=== PATIENT | female | born 1995 | race Native Hawaiian/Other Pacific Islander ===

== ENCOUNTER 2020-07-08 09:11 | Outpatient (REF) | payer MEDICAID, SELFPAY | END 2020-07-08 09:12 | disposition home or self-care (01) | LOC: HO.SCI 09:11 | DX: Z13.89 Encounter for screening for other disorder (principal) ==

== ENCOUNTER 2020-07-12 08:09 | Outpatient (REF) | payer MEDICAID, SELFPAY ==
--- NOTE | ~2020-07-12 | US_ITS ---
EXAMINATION: US DIAGNOSTIC ULTRASOUND BREAST, LEFT CLINICAL INFORMATION: Bilateral breast pain. COMPARISON: None at this time. Studies available from outside institution being sent for. TECHNIQUE: Ultrasound of the breast is performed with real-time mendieta scale imaging and color Doppler. FINDINGS: There is no focal suspicious finding. There is no solid mass, architectural abnormality, duct ectasia, or edema in the soft tissue planes. In the region of pain within the upper outer quadrant there is some waviness to the breast implant likely related to folds without definite rupture identified within the adjacent tissues. Results are provided to the patient at time of visit by the technologist. US/US breast LT limited IMPRESSION: No suspicious abnormality identified in region of pain. No definite implant rupture appreciated but with somewhat limited evaluation in regions due to probable folds. Will await outside studies for comparison before giving final recommendation. ASSESSMENT: BI-RADS 0: Incomplete - Need comparison to previous studies. RECOMMENDATION: Obtain outside studies. If outside studies cannot be obtained, then consideration of bilateral breast MRI could be done for better evaluation of breast implants.
--- NOTE | ~2020-07-12 | US_ITS ---
EXAMINATION: US DIAGNOSTIC ULTRASOUND BREAST, RIGHT CLINICAL INFORMATION: Retroareolar pain. COMPARISON: None at this time. Attempt to obtain outside studies. TECHNIQUE: Ultrasound of the breast is performed with real-time mendieta scale imaging and color Doppler. FINDINGS: There is no focal suspicious finding. There is no solid mass, architectural abnormality, duct ectasia, or edema in the soft tissue planes. There is some irregularity with question interruption versus fold within the breast implant. No definite extravasation or collection external to the capsule is identified. Results are provided to the patient at time of visit by the technologist. US/US breast RT limited IMPRESSION: No suspicious right breast mass associated with region of retroareolar pain. Some irregularity of the right breast implant which may be related to fold or small region of discontinuity. Will attempt to obtain outside studies for comparison. ASSESSMENT: BI-RADS 0: Incomplete - Need outside imaging for comparison. RECOMMENDATION: Obtain outside studies for comparison. If old studies cannot be obtained, then breast MRI could be considered for further evaluation of breast implants.
== END 2020-07-12 08:10 | disposition home or self-care (01) ==
LOC: HO.MAMMO 08:09
PROVIDERS: PCP Emergency Medicine; Visit Provider Emergency Medicine
DX: N64.4 Mastodynia (principal); T85.42XA Displacement of breast prosthesis and implant, initial encounter; Z98.82 Breast implant status
CPT/HCPCS: 76642

== ENCOUNTER 2020-09-10 23:37 | Inpatient (IN) | payer MEDICAID, SELFPAY ==
--- NOTE | ~2020-09-10 | CT_ITS ---
EXAMINATION: CT LUMBAR SPINE WITHOUT CONTRAST CT SACRUM WITHOUT CONTRAST CLINICAL INFORMATION: Fall with excruciating pain COMPARISON: None TECHNIQUE: Multidetector volumetric imaging of the lumbar spine and sacrum performed without IV contrast. Coronal and sagittal reformatted images are obtained and reviewed. This CT examination was performed using dose optimization techniques as appropriate, variously including the following: *Automated exposure control *Adjustment of mA and/or kV according to patient size (this includes techniques or standardized protocols for targeted exams where dose is matched to indication/reason for exam; i.e. extremities or head) *Use of iterative reconstruction technique DLP; 1264 mGy-cm FINDINGS: Lumbar vertebral body height and alignment is maintained. Disc spaces are maintained. No compression deformity. The posterior elements are well aligned. Evaluation of the sacrum/coccyx shows no fracture or cortical disruption. The sacroiliac joints are symmetric. The liver is unremarkable. The pancreas, spleen, adrenal glands, and kidneys are unremarkable. Anteverted uterus. No adnexal mass. No lymphadenopathy. Normal caliber aorta. The paraspinal musculature is unremarkable. No pelvic free fluid. CT/CT lumbar spine wo con IMPRESSION: No acute fracture or malalignment of the lumbar or sacral spine.
--- NOTE | ~2020-09-10 | CT_ITS ---
EXAMINATION: CT LUMBAR SPINE WITHOUT CONTRAST CT SACRUM WITHOUT CONTRAST CLINICAL INFORMATION: Fall with excruciating pain COMPARISON: None TECHNIQUE: Multidetector volumetric imaging of the lumbar spine and sacrum performed without IV contrast. Coronal and sagittal reformatted images are obtained and reviewed. This CT examination was performed using dose optimization techniques as appropriate, variously including the following: *Automated exposure control *Adjustment of mA and/or kV according to patient size (this includes techniques or standardized protocols for targeted exams where dose is matched to indication/reason for exam; i.e. extremities or head) *Use of iterative reconstruction technique DLP; 1264 mGy-cm FINDINGS: Lumbar vertebral body height and alignment is maintained. Disc spaces are maintained. No compression deformity. The posterior elements are well aligned. Evaluation of the sacrum/coccyx shows no fracture or cortical disruption. The sacroiliac joints are symmetric. The liver is unremarkable. The pancreas, spleen, adrenal glands, and kidneys are unremarkable. Anteverted uterus. No adnexal mass. No lymphadenopathy. Normal caliber aorta. The paraspinal musculature is unremarkable. No pelvic free fluid. CT/CT sacrum IMPRESSION: No acute fracture or malalignment of the lumbar or sacral spine.
[2020-09-11] VITALS (10 sets, daily range): BP systolic 100–120; BP diastolic 48–64; PULSE 61–83; RESP 14–17; TEMP 36.2–37; O2SAT 98–100; BMI 29.7
--- NOTE | 2020-09-11 00:24 | ED.FALL ---
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 She denies any loss continence of bowel or bladder and does describe some small amount numbness tingling to the left lower extremity and some pain to bilateral elbows but says that she has full range of motion. Related Data Allergies Allergy/AdvReac Type Severity Reaction Status Date / Time No Known Allergies Allergy Verified 09/11/20 00:27 Review of Systems Review of Systems: Pertinent positives and negatives as stated in HPI 10 point review of systems is otherwise negative. PMFSH Past Medical History Source: nursing notes reviewed Medical History No known health problems Surgical History History of appendectomy History of cholecystectomy Social History Social History Alcohol intake: never Smoking Status: Light tobacco smoker Use of substances other than those prescribed or required for medical reasons: No Advance Directives: No Patient : No Physical Exam Vital Signs: Vital Signs: Last Vital Signs Temp 98.6 F 09/11/20 00:12 Pulse 81 09/11/20 02:00 Resp 15 09/11/20 02:00 BP 120/56 L 09/11/20 02:00 Pulse Ox 98 09/11/20 00:12 Body Mass Index 29.7 VITAL SIGNS: Reviewed. GENERAL: Well developed, well nourished, in no acute distress. HEAD: Normocephalic/atraumatic EYES: PERRLA, EOMI OROPHARYNX: no oral lesions noted, posterior pharynx clear NECK: Supple, no adenopathy LUNGS: Normal breath sounds. No adventitious sounds or accessory muscle use. SpO2<98> CARDIOVASCULAR: Regular rate and rhythm without noted murmurs. ABDOMEN: Soft, non-tender, non-distended with bowel sounds. BACK: Sacral coccyx tenderness on palpation without observed ecchymosis MUSCULOSKELETAL: No tenderness, deformities, or effusions noted on gross inspection. NEUROLOGIC: Alert and oriented x 4. Strength and sensation to light touch were grossly intact x 4. Course Course Course Narrative: 25-year-old female with history and clinical presentation suggestive of contusion to sacral coccyx area will confirm negative and then perform CT scan due to patient's significant pain of 10/10. Patient was also provided with combination analgesics. Review of all investigations negative for any acute findings. The leukocytosis noted is likely reactive due to the injury. On re-evaluation patient did get good reduction of pain with the Toradol, however on slightest movement patient has severe pain. Review of the CT scan is negative for any acute fractures and clinical exam of lower extremity benign. I discussed this case with the inpatient hospitalist team and he is agreeable for admission for intractable pain. MDM - Fall Lab Data Result diagrams: 09/11/20 02:00 09/11/20 02:24 Labs: Lab Results 09/11/20 09/11/20 09/11/20 Range/Units 02:00 02:24 02:24 WBC 14.2 H (4.8-10.8) X10*3/uL RBC 4.93 (4.20-5.50) X10*6/uL Hgb 13.7 (12.0-16.0) g/dl Hct 41.4 (37-47) % MCV 84.0 (80-98) fL MCH 27.8 (27.0-33.0) pg MCHC 33.1 (31.0-35.0) g/dl RDW 13.7 (11.0-16.0) % Plt Count 233 (160-400) X10*3/uL MPV 10.8 (9.4-12.3) fL Immature Gran % (Auto) 0.5 H (0.0-0.4) % Neut % (Auto) 60.8 (45-73) % Lymph % (Auto) 31.6 (20-40) % Buchanan % (Auto) 5.4 (2-11) % Eos % (Auto) 1.3 (0-4) % Baso % (Auto) 0.4 (0-2) % Lymph # (Auto) 4.5 (1.2-4.9) X10*3/uL Buchanan # (Auto) 0.8 (0.1-1.2) X10*3/uL Eos # (Auto) 0.2 (0.0-0.4) X10*3/uL Baso # (Auto) 0.1 (0.0-0.2) X10*3/uL Abs Immat Gran (auto) 0.07 H (0.00-0.03) X10*3/uL Absolute Neuts (auto) 8.6 H (2.0-8.3) X10*3/uL Absolute Nucleated RBC 0.000 (0.0-0.012) X10*3/uL Nucleated RBC % (auto) 0.0 (0.0-0.2) /100WBC Sodium 139 (135-145) mmol/L Potassium 3.7 (3.3-5.1) mmol/L Chloride 105 (96-108) mmol/L Carbon Dioxide 25 (22-29) mmol/L Anion Gap 13 (12-20) BUN 23 H (9-16) mg/dL Creatinine 0.68 (0.5-1.4) mg/dL Estim Creat Clear Calc 131.9 Estimated GFR > 60 Random Glucose 121 H (60-115) mg/dL Calcium 9.0 (8.4-10.2) mg/dL Total Bilirubin 0.4 (0.0-1.0) mg/dL AST 17 (5-31) U/L ALT 22 (0-31) U/L Alkaline Phosphatase 49 (39-117) U/L Total Protein 6.6 (6.5-8.0) g/dL Albumin 4.0 (3.5-5.0) g/dL Beta HCG, Quant < 2 mIU/mL Discharge Plan Discharge Clinical Impression: Intractable back pain Patient Disposition: Admitted As Inpatient
[2020-09-11] MEDS: Acetaminophen 325 MG TABLET 975 MG PO (00:57)
[2020-09-11] MEDS: Ketorolac Tromethamine 15 MG/ML VIAL IM (00:58)
[2020-09-11 02:09] LABS: Basophils Absolute Auto 0.1 X10*3/uL (0.0-0.2); Basophils Percent Auto 0.4 % (0-2); Eosinophils Absolute Auto 0.2 X10*3/uL (0.0-0.4); Eosinophils Percent Auto 1.3 % (0-4); Hematocrit 41.4 % (37-47); Hemoglobin 13.7 g/dl (12.0-16.0); Imm Gran Abs Auto 0.07 X10*3/uL (0.00-0.03); Imm Gran Pct Auto 0.5 % (0.0-0.4); Lymphocytes Absolute Auto 4.5 X10*3/uL (1.2-4.9); Lymphocytes Percent Auto 31.6 % (20-40); Mean Corpuscular HGB Conc 33.1 g/dl (31.0-35.0); Mean Corpuscular Hemoglobin 27.8 pg (27.0-33.0); Mean Platelet Volume 10.8 fL (9.4-12.3); Monocytes Absolute Auto 0.8 X10*3/uL (0.1-1.2); Monocytes Percent Auto 5.4 % (2-11); Neutrophils Absolute Auto 8.6 X10*3/uL (2.0-8.3); Neutrophils Percent Auto 60.8 % (45-73); PLT CLUMP 1; Red Blood Count 4.93 X10*6/uL (4.20-5.50); Red Cell Distribution Width 13.7 % (11.0-16.0); SCAN SMEAR FLAG 1
[2020-09-11 02:10] LABS: MANUAL DIFF FLAG NO; Platelet Count 233 X10*3/uL (160-400); White Blood Count 14.2 X10*3/uL (4.8-10.8)
[2020-09-11 02:57] LABS: Alanine Aminotransferase 22 U/L (0-31); Alkaline Phosphatase 49 U/L (39-117); Anion Gap 13 (12-20); Aspartate Amino Transferase 17 U/L (5-31); Bilirubin Total 0.4 mg/dL (0.0-1.0); Blood Urea Nitrogen 23 mg/dL (9-16); Carbon Dioxide 25 mmol/L (22-29); Chloride 105 mmol/L (96-108); Creatinine Clr Calc Pharmacy 131.9; Estimated Glomerular Filt Rate > 60; Glucose Random 121 mg/dL (60-115); Potassium 3.7 mmol/L (3.3-5.1); Sodium 139 mmol/L (135-145); Total Protein 6.6 g/dL (6.5-8.0)
[2020-09-11 03:03] LABS: HCG Quantitative < 2 mIU/mL
--- NOTE | 2020-09-11 04:40 | PM.IMHP ---
History of Present Illness Date of Service: 09/11/20 Chief Complaint: Back pain 25-year-old female with no significant past medical history presented to the hospital with a chief complaint of fall. Patient reported [place] and subsequently she slipped and landed on her buttocks and fell off 6 steps. Denies any other lower. Denies any head strike. Denies any neck pain or headaches. Denies any blurry visions. Denies any numbness tingling. Denies any urinary retention or stool incontinence. Denies any seizure-like activity. Denies any loss of consciousness. Mentioned that her back pain is very severe and limiting her ambulation. Review of all other systems is negative except mentioned above ER course: Per ER team patient exam was nonfocal, CT of the sacrum and lumbar spine showed no acute fracture. Patient pain did not improve even after couple dose of IV pain medications. Decided to admit to the hospital for pain control. [facility] Medical History No known health problems Surgical History History of appendectomy History of cholecystectomy Social History Alcohol intake: never Smoking Status: Light tobacco smoker Use of substances other than those prescribed or required for medical reasons: No Advance Directives: No Patient : No Meds Allergies Allergy/AdvReac Type Severity Reaction Status Date / Time No Known Allergies Allergy Verified 09/11/20 00:27 Active Medications: Current Medications Generic Name Dose Route Start Last Admin Trade Name Freq PRN Reason Stop Dose Admin Acetaminophen 650 mg 09/11/20 04:13 Acetaminophen 325 Mg Tablet PO Q6H PRN Pain, Mild (Pain Scale 1-3) Hydromorphone HCl 0.5 mg 09/11/20 04:15 Hydromorphone Hcl 0.5 Mg/0.5 Ml Syringe SUBCUT Q6H PRN Pain, Severe (Pain Scale 7-10) Ketorolac Tromethamine 15 mg 09/11/20 04:15 Ketorolac Tromethamine 30 Mg/Ml Vial IVPUSH 09/16/20 04:14 Q6H PRN Pain, Mild (Pain Scale 1-3) Lidocaine 1 patch 09/11/20 09:00 Lidocaine 4 % Patch Adh..Patch TRANSDERMA DAILY [facility] Protocol Magnesium Hydroxide 30 ml 09/11/20 04:13 Milk Of Magnesia 30 Ml Oral.Susp PO DAILY PRN Constipation Senna 17.2 mg 09/11/20 04:13 Sennosides 8.6 Mg Tablet PO BEDTIME PRN Constipation Sodium Chloride 3 ml 09/11/20 08:00 0.9 % Sodium Chloride Flush 3 Ml Syringe IVFLUSH QSHIFT [facility] Physical Exam Vital Signs and Narrative: Vital Signs: Last Vital Signs Temp 98.6 F 09/11/20 00:12 Pulse 81 09/11/20 02:00 Resp 15 09/11/20 02:00 BP 120/56 L 09/11/20 02:00 Pulse Ox 98 09/11/20 00:12 Body Mass Index 29.7 Gen: Appears be in no acute distress HEENT: NCAT, Moist mucosa. Pulmonary: Vesicular breath sounds, fair air entry CVS: Normal S1-S2 Abdomen: BS+, Soft, Nontender Extremities: Warm well perfused Neuro: Alert and awake. Grossly nonfocal; unable to examine the spine because patient has severe pain when trying to sit up or lie prone Results Labs CBC and Chem 7: 09/11/20 02:00 09/11/20 02:24 Labs: Laboratory Results - last 24 hr 09/11/20 09/11/20 09/11/20 02:00 02:24 02:24 MCV 84.0 MCH 27.8 MCHC 33.1 RDW 13.7 Plt Count 233 MPV 10.8 Immature Gran % (Auto) 0.5 H Neut % (Auto) 60.8 Lymph % (Auto) 31.6 [place]racken % (Auto) 5.4 Eos % (Auto) 1.3 Baso % (Auto) 0.4 Lymph # (Auto) 4.5 [place] # (Auto) 0.8 Eos # (Auto) 0.2 Baso # (Auto) 0.1 Abs Immat Gran (auto) 0.07 H Absolute Neuts (auto) 8.6 H Absolute Nucleated RBC 0.000 Nucleated RBC % (auto) 0.0 Anion Gap 13 Estim Creat Clear Calc 131.9 Estimated GFR > 60 Random Glucose 121 H Calcium 9.0 Total Bilirubin 0.4 AST 17 ALT 22 Alkaline Phosphatase 49 Total Protein 6.6 Albumin 4.0 Beta HCG, Quant < 2 Imaging Radiologist's Impressions: Impressions CT Sacrum 09/11/20 03:10 IMPRESSION: No acute fracture or malalignment of the lumbar or sacral spine. Lumbar Spine CT 09/11/20 03:10 IMPRESSION: No acute fracture or malalignment of the lumbar or sacral spine. Assessment and Plan (1) Intractable back pain: Status: Acute 25-year-old female with no significant past medical history presented to the hospital with a chief complaint of fall. Subsequently started severe back pain. Admitted for pain control. Intractable back pain: Secondary to fall. Nonfocal exam. Pain control. Orthopedics consult. CT scan showed no evidence of fracture. PT/OT DVT prophylaxis: SCD boots Code status: Full code
[2020-09-11 05:04] LABS: COVID-19 Test Negative (Negative)
[2020-09-11] MEDS: HYDROmorphone HCl 0.5 MG/0.5 ML SYRINGE SUBCUT (06:08)
[2020-09-11 07:58] LABS: Glucose, Whole Blood 94 mg/dL (60-115)
[2020-09-11] MEDS: 0.9 % Sodium Chloride Flush 3 ML SYRINGE IVFLUSH ×2 (08:20→15:54)
[2020-09-11] MEDS: oxyCODONE HCl Immed Release 5 MG TABLET PO ×3 (08:20→20:13)
[2020-09-11] MEDS: Lidocaine 4 % Patch ADH..PATCH 1 PATCH TRANSDERMA (08:20)
[2020-09-11] MEDS: Ibuprofen 400 MG TABLET PO ×2 (08:20→14:29)
[2020-09-11 09:04] LABS: MANUAL DIFF FLAG NO
[2020-09-11 09:08] LABS: Basophils Percent Auto 0.4 % (0-2); Eosinophils Absolute Auto 0.2 X10*3/uL (0.0-0.4); Eosinophils Percent Auto 1.8 % (0-4); Hematocrit 40.6 % (37-47); Hemoglobin 13.3 g/dl (12.0-16.0); Imm Gran Abs Auto 0.02 X10*3/uL (0.00-0.03); Imm Gran Pct Auto 0.2 % (0.0-0.4); Lymphocytes Absolute Auto 3.2 X10*3/uL (1.2-4.9); Lymphocytes Percent Auto 33.5 % (20-40); Mean Corpuscular HGB Conc 32.8 g/dl (31.0-35.0); Mean Corpuscular Hemoglobin 27.7 pg (27.0-33.0); Mean Corpuscular Volume 84.6 fL (80-98); Mean Platelet Volume 10.8 fL (9.4-12.3); Monocytes Absolute Auto 0.5 X10*3/uL (0.1-1.2); Monocytes Percent Auto 5.5 % (2-11); Neutrophils Absolute Auto 5.6 X10*3/uL (2.0-8.3); Neutrophils Percent Auto 58.6 % (45-73); Platelet Count 244 X10*3/uL (160-400); Red Cell Distribution Width 13.8 % (11.0-16.0); White Blood Count 9.6 X10*3/uL (4.8-10.8)
[2020-09-11 09:27] LABS: Glucose Urine UA NEG (NEG); Leukocyte Esterase Urine NEG (NEG); Nitrite Urine NEG (NEG); Urine Blood NEG (NEG); Urine Ketones NEG (NEG); Urine Protein TRACE MG/DL (NEG-TRACE)
[2020-09-11 09:28] LABS: Appearance Urine HAZY; Color Urine YELLOW
[2020-09-11 09:44] LABS: Anion Gap 12 (12-20); Blood Urea Nitrogen 21 mg/dL (9-16); Carbon Dioxide 22 mmol/L (22-29); Chloride 106 mmol/L (96-108); Creatinine Clr Calc Pharmacy 144.7; Estimated Glomerular Filt Rate > 60; Glucose Random 91 mg/dL (60-115); Potassium 4.4 mmol/L (3.3-5.1); Sodium 136 mmol/L (135-145)
--- NOTE | 2020-09-11 10:00 | MHC.CM.PN ---
PATIENT LIVES WITH HER BROTHER. SHE IS INDEPENDENT WITH HER ADLS. NO DME OR VNA SERVICES. HER PCP IS AT [facility] (DR SUJEY WEBB) UPDATE MADE TO CASE MANAGEMENT OFFICE PATIENT EDUCATED ON IMPORTANCE OF HCP DOCUMENTATION. SHE IS CONSIDERING THIS. CASE MANAGEMENT CARD LEFT BEDSIDE IF SHE DOES DECIDE TO DO SO.
[2020-09-11] MEDS: Ketorolac Tromethamine 15 MG/ML VIAL IVPUSH ×3 (10:48→23:51)
--- NOTE | 2020-09-11 11:01 | PM.EVENT ---
Event Note Date of Service: 09/11/20 Event Note: admitted early this morning due to intractable back pain after fall patient continued to have lower back discomfort, therefore continue treatment with NSAIDs, Tylenol and narcotic medication Place patient on ibuprofen/iv toradol and oxycodone by mouth will discontinue Dilaudid, will cancel orthopedic consultation since patient has no acute fractures of coccyx or sacral and likely has bony contusion, patient has been instructed to ambulate as tolerated possible discharge in next 24 hours.
--- NOTE | 2020-09-11 15:58 | PC.NURSE ---
Patient resting,,alert and oriented,lungs sounds clear,reports pain in lower back,partially relieved with repositioning
--- NOTE | 2020-09-11 17:54 | PC.NURSE ---
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
[2020-09-12] VITALS: BP 107/64; PULSE 75; RESP 16; TEMP 36.7; O2SAT 98
[2020-09-12] MEDS: 0.9 % Sodium Chloride Flush 3 ML SYRINGE IVFLUSH (01:07)
[2020-09-12 03:19] VITALS: BP 118/62; PULSE 70; RESP 18; TEMP 36.9; O2SAT 99
[2020-09-12 07:28] VITALS: BP 113/52; PULSE 67; RESP 18; TEMP 36.3; O2SAT 99
--- NOTE | 2020-09-12 10:01 | PM.DS ---
DS: Providers Provider Date of Service: 09/12/20 Date of admission: 09/11/20 04:07 Primary care physician: Valery Vieira MD DS: Diagnosis Discharge Diagnosis (1) Intractable back pain: Status: Acute DS: Medications Discharge Medications Home Medications: Home Medications Medication Instructions Recorded Confirmed ondansetron HCl [Zofran] 4 mg PO Q8H PRN 09/11/20 09/11/20 Previous Rx's Medication Instructions Recorded acetaminophen 650 mg PO Q6H PRN #30 tab 09/12/20 ibuprofen 400 mg PO Q6H PRN #30 tab 09/12/20 oxycodone 5 mg PO Q6H PRN #12 tab 09/12/20 DS: Summary Hospital Course Hospital Course: History of presenting illness Chief Complaint: Back pain 25-year-old female with no significant past medical history presented to the hospital with a chief complaint of fall. Patient [place] and subsequently she slipped and landed on her buttocks and fell off 6 steps. Denies any other lower. Denies any head strike. Denies any neck pain or headaches. Denies any blurry visions. Denies any numbness tingling. Denies any urinary retention or stool incontinence. Denies any seizure-like activity. Denies any loss of consciousness. Mentioned that her back pain is very severe and limiting her ambulation. Review of all other systems is negative except mentioned above ER course: Per ER team patient exam was nonfocal, CT of the sacrum and lumbar spine showed no acute fracture. Patient pain did not improve even after couple dose of IV pain medications. Decided to admit to the hospital for pain control. Hospital course Intractable lower back pain 27-year-old female patient admitted due to intractable lower back pain after she fell off 6 steps and landed on her buttocks, without head injury, CT of sacrum and lumbar spine showed no acute fractures patient treated with Tylenol, Motrin and oxycodone, today her pain is better she is able to ambulate therefore being discharged home on NSAIDs and Tylenol and a small supply of oxycodone is given for severe pain patient has been instructed to drink plenty of fluids to avoid constipation, returned to check with any worsening symptoms. l Time Spent with Patient Time attestation: Total time spent providing and/or coordinating discharge services: Discharge coordination time: Greater than 30 minutes Quality: Stroke Does the patient have a stroke diagnosis?: No Physical Exam Vital Signs: Vital Signs: Last Vital Signs Temp 97.4 F 09/12/20 07:28 Pulse 67 09/12/20 07:28 Resp 18 09/12/20 07:28 BP 113/52 L 09/12/20 07:28 Pulse Ox 99 09/12/20 07:28 Body Mass Index 29.7 General patient resting comfortably in no acute distress. Neck no JVD. CVS regular rate rhythm, Respiratory lungs clear to auscultation, no respiratory distress, no wheeze, no rhonchi. Gastrointestinal abdomen soft, nontender, bowel sounds audible Extremities no edema. Lower back no bruise, no paravertebral muscle spasm. Neuro nonfocal Skin no rash Discharge Plan Discharge Patient Disposition: Home, Self-Care Discharge Diagnosis: Intractable lower back pain Referrals: Physician,Unknown [Physician] - 1 Week Discharge Medications: New acetaminophen 325 mg Tablet 650 mg PO Q6H PRN (Reason: Pain, Mild (Pain Scale 1-3)) Qty: 30 RF: 0 ibuprofen 400 mg Tablet 400 mg PO Q6H PRN (Reason: Pain, Moderate (Pain Scale 4-6) Qty: 30 RF: 0 oxycodone 5 mg Tablet 5 mg PO Q6H PRN (Reason: Pain, Severe (Pain Scale 7-10)) Qty: 12 RF: 0 Continued ondansetron HCl [Zofran] 4 mg Tablet 4 mg PO Q8H PRN (Reason: Nausea) RF: 0 Discharge Orders: Discharge Order (Routine); Ordered 09/12/20 Ordered By: Jennifer Yap Diet: advance to usual diet Activity on Discharge: As tolerated Stand Alone Forms: Patient Portal Discharge page Care Plan Goals: Ambulate as tolerated use ice to lower back as needed, take Tylenol and Motrin for moderate pain and use oxycodone for severe pain as needed for next is 1-2 days only, drink plenty of fluids and take high-fiber diet to avoid constipation Health Concerns: Accidental fall with lower back pain due to bony contusion, x-rays showed no fracture Plan of Treatment: Outpatient follow-up with PCP Assessment: As above
--- NOTE | 2020-09-12 10:05 | MHC.CM.PN ---
PATIENT IS DISCHARGED HOME WITH NO NEED FOR SERVICES. FAMILY TO TRANSPORT. PATIENT DENIES NEED FOR HCP AT THIS TIME.
[2020-09-12] MEDS: Lidocaine 4 % Patch ADH..PATCH 1 PATCH TRANSDERMA (11:40)
[2020-09-12] MEDS: Ibuprofen 400 MG TABLET PO (11:43)
== END 2020-09-12 13:29 | disposition home or self-care (01) | DRG 347 ==
LOC: HO.ED 09-11 04:13 → HO.EDOVER 09-11 04:22 → HO.S3 09-11 05:13 → HO.OBSV 09-11 10:33 → HO.S3 09-11 10:41
PROVIDERS: Admitting Provider Hospitalist; Emergency Provider Student in an Organized Health Care Education/Training Program; PCP Family Medicine; Visit Provider Hospitalist
DX: M54.9 Dorsalgia, unspecified (principal); F17.210 Nicotine dependence, cigarettes, uncomplicated; Z20.822 Contact with and (suspected) exposure to COVID-19; Z71.6 Tobacco abuse counseling; Z91.81 History of falling; Z79.899 Other long term (current) drug therapy
CPT/HCPCS: 36415; 72131; 72192; 80048; 80053; 81003; 82947; 84702; 85025; 87635; 96372; 97162; 97166; 97535; 99218; 99285; J1170; J1885

== ENCOUNTER 2020-10-28 13:51 | Emergency (ER) | payer MEDICAID, SELFPAY ==
--- NOTE | ~2020-10-28 | CT_ITS ---
EXAMINATION: CT INNER EAR TEMPORAL BONES with contrast CLINICAL INFORMATION: Left-sided pain. Otitis media. COMPARISON: None available. TECHNIQUE: Multidetector helical imaging was performed in the axial plane of the temporal bones following the administration of 50 mL Omnipaque 350 intravenous contrast. Generation of oblique axial and coronal reformatted projections. This CT examination was performed using dose optimization techniques as appropriate, variously including the following: *Automated exposure control. *Adjustment of mA and/or kV according to patient size (this includes techniques or standardized protocols for targeted exams where dose is matched to indication/reason for exam; i.e. extremities or head). *Use of iterative reconstruction technique. DLP: 316 mGy-cm FINDINGS: Right Temporal Bone: The external auditory canal is normal in appearance. The tympanic membrane is normal. The ossicular chain is intact. No soft tissue abnormality within the middle ear. The mastoid antrum and additional mastoid air cells remain well aerated. The sigmoid plate is intact. No abnormal enhancing lesions or vascular structures within the middle ear. Normal ossification of the bony labyrinth. Normal appearance of the cochlea, vestibule, and semicircular canals. The vestibular aqueduct is normal. Normal appearance of the labyrinthine, geniculate, tympanic, and mastoid segments of the facial nerve. Normal appearance of the internal auditory canal. The cochlear aperture is normal. Normal appearance of the carotid canal and jugular foramen. Left Temporal Bone: The external auditory canal is normal in appearance. The tympanic membrane is normal. The ossicular chain is intact. No soft tissue abnormality within the middle ear. The mastoid antrum and additional mastoid air cells remain well aerated. The sigmoid plate is intact. No abnormal enhancing lesions or vascular structures within the middle ear. Normal ossification of the bony labyrinth. Normal appearance of the cochlea, vestibule, and semicircular canals. The vestibular aqueduct is normal. Normal appearance of the labyrinthine, geniculate, tympanic, and mastoid segments of the facial nerve. Normal appearance of the internal auditory canal. The cochlear aperture is normal. Normal appearance of the carotid canal and jugular foramen. Other: The temporomandibular joints are normal in appearance bilaterally. No demonstrated intracranial abnormalities of the visualized skull base. No significant abnormalities of the visualized orbits. The visualized paranasal sinuses are clear. No abnormal contours of the visualized pharynx. CT/CT mastoid IMPRESSION: Normal CT of the temporal bones.
[2020-10-28 13:58] VITALS: BP 127/70; PULSE 75; RESP 18; TEMP 36.8; O2SAT 95; BMI 32.8
--- NOTE | 2020-10-28 15:01 | ED.EAR ---
HPI - Ear Problem General Chief complaint: Ear Problems Stated complaint: Ear ache Time Seen by Provider: 10/28/20 14:56 Source: patient Mode of arrival: ambulatory Limitations: no limitations History of Present Illness HPI Narrative: 25-year-old female with nonsignificant past medical history presents the emergency department with left ear/ neck pain. Patient states she noticed pain 2-3 days ago that is progressively got worse states the pain is now into the left neck left had left face states she feels like it is triggered one of her migraines. Denies any numbness or tingling. Denies any chest pain or shortness of breath. States she did have a fever yesterday and took medication for it denies cough or changes in urination. Related Data Home Medications Medication Instructions Recorded Confirmed ondansetron HCl [Zofran] 4 mg PO Q8H PRN 09/11/20 09/11/20 Previous Rx's Medication Instructions Recorded acetaminophen 650 mg PO Q6H PRN #30 tab 09/12/20 ibuprofen 400 mg PO Q6H PRN #30 tab 09/12/20 oxycodone 5 mg PO Q6H PRN #12 tab 09/12/20 amoxicillin 500 mg PO QID 10 Days #40 cap 10/28/20 Allergies Allergy/AdvReac Type Severity Reaction Status Date / Time No Known Allergies Allergy Verified 10/28/20 13:58 Review of Systems Review of Systems: Constitutional : No Weight loss, + Fever, No Chills, No Night Sweats, No Fatigue, No Malaise ENT/Mouth : No Hearing loss, + Ear Pain, No Nasal Congestion, No Sinus Pain, No Hoarseness, No sore throat, No Rhinorrhea, No Swallowing Difficulty Eyes: No Eye Pain, No Swelling, No Redness, No Foreign Body, No Discharge, No Vision Changes Cardiovascular : No Chest Pain, No SOB, No Dyspnea on Exertion, No Orthopnea, No Edema, No Palpitations Respiratory : No Cough, No Sputum, No Wheezing, No Smoke Exposure, No Dyspnea Gastrointestinal : No Nausea, No Vomiting, No Diarrhea, No Constipation, No abdominal Pain, No Hematochezia, No Melena Genitourinary : no irregular bleeding, No Dysuria, No Urinary Frequency, No Hematuria, No Urinary Incontinence, No Urgency, No Flank Pain, No Urinary Flow Changes, No Hesitancy Musculoskeletal : No joint pain, No Myalgias, No Joint Swelling Skin : No Skin Lesions, No rash Neuro : No Weakness, No Numbness, No Paresthesias, No Loss of Consciousness, No Dizziness, + Headache Psych : No Anxiety/Panic, No Depression, No SI/HI/AH/VH, No Social Issues, Heme/Lymph: No Bruising, No Bleeding,No Lymphadenopathy Endocrine : No Polyuria, No Polydipsia, No Temperature Intolerance [facility] Past Medical History Attestation statement: The following information was validated with the patient. Source: old records reviewed and obtained from family Surgical History History of appendectomy History of cholecystectomy Social History Social History Alcohol intake: never Second Hand Smoke Exposure: No Advance Directives: No Advance Directives Information Provided: No Patient : No service: No Current occupational status: unemployed Physical Exam Vital Signs: Vital Signs: Last Vital Signs Temp 98.3 F 10/28/20 13:58 Pulse 75 10/28/20 13:58 Resp 18 10/28/20 13:58 BP 127/70 10/28/20 13:58 Pulse Ox 95 10/28/20 13:58 Body Mass Index 32.8 vital signs have been reviewed as normal and appeared to be correct. Blood pressure normal. Heart rate normal. Respiration rate normal. Temperature normal. Oxygen saturation normal. Appearance: Alert. Oriented X3. Mild acute distress. Head: Normal external exam. Normocephalic. Atraumatic. No Galindo signs noted. No raccoon eyes noted Eyes: Conjunctiva and sclera normal. ENT: EAC normal. Moist mucous membranes. No drooling noted. No muffled voice noted. Patient with purulence and bulging of left TM no perforation noted. Significant tenderness to palpation of the left mastoid region as well as left lateral anterior neck mild lymphadenopathy noted. Normal right TM Neck: Normal inspection. Neck supple. FROM. No meningeal signs. CVS: Pulses normal throughout. Respiratory: No respiratory distress. Painless inspiration. No accessory muscle usage noted Abdomen: No visible injury noted. Back: Full range of motion noted. Skin: Skin warm and dry. Normal skin color. Normal skin turgor. Extremities: No lower extremity edema. Extremities exhibit normal range of motion. Neuro: Oriented X 3. No motor deficit. No sensory deficit. Course Course Course Narrative: Patient's CT without evidence of acute mastoiditis will discharge home with oral antibiotics for otitis media and close outpatient follow-up patient comfortable with this plan MDM - Ear MDM Narrative Medical decision making narrative: patient's vital signs are stable and she is afebrile patient presenting to the ED with left ear pain times 2-3 days patient with evidence of acute otitis media without perforation on exam however also has significant left mastoid tenderness concerning for early mastoiditis. Will obtain CT scan of the temporal bone looking for evidence of such. No need for blood work at this time that would not aid in patient's diagnosis. Will continue to monitor and reassess pending the above. Of note no signs of nuchal rigidity or midline C-spine tenderness no acute concern for meningitis cervical fracture or vertebral/ carotid dissection. Will continue to monitor Discharge Plan Discharge Clinical Impression: Otitis media Qualifiers: Otitis media type: suppurative Chronicity: acute Laterality: left Recurrence: non-recurrent Spontaneous tympanic membrane rupture: without spontaneous rupture Qualified Code(s): H66.002 - Acute suppurative otitis media without spontaneous rupture of ear drum, left ear Patient Disposition: Home, Self-Care Instructions: Ear Infection (ED) Additional Instructions: your seen in the emergency department today for left-sided head/ ear pain your found to have an ear infection will be treated with antibiotics. A CT scan was done to make sure there was no bone infection and that was normal. Prescriptions: New amoxicillin 500 mg capsule 500 mg PO QID 10 Days Qty: 40 RF: 0 No Action ondansetron HCl [Zofran] 4 mg Tablet 4 mg PO Q8H PRN (Reason: Nausea) RF: 0 acetaminophen 325 mg Tablet 650 mg PO Q6H PRN (Reason: Pain, Mild (Pain Scale 1-3)) Qty: 30 RF: 0 ibuprofen 400 mg Tablet 400 mg PO Q6H PRN (Reason: Pain, Moderate (Pain Scale 4-6) Qty: 30 RF: 0 oxycodone 5 mg Tablet 5 mg PO Q6H PRN (Reason: Pain, Severe (Pain Scale 7-10)) Qty: 12 RF: 0 Referrals: [facility] [Primary Care Provider] - 2 days Interventions: ED Discharge Assessment Last Done: 10/28/20 18:10 Discharge Date/Time: 10/28/20 18:12 Print Language: Portuguese
[2020-10-28] MEDS: iohexoL 350 MG/ML 100 ML INFUS..BTL IV (15:58)
[2020-10-28] MEDS: Amoxicillin 500 MG CAPSULE PO (18:07)
== END 2020-10-28 18:12 | disposition home or self-care (01) ==
PROVIDERS: Emergency Provider Emergency Medicine
DX: H66.002 Acute suppurative otitis media without spontaneous rupture of ear drum, left ear (principal); H92.02 Otalgia, left ear; M54.2 Cervicalgia; Z79.899 Other long term (current) drug therapy
CPT/HCPCS: 70481; 99283; Q9967

== ENCOUNTER 2020-11-08 04:06 | Emergency (ER) | payer MEDICAID, SELFPAY ==
[2020-11-08 04:18] VITALS: BP 116/65; PULSE 65; RESP 18; TEMP 36.7; O2SAT 98; BMI 31.6
--- NOTE | 2020-11-08 04:31 | ED_ITS ---
HPI - Abdominal Pain General Chief Complaint: Abdominal Pain Stated Complaint: abd pain, migraine Time Seen by Provider: 11/08/20 04:24 Source: patient Mode of arrival: ambulatory Limitations: no limitations History of Present Illness HPI narrative: Patient comes emergency room complaining 3 days of a migraine headache, worse on the left side. Patient states she has been taking Excedrin with no relief. Patient complaining of nausea and vomiting, no abdominal pain, no diarrhea. 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 Patient denies visual changes Related Data Home Medications Medication Instructions Recorded Confirmed ondansetron HCl [Zofran] 4 mg PO Q8H PRN 09/11/20 09/11/20 Previous Rx's Medication Instructions Recorded acetaminophen 650 mg PO Q6H PRN #30 tab 09/12/20 ibuprofen 400 mg PO Q6H PRN #30 tab 09/12/20 oxycodone 5 mg PO Q6H PRN #12 tab 09/12/20 amoxicillin 500 mg PO QID 10 Days #40 cap 10/28/20 Allergies Allergy/AdvReac Type Severity Reaction Status Date / Time No Known Allergies Allergy Verified 10/28/20 13:58 Review of Systems Review of Systems Constitutional : No Weight loss, No Fever, No Chills, No Night Sweats, No Fatigue, No Malaise ENT/Mouth : No Hearing loss, No Ear Pain, No Nasal Congestion, No Sinus Pain, No Hoarseness, No sore throat, No Rhinorrhea, No Swallowing Difficulty Eyes: No Eye Pain, No Swelling, No Redness, No Foreign Body, No Discharge, No Vision Changes Cardiovascular : No Chest Pain, No SOB, No Dyspnea on Exertion, No Orthopnea, No Edema, No Palpitations Respiratory : No Cough, No Sputum, No Wheezing, No Smoke Exposure, No Dyspnea Gastrointestinal : Complaining of nausea and vomiting, No Diarrhea, No Constipation, No abdominal Pain, No Hematochezia, No Melena Genitourinary : no irregular bleeding, No Dysuria, No Urinary Frequency, No Hematuria, No Urinary Incontinence, No Urgency, No Flank Pain, No Urinary Flow Changes, No Hesitancy Musculoskeletal : No joint pain, No Myalgias, No Joint Swelling Skin : No Skin Lesions, No rash Neuro : No Weakness, No Numbness, No Paresthesias, No Loss of Consciousness, No Dizziness, complaining of a migraine headache, worse on the left side Psych : No Anxiety/Panic, No Depression, No SI/HI/AH/VH, No Social Issues, Heme/Lymph: No Bruising, No Bleeding,No Lymphadenopathy Endocrine : No Polyuria, No Polydipsia, No Temperature Intolerance Physical Exam Vital Signs: Vital Signs: Last Vital Signs Temp 98.0 F 11/08/20 04:18 Pulse 65 11/08/20 04:18 Resp 18 11/08/20 04:18 BP 116/65 11/08/20 04:18 Pulse Ox 98 11/08/20 04:18 Body Mass Index 31.6 Appearance: Alert. Oriented X3. No acute distress. Eyes: Pupils equal, round and reactive to light. Seems to have mild photophobia ENT: Pharynx normal. Neck: Normal inspection. Neck supple. No lymph nodes noted. No crepitus CVS: Normal heart rate and rhythm. Pulses normal. Normal S1 and S2 Respiratory: No respiratory distress. Breath sounds normal. No Wheezing. No rales Abdomen: Soft and nontender. No rigidity. No distention. good BS x4 Skin: Skin warm and dry. Normal skin color. Normal skin turgor. Extremities: No lower extremity edema. No Lacerations. No Rash Neuro: Oriented X 3. No motor deficit. No sensory deficit. Moving all extermities. No slurred speech. Course Course Course Narrative: Patient overall feeling better. States the headache improved, still a bit nauseous but not vomiting. I discussed with the patient that her hCG level came back 11, which may represent a very early . Patient instructed to follow-up with her primary care physician or her merchant banker to repeat beta-hCG levels. MDM - Abdominal Pain Lab Data Result diagrams: 11/08/20 04:42 11/08/20 04:42 Labs: Lab Results 11/08/20 11/08/20 Range/Units 04:42 04:42 WBC 12.5 H (4.8-10.8) X10*3/uL RBC 4.62 (4.20-5.50) X10*6/uL Hgb 13.0 (12.0-16.0) g/dl Hct 39.1 (37-47) % MCV 84.6 (80-98) fL MCH 28.1 (27.0-33.0) pg MCHC 33.2 (31.0-35.0) g/dl RDW 13.4 (11.0-16.0) % Plt Count 254 (160-400) X10*3/uL MPV 10.4 (9.4-12.3) fL Immature Gran % (Auto) 0.4 (0.0-0.4) % Neut % (Auto) 57.7 (45-73) % Lymph % (Auto) 35.7 (20-40) % Dickens % (Auto) 5.0 (2-11) % Eos % (Auto) 1.0 (0-4) % Baso % (Auto) 0.2 (0-2) % Lymph # (Auto) 4.5 (1.2-4.9) X10*3/uL Dickens # (Auto) 0.6 (0.1-1.2) X10*3/uL Eos # (Auto) 0.1 (0.0-0.4) X10*3/uL Baso # (Auto) 0.0 (0.0-0.2) X10*3/uL Abs Immat Gran (auto) 0.05 H (0.00-0.03) X10*3/uL Absolute Neuts (auto) 7.2 (2.0-8.3) X10*3/uL Absolute Nucleated RBC 0.000 (0.0-0.012) X10*3/uL Nucleated RBC % (auto) 0.0 (0.0-0.2) /100WBC Sodium 138 (135-145) mmol/L Potassium 4.0 (3.3-5.1) mmol/L Chloride 107 (96-108) mmol/L Carbon Dioxide 20 L (22-29) mmol/L Anion Gap 15 (12-20) BUN 21 H (9-16) mg/dL Creatinine 0.68 (0.5-1.4) mg/dL Estim Creat Clear Calc 135.9 Estimated GFR > 60 Random Glucose 79 (60-115) mg/dL Calcium 9.4 (8.4-10.2) mg/dL Total Bilirubin 0.5 (0.0-1.0) mg/dL Direct Bilirubin 0.2 (0.0-0.5) mg/dL AST 19 (5-31) U/L ALT 18 (0-31) U/L Alkaline Phosphatase 63 D (39-117) U/L Total Protein 7.1 (6.5-8.0) g/dL Albumin 4.1 (3.5-5.0) g/dL Beta HCG, Quant 11 mIU/mL Discharge Plan Discharge Clinical Impression: Elevated level of quantitative hCG for gestational age in early Migraine Qualifiers: Migraine type: unspecified Intractability: not intractable Patient Disposition: Home, Self-Care Instructions: Migraine Headache (ED) Additional Instructions: Please follow-up with your primary care physician or your OBGYN. The hormone level is slightly elevated, which could indicate an early . Avoid taking Motrin/Aleve /Excedrin for headache, only use Tylenol. Prescriptions: No Action ondansetron HCl [Zofran] 4 mg Tablet 4 mg PO Q8H PRN (Reason: Nausea) RF: 0 acetaminophen 325 mg Tablet 650 mg PO Q6H PRN (Reason: Pain, Mild (Pain Scale 1-3)) Qty: 30 RF: 0 ibuprofen 400 mg Tablet 400 mg PO Q6H PRN (Reason: Pain, Moderate (Pain Scale 4-6) Qty: 30 RF: 0 oxycodone 5 mg Tablet 5 mg PO Q6H PRN (Reason: Pain, Severe (Pain Scale 7-10)) Qty: 12 RF: 0 amoxicillin 500 mg capsule 500 mg PO QID 10 Days Qty: 40 RF: 0 PMFSH Past Medical History Surgical History History of appendectomy History of cholecystectomy Social History Social History Alcohol intake: never Second Hand Smoke Exposure: No Advance Directives: No Advance Directives Information Provided: No Patient : No service: No Current occupational status: unemployed
--- NOTE | 2020-11-08 04:33 | PC.NURSE ---
Pt ambulating to the bathroom with a steady gait to provide UA.
[2020-11-08] MEDS: ondansetron HCL 4 MG/2 ML VIAL IVPUSH (04:51)
[2020-11-08] MEDS: Ketorolac Tromethamine 30 MG/ML VIAL IVPUSH (04:51)
[2020-11-08] MEDS: 0.9 % Sodium Chloride 1,000 ML 999 ML IVCONT (04:51)
[2020-11-08] MEDS: Metoclopramide HCl 10 MG/2 ML VIAL IVPUSH (04:51)
[2020-11-08 04:54] LABS: Basophils Percent Auto 0.2 % (0-2); Eosinophils Absolute Auto 0.1 X10*3/uL (0.0-0.4); Hematocrit 39.1 % (37-47); Imm Gran Abs Auto 0.05 X10*3/uL (0.00-0.03); Imm Gran Pct Auto 0.4 % (0.0-0.4); Lymphocytes Absolute Auto 4.5 X10*3/uL (1.2-4.9); Lymphocytes Percent Auto 35.7 % (20-40); MANUAL DIFF FLAG NO; Mean Corpuscular HGB Conc 33.2 g/dl (31.0-35.0); Mean Corpuscular Hemoglobin 28.1 pg (27.0-33.0); Mean Corpuscular Volume 84.6 fL (80-98); Mean Platelet Volume 10.4 fL (9.4-12.3); Monocytes Absolute Auto 0.6 X10*3/uL (0.1-1.2); Neutrophils Absolute Auto 7.2 X10*3/uL (2.0-8.3); Neutrophils Percent Auto 57.7 % (45-73); Platelet Count 254 X10*3/uL (160-400); Red Blood Count 4.62 X10*6/uL (4.20-5.50); Red Cell Distribution Width 13.4 % (11.0-16.0); White Blood Count 12.5 X10*3/uL (4.8-10.8)
--- NOTE | 2020-11-08 04:55 | PC.NURSE ---
IV established, labs obtained, pt medicated per JUN. While this RN was at bedside attempting to accomplish tasks, pt was on her cell phone, watching videos, constantly needing to be redirected so this RN could obtain labs and medicate per MAR. Continue to monitor.
[2020-11-08 05:38] LABS: Alanine Aminotransferase 18 U/L (0-31); Albumin Level 4.1 g/dL (3.5-5.0); Alkaline Phosphatase 63 U/L (39-117); Anion Gap 15 (12-20); Aspartate Amino Transferase 19 U/L (5-31); Bilirubin Direct 0.2 mg/dL (0.0-0.5); Bilirubin Total 0.5 mg/dL (0.0-1.0); Blood Urea Nitrogen 21 mg/dL (9-16); Calcium 9.4 mg/dL (8.4-10.2); Carbon Dioxide 20 mmol/L (22-29); Chloride 107 mmol/L (96-108); Creatinine Clr Calc Pharmacy 135.9; Estimated Glomerular Filt Rate > 60; Glucose Random 79 mg/dL (60-115); Sodium 138 mmol/L (135-145); Total Protein 7.1 g/dL (6.5-8.0)
[2020-11-08 05:43] LABS: HCG Quantitative 11 mIU/mL
[2020-11-08 06:18] VITALS: BP 111/57; PULSE 82; RESP 16; O2SAT 100
[2020-11-08] MEDS: Acetaminophen 325 MG TABLET 650 MG PO (06:24)
== END 2020-11-08 06:42 | disposition home or self-care (01) ==
PROVIDERS: Emergency Provider Emergency Medicine
DX: O26.91 Pregnancy related conditions, unspecified, first trimester (principal); G43.909 Migraine, unspecified, not intractable, without status migrainosus; R10.9 Unspecified abdominal pain; Z3A.00 Weeks of gestation of pregnancy not specified; Z79.899 Other long term (current) drug therapy
CPT/HCPCS: 36415; 80048; 80076; 84702; 85025; 96365; 96375; 99284; J1885; J2405; J2765

== ENCOUNTER 2020-11-15 02:08 | Emergency (ER) | payer MEDICAID, SELFPAY ==
--- NOTE | ~2020-11-15 | US_ITS ---
EXAMINATION: OBSTETRIC ULTRASOUND - FIRST TRIMESTER CLINICAL INFORMATION: Positive hCG. Cramping without bleeding. Last menstrual period 10/12/2020. Gestational age by LMP: 4 weeks, 6 days. COMPARISON: None TECHNIQUE: Transabdominal and transvaginal imaging of the uterus was performed utilizing mendieta scale and color doppler technique. FINDINGS: Uterus is normal in size and configuration. The endometrium shows a trilaminar appearance measuring 1.5 cm. No intrauterine gestational sac is identified. Ovaries are normal in size and appearance measuring 2.8 x 2.8 x 1.7 cm on the right and 3.3 x 3.0 x 3.0 cm on the left. There is a 1.6 x 1.2 x 1.0 cm cyst within the left ovary. No associated peripheral hypervascularity to suggest that this represents an ovarian ectopic. No adnexal abnormalities. No free fluid. US/US OB <= 14 wk fetus add gest IMPRESSION: No intrauterine is identified. No evidence of ectopic .
--- NOTE | ~2020-11-15 | US_ITS ---
EXAMINATION: OBSTETRIC ULTRASOUND - FIRST TRIMESTER CLINICAL INFORMATION: Positive hCG. Cramping without bleeding. Last menstrual period 10/12/2020. Gestational age by LMP: 4 weeks, 6 days. COMPARISON: None TECHNIQUE: Transabdominal and transvaginal imaging of the uterus was performed utilizing mendieta scale and color doppler technique. FINDINGS: Uterus is normal in size and configuration. The endometrium shows a trilaminar appearance measuring 1.5 cm. No intrauterine gestational sac is identified. Ovaries are normal in size and appearance measuring 2.8 x 2.8 x 1.7 cm on the right and 3.3 x 3.0 x 3.0 cm on the left. There is a 1.6 x 1.2 x 1.0 cm cyst within the left ovary. No associated peripheral hypervascularity to suggest that this represents an ovarian ectopic. No adnexal abnormalities. No free fluid. US/US OB transvaginal IMPRESSION: No intrauterine is identified. No evidence of ectopic .
[2020-11-15 02:23] VITALS: BP 132/71; PULSE 74; RESP 18; TEMP 37.1; O2SAT 100; BMI 33.3
--- NOTE | 2020-11-15 02:45 | ED_ITS ---
HPI - Skin/Abscess/Foreign Bdy General Chief complaint: Skin/Abscess/Foreign Body Stated complaint: abd pain/rash () Time Seen by Provider: 11/15/20 02:45 Source: patient and aerospace medicine physician Mode of arrival: ambulatory History of Present Illness HPI narrative: 25-year-old female who presents with 2 weeks of rash that is coming and going without related fevers, chills, but states that she does going to the park and hiking and resolves with taking Benadryl. In addition patient was recently diagnosed with and now presents with lower abdominal discomfort without urinary pain/burning/frequency but otherwise denies vaginal b leeding/nausea/vomiting/diarrhea. Related Data Home Medications Medication Instructions Recorded Confirmed ondansetron HCl 4 mg tablet 4 mg PO Q8H PRN 09/11/20 09/11/20 (Zofran) Previous Rx's Medication Instructions Recorded acetaminophen 325 mg tablet 650 mg PO Q6H PRN #30 tab 09/12/20 ibuprofen 400 mg tablet 400 mg PO Q6H PRN #30 tab 09/12/20 oxycodone 5 mg tablet 5 mg PO Q6H PRN #12 tab 09/12/20 amoxicillin 500 mg capsule 500 mg PO QID 10 Days #40 cap 10/28/20 Allergies Allergy/AdvReac Type Severity Reaction Status Date / Time No Known Allergies Allergy Verified 11/15/20 02:23 Review of Systems Review of Systems: Pertinent positives and negatives as stated in HPI 10 point review of systems otherwise negative. [facility] Past Medical History Source: nursing notes reviewed Surgical History History of appendectomy History of cholecystectomy Social History Social History Alcohol intake: never Patient Tobacco Use Status: Never used Tobacco Smoked in Last 30 Days: No Second Hand Smoke Exposure: No Use of substances other than those prescribed or required for medical reasons: No Advance Directives: No service: No Current occupational status: unemployed Physical Exam Vital Signs: Vital Signs: Last Vital Signs Temp 98.7 F 11/15/20 02:23 Pulse 74 11/15/20 02:23 Resp 18 11/15/20 02:23 BP 132/71 11/15/20 02:23 Pulse Ox 100 11/15/20 02:23 Body Mass Index 33.3 VITAL SIGNS: Reviewed. GENERAL: Well developed, well nourished, in no acute distress. HEAD: Normocephalic/atraumatic EYES: PERRLA, EOMI OROPHARYNX: no oral lesions noted, posterior pharynx clear LUNGS: Normal breath sounds. No adventitious sounds or accessory muscle use. SpO2<100> CARDIOVASCULAR: Regular rate and rhythm without noted murmurs ABDOMEN: Soft, non-tender, non-distended with bowel sounds. SKIN: Inspection of the skin reveals mild, patchy rash noted to bilateral lower extremities suspicious for poison margaret NEUROLOGIC: Alert and oriented x 4. Course Course Course Narrative: 25-year-old female with history and clinical presentation landrum ggestive of UTI will confirm IUP if possible. Review of all investigations negative for acute findings and on investigation hCG is only a little over 400 which likely explains any evaluation for IUP by ultrasound at this time. Patient was informed of all results and discharged home in stable condition with instructions to follow up further primary care provider as well as taking [id number] Tylenol for discomfort. MDM - Skin/Abscess/Foreign Bdy Lab Data Labs: Lab Results 11/15/20 11/15/20 11/15/20 Range/Units 03:06 03:06 04:55 Beta HCG, Quant 407 mIU/mL Urine Color YELLOW Urine Appearance CLEAR Urine pH 6.0 (5.0-8.0) Ur Specific [place] 1.020 (1.005-1.025) Urine Protein NEG (NEG-TRACE) MG/DL Urine Glucose (UA) NEG (NEG) MG/DL Urine Ketones NEG (NEG) MG/DL Urine Blood NEG (NEG) Urine Nitrite NEG (NEG) Ur Leukocyte Esterase NEG (NEG) Urine Test POSITIVE H (NEGATIVE) Discharge Plan Discharge Clinical Impression: Rash, Abdominal discomfort Patient Disposition: Home, Self-Care Instructions: Urticaria (ED), Poison Margaret (ED) Additional Instructions: Samina un seguimiento con landrum proveedor de atenci?n primaria en los pr?ximos 2 a 3 d?as para razia reevaluaci?n adicional para el manejo ambulatorio. Regrese a la irwin de emergencias por un empeoramiento lupe de los s?ntomas. Prescriptions: No Action ondansetron HCl [Zofran] 4 mg Tablet 4 mg PO Q8H PRN (Reason: Nausea) RF: 0 acetaminophen 325 mg Tablet 650 mg PO Q6H PRN (Reason: Pain, Mild (Pain Scale 1-3)) Qty: 30 RF: 0 ibuprofen 400 mg Tablet 400 mg PO Q6H PRN (Reason: Pain, Moderate (Pain Scale 4-6) Qty: 30 RF: 0 oxycodone 5 mg Tablet 5 mg PO Q6H PRN (Reason: Pain, Severe (Pain Scale 7-10)) Qty: 12 RF: 0 amoxicillin 500 mg capsule 500 mg PO QID 10 Days Qty: 40 RF: 0 Referrals: Physician,Unknown [Primary Care Provider] - 2 days Print Language: English
[2020-11-15 03:17] LABS: Glucose Urine UA NEG (NEG); Leukocyte Esterase Urine NEG (NEG); Nitrite Urine NEG (NEG); Urine Blood NEG (NEG); Urine Ketones NEG (NEG); Urine Protein NEG (NEG-TRACE)
[2020-11-15 03:25] LABS: UPreg QC Valid YES; Urine Pregnancy POSITIVE (NEGATIVE)
[2020-11-15 03:32] LABS: Appearance Urine CLEAR; Color Urine YELLOW
[2020-11-15] MEDS: diphenhydrAMINE HCL 25 MG TABLET PO (04:16)
[2020-11-15 05:43] LABS: HCG Quantitative 407 mIU/mL
== END 2020-11-15 06:26 | disposition home or self-care (01) ==
PROVIDERS: Emergency Provider Student in an Organized Health Care Education/Training Program
DX: O26.891 Other specified pregnancy related conditions, first trimester (principal); R21 Rash and other nonspecific skin eruption; R10.30 Lower abdominal pain, unspecified; Z3A.00 Weeks of gestation of pregnancy not specified
CPT/HCPCS: 36415; 76802; 76817; 81003; 81025; 84702; 99284; Q0163

== ENCOUNTER 2020-11-26 14:51 | Emergency (ER) | payer MEDICAID, SELFPAY | END 2020-11-26 16:43 | disposition left against medical advice (07) | PROVIDERS: Emergency Provider Emergency Medicine Emergency Medical Services | DX: R42 Dizziness and giddiness (principal) ==

== ENCOUNTER 2020-11-28 09:48 | Emergency (ER) | payer MEDICAID, SELFPAY ==
--- NOTE | ~2020-11-28 | US_ITS ---
EXAMINATION: US OB PELVIS AND TRANSVAGINAL CLINICAL INFORMATION: Was . Pelvic pain and passed a large amount of clots yesterday. COMPARISON: Had a previous ultrasound somewhere else. TECHNIQUE: Transabdominal and transvaginal imaging of the pelvis was performed. FINDINGS: The uterus is retroverted with diffusely thickened endometrium measuring 2.21 cm. There is no endovaginal sac or pole seen. Findings are suggestive of missed as the patient had significant bleeding and passed products yesterday. Apparently, the patient was and had an intrauterine on the previous ultrasound performed somewhere else. The right ovary measures 3.7 x 2.1 x 2.4 cm and appears unremarkable. The left ovary measures 4.0 x 2.5 x 3.5 cm with a corpus luteal cyst measuring 2.3 x 2.0 x 2.4 cm. There is trace free fluid adjacent to the left ovary. US/US OB pelvic and transvaginal IMPRESSION: No intrauterine seen. Most likely miscarriage/spontaneous . There is thickened endometrium with increased echogenicity and increased vascularity. Corpus luteal cyst left ovary. The right ovary is unremarkable. There is no adnexal mass or ectopic seen.
[2020-11-28 11:01] VITALS: BP 124/49; PULSE 82; RESP 16; TEMP 37.1; O2SAT 99; BMI 29.6
--- NOTE | 2020-11-28 11:38 | ED.FEMALEGU ---
HPI - Female Genitourinary General Chief complaint: Vaginal Bleeding Stated complaint: vaginal bleeding Time Seen by Provider: 11/28/20 11:15 Source: patient and educational sign language interpreter Mode of arrival: ambulatory Limitations: no limitations and language barrier History of Present Illness HPI Narrative: 25 yo female here with complaints of vaginal bleeding since last evening. Patient tells me this is associated with lower pelvic cramping. She has passed several large clots. She has used 5-6 pads since last night. No fevers, chills, urinary symptoms, nausea, vomiting. She is currently about 6 weeks . She has not had ultrasound to confirm IUP. She has not had any care Related Data Home Medications Medication Instructions Recorded Confirmed ondansetron HCl 4 mg tablet 4 mg PO Q8H PRN 09/11/20 09/11/20 (Zofran) Previous Rx's Medication Instructions Recorded acetaminophen 325 mg tablet 650 mg PO Q6H PRN #30 tab 09/12/20 ibuprofen 400 mg tablet 400 mg PO Q6H PRN #30 tab 09/12/20 oxycodone 5 mg tablet 5 mg PO Q6H PRN #12 tab 09/12/20 amoxicillin 500 mg capsule 500 mg PO QID 10 Days #40 cap 10/28/20 ibuprofen 600 mg tablet 600 mg PO Q8H PRN #20 tab 11/28/20 oxycodone 5 mg tablet 5 mg PO Q8H PRN #8 tab 11/28/20 Allergies Allergy/AdvReac Type Severity Reaction Status Date / Time No Known Allergies Allergy Verified 11/15/20 02:23 Review of Systems Review of Systems: Yes all other systems are reviewed and are negative Constitutional: Constitutional: Reports no additional constitutional complaints, Denies body ache(s), Denies chills, Denies fever(s), Denies headache(s) and Denies weakness Eyes: Eyes: Reports no additional eye complaints and Denies change in vision ENT: Reports system reviewed and no additional complaints, except as documented, Denies dizziness, Denies headache(s), Denies nasal congestion, Denies nasal discharge and Denies neck pain Cardiovascular: Cardiovascular: Reports no additional cardiovascular complaints, Denies chest pain, Denies leg edema and Denies dyspnea Respiratory: Respiratory: Reports no additional respiratory complaints, Denies cough and Denies dyspnea Gastrointestinal: Gastrointestinal: Reports no additional gastrointestinal complaints, Denies abdominal pain, Denies diarrhea, Denies nausea and Denies vomiting Genitourinary: Genitourinary: Reports no additional female genitourinary complaints, Reports abnormal vaginal bleeding, Reports pelvic pain and Denies urinary incontinence Musculoskeletal: Musculoskeletal: Reports no additional musculoskeletal complaints, Denies back pain, Denies arthralgias, Denies joint swelling, Denies neck pain, Denies numbness and Denies tingling Integumentary/Breasts: Skin/Breast: Reports system reviewed and no additional complaints, except as docu and Denies rash Neurologic: Reports system reviewed and no additional complaints, except as documented, Denies Abnormal speech present, Denies dizziness, Denies headache(s), Denies numbness, Denies tingling and Denies weakness PMFSH Past Medical History Attestation statement: The following information was validated with the patient. Source: old records reviewed and nursing notes reviewed Surgical History History of appendectomy History of cholecystectomy Social History Social History Alcohol intake: never Patient Tobacco Use Status: Never used Tobacco Second Hand Smoke Exposure: No Advance Directives: No Advance Directives Information Provided: Yes Patient : Yes service: No Current occupational status: unemployed Physical Exam Vital Signs: Vital Signs: Last Vital Signs Temp 98.8 F 11/28/20 11:01 Pulse 82 11/28/20 11:01 Resp 16 11/28/20 11:01 BP 124/49 L 11/28/20 11:01 Pulse Ox 99 11/28/20 11:01 Body Mass Index 29.6 Const: General: cooperative, healthy appearing, comfortable and no acute distress Orientation/consciousness: patient oriented x3 Limitations: no limitations HENMT: Head: Yes normal to inspection Ears: hearing grossly normal bilaterally General nose exam: Normal external nose present Face and sinus: Yes normal facial exam Mouth: Normal oral and palatal mucosa present Throat: Yes posterior oropharynx normal Eyes: General: appearance normal, both eyes and all related structures Pupils: Equal, round and reactive pupils present Neck: Neck: Yes normal visual inspection Chest: Chest palpation & inspection: normal inspection of the chest Resp: Effort & Inspection: normal respiratory effort Auscultation: clear to auscultation bilaterally Cardio: Rate: regular rate Rhythm: regular rhythm Peripheral pulses: Peripheral pulses 2+ throughout GI: Inspection: Yes normal to inspection Palpation (GI): Soft to palpation and Tenderness to palpation present (GI) (Bilateral pelvic, no rebound or guarding) Auscultation: normal bowel sounds : Other: [employer] Brianda External Female Exam: normal external appearance Speculum Exam - Vagina: vaginal bleeding Speculum Exam - Cervix: Other cervical findings present (Mild amount of bleeding from the cervical os noted) OB/external & speculum: vaginal bleeding Back/Spine/Pelvis: Thoracic/Lumbar Spine: thoracic and lumbar spine normal to inspection Skin: General skin exam: no rashes or lesions noted Neuro: General: patient oriented x3, no focal motor deficits and normal sensation to monofilament Cranial nerves: Yes Equal, round and reactive pupils present Cognition (Neuro): normal cognition Speech: No Abnormal speech present Gait exam (Neuro): Normal gait present Motor exam (neuro): 5/5 motor strength present throughout Extrem: General: Yes normal to inspection Course Course Course Narrative: 25-year-old female here with complaints of lower pelvic cramping with associated vaginal bleeding known 6 weeks with no ultrasound to confirm IUP previously. No care. Patient has mild lower pelvic cramping bilaterally. No focal tenderness. Will need labs, UA, urine , pelvic ultrasound. 1640-pelvic ultrasound shows no intrauterine . B quant 1339. Pelvic exam shows a small amount of bleeding. No heavy bleeding or clots noted. Abdominal exam has no focal tenderness. Discussed case with Dr Hernandez. Plan for repeat quant outpatient. Given slip for Wednesday. Can follow-up outpatient with OBGYN. I discussed through worrisome signs and symptoms such as heavy bleeding, focal tenderness in 1 side of the abdomen and when to return to the emergency department. Comfortable discharge home. MDM - Female Genitourinary MDM Narrative Medical decision making narrative: Threatened miscarriage, ectopic , spontaneous Medical Records Attestation: I reviewed the patient's medical records. Lab Data Attestation: I reviewed the patient's lab results. Result diagrams: 11/28/20 12:29 11/28/20 12:29 Labs: Lab Results 11/28/20 11/28/20 11/28/20 Range/Units 12:29 12:29 12:29 WBC 13.0 H (4.8-10.8) X10*3/uL RBC 4.31 (4.20-5.50) X10*6/uL Hgb 12.3 (12.0-16.0) g/dl Hct 36.6 L (37-47) % MCV 84.9 (80-98) fL MCH 28.5 (27.0-33.0) pg MCHC 33.6 (31.0-35.0) g/dl RDW 13.2 (11.0-16.0) % Plt Count 227 (160-400) X10*3/uL MPV 10.4 (9.4-12.3) fL Immature Gran % (Auto) 0.5 H (0.0-0.4) % Neut % (Auto) 71.2 (45-73) % Lymph % (Auto) 20.5 (20-40) % Blount % (Auto) 6.3 (2-11) % Eos % (Auto) 1.2 (0-4) % Baso % (Auto) 0.3 (0-2) % Lymph # (Auto) 2.7 (1.2-4.9) X10*3/uL Blount # (Auto) 0.8 (0.1-1.2) X10*3/uL Eos # (Auto) 0.2 (0.0-0.4) X10*3/uL Baso # (Auto) 0.0 (0.0-0.2) X10*3/uL Abs Immat Gran (auto) 0.06 H (0.00-0.03) X10*3/uL Absolute Neuts (auto) 9.2 H (2.0-8.3) X10*3/uL Absolute Nucleated RBC 0.000 (0.0-0.012) X10*3/uL Nucleated RBC % (auto) 0.0 (0.0-0.2) /100WBC Sodium 138 (135-145) mmol/L Potassium 3.7 (3.3-5.1) mmol/L Chloride 107 (96-108) mmol/L Carbon Dioxide 24 (22-29) mmol/L Anion Gap 11 L (12-20) BUN 9 D (9-16) mg/dL Creatinine 0.66 (0.5-1.4) mg/dL Estim Creat Clear Calc 135.6 Estimated GFR > 60 Random Glucose 101 (60-115) mg/dL Calcium 9.1 (8.4-10.2) mg/dL Total Bilirubin 0.4 (0.0-1.0) mg/dL Direct Bilirubin 0.2 (0.0-0.5) mg/dL AST 24 (5-31) U/L ALT 49 H (0-31) U/L Alkaline Phosphatase 51 (39-117) U/L Total Protein 6.4 L (6.5-8.0) g/dL Albumin 3.9 (3.5-5.0) g/dL Beta HCG, Quant 1339 mIU/mL Urine Color Urine Appearance Urine pH (5.0-8.0) Ur Specific [place] (1.005-1.025) Urine Protein (NEG-TRACE) MG/DL Urine Glucose (UA) (NEG) MG/DL Urine Ketones (NEG) MG/DL Urine Blood (NEG) Urine Nitrite (NEG) Ur Leukocyte Esterase (NEG) Urine RBC (0) /HPF Urine WBC (0-4) /HPF Ur Squamous Epith Cells /LPF Urine Bacteria /LPF Urine Test (NEGATIVE) 11/28/20 11/28/20 Range/Units 13:16 13:16 WBC (4.8-10.8) X10*3/uL RBC (4.20-5.50) X10*6/uL Hgb (12.0-16.0) g/dl Hct (37-47) % MCV (80-98) fL MCH (27.0-33.0) pg MCHC (31.0-35.0) g/dl RDW (11.0-16.0) % Plt Count (160-400) X10*3/uL MPV (9.4-12.3) fL Immature Gran % (Auto) (0.0-0.4) % Neut % (Auto) (45-73) % Lymph % (Auto) (20-40) % Blount % (Auto) (2-11) % Eos % (Auto) (0-4) % Baso % (Auto) (0-2) % Lymph # (Auto) (1.2-4.9) X10*3/uL Blount # (Auto) (0.1-1.2) X10*3/uL Eos # (Auto) (0.0-0.4) X10*3/uL Baso # (Auto) (0.0-0.2) X10*3/uL Abs Immat Gran (auto) (0.00-0.03) X10*3/uL Absolute Neuts (auto) (2.0-8.3) X10*3/uL Absolute Nucleated RBC (0.0-0.012) X10*3/uL Nucleated RBC % (auto) (0.0-0.2) /100WBC Sodium (135-145) mmol/L Potassium (3.3-5.1) mmol/L Chloride (96-108) mmol/L Carbon Dioxide (22-29) mmol/L Anion Gap (12-20) BUN (9-16) mg/dL Creatinine (0.5-1.4) mg/dL Estim Creat Clear Calc Estimated GFR Random Glucose (60-115) mg/dL Calcium (8.4-10.2) mg/dL Total Bilirubin (0.0-1.0) mg/dL Direct Bilirubin (0.0-0.5) mg/dL AST (5-31) U/L ALT (0-31) U/L Alkaline Phosphatase (39-117) U/L Total Protein (6.5-8.0) g/dL Albumin (3.5-5.0) g/dL Beta HCG, Quant mIU/mL Urine Color YELLOW Urine Appearance CLEAR Urine pH 6.0 (5.0-8.0) Ur Specific [place] 1.020 (1.005-1.025) Urine Protein NEG (NEG-TRACE) MG/DL Urine Glucose (UA) NEG (NEG) MG/DL Urine Ketones NEG (NEG) MG/DL Urine Blood 2+ H (NEG) Urine Nitrite NEG (NEG) Ur Leukocyte Esterase NEG (NEG) Urine RBC 1-4 (0) /HPF Urine WBC 0-2 (0-4) /HPF Ur Squamous Epith Cells TRACE /LPF Urine Bacteria NONE /LPF Urine Test POSITIVE H (NEGATIVE) Imaging Data US - abdomen: Attestation: I personally reviewed and interpreted this imaging study as follows: Radiologist's impression: [address] [address] Ultrasound Report Signed Patient: Maggy Bray MR#: [id number] : 1995 Acct:[id number] Age/Sex: 25 / F ADM Date: 11/28/20 Loc: [facility].ED Attending Dr: Ordering Physician: PORTIA PLASENCIA NP Date of Service: 11/28/20 Procedure(s): US OB pelvic and transvaginal Accession Number(s): [id number] cc: PORTIA PLASENCIA NP~ EXAMINATION: US OB PELVIS AND TRANSVAGINAL CLINICAL INFORMATION: Was . Pelvic pain and passed a large amount of clots yesterday. COMPARISON: Had a previous ultrasound somewhere else.? TECHNIQUE: Transabdominal and transvaginal imaging of the pelvis was performed.? FINDINGS: The uterus is retroverted with diffusely thickened endometrium measuring 2.21 cm. There is no endovaginal sac or pole seen. Findings are suggestive of missed as the patient had significant bleeding and passed products yesterday. Apparently, the patient was and had an intrauterine on the previous ultrasound performed somewhere else. The right ovary measures 3.7 x 2.1 x 2.4 cm and appears unremarkable. The left ovary measures 4.0 x 2.5 x 3.5 cm with a corpus luteal cyst measuring 2.3 x 2.0 x 2.4 cm. There is trace free fluid adjacent to the left ovary. US/US OB pelvic and transvaginal IMPRESSION: No intrauterine seen. Most likely miscarriage/spontaneous . There is thickened endometrium with increased echogenicity and increased vascularity. ? Corpus luteal cyst left ovary. ? The right ovary is unremarkable. ? There is no adnexal mass or ectopic seen. Discharge Plan Discharge Clinical Impression: Spontaneous Patient Disposition: Home, Self-Care Instructions: Miscarriage (ED) Additional Instructions: Your ultrasound does not show any You likely had a miscarriage You need to follow up with Gynecology/OB to make sure you are doing well. Repeat HCG level Wednesday. You were provided with a lab slip. Return if you are using more than 1 pad an 1 hour Prescriptions: New ibuprofen 600 mg tablet 600 mg PO Q8H PRN (Reason: pain) Qty: 20 RF: 0 oxycodone 5 mg tablet 5 mg PO Q8H PRN (Reason: pain) Qty: 8 RF: 0 No Action ondansetron HCl [Zofran] 4 mg Tablet 4 mg PO Q8H PRN (Reason: Nausea) RF: 0 acetaminophen 325 mg Tablet 650 mg PO Q6H PRN (Reason: Pain, Mild (Pain Scale 1-3)) Qty: 30 RF: 0 ibuprofen 400 mg Tablet 400 mg PO Q6H PRN (Reason: Pain, Moderate (Pain Scale 4-6) Qty: 30 RF: 0 oxycodone 5 mg Tablet 5 mg PO Q6H PRN (Reason: Pain, Severe (Pain Scale 7-10)) Qty: 12 RF: 0 amoxicillin 500 mg capsule 500 mg PO QID 10 Days Qty: 40 RF: 0 Referrals: Viktor Berry MD [Physician] - 2 days Stand Alone Forms: Work/School Release Interventions: ED Discharge Assessment Last Done: 11/28/20 16:41 Discharge Date/Time: 11/28/20 16:41 Print Language: Nepali
[2020-11-28 12:37] LABS: MANUAL DIFF FLAG NO
[2020-11-28 12:39] LABS: Basophils Percent Auto 0.3 % (0-2); Eosinophils Absolute Auto 0.2 X10*3/uL (0.0-0.4); Eosinophils Percent Auto 1.2 % (0-4); Hematocrit 36.6 % (37-47); Hemoglobin 12.3 g/dl (12.0-16.0); Imm Gran Abs Auto 0.06 X10*3/uL (0.00-0.03); Imm Gran Pct Auto 0.5 % (0.0-0.4); Lymphocytes Absolute Auto 2.7 X10*3/uL (1.2-4.9); Lymphocytes Percent Auto 20.5 % (20-40); Mean Corpuscular HGB Conc 33.6 g/dl (31.0-35.0); Mean Corpuscular Hemoglobin 28.5 pg (27.0-33.0); Mean Corpuscular Volume 84.9 fL (80-98); Mean Platelet Volume 10.4 fL (9.4-12.3); Monocytes Absolute Auto 0.8 X10*3/uL (0.1-1.2); Monocytes Percent Auto 6.3 % (2-11); Neutrophils Absolute Auto 9.2 X10*3/uL (2.0-8.3); Neutrophils Percent Auto 71.2 % (45-73); Platelet Count 227 X10*3/uL (160-400); Red Blood Count 4.31 X10*6/uL (4.20-5.50); Red Cell Distribution Width 13.2 % (11.0-16.0)
[2020-11-28 13:07] LABS: Alanine Aminotransferase 49 U/L (0-31); Albumin Level 3.9 g/dL (3.5-5.0); Alkaline Phosphatase 51 U/L (39-117); Anion Gap 11 (12-20); Aspartate Amino Transferase 24 U/L (5-31); Bilirubin Direct 0.2 mg/dL (0.0-0.5); Bilirubin Total 0.4 mg/dL (0.0-1.0); Blood Urea Nitrogen 9 mg/dL (9-16); Calcium 9.1 mg/dL (8.4-10.2); Carbon Dioxide 24 mmol/L (22-29); Chloride 107 mmol/L (96-108); Creatinine Clr Calc Pharmacy 135.6; Estimated Glomerular Filt Rate > 60; Glucose Random 101 mg/dL (60-115); HCG Quantitative 1339 mIU/mL; Potassium 3.7 mmol/L (3.3-5.1); Sodium 138 mmol/L (135-145); Total Protein 6.4 g/dL (6.5-8.0)
[2020-11-28 13:30] LABS: Glucose Urine UA NEG (NEG); Leukocyte Esterase Urine NEG (NEG); Nitrite Urine NEG (NEG); UACC Culture Trigger NO; Urine Blood 2+ (NEG); Urine Ketones NEG (NEG); Urine Protein NEG (NEG-TRACE)
[2020-11-28 13:34] LABS: Appearance Urine CLEAR; Color Urine YELLOW; UPreg QC Valid YES; Urine Pregnancy POSITIVE (NEGATIVE)
[2020-11-28 13:42] LABS: Squamous Epithelial Cell Urine TRACE /LPF; WBC Urine 0-2 /HPF (0-4)
== END 2020-11-28 16:41 | disposition home or self-care (01) ==
PROVIDERS: Nurse Practitioner Family; Emergency Provider Emergency Medicine
DX: O03.9 Complete or unspecified spontaneous abortion without complication (principal); Z3A.01 Less than 8 weeks gestation of pregnancy
CPT/HCPCS: 36415; 76801; 76817; 80048; 80076; 81001; 81025; 84702; 85025; 99283; 99284

== ENCOUNTER 2021-01-07 23:15 | Emergency (ER) | payer OTHER, MEDICAID, SELFPAY ==
--- NOTE | ~2021-01-07 | XR_ITS ---
EXAMINATION: XR SACRUM AND COCCYX CLINICAL INFORMATION: Pain COMPARISON: 07/12/2020 TECHNIQUE: 2 views of the sacrum and 2 views of the coccyx were obtained. FINDINGS: Contour deformity at the tip of the coccyx is without significant change from 09/11/2020. No sacral fracture is seen. Sacroiliac joints are intact. IUD overlies the lower pelvis. XR/XR sacrum coccyx min 2V IMPRESSION: No acute findings identified.
--- NOTE | ~2021-01-07 | XR_ITS ---
EXAMINATION: XR KNEE, LEFT CLINICAL INFORMATION: Pain, injury COMPARISON: None TECHNIQUE: Four views of the left knee. FINDINGS: Osseous alignment is anatomic. Joint spaces are maintained. No acute fracture is seen. No significant effusion. Small fabella is noted. XR/XR knee LT 3V IMPRESSION: No acute findings.
[2021-01-08 00:25] VITALS: BP 120/64; PULSE 80; RESP 14; TEMP 36.8; O2SAT 99; BMI 29.9
[2021-01-08 00:39] LABS: MANUAL DIFF FLAG NO
[2021-01-08 00:40] LABS: Basophils Percent Auto 0.3 % (0-2); Eosinophils Absolute Auto 0.2 X10*3/uL (0.0-0.4); Eosinophils Percent Auto 2.2 % (0-4); Hematocrit 41.4 % (37-47); Hemoglobin 13.4 g/dl (12.0-16.0); Imm Gran Abs Auto 0.04 X10*3/uL (0.00-0.03); Imm Gran Pct Auto 0.4 % (0.0-0.4); Lymphocytes Absolute Auto 3.1 X10*3/uL (1.2-4.9); Mean Corpuscular HGB Conc 32.4 g/dl (31.0-35.0); Mean Corpuscular Hemoglobin 27.2 pg (27.0-33.0); Mean Corpuscular Volume 84.1 fL (80-98); Mean Platelet Volume 10.4 fL (9.4-12.3); Monocytes Absolute Auto 0.7 X10*3/uL (0.1-1.2); Monocytes Percent Auto 6.6 % (2-11); Neutrophils Absolute Auto 5.7 X10*3/uL (2.0-8.3); Neutrophils Percent Auto 58.5 % (45-73); Platelet Count 248 X10*3/uL (160-400); Red Blood Count 4.92 X10*6/uL (4.20-5.50); Red Cell Distribution Width 12.8 % (11.0-16.0); White Blood Count 9.8 X10*3/uL (4.8-10.8)
--- NOTE | 2021-01-08 00:53 | ED.GENADULT ---
HPI - General Adult General Chief complaint: General Medical Stated complaint: fever/abd pain/headache Time Seen by Provider: 01/08/21 00:39 Source: patient and pharmacist's aide Mode of arrival: ambulatory Limitations: language barrier History of Present Illness HPI narrative: [age] year old female here with complaints of subjective fevers, body aches, headache, sore throat for 2 days. Also having some left knee and lower back pain which she has had for quite some time with no injury or trauma. No abdominal pain, vomiting, diarrhea, urinary symptoms, vaginal discharge Related Data Home Medications Medication Instructions Recorded Confirmed ondansetron HCl 4 mg tablet 4 mg PO Q8H PRN 09/11/20 09/11/20 (Zofran) Previous Rx's Medication Instructions Recorded acetaminophen 325 mg tablet 650 mg PO Q6H PRN #30 tab 09/12/20 ibuprofen 400 mg tablet 400 mg PO Q6H PRN #30 tab 09/12/20 oxycodone 5 mg tablet 5 mg PO Q6H PRN #12 tab 09/12/20 amoxicillin 500 mg capsule 500 mg PO QID 10 Days #40 cap 10/28/20 ibuprofen 600 mg tablet 600 mg PO Q8H PRN #20 tab 11/28/20 oxycodone 5 mg tablet 5 mg PO Q8H PRN #8 tab 11/28/20 cyclobenzaprine 10 mg tablet 10 mg PO TID PRN #10 tab 01/08/21 ibuprofen 600 mg tablet 600 mg PO Q8H PRN #15 tab 01/08/21 lidocaine 5 % topical patch 1 patch TOPICAL DAILY #15 ea 01/08/21 (Lidoderm) Allergies Allergy/AdvReac Type Severity Reaction Status Date / Time No Known Allergies Allergy Verified 11/15/20 02:23 Review of Systems Review of Systems: Yes all other systems are reviewed and are negative Constitutional: Constitutional: Reports no additional constitutional complaints, Reports body ache(s), Denies chills, Reports fever(s), Reports headache(s) and Denies weakness Eyes: Eyes: Reports no additional eye complaints and Denies change in vision ENT: Reports system reviewed and no additional complaints, except as documented, Denies dizziness, Reports headache(s), Denies nasal congestion, Denies nasal discharge, Denies neck pain and Reports sore throat Cardiovascular: Cardiovascular: Reports no additional cardiovascular complaints, Denies chest pain, Denies leg edema and Denies dyspnea Respiratory: Respiratory: Reports no additional respiratory complaints, Denies cough and Denies dyspnea Gastrointestinal: Gastrointestinal: Reports no additional gastrointestinal complaints, Denies abdominal pain, Denies diarrhea, Denies nausea and Denies vomiting Genitourinary: Genitourinary: Reports no additional female genitourinary complaints and Denies urinary incontinence Musculoskeletal: Musculoskeletal: Reports no additional musculoskeletal complaints, Reports back pain, Reports arthralgias, Denies joint swelling, Denies neck pain, Denies numbness and Denies tingling Integumentary/Breasts: Skin/Breast: Reports system reviewed and no additional complaints, except as docu and Denies rash Neurologic: Reports system reviewed and no additional complaints, except as documented, Denies Abnormal speech present, Denies dizziness, Reports headache(s), Denies numbness, Denies tingling and Denies weakness PMFSH Past Medical History Attestation statement: The following information was validated with the patient. Source: old records reviewed and nursing notes reviewed Surgical History History of appendectomy History of cholecystectomy Social History Social History Alcohol intake: never Patient Tobacco Use Status: Never used Tobacco Second Hand Smoke Exposure: No Advance Directives: No Advance Directives Information Provided: Yes Patient : No service: No Current occupational status: unemployed Physical Exam Vital Signs: Vital Signs: Last Vital Signs Temp 98.1 F 01/08/21 01:37 Pulse 79 01/08/21 01:37 Resp 16 01/08/21 01:37 BP 134/82 01/08/21 01:37 Pulse Ox 100 01/08/21 01:37 Body Mass Index 29.9 Const: General: cooperative, healthy appearing, comfortable and no acute distress Orientation/consciousness: patient oriented x3 Limitations: no limitations HENMT: Head: Yes normal to inspection Ears: hearing grossly normal bilaterally and TM's normal bilaterally General nose exam: Normal external nose present Face and sinus: Yes normal facial exam Mouth: Normal oral and palatal mucosa present Throat: Yes posterior oropharynx normal, Yes tonsils normal and Yes uvula midline Eyes: General: appearance normal, both eyes and all related structures Pupils: Equal, round and reactive pupils present Neck: Neck: Yes normal visual inspection Chest: Chest palpation & inspection: normal inspection of the chest Resp: Effort & Inspection: normal respiratory effort Auscultation: clear to auscultation bilaterally Cardio: Rate: regular rate Rhythm: regular rhythm Peripheral pulses: Peripheral pulses 2+ throughout GI: Inspection: Yes normal to inspection Palpation (GI): Soft to palpation and nontender Auscultation: normal bowel sounds Back/Spine/Pelvis: Other: Lower sacral tenderness with no step-offs or deformities Thoracic/Lumbar Spine: thoracic and lumbar spine normal to inspection Skin: General skin exam: no rashes or lesions noted Neuro: General: patient oriented x3, no focal motor deficits and normal sensation to monofilament Cranial nerves: Yes Equal, round and reactive pupils present Cognition (Neuro): normal cognition Speech: No Abnormal speech present Gait exam (Neuro): Normal gait present Motor exam (neuro): 5/5 motor strength present throughout Extrem: Other: Tenderness to the medial aspect of the left knee with no obvious swelling, warmth or redness. Full range of motion No calf pain or swelling General: Yes normal to inspection, Yes no pedal edema and Yes no calf tenderness Course Course Course Narrative: 25-year-old female here with flu-like symptoms for 2 days. Will check COVID screen, labs Also complaining of some left knee pain and lower back pain. Will check x-rays, provide analgesia 0200-labs unremarkable. UA and urine negative. COVID screen negative. Likely viral syndrome. X-rays pending. If negative likely sprain versus strain. Patient has history of chronic low back pain. No neuro deficits or red flag symptoms. Can follow-up with primary care as needed 0210-independently reviewed x-rays. Left knee x-ray normal. Coccyx x-ray ?small fx. IUD visualized and not in normal position. Patient was informed Medical Decision Making Lab Data Result diagrams: 01/08/21 00:34 01/08/21 00:34 Labs: Lab Results 01/08/21 01/08/21 01/08/21 Range/Units 00:29 00:34 00:34 WBC 9.8 (4.8-10.8) X10*3/uL RBC 4.92 (4.20-5.50) X10*6/uL Hgb 13.4 (12.0-16.0) g/dl Hct 41.4 (37-47) % MCV 84.1 (80-98) fL MCH 27.2 (27.0-33.0) pg MCHC 32.4 (31.0-35.0) g/dl RDW 12.8 (11.0-16.0) % Plt Count 248 (160-400) X10*3/uL MPV 10.4 (9.4-12.3) fL Immature Gran % (Auto) 0.4 (0.0-0.4) % Neut % (Auto) 58.5 (45-73) % Lymph % (Auto) 32.0 (20-40) % [place] % (Auto) 6.6 (2-11) % Eos % (Auto) 2.2 (0-4) % Baso % (Auto) 0.3 (0-2) % Lymph # (Auto) 3.1 (1.2-4.9) X10*3/uL [place] # (Auto) 0.7 (0.1-1.2) X10*3/uL Eos # (Auto) 0.2 (0.0-0.4) X10*3/uL Baso # (Auto) 0.0 (0.0-0.2) X10*3/uL Abs Immat Gran (auto) 0.04 H (0.00-0.03) X10*3/uL Absolute Neuts (auto) 5.7 (2.0-8.3) X10*3/uL Absolute Nucleated RBC 0.000 (0.0-0.012) X10*3/uL Nucleated RBC % (auto) 0.0 (0.0-0.2) /100WBC Sodium 140 (135-145) mmol/L Potassium 3.9 (3.3-5.1) mmol/L Chloride 109 H (96-108) mmol/L Carbon Dioxide 21 L (22-29) mmol/L Anion Gap 14 (12-20) BUN 14 D (9-16) mg/dL Creatinine 0.61 (0.5-1.4) mg/dL Estim Creat Clear Calc 147.5 Estimated GFR > 60 Random Glucose 114 (60-115) mg/dL Calcium 9.1 (8.4-10.2) mg/dL Total Bilirubin 0.2 (0.0-1.0) mg/dL AST 14 D (5-31) U/L ALT 22 (0-31) U/L Alkaline Phosphatase 59 (39-117) U/L Total Protein 6.7 (6.5-8.0) g/dL Albumin 4.0 (3.5-5.0) g/dL Urine Color Urine Appearance Urine pH (5.0-8.0) Ur Specific [place] (1.005-1.025) Urine Protein (NEG-TRACE) MG/DL Urine Glucose (UA) (NEG) MG/DL Urine Ketones (NEG) MG/DL Urine Blood (NEG) Urine Nitrite (NEG) Ur Leukocyte Esterase (NEG) Urine Test (NEGATIVE) COVID-19 (MARIO) Negative (Negative) COVID-19 Clin Com See Note 01/08/21 01/08/21 Range/Units 01:20 01:20 WBC (4.8-10.8) X10*3/uL RBC (4.20-5.50) X10*6/uL Hgb (12.0-16.0) g/dl Hct (37-47) % MCV (80-98) fL MCH (27.0-33.0) pg MCHC (31.0-35.0) g/dl RDW (11.0-16.0) % Plt Count (160-400) X10*3/uL MPV (9.4-12.3) fL Immature Gran % (Auto) (0.0-0.4) % Neut % (Auto) (45-73) % Lymph % (Auto) (20-40) % [place] % (Auto) (2-11) % Eos % (Auto) (0-4) % Baso % (Auto) (0-2) % Lymph # (Auto) (1.2-4.9) X10*3/uL [place] # (Auto) (0.1-1.2) X10*3/uL Eos # (Auto) (0.0-0.4) X10*3/uL Baso # (Auto) (0.0-0.2) X10*3/uL Abs Immat Gran (auto) (0.00-0.03) X10*3/uL Absolute Neuts (auto) (2.0-8.3) X10*3/uL Absolute Nucleated RBC (0.0-0.012) X10*3/uL Nucleated RBC % (auto) (0.0-0.2) /100WBC Sodium (135-145) mmol/L Potassium (3.3-5.1) mmol/L Chloride (96-108) mmol/L Carbon Dioxide (22-29) mmol/L Anion Gap (12-20) BUN (9-16) mg/dL Creatinine (0.5-1.4) mg/dL Estim Creat Clear Calc Estimated GFR Random Glucose (60-115) mg/dL Calcium (8.4-10.2) mg/dL Total Bilirubin (0.0-1.0) mg/dL AST (5-31) U/L ALT (0-31) U/L Alkaline Phosphatase (39-117) U/L Total Protein (6.5-8.0) g/dL Albumin (3.5-5.0) g/dL Urine Color YELLOW Urine Appearance CLEAR Urine pH 6.0 (5.0-8.0) Ur Specific [place] >= 1.030 H (1.005-1.025) Urine Protein NEG (NEG-TRACE) MG/DL Urine Glucose (UA) NEG (NEG) MG/DL Urine Ketones NEG (NEG) MG/DL Urine Blood NEG (NEG) Urine Nitrite NEG (NEG) Ur Leukocyte Esterase NEG (NEG) Urine Test NEGATIVE (NEGATIVE) COVID-19 (MARIO) (Negative) COVID-19 Clin Com Discharge Plan Discharge Clinical Impression: Acute viral syndrome, Low back pain, Muscle strain of left knee, IUD failure Patient Disposition: Home, Self-Care Instructions: Viral Syndrome (ED), Knee Pain (ED), Back Pain (ED) Additional Instructions: COVID test negative Motrin or Tylenol for pain or fever Increase fluids, rest Ice to the back and left knee Follow-up with primary care doctor Your IUD is not in the right place. Keep your appointment with her integrated logistics programs director on so they may remove it Prescriptions: New ibuprofen 600 mg tablet 600 mg PO Q8H PRN (Reason: fever or pain) Qty: 15 RF: 0 cyclobenzaprine 10 mg tablet 10 mg PO TID PRN (Reason: muscle spasm) Qty: 10 RF: 0 lidocaine [Lidoderm] 5 % adhesive patch,medicated 1 patch topical DAILY Qty: 15 RF: 0 No Action ondansetron HCl [Zofran] 4 mg Tablet 4 mg PO Q8H PRN (Reason: Nausea) RF: 0 acetaminophen 325 mg Tablet 650 mg PO Q6H PRN (Reason: Pain, Mild (Pain Scale 1-3)) Qty: 30 RF: 0 ibuprofen 400 mg Tablet 400 mg PO Q6H PRN (Reason: Pain, Moderate (Pain Scale 4-6) Qty: 30 RF: 0 oxycodone 5 mg Tablet 5 mg PO Q6H PRN (Reason: Pain, Severe (Pain Scale 7-10)) Qty: 12 RF: 0 amoxicillin 500 mg capsule 500 mg PO QID 10 Days Qty: 40 RF: 0 ibuprofen 600 mg tablet 600 mg PO Q8H PRN (Reason: pain) Qty: 20 RF: 0 oxycodone 5 mg tablet 5 mg PO Q8H PRN (Reason: pain) Qty: 8 RF: 0 Referrals: [facility] [Primary Care Provider] - 2 days Stand Alone Forms: Work/School Release
[2021-01-08 00:56] LABS: Alanine Aminotransferase 22 U/L (0-31); Alkaline Phosphatase 59 U/L (39-117); Anion Gap 14 (12-20); Aspartate Amino Transferase 14 U/L (5-31); Bilirubin Total 0.2 mg/dL (0.0-1.0); Blood Urea Nitrogen 14 mg/dL (9-16); Calcium 9.1 mg/dL (8.4-10.2); Carbon Dioxide 21 mmol/L (22-29); Chloride 109 mmol/L (96-108); Creatinine Clr Calc Pharmacy 147.5; Estimated Glomerular Filt Rate > 60; Glucose Random 114 mg/dL (60-115); Potassium 3.9 mmol/L (3.3-5.1); Sodium 140 mmol/L (135-145); Total Protein 6.7 g/dL (6.5-8.0)
[2021-01-08 00:58] LABS: COVID-19 Test Negative (Negative)
[2021-01-08] MEDS: Ibuprofen 800 MG TABLET PO (01:32)
[2021-01-08 01:33] LABS: Appearance Urine CLEAR; Color Urine YELLOW; Glucose Urine UA NEG (NEG); Leukocyte Esterase Urine NEG (NEG); Nitrite Urine NEG (NEG); Specific Gravity - Urine >= 1.030 (1.005-1.025); Urine Blood NEG (NEG); Urine Ketones NEG (NEG); Urine Protein NEG (NEG-TRACE)
[2021-01-08 01:35] LABS: UPreg QC Valid YES; Urine Pregnancy NEGATIVE (NEGATIVE)
[2021-01-08 01:37] VITALS: BP 134/82; PULSE 79; RESP 16; TEMP 36.7; O2SAT 100
== END 2021-01-08 03:35 | disposition home or self-care (01) ==
PROVIDERS: Nurse Practitioner Family; Emergency Provider Emergency Medicine Emergency Medical Services
DX: B34.9 Viral infection, unspecified (principal); M54.5 Low back pain; M79.10 Myalgia, unspecified site; R51.9 Headache, unspecified; R10.9 Unspecified abdominal pain; Z20.822 Contact with and (suspected) exposure to COVID-19; Z79.899 Other long term (current) drug therapy
CPT/HCPCS: 36415; 72220; 73562; 80053; 81003; 81025; 85025; 87635; 99284

== ENCOUNTER 2021-07-02 01:30 | Emergency (ER) | payer OTHER, MEDICAID, SELFPAY ==
[2021-07-02 01:34] VITALS: BP 120/71; PULSE 86; RESP 18; TEMP 37; O2SAT 98; BMI 26.6
--- NOTE | 2021-07-02 02:11 | ED_ITS ---
HPI - Extremity Injury (Lower) General Chief Complaint: Extremity Injury, Lower Stated Complaint: Work Inj/Back pain/Knee pain Time Seen by Provider: 07/02/21 02:10 Source: patient Mode of arrival: ambulatory Limitations: no limitations History of Present Illness HPI Narrative: Patient works at [employer] had a near fall while trying to avoid fall patient had a contusion on the right lower leg and Jean-Claude her back also Jean-Claude her left index finger no other significant injury this happened at 19:30 patient ambulated to the ER Related Data Home Medications Medication Instructions Recorded Confirmed ondansetron HCl 4 mg tablet 4 mg PO Q8H PRN 09/11/20 09/11/20 (Zofran) Previous Rx's Medication Instructions Recorded acetaminophen 325 mg tablet 650 mg PO Q6H PRN #30 tab 09/12/20 ibuprofen 400 mg tablet 400 mg PO Q6H PRN #30 tab 09/12/20 oxycodone 5 mg tablet 5 mg PO Q6H PRN #12 tab 09/12/20 amoxicillin 500 mg capsule 500 mg PO QID 10 Days #40 cap 10/28/20 ibuprofen 600 mg tablet 600 mg PO Q8H PRN #20 tab 11/28/20 oxycodone 5 mg tablet 5 mg PO Q8H PRN #8 tab 11/28/20 cyclobenzaprine 10 mg tablet 10 mg PO TID PRN #10 tab 01/08/21 ibuprofen 600 mg tablet 600 mg PO Q8H PRN #15 tab 01/08/21 lidocaine 5 % topical patch 1 patch TOPICAL DAILY #15 ea 01/08/21 (Lidoderm) cyclobenzaprine 10 mg tablet 10 mg PO Q8H #20 tab 07/02/21 tramadol 50 mg tablet 50 mg PO Q6H PRN #20 tab 07/02/21 Allergies Allergy/AdvReac Type Severity Reaction Status Date / Time No Known Allergies Allergy Verified 11/15/20 02:23 Review of Systems Review of Systems: Yes all other systems are reviewed and are negative PMFSH Past Medical History Surgical History History of appendectomy History of cholecystectomy Social History Social History Alcohol intake: never Patient Tobacco Use Status: Never used Tobacco Second Hand Smoke Exposure: No Advance Directives: No Patient : No service: No Current occupational status: unemployed Physical Exam Vital Signs: Vital Signs: Last Vital Signs Temp 98.6 F 07/02/21 01:34 Pulse 86 07/02/21 01:34 Resp 18 07/02/21 01:34 BP 120/71 07/02/21 01:34 Pulse Ox 98 07/02/21 01:34 BMI result Body Mass Index 26.6 Const: General: comfortable and no acute distress Orientation/consciousness: patient oriented x3 HENMT: Head: Yes normocephalic and Yes atraumatic Eyes: General: appearance normal, both eyes and all related structures Neck: Neck: Yes normal visual inspection, Yes full ROM and Yes trachea midline Chest: Chest palpation & inspection: normal palpation of entire chest wall Resp: Effort & Inspection: normal respiratory effort Auscultation: clear to auscultation bilaterally, no crackles and no rales Cardio: Palpation: normal PMI Rate: regular rate Rhythm: regular rhythm Heart sounds: S1 normal heart sound present and S2 normal heart sound present GI: Inspection: Yes normal to inspection Palpation (GI): Soft to palpation and nontender : General: Yes no CVA tenderness Back/Spine/Pelvis: Back: no CVA tenderness Thoracic/Lumbar Spine: thoraco- lumbar ROM normal, straight leg raise negative bilaterally, thoraco-lumbar spasm, No thoracic spinal tenderness and No lumbar spinal tenderness Skin: General skin exam: no rashes or lesions noted Neuro: General: patient oriented x3 and no focal motor deficits Extrem: General: Yes full ROM Hand/finger images: 1. Soft tissue tenderness left index finger without any deformity or bony tenderness good range of movement Upper/lower leg/hip images: 1. Soft tissue tenderness right lower leg without any significant deformity or bony tenderness patient ambulatory and steady gait MDM - Extremity Injury (Lower) MDM Narrative Medical decision making narrative: Patient with minor injuries with right leg contusion and lower back spasm give her pain medication and muscle relaxant no indication for any x-ray Discharge Plan Discharge Clinical Impression: Back strain, Contusion of leg, right Patient Disposition: Home, Self-Care Instructions: Contusion in Adults (ED), Back Pain (ED) Additional Instructions: Rest at home Apply ice Pain medication as advised Prescriptions: New cyclobenzaprine 10 mg tablet 10 mg PO Q8H Qty: 20 0RF tramadol 50 mg tablet 50 mg PO Q6H PRN (Reason: pain) Qty: 20 0RF No Action ondansetron HCl [Zofran] 4 mg Tablet 4 mg PO Q8H PRN (Reason: Nausea) 0RF acetaminophen 325 mg Tablet 650 mg PO Q6H PRN (Reason: Pain, Mild (Pain Scale 1-3)) Qty: 30 0RF ibuprofen 400 mg Tablet 400 mg PO Q6H PRN (Reason: Pain, Moderate (Pain Scale 4-6) Qty: 30 0RF oxycodone 5 mg Tablet 5 mg PO Q6H PRN (Reason: Pain, Severe (Pain Scale 7-10)) Qty: 12 0RF ibuprofen 600 mg tablet 600 mg PO Q8H PRN (Reason: fever or pain) Qty: 15 0RF cyclobenzaprine 10 mg tablet 10 mg PO TID PRN (Reason: muscle spasm) Qty: 10 0RF lidocaine [Lidoderm] 5 % adhesive patch,medicated 1 patch topical DAILY Qty: 15 0RF Rx Instructions: leave on most painful area for up to 12 hrs amoxicillin 500 mg capsule 500 mg PO QID 10 Days Qty: 40 0RF ibuprofen 600 mg tablet 600 mg PO Q8H PRN (Reason: pain) Qty: 20 0RF oxycodone 5 mg tablet 5 mg PO Q8H PRN (Reason: pain) Qty: 8 0RF Stand Alone Forms: Work/School Release Interventions: ED Discharge Assessment Last Done: 07/02/21 02:38 Discharge Date/Time: 07/02/21 02:38 Print Language: Malagasy
== END 2021-07-02 02:38 | disposition home or self-care (01) ==
PROVIDERS: Emergency Provider Internal Medicine
DX: S39.012A Strain of muscle, fascia and tendon of lower back, initial encounter (principal); S80.11XA Contusion of right lower leg, initial encounter; W01.0XXA Fall on same level from slipping, tripping and stumbling without subsequent striking against object, initial encounter; Y93.9 Activity, unspecified; Y92.9 Unspecified place or not applicable; Y99.0 Civilian activity done for income or pay; Z79.899 Other long term (current) drug therapy
CPT/HCPCS: 99283

== ENCOUNTER 2021-08-08 20:35 | Emergency (ER) | payer OTHER, MEDICAID, SELFPAY ==
[2021-08-08 21:03] VITALS: BP 126/74; PULSE 74; RESP 17; TEMP 36.3; O2SAT 98; BMI 30.2
[2021-08-08 21:15] LABS: Strep A Nucleic Acid Negative (Negative)
[2021-08-08 21:20] LABS: IDNOW Serial# 08D9AD1C; Influenza A Negative (Negative); Influenza B2 Negative (Negative)
[2021-08-08 21:23] LABS: COVID-19 Test Negative (Negative)
--- NOTE | 2021-08-08 21:54 | ED_ITS ---
HPI - General Adult General Chief complaint: General Medical Stated complaint: COVID Symptoms Time Seen by Provider: 08/08/21 21:54 Source: patient Mode of arrival: ambulatory Limitations: no limitations History of Present Illness HPI narrative: Patient has been complaining of sore throat for last 2 days low-grade fever occasional cough no running nose no other family member sick, possible exposure to COVID Related Data Home Medications Medication Instructions Recorded Confirmed ondansetron HCl 4 mg tablet 4 mg PO Q8H PRN 09/11/20 09/11/20 (Zofran) Previous Rx's Medication Instructions Recorded acetaminophen 325 mg tablet 650 mg PO Q6H PRN #30 tab 09/12/20 ibuprofen 400 mg tablet 400 mg PO Q6H PRN #30 tab 09/12/20 oxycodone 5 mg tablet 5 mg PO Q6H PRN #12 tab 09/12/20 amoxicillin 500 mg capsule 500 mg PO QID 10 Days #40 cap 10/28/20 ibuprofen 600 mg tablet 600 mg PO Q8H PRN #20 tab 11/28/20 oxycodone 5 mg tablet 5 mg PO Q8H PRN #8 tab 11/28/20 cyclobenzaprine 10 mg tablet 10 mg PO TID PRN #10 tab 01/08/21 ibuprofen 600 mg tablet 600 mg PO Q8H PRN #15 tab 01/08/21 lidocaine 5 % topical patch 1 patch TOPICAL DAILY #15 ea 01/08/21 (Lidoderm) cyclobenzaprine 10 mg tablet 10 mg PO Q8H #20 tab 07/02/21 tramadol 50 mg tablet 50 mg PO Q6H PRN #20 tab 07/02/21 azithromycin 250 mg tablet 250 mg PO DAILY 4 Days #4 tab 08/08/21 (Zithromax) Allergies Allergy/AdvReac Type Severity Reaction Status Date / Time No Known Allergies Allergy Verified 08/08/21 21:05 Review of Systems Review of Systems: Yes all other systems are reviewed and are negative PMFSH Past Medical History Surgical History History of appendectomy History of cholecystectomy Social History Social History Alcohol intake: never Patient Tobacco Use Status: Never used Tobacco Second Hand Smoke Exposure: No Advance Directives: No Advance Directives Information Provided: No service: No Current occupational status: unemployed Physical Exam ED Vital Signs: Vital Signs - 24 hr 08/08/21 21:03 Temperature 97.3 F Pulse Rate 74 Respiratory Rate 17 Blood Pressure 126/74 Pulse Oximetry 98 BMI result Body Mass Index 30.2 Appearance: Alert. Oriented X3. No acute distress. ENT: Slight erythema Oral Mucosa moist Neck: Normal inspection. Neck supple. Upper cervical lymph node+ CVS: Normal heart rate and rhythm. Pulses normal. Respiratory: No respiratory distress. Equal air entry bilateral, no whe ezing/rales/rhonchi Abdomen: Soft and nontender. Skin: Skin warm and dry. Normal skin color. Normal skin turgor. Neuro: Oriented X 3. Medical Decision Making Lab Data Lab results reviewed: Yes I reviewed the patient's lab results. Labs: Lab Results 08/08/21 08/08/21 08/08/21 Range/Units 20:58 20:58 20:58 COVID-19 (MARIO) Negative (Negative) COVID-19 Clin Com See Note Influenza Type A (CHARLIE) Negative (Negative) Influenza Type B (CHARLIE) Negative (Negative) Influenza A & B Note See Note S. pyogenes GrpA CHARLIE Negative (Negative) Discharge Plan Discharge Clinical Impression: Acute pharyngitis Patient Disposition: Home, Self-Care Instructions: Upper Respiratory Infection (ED) Additional Instructions: Drink plenty of fluids Your test for COVID is negative at this time if symptoms continues recheck your COVID test in 2 days Follow with PCP if any concerns Take antibiotics as advised Beber mucho l?quido [place] prueba de COVID es negativa en nat momento si los s?ntomas contin?an, vuelva a revisar gillette prueba de COVID en 2 d?as Siga con el PCP si tiene alguna inquietud Anthon los antibi?ticos seg?n lo recomendado Prescriptions: New azithromycin [Zithromax] 250 mg tablet 250 mg PO DAILY 4 Days Qty: 4 0RF Rx Instructions: start on day 2 of therapy No Action ondansetron HCl [Zofran] 4 mg Tablet 4 mg PO Q8H PRN (Reason: Nausea) 0RF acetaminophen 325 mg Tablet 650 mg PO Q6H PRN (Reason: Pain, Mild (Pain Scale 1-3)) Qty: 30 0RF ibuprofen 400 mg Tablet 400 mg PO Q6H PRN (Reason: Pain, Moderate (Pain Scale 4-6) Qty: 30 0RF oxycodone 5 mg Tablet 5 mg PO Q6H PRN (Reason: Pain, Severe (Pain Scale 7-10)) Qty: 12 0RF ibuprofen 600 mg tablet 600 mg PO Q8H PRN (Reason: fever or pain) Qty: 15 0RF cyclobenzaprine 10 mg tablet 10 mg PO TID PRN (Reason: muscle spasm) Qty: 10 0RF lidocaine [Lidoderm] 5 % adhesive patch,medicated 1 patch topical DAILY Qty: 15 0RF Rx Instructions: leave on most painful area for up to 12 hrs amoxicillin 500 mg capsule 500 mg PO QID 10 Days Qty: 40 0RF ibuprofen 600 mg tablet 600 mg PO Q8H PRN (Reason: pain) Qty: 20 0RF oxycodone 5 mg tablet 5 mg PO Q8H PRN (Reason: pain) Qty: 8 0RF cyclobenzaprine 10 mg tablet 10 mg PO Q8H Qty: 20 0RF tramadol 50 mg tablet 50 mg PO Q6H PRN (Reason: pain) Qty: 20 0RF
[2021-08-08] MEDS: Azithromycin 500 MG TABLET PO (22:07)
== END 2021-08-08 22:15 | disposition home or self-care (01) ==
PROVIDERS: Emergency Provider Internal Medicine
DX: J02.9 Acute pharyngitis, unspecified (principal); R50.9 Fever, unspecified; Z20.822 Contact with and (suspected) exposure to COVID-19; Z79.899 Other long term (current) drug therapy
CPT/HCPCS: 87502; 87635; 87651; 99283

== ENCOUNTER 2021-12-06 02:44 | Emergency (ER) | payer OTHER, MEDICAID, SELFPAY ==
--- NOTE | 2021-12-06 | ECG_ITS ---
Test Reason : CHEST PAIN Blood Pressure : / mmHG Vent. Rate : 083 BPM Atrial Rate : 083 BPM P-R Int : 152 ms QRS Dur : 082 ms QT Int : 338 ms P-R-T Axes : 047 058 035 degrees QTc Int : 397 ms Sinus rhythm with marked sinus arrhythmia Otherwise normal ECG No previous ECGs available Referred By: Generic ED Physician Electronically Signed By:NOAH PERERA
[2021-12-06 02:47] VITALS: BP 139/73; PULSE 84; RESP 18; TEMP 36.8; O2SAT 100; BMI 27.4
--- NOTE | 2021-12-06 03:14 | PC.NURSE ---
PATIENT IS A DIFFICULT STICK ,I HAD ANOTHER PCT DRYING TO DRAW LABS .
[2021-12-06 03:34] LABS: Hematocrit 37.7 % (37.0-47.0); Hemoglobin 12.8 g/dl (12.0-16.0); Mean Corpuscular Hemoglobin 28.4 pg (27.0-33.0); Mean Corpuscular Volume 83.6 fL (80.0-98.0); Mean Platelet Volume 10.4 fL (9.4-12.3); Platelet Count 270 X10*3/uL (160-400); Red Blood Count 4.51 X10*6/uL (4.20-5.50); Red Cell Distribution Width 12.6 % (11.0-16.0); White Blood Count 10.7 X10*3/uL (4.8-10.8)
--- NOTE | 2021-12-06 03:51 | PC.NURSE ---
patient stated she is unable to urinated at this time .
[2021-12-06 03:52] LABS: Alanine Aminotransferase 24 U/L (0-31); Albumin Level 4.3 g/dL (3.5-5.0); Alkaline Phosphatase 76 U/L (39-117); Anion Gap 17 (12-20); Aspartate Amino Transferase 22 U/L (5-31); Bilirubin Total 0.6 mg/dL (0.0-1.0); Blood Urea Nitrogen 19 mg/dL (9-16); Calcium 9.5 mg/dL (8.4-10.2); Carbon Dioxide 23 mmol/L (22-29); Chloride 103 mmol/L (96-108); Creatinine Clr Calc Pharmacy 104.3; Estimated Glomerular Filt Rate > 60; Glucose Random 85 mg/dL (60-115); Potassium 3.8 mmol/L (3.3-5.1); Sodium 139 mmol/L (135-145); Total Protein 7.6 g/dL (6.5-8.0)
[2021-12-06 03:53] LABS: Troponin-I High Sensitivity < 3.5 ng/L (<3.5-17.0)
[2021-12-06 03:54] LABS: COVID-19 Test Negative (Negative)
== END 2021-12-06 04:12 | disposition left against medical advice (07) ==
LOC: HO.ED 04:10
PROVIDERS: Emergency Provider Emergency Medicine
DX: R07.9 Chest pain, unspecified (principal); R06.02 Shortness of breath; Z20.822 Contact with and (suspected) exposure to COVID-19; F17.200 Nicotine dependence, unspecified, uncomplicated
CPT/HCPCS: 36415; 80053; 84484; 85027; 87635; 93005; 99283; 99284

== ENCOUNTER 2022-03-17 19:34 | Emergency (ER) | payer MEDICAID, SELFPAY ==
--- NOTE | 2022-03-17 20:18 | PC.NURSE ---
pt called to triage no answer 2018
== END 2022-03-17 20:56 | disposition left against medical advice (07) ==
PROVIDERS: Emergency Provider Emergency Medicine
DX: K08.89 Other specified disorders of teeth and supporting structures (principal)

== ENCOUNTER 2022-03-18 15:29 | Emergency (ER) | payer MEDICAID, SELFPAY ==
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
[2022-03-18 18:25] VITALS: PULSE 80; RESP 16; TEMP 36.7; O2SAT 100; BMI 29.1
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
[2022-03-18 21:33] VITALS: BP 114/52; PULSE 76; RESP 16; TEMP 36.3; O2SAT 99
[2022-03-18 22:29] VITALS: BP 115/70; PULSE 80; RESP 17; O2SAT 100
[2022-03-18] MEDS: Acetaminophen 325 MG TABLET 975 MG PO (22:59)
[2022-03-18] MEDS: Ibuprofen 400 MG TABLET PO (22:59)
== END 2022-03-18 23:07 | disposition home or self-care (01) ==
PROVIDERS: Emergency Provider Student in an Organized Health Care Education/Training Program
DX: R68.84 Jaw pain (principal); T74.11XA Adult physical abuse, confirmed, initial encounter; Y07.03 Male partner, perpetrator of maltreatment and neglect
CPT/HCPCS: 70486; 72125; 99284

== ENCOUNTER 2022-04-09 21:35 | Emergency (ER) | payer MEDICAID, SELFPAY ==
[2022-04-09 21:46] VITALS: BP 116/68; PULSE 92; RESP 16; TEMP 36.7; O2SAT 95; BMI 25.8
[2022-04-10 01:09] VITALS: BP 128/68; PULSE 97; RESP 17; TEMP 37; O2SAT 98
--- NOTE | 2022-04-10 01:17 | ED.BACK ---
HPI - Back Pain/Injury General Chief Complaint: Back Pain/Injury Stated Complaint: lower back pain left leg numbness Time Seen by Provider: 04/10/22 01:17 Source: patient Mode of arrival: ambulatory Limitations: no limitations History of Present Illness HPI Narrative: Patient history of chronic back pain apparently fell down 5 steps at home landed on her back complaining of pain in the left side radiating to the left leg patient does have chronic pain in similar location. No urinary complaints no other injuries Related Data Home Medications Medication Instructions Recorded Confirmed ondansetron HCl 4 mg tablet 4 mg PO Q8H PRN Nausea 09/11/20 09/11/20 (Zofran) Previous Rx's Medication Instructions Recorded acetaminophen 325 mg tablet 650 mg PO Q6H PRN Pain, Mild (Pain 09/12/20 Scale 1-3) #30 tabs ibuprofen 400 mg tablet 400 mg PO Q6H PRN Pain, Moderate 09/12/20 (Pain Scale 4-6 #30 tabs oxycodone 5 mg tablet 5 mg PO Q6H PRN Pain, Severe (Pain 09/12/20 Scale 7-10) #12 tabs amoxicillin 500 mg capsule 500 mg PO QID 10 days #40 caps 10/28/20 ibuprofen 600 mg tablet 600 mg PO Q8H PRN pain #20 tabs 11/28/20 oxycodone 5 mg tablet 5 mg PO Q8H PRN pain #8 tabs 11/28/20 cyclobenzaprine 10 mg tablet 10 mg PO TID PRN muscle spasm #10 01/08/21 tabs ibuprofen 600 mg tablet 600 mg PO Q8H PRN fever or pain 01/08/21 #15 tabs lidocaine 5 % topical patch 1 patch topical DAILY #15 ea 01/08/21 (Lidoderm) cyclobenzaprine 10 mg tablet 10 mg PO Q8H #20 tabs 07/02/21 tramadol 50 mg tablet 50 mg PO Q6H PRN pain #20 tabs 07/02/21 azithromycin 250 mg tablet 250 mg PO DAILY 4 days #4 tabs 08/08/21 (Zithromax) cyclobenzaprine 10 mg tablet 10 mg PO Q8H #20 tabs 04/10/22 oxycodone-acetaminophen 5 mg-325 1 tab PO Q6H PRN pain #20 tabs 12/23/22 mg tablet (Percocet) Allergies Allergy/AdvReac Type Severity Reaction Status Date / Time No Known Allergies Allergy Verified 04/09/22 21:50 Review of Systems Review of Systems: Yes all other systems are reviewed and are negative [facility] Past Medical History Surgical History History of appendectomy History of cholecystectomy Social History Social History Alcohol intake: current Alcohol intake frequency: holidays/special occasions only Patient Tobacco Use Status: Current everyday Tobacco user Smoked in Last 30 Days: Yes Second Hand Smoke Exposure: No Use of substances other than those prescribed or required for medical reasons: No Advance Directives: No Advance Directives Information Provided: Yes Patient : Yes service: No Current occupational status: unemployed Physical Exam Vital Signs: Vital Signs: Last Vital Signs Temp 98.6 F 04/10/22 01:09 Pulse 97 04/10/22 01:09 Resp 17 04/10/22 01:09 BP 128/68 04/10/22 01:09 Pulse Ox 98 04/10/22 01:09 O2 Del Method 04/10/22 01:09 BMI result Body Mass Index 25.8 Appearance: Alert. Oriented X3. Very anxious crying Eyes: PERRLA, No Nystagmus ENT: Pharynx normal. Oral Mucosa moist Neck: Normal inspection. Neck supple. CVS: Normal heart rate and rhythm. Pulses normal. Respiratory: No respiratory distress. Equal air entry bilateral, no wheezing/rales/rhonchi Abdomen: Soft and nontender. Bowel sounds are present, no mass palpable, no CVA tenderness Skin: Skin warm and dry. Normal skin color. Normal skin turgor back; diffuse tenderness left lower lumbar area no midline deformity or tenderness SLR positive 60 degrees left side sacral sensation intact Extremities: No lower extremity edema. No calf tenderness Neuro: Oriented X 3. No motor deficit. No sensory deficit.No cerebellar signs , cranial nerves II-XII intact Medications Administered Discontinued Medications Generic Name Dose Route Start Last Admin Trade Name Freq PRN Reason Stop Dose Admin Lorazepam 1 mg 04/10/22 01:22 04/10/22 01:35 Lorazepam 1 Mg Tablet PO 04/10/22 01:23 1 mg ONCE ONE Administration Morphine Sulfate 10 mg 04/10/22 01:22 04/10/22 01:35 Morphine Sulfate 10 Mg/Ml Cartridge IM 04/10/22 01:23 10 mg ONCE ONE Administration Protocol Oxycodone HCl 5 mg 04/10/22 03:14 04/10/22 03:47 Oxycodone Hcl Immed Release 5 Mg Tablet PO 04/10/22 03:15 5 mg ONCE ONE Administration Medical Decision Making Medical Decision Making MDM Narrative: Patient with chronic back pain came after minor fall very dramatic on arrival Ambulatory x-ray negative for any acute very anxious improved after pain medication advised to follow with PCP Discharge Plan Discharge Clinical Impression: Strain of lumbar region Patient Disposition: Home, Self-Care Instructions: Low Back Strain (ED) Additional Instructions: Rest at home take pain medication as prescribed Prescriptions: New cyclobenzaprine 10 mg tablet 10 mg PO Q8H Qty: 20 0RF oxycodone-acetaminophen [Percocet] 5-325 mg tablet 1 tab PO Q6H PRN (Reason: pain) Qty: 20 0RF Rx Instructions: Partial Fill upon patient request. No Action ondansetron HCl [Zofran] 4 mg Tablet 4 mg PO Q8H PRN (Reason: Nausea) acetaminophen 325 mg Tablet 650 mg PO Q6H PRN (Reason: Pain, Mild (Pain Scale 1-3)) Qty: 30 0RF ibuprofen 400 mg Tablet 400 mg PO Q6H PRN (Reason: Pain, Moderate (Pain Scale 4-6) Qty: 30 0RF oxycodone 5 mg Tablet 5 mg PO Q6H PRN (Reason: Pain, Severe (Pain Scale 7-10)) Qty: 12 0RF ibuprofen 600 mg tablet 600 mg PO Q8H PRN (Reason: fever or pain) Qty: 15 0RF cyclobenzaprine 10 mg tablet 10 mg PO TID PRN (Reason: muscle spasm) Qty: 10 0RF lidocaine [Lidoderm] 5 % adhesive patch,medicated 1 patch topical DAILY Qty: 15 0RF Rx Instructions: leave on most painful area for up to 12 hrs amoxicillin 500 mg capsule 500 mg PO QID 10 Days Qty: 40 0RF ibuprofen 600 mg tablet 600 mg PO Q8H PRN (Reason: pain) Qty: 20 0RF oxycodone 5 mg tablet 5 mg PO Q8H PRN (Reason: pain) Qty: 8 0RF cyclobenzaprine 10 mg tablet 10 mg PO Q8H Qty: 20 0RF tramadol 50 mg tablet 50 mg PO Q6H PRN (Reason: pain) Qty: 20 0RF azithromycin [Zithromax] 250 mg tablet 250 mg PO DAILY 4 Days Qty: 4 0RF Rx Instructions: start on day 2 of therapy Stand Alone Forms: Work/School Release Interventions: ED Discharge Assessment Last Done: 04/10/22 03:45 Discharge Date/Time: 04/10/22 03:48
[2022-04-10] MEDS: LORazepam 1 MG TABLET PO (01:35)
[2022-04-10] MEDS: Morphine Sulfate 10 MG/ML CARTRIDGE IM (01:35)
[2022-04-10] MEDS: oxyCODONE HCl Immed Release 5 MG TABLET PO (03:47)
== END 2022-04-10 03:48 | disposition home or self-care (01) ==
PROVIDERS: Emergency Provider Internal Medicine
DX: M54.50 Low back pain, unspecified (principal); M79.605 Pain in left leg; R07.81 Pleurodynia; F17.200 Nicotine dependence, unspecified, uncomplicated; Z71.6 Tobacco abuse counseling; Z79.899 Other long term (current) drug therapy
CPT/HCPCS: 71101; 72100; 96372; 99284; J2270

== ENCOUNTER 2022-05-03 23:30 | Emergency (ER) | payer MEDICAID, SELFPAY ==
[2022-05-03 23:32] VITALS: BP 128/79; PULSE 95; RESP 20; TEMP 36.3; O2SAT 97; BMI 26.2
[2022-05-03 23:50] LABS: MANUAL DIFF FLAG NO
[2022-05-03 23:52] LABS: Basophils Percent Auto 0.3 % (0-2); Eosinophils Absolute Auto 0.2 X10*3/uL (0.0-0.4); Eosinophils Percent Auto 1.8 % (0-4); Hematocrit 39.6 % (37.0-47.0); Imm Gran Abs Auto 0.02 X10*3/uL (0.00-0.03); Imm Gran Pct Auto 0.2 % (0.0-0.4); Lymphocytes Absolute Auto 4.1 X10*3/uL (1.2-4.9); Lymphocytes Percent Auto 35.2 % (20-40); Mean Corpuscular HGB Conc 32.8 g/dl (31.0-35.0); Mean Corpuscular Hemoglobin 27.8 pg (27.0-33.0); Mean Corpuscular Volume 84.6 fL (80.0-98.0); Mean Platelet Volume 10.4 fL (9.4-12.3); Monocytes Absolute Auto 0.7 X10*3/uL (0.1-1.2); Monocytes Percent Auto 6.2 % (2-11); Neutrophils Absolute Auto 6.5 x10*3/uL (2.0-8.3); Neutrophils Percent Auto 56.3 % (45-73); Platelet Count 280 X10*3/uL (160-400); Red Blood Count 4.68 X10*6/uL (4.20-5.50); Red Cell Distribution Width 13.6 % (11.0-16.0); White Blood Count 11.6 X10*3/uL (4.8-10.8)
--- NOTE | 2022-05-04 00:02 | ED_ITS ---
HPI - General Chief complaint: Vaginal Bleeding Stated complaint: , vaginal bleeding Time Seen by Provider: 05/04/22 00:05 Source: patient Mode of arrival: ambulatory Limitations: no limitations History of Present Illness HPI Narrative: Patient comes to the emergency room complaining suprapubic cramping and heavy vaginal bleeding. Patient states she found out that she is approximately 3 weeks ago. Patient is a A2 approximately 6 weeks of gestational age per last menstrual. Patient has not been seen by Ob Gyne get. Patient has an appointment pending. Patient states that the bleeding started today. Related Data Home Medications Medication Instructions Recorded Confirmed ondansetron HCl 4 mg tablet 4 mg PO Q8H PRN Nausea 09/11/20 09/11/20 (Zofran) Previous Rx's Medication Instructions Recorded acetaminophen 325 mg tablet 650 mg PO Q6H PRN Pain, Mild (Pain 09/12/20 Scale 1-3) #30 tabs ibuprofen 400 mg tablet 400 mg PO Q6H PRN Pain, Moderate 09/12/20 (Pain Scale 4-6 #30 tabs oxycodone 5 mg tablet 5 mg PO Q6H PRN Pain, Severe (Pain 09/12/20 Scale 7-10) #12 tabs amoxicillin 500 mg capsule 500 mg PO QID 10 days #40 caps 10/28/20 ibuprofen 600 mg tablet 600 mg PO Q8H PRN pain #20 tabs 11/28/20 oxycodone 5 mg tablet 5 mg PO Q8H PRN pain #8 tabs 11/28/20 cyclobenzaprine 10 mg tablet 10 mg PO TID PRN muscle spasm #10 01/08/21 tabs ibuprofen 600 mg tablet 600 mg PO Q8H PRN fever or pain 01/08/21 #15 tabs lidocaine 5 % topical patch 1 patch topical DAILY #15 ea 01/08/21 (Lidoderm) cyclobenzaprine 10 mg tablet 10 mg PO Q8H #20 tabs 07/02/21 tramadol 50 mg tablet 50 mg PO Q6H PRN pain #20 tabs 07/02/21 azithromycin 250 mg tablet 250 mg PO DAILY 4 days #4 tabs 08/08/21 (Zithromax) cyclobenzaprine 10 mg tablet 10 mg PO Q8H #20 tabs 04/10/22 oxycodone-acetaminophen 5 mg-325 1 tab PO Q6H PRN pain #20 tabs 04/10/ mg tablet (Percocet) Allergies Allergy/AdvReac Type Severity Reaction Status Date / Time No Known Allergies Allergy Verified 05/03/22 23:35 Review of Systems Review of Systems: Constitutional : No Weight loss, No Fever, No Chills, No Night Sweats, No Fatigue, No Malaise ENT/Mouth : No Hearing loss, No Ear Pain, No Nasal Congestion, No Sinus Pain, No Hoarseness, No sore throat, No Rhinorrhea, No Swallowing Difficulty Eyes: No Eye Pain, No Swelling, No Redness, No Foreign Body, No Discharge, No Vision Changes Cardiovascular : No Chest Pain, No SOB, No Dyspnea on Exertion, No Orthopnea, No Edema, No Palpitations Respiratory : No Cough, No Sputum, No Wheezing, No Smoke Exposure, No Dyspnea Gastrointestinal : No Nausea, No Vomiting, No Diarrhea, No Constipation, No ab dominal Pain, No Hematochezia, No Melena Genitourinary : Complaining of vaginal bleeding with blood clots starting this morning, no dysuria Musculoskeletal : No joint pain, No Myalgias, No Joint Swelling Skin : No Skin Lesions, No rash Neuro : No Weakness, No Numbness, No Paresthesias, No Loss of Consciousness, No Dizziness, No Headache Psych : No Anxiety/Panic, No Depression, No SI/HI/AH/VH, No Social Issues, Heme/Lymph: No Bruising, No Bleeding,No Lymphadenopathy Endocrine : No Polyuria, No Polydipsia, No Temperature Intolerance [facility] Past Medical History Surgical History History of appendectomy History of cholecystectomy Social History Social History Alcohol intake: current Alcohol intake frequency: holidays/special occasions only Patient Tobacco Use Status: Current everyday Tobacco user Second Hand Smoke Exposure: No Advance Directives: No Advance Directives Information Provided: No service: No Current occupational status: unemployed Physical Exam Vital Signs: Vital Signs: Last Vital Signs Temp 97.3 F 05/03/22 23:32 Pulse 95 05/03/22 23:32 Resp 20 05/03/22 23:32 BP 128/79 05/03/22 23:32 Pulse Ox 97 05/03/22 23:32 O2 Del Method 05/03/22 23:32 BMI result Body Mass Index 26.2 Const: Other: Appearance: Alert. Oriented X3. No acute distress. Eyes: Pupils equal, round and reactive to light. ENT: Pharynx normal. Neck: Normal inspection. Neck supple. No lymph nodes noted. No crepitus CVS: Normal heart rate and rhythm. Pulses normal. Normal S1 and S2 Respiratory: No respiratory distress. Breath sounds normal. No Wheezing. No rales Abdomen: Soft and nontender. No rigidity. No distention. : [id number] vaginal blood in the cervical vault,, no tissue oozing through the cervix Skin: Skin warm and dry. Normal skin color. Normal skin turgor. Extremities: No lower extremity edema. No Lacerations. No Rash Neuro: Oriented X 3. No motor deficit. No sensory deficit. Moving all extremities. No slurred speech. CN 2 through 12 grossly intact Psych: calm, cooperative, normal affect Course Course Course Narrative: -patient's H&H in normal limits, beta hCG is negative. -patient ready for discharge. -patient states that she has an OB Gyne consult pending in the next week. Medical Decision Making Lab Data 05/03/22 23:43 05/03/22 23:43 Labs: Lab Results 05/03/22 05/03/22 05/03/22 Range/Units 23:43 23:43 23:43 WBC 11.6 H (4.8-10.8) X10*3/uL RBC 4.68 (4.20-5.50) X10*6/uL Hgb 13.0 (12.0-16.0) g/dl Hct 39.6 (37.0-47.0) % MCV 84.6 (80.0-98.0) fL MCH 27.8 (27.0-33.0) pg MCHC 32.8 (31.0-35.0) g/dl RDW 13.6 (11.0-16.0) % Plt Count 280 (160-400) X10*3/uL MPV 10.4 (9.4-12.3) fL Immature Gran % (Auto) 0.2 (0.0-0.4) % Neut % (Auto) 56.3 (45-73) % Lymph % (Auto) 35.2 (20-40) % [place] % (Auto) 6.2 (2-11) % Eos % (Auto) 1.8 (0-4) % Baso % (Auto) 0.3 (0-2) % Lymph # (Auto) 4.1 (1.2-4.9) X10*3/uL [place] # (Auto) 0.7 (0.1-1.2) X10*3/uL Eos # (Auto) 0.2 (0.0-0.4) X10*3/uL Baso # (Auto) 0.0 (0.0-0.2) X10*3/uL Abs Immat Gran (auto) 0.02 (0.00-0.03) X10*3/uL Absolute Neuts (auto) 6.5 (2.0-8.3) x10*3/uL Absolute Nucleated RBC 0.000 (0.0-0.012) X10*3/uL Nucleated RBC % (auto) 0.0 (0.0-0.2) /100WBC Sodium 139 (135-145) mmol/L Potassium 3.9 (3.3-5.1) mmol/L Chloride 104 (96-108) mmol/L Carbon Dioxide 27 (22-29) mmol/L Anion Gap 12 (12-20) BUN 17 H (9-16) mg/dL Creatinine 0.78 (0.5-1.4) mg/dL Estim Creat Clear Calc 107.4 Estimated GFR > 60 Random Glucose 104 (60-115) mg/dL Calcium 9.3 (8.4-10.2) mg/dL Beta HCG, Quant < 2 mIU/mL Blood Type A Positive Discharge Plan Discharge Clinical Impression: Vaginal bleeding Patient Disposition: Home, Self-Care Instructions: Dysfunctional Uterine Bleeding (ED) Additional Instructions: 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 If you have any worsening or new symptoms, please return to the emergency room or call 911 Prescriptions: No Action ondansetron HCl [Zofran] 4 mg Tablet 4 mg PO Q8H PRN (Reason: Nausea) acetaminophen 325 mg Tablet 650 mg PO Q6H PRN (Reason: Pain, Mild (Pain Scale 1-3)) Qty: 30 0RF ibuprofen 400 mg Tablet 400 mg PO Q6H PRN (Reason: Pain, Moderate (Pain Scale 4-6) Qty: 30 0RF oxycodone 5 mg Tablet 5 mg PO Q6H PRN (Reason: Pain, Severe (Pain Scale 7-10)) Qty: 12 0RF ibuprofen 600 mg tablet 600 mg PO Q8H PRN (Reason: fever or pain) Qty: 15 0RF cyclobenzaprine 10 mg tablet 10 mg PO TID PRN (Reason: muscle spasm) Qty: 10 0RF lidocaine [Lidoderm] 5 % adhesive patch,medicated 1 patch topical DAILY Qty: 15 0RF Rx Instructions: leave on most painful area for up to 12 hrs amoxicillin 500 mg capsule 500 mg PO QID 10 Days Qty: 40 0RF ibuprofen 600 mg tablet 600 mg PO Q8H PRN (Reason: pain) Qty: 20 0RF oxycodone 5 mg tablet 5 mg PO Q8H PRN (Reason: pain) Qty: 8 0RF cyclobenzaprine 10 mg tablet 10 mg PO Q8H Qty: 20 0RF tramadol 50 mg tablet 50 mg PO Q6H PRN (Reason: pain) Qty: 20 0RF azithromycin [Zithromax] 250 mg tablet 250 mg PO DAILY 4 Days Qty: 4 0RF Rx Instructions: start on day 2 of therapy cyclobenzaprine 10 mg tablet 10 mg PO Q8H Qty: 20 0RF oxycodone-acetaminophen [Percocet] 5-325 mg tablet 1 tab PO Q6H PRN (Reason: pain) Qty: 20 0RF Rx Instructions: Partial Fill upon patient request.
[2022-05-04 00:14] LABS: Anion Gap 12 (12-20); Blood Urea Nitrogen 17 mg/dL (9-16); Calcium 9.3 mg/dL (8.4-10.2); Carbon Dioxide 27 mmol/L (22-29); Chloride 104 mmol/L (96-108); Creatinine Clr Calc Pharmacy 107.4; Estimated Glomerular Filt Rate > 60; Glucose Random 104 mg/dL (60-115); Potassium 3.9 mmol/L (3.3-5.1); Sodium 139 mmol/L (135-145)
[2022-05-04 00:29] LABS: HCG Quantitative < 2 mIU/mL
--- NOTE | 2022-05-04 01:04 | PC.NURSE ---
Pt's V/S are stable, pt is a/o x4, pt is in tear during the nurse assessment.
== END 2022-05-04 01:17 | disposition home or self-care (01) ==
PROVIDERS: Emergency Provider Emergency Medicine
DX: O20.9 Hemorrhage in early pregnancy, unspecified (principal); Z3A.01 Less than 8 weeks gestation of pregnancy; Z79.899 Other long term (current) drug therapy
CPT/HCPCS: 36415; 80048; 84702; 85025; 86900; 86901; 99283

== ENCOUNTER 2022-06-15 04:35 | Emergency (ER) | payer MEDICAID, SELFPAY ==
--- NOTE | ~2022-06-15 | CT_ITS ---
EXAMINATION: CT abdomen pelvis wo IV con CLINICAL INFORMATION: Reason for Exam mid abd pain COMPARISON: No prior CT available for comparison. TECHNIQUE: Multidetector volumetric imaging was performed from the superior aspect of the liver through the pubic symphysis without contrast Sagittal and coronal reformatted images were obtained on the technologist's workstation. This CT examination was performed using dose optimization techniques as appropriate, variously including the following: *Automated exposure control *Adjustment of mA and/or kV according to patient size (this includes techniques or standardized protocols for targeted exams where dose is matched to indication/reason for exam; i.e. extremities or head) *Use of iterative reconstruction technique DLP: 738 mGy-cm FINDINGS: LOWER THORAX: Included lung bases are clear. Bilateral breast implants. HEPATOBILIARY: No focal hepatic lesions. No biliary ductal dilatation. GALLBLADDER: Gallbladder not visualized might be contracted or might have been removed. SPLEEN: Spleen is normal in size. PANCREAS: No focal mass or ductal dilatation. STOMACH AND GASTROINTESTINAL TRACT: Stomach is grossly unremarkable. There is no bowel distention or thickening. No CT evidence of appendicitis. ADRENALS: No adrenal nodules. KIDNEYS/URETERS: No hydronephrosis, stones or solid mass lesions. URINARY BLADDER: Partially decompressed. PELVIC VISCERA: Unremarkable PERITONEUM: No free air or fluid. LYMPH NODES: No lymphadenopathy. VASCULAR:Abdominal aorta normal in size, no aneurysm found. BONES, ABDOMINAL WALL AND SOFT TISSUES: Age-appropriate changes of the spine and skeletal system, no destructive osteolytic or osteosclerotic bone lesion found CT/CT abdomen pelvis wo IV con IMPRESSION: *Explanation for patient's acute pain symptoms cannot be found. *No evidence of bowel obstruction, no kidney stone or hydronephrosis, no free air or fluid in the abdomen or pelvis.
[2022-06-15 04:49] VITALS: BP 103/68; PULSE 72; RESP 16; TEMP 36.3; O2SAT 98; BMI 61.5
[2022-06-15 05:07] LABS: Hematocrit 40.4 % (37.0-47.0); Hemoglobin 13.6 g/dl (12.0-16.0); Mean Corpuscular HGB Conc 33.7 g/dl (31.0-35.0); Mean Corpuscular Hemoglobin 27.8 pg (27.0-33.0); Mean Corpuscular Volume 82.6 fL (80.0-98.0); Mean Platelet Volume 10.5 fL (9.4-12.3); Platelet Count 272 X10*3/uL (160-400); Red Blood Count 4.89 X10*6/uL (4.20-5.50); Red Cell Distribution Width 13.1 % (11.0-16.0); White Blood Count 10.3 X10*3/uL (4.8-10.8)
[2022-06-15 05:25] LABS: Alanine Aminotransferase 102 U/L (0-31); Alkaline Phosphatase 63 U/L (39-117); Anion Gap 11 (12-20); Aspartate Amino Transferase 18 U/L (5-31); Bilirubin Direct 0.2 mg/dL (0.0-0.5); Bilirubin Total 0.6 mg/dL (0.0-1.0); Blood Urea Nitrogen 24 mg/dL (9-16); Calcium 8.9 mg/dL (8.4-10.2); Carbon Dioxide 21 mmol/L (22-29); Chloride 111 mmol/L (96-108); Creatinine Clr Calc Pharmacy 179.2; Estimated Glomerular Filt Rate > 60; Glucose Random 101 mg/dL (60-115); Lipase 17 U/L (8-78); Sodium 139 mmol/L (135-145); Total Protein 6.7 g/dL (6.5-8.0)
--- NOTE | 2022-06-15 05:39 | PC.NURSE ---
PT A&Ox4, reports increasing 10/10 lower ABD pain radiating to L flank area since Wednesday, reports feels like pressure and tightening. Reports N/V, last BM was Wednesday, reports burning/ pain with urination. + Bowel sounds x 4 quadrants. IV line placed, blood work collected and sent to lab. Pt ambulated to BR independently with steady gait, urine sample collected and sent to lab.
[2022-06-15 05:58] LABS: Appearance Urine Clear; Color Urine Yellow; Glucose Urine UA Negative (Negative); Leukocyte Esterase Urine Trace (Negative); Nitrite Urine Negative (Negative); PH 6.5 (5.0-9.0); Specific Gravity - Urine >= 1.030 (1.005-1.025); UMIC TRIGGER UACC YES; Urine Blood Negative (Negative); Urine Ketones Negative (Negative); Urine Protein Trace mg/dL (Neg-Trace)
[2022-06-15 06:02] LABS: HCG Quantitative < 2 mIU/mL
[2022-06-15 06:05] VITALS: BP 108/60; PULSE 64; RESP 18; TEMP 37.1; O2SAT 98
[2022-06-15 06:15] LABS: Bacteria Urine None Seen (None Seen); Hyaline Casts Urine 0-2 /LPF (0-2); RBC Urine 0-2 /HPF (0-2); WBC Urine 0-5 /HPF (0-5)
[2022-06-15] MEDS: Magnesium Hydrox/Alum Hydrox 30 ML ORAL.SUSP PO (06:43)
[2022-06-15] MEDS: Lidocaine HCl Viscous 2 % 15 ML SOLUTION 10 ML MUCOUS MEM (06:43)
[2022-06-15] MEDS: Ondansetron ODT 4 MG TAB.RAPDIS TRANSLINGU (06:43)
--- NOTE | 2022-06-15 07:08 | ED_ITS ---
HPI - Abdominal Pain General Chief Complaint: Abdominal Pain Stated Complaint: abd pain? Time Seen by Provider: 06/15/22 04:55 Source: patient Mode of arrival: ambulatory History of Present Illness HPI narrative: 26-year-old female who has a history of anxiety and depression was recently treated for UTI presents with concerns regarding mid abdominal discomfort that is not been associated with obstipation, fever, chills. Related Data Home Medications Medication Instructions Recorded Confirmed ondansetron HCl 4 mg tablet 4 mg PO Q8H PRN Nausea 09/11/20 09/11/20 (Zofran) Previous Rx's Medication Instructions Recorded acetaminophen 325 mg tablet 650 mg PO Q6H PRN Pain, Mild (Pain 09/12/20 Scale 1-3) #30 tabs ibuprofen 400 mg tablet 400 mg PO Q6H PRN Pain, Moderate 09/12/20 (Pain Scale 4-6 #30 tabs oxycodone 5 mg tablet 5 mg PO Q6H PRN Pain, Severe (Pain 09/12/20 Scale 7-10) #12 tabs amoxicillin 500 mg capsule 500 mg PO QID 10 days #40 caps 10/28/20 ibuprofen 600 mg tablet 600 mg PO Q8H PRN pain #20 tabs 11/28/20 oxycodone 5 mg tablet 5 mg PO Q8H PRN pain #8 tabs 11/28/20 cyclobenzaprine 10 mg tablet 10 mg PO TID PRN muscle spasm #10 01/08/21 tabs ibuprofen 600 mg tablet 600 mg PO Q8H PRN fever or pain 01/08/21 #15 tabs lidocaine 5 % topical patch 1 patch topical DAILY #15 ea 01/08/21 (Lidoderm) cyclobenzaprine 10 mg tablet 10 mg PO Q8H #20 tabs 07/02/21 tramadol 50 mg tablet 50 mg PO Q6H PRN pain #20 tabs 07/02/21 azithromycin 250 mg tablet 250 mg PO DAILY 4 days #4 tabs 08/08/21 (Zithromax) cyclobenzaprine 10 mg tablet 10 mg PO Q8H #20 tabs 04/10/22 oxycodone-acetaminophen 5 mg-325 1 tab PO Q6H PRN pain #20 tabs 04/10/22 mg tablet (Percocet) Allergies Allergy/AdvReac Type Severity Reaction Status Date / Time No Known Allergies Allergy Verified 05/03/22 23:35 Review of Systems Review of Systems Pertinent positives and negatives as stated in HPI [facility] Past Medical History Source: nursing notes reviewed Surgical History History of appendectomy History of cholecystectomy Social History Social History Alcohol intake: never Patient Tobacco Use Status: Current everyday Tobacco user Smoked in Last 30 Days: Yes Second Hand Smoke Exposure: No Use of substances other than those prescribed or required for medical reasons: No Advance Directives: No Advance Directives Information Provided: Yes Patient : No service: No Current occupational status: unemployed Physical Exam ED Vital Signs: Vital Signs - 24 hr 06/15/22 04:49 06/15/22 06:05 Temperature 97.3 F 98.7 F Pulse Rate 72 64 Respiratory Rate 16 18 Blood Pressure 103/68 108/60 Pulse Oximetry 98 98 Oxygen Delivery Method Room Air Room Air BMI result Body Mass Index 61.5 VITAL SIGNS: Reviewed. GENERAL: Well developed, well nourished, in no acute distress. HEAD: Normocephalic/atraumatic EYES: PERRLA, EOMI LUNGS: Normal breath sounds. No adventitious sounds or accessory muscle use. SpO2<98> CARDIOVASCULAR: Regular rate and rhythm without noted murmurs ABDOMEN: Soft, non-tender, non-distended with bowel sounds. MUSCULOSKELETAL: No tenderness, deformities, or effusions noted on gross inspection. EXTREMITIES: No cyanosis, clubbing or edema. SKIN: Inspection of the skin reveals no rash NEUROLOGIC: Alert and oriented x 4. Strength and sensation to light touch were grossly intact x 4. Medical Decision Making Medical Decision Making MDM Narrative: 26-year-old female with concerns regarding mid abdominal pain. On review of all investigations my interpretation is patient may be suffering from IBS. Awaiting CT scan read I signed out to Dr Mcleod. Differential Diagnosis Please see the discussion above Lab Data Please see the discussion above 06/15/22 04:59 06/15/22 04:59 Labs: Lab Results 06/15/22 06/15/22 06/15/22 Range/Units 04:59 04:59 05:36 WBC 10.3 (4.8-10.8) X10*3/uL RBC 4.89 (4.20-5.50) X10*6/uL Hgb 13.6 (12.0-16.0) g/dl Hct 40.4 (37.0-47.0) % MCV 82.6 (80.0-98.0) fL MCH 27.8 (27.0-33.0) pg MCHC 33.7 (31.0-35.0) g/dl RDW 13.1 (11.0-16.0) % Plt Count 272 (160-400) X10*3/uL MPV 10.5 (9.4-12.3) fL Absolute Nucleated RBC 0.000 (0.0-0.012) X10*3/uL Nucleated RBC % (auto) 0.0 (0.0-0.2) /100WBC Sodium 139 (135-145) mmol/L Potassium 4.0 (3.3-5.1) mmol/L Chloride 111 H (96-108) mmol/L Carbon Dioxide 21 L (22-29) mmol/L Anion Gap 11 L (12-20) BUN 24 H (9-16) mg/dL Creatinine 0.78 (0.5-1.4) mg/dL Estim Creat Clear Calc 179.2 Estimated GFR > 60 Random Glucose 101 (60-115) mg/dL Calcium 8.9 (8.4-10.2) mg/dL Total Bilirubin 0.6 (0.0-1.0) mg/dL Direct Bilirubin 0.2 (0.0-0.5) mg/dL AST 18 (5-31) U/L ALT 102 H (0-31) U/L Alkaline Phosphatase 63 (39-117) U/L Total Protein 6.7 (6.5-8.0) g/dL Albumin 4.0 (3.5-5.0) g/dL Lipase 17 (8-78) U/L Beta HCG, Quant < 2 mIU/mL Urine Color Yellow Urine Appearance Clear Urine pH 6.5 (5.0-9.0) Ur Specific [place] >= 1.030 H (1.005-1.025) Urine Protein Trace (Neg-Trace) mg/dL Urine Glucose (UA) Negative (Negative) mg/dL Urine Ketones Negative (Negative) mg/dL Urine Blood Negative (Negative) Urine Nitrite Negative (Negative) Ur Leukocyte Esterase Trace H (Negative) Urine RBC 0-2 (0-2) /HPF Urine WBC 0-5 (0-5) /HPF Ur Squamous Epith Cells 3-5 (0-2) /HPF Urine Bacteria None Seen (None Seen) Hyaline Casts 0-2 (0-2) /LPF Medications Administered Discontinued Medications Generic Name Dose Route Start Last Admin Trade Name Freq PRN Reason Stop Dose Admin Al Hydroxide/Mg Hydroxide 30 ml 06/15/22 06:38 06/15/22 06:43 Magnesium Hydrox/Alum Hydrox 30 Ml Oral.Susp PO 06/15/22 06:39 30 ml ONCE ONE Administration Lidocaine HCl 10 ml 06/15/22 06:38 06/15/22 06:43 Lidocaine Hcl Viscous 2 % 15 Ml Solution MUCOUS MEM 06/15/22 06:39 10 ml ONCE ONE Administration Ondansetron HCl 4 mg 06/15/22 06:38 06/15/22 06:43 Ondansetron Odt 4 Mg Tab.Rapdis TRANSLINGU 06/15/22 06:39 4 mg ONCE ONE Administration Discharge Plan Discharge Clinical Impression: Abdominal pain Patient Disposition: Still a Patient Prescriptions: No Action ondansetron HCl [Zofran] 4 mg Tablet 4 mg PO Q8H PRN (Reason: Nausea) acetaminophen 325 mg Tablet 650 mg PO Q6H PRN (Reason: Pain, Mild (Pain Scale 1-3)) Qty: 30 0RF ibuprofen 400 mg Tablet 400 mg PO Q6H PRN (Reason: Pain, Moderate (Pain Scale 4-6) Qty: 30 0RF oxycodone 5 mg Tablet 5 mg PO Q6H PRN (Reason: Pain, Severe (Pain Scale 7-10)) Qty: 12 0RF ibuprofen 600 mg tablet 600 mg PO Q8H PRN (Reason: fever or pain) Qty: 15 0RF cyclobenzaprine 10 mg tablet 10 mg PO TID PRN (Reason: muscle spasm) Qty: 10 0RF lidocaine [Lidoderm] 5 % adhesive patch,medicated 1 patch topical DAILY Qty: 15 0RF Rx Instructions: leave on most painful area for up to 12 hrs amoxicillin 500 mg capsule 500 mg PO QID 10 Days Qty: 40 0RF ibuprofen 600 mg tablet 600 mg PO Q8H PRN (Reason: pain) Qty: 20 0RF oxycodone 5 mg tablet 5 mg PO Q8H PRN (Reason: pain) Qty: 8 0RF cyclobenzaprine 10 mg tablet 10 mg PO Q8H Qty: 20 0RF tramadol 50 mg tablet 50 mg PO Q6H PRN (Reason: pain) Qty: 20 0RF azithromycin [Zithromax] 250 mg tablet 250 mg PO DAILY 4 Days Qty: 4 0RF Rx Instructions: start on day 2 of therapy cyclobenzaprine 10 mg tablet 10 mg PO Q8H Qty: 20 0RF oxycodone-acetaminophen [Percocet] 5-325 mg tablet 1 tab PO Q6H PRN (Reason: pain) Qty: 20 0RF Rx Instructions: Partial Fill upon patient request.
[2022-06-15 07:14] VITALS: BP 104/55; PULSE 59; RESP 18; TEMP 36.8; O2SAT 100
[2022-06-15 08:16] LABS: Appearance Urine Clear; Color Urine Yellow; Glucose Urine UA Negative (Negative); Leukocyte Esterase Urine Negative (Negative); Nitrite Urine Negative (Negative); Specific Gravity - Urine >= 1.030 (1.005-1.025); Urine Blood Negative (Negative); Urine Ketones Negative (Negative); Urine Protein Negative (Neg-Trace)
[2022-06-15 08:18] LABS: UPreg QC Valid YES; Urine Pregnancy NEGATIVE (NEGATIVE)
[2022-06-15 08:22] LABS: Bacteria Urine None Seen (None Seen); Hyaline Casts Urine 0-2 /LPF (0-2); RBC Urine 0-2 /HPF (0-2); Squamous Epithelial Cell Urine 0-2 /HPF (0-2); WBC Urine 0-5 /HPF (0-5)
[2022-06-15 08:36] VITALS: BP 111/61; PULSE 65; RESP 18; TEMP 36.8; O2SAT 100
[2022-06-15] MEDS: Ketorolac Tromethamine 15 MG/ML VIAL 30 MG IVPUSH (08:48)
[2022-06-15] MEDS: 0.9 % Sodium Chloride 500 ML IV (08:48)
[2022-06-15] MEDS: HaloperidoL 1 MG TABLET 2 MG PO (09:58)
--- NOTE | 2022-06-15 10:03 | PC.NURSE ---
patient c/o abd pain post toradol, ED provider aware.
[2022-06-15 10:27] VITALS: BP 107/56; PULSE 67; RESP 18; TEMP 36.8; O2SAT 100
[2022-06-15] MEDS: Pantoprazole Sodium 40 MG/10 ML VIAL IVPUSH (11:00)
[2022-06-15] MEDS: LORazepam 2 MG/ML VIAL 1 MG IVPUSH (11:00)
[2022-06-15] MEDS: 0.9 % Sodium Chloride 1,000 ML 999 ML IV (11:05)
== END 2022-06-15 12:55 | disposition home or self-care (01) ==
PROVIDERS: Student in an Organized Health Care Education/Training Program; Emergency Provider Emergency Medicine
DX: R10.30 Lower abdominal pain, unspecified (principal); R11.0 Nausea; F17.200 Nicotine dependence, unspecified, uncomplicated
CPT/HCPCS: 36415; 74176; 80053; 81001; 81003; 81025; 82248; 83690; 84702; 85027; 96361; 96365; 96375; 99285; J1885; J2060; J2550

== ENCOUNTER → 2022-06-22 14:51 | Outpatient (BNVA) | payer MEDICAID, SELFPAY | PROVIDERS: PCP Registered Nurse; Visit Provider Nurse Practitioner Family | DX: M47.816 Spondylosis without myelopathy or radiculopathy, lumbar region (principal); M53.3 Sacrococcygeal disorders, not elsewhere classified; M79.7 Fibromyalgia; M79.18 Myalgia, other site | CPT/HCPCS: 99202 ==

== ENCOUNTER 2022-06-24 12:06 | Emergency (ER) | payer MEDICAID, SELFPAY ==
[2022-06-24 12:13] VITALS: BP 108/72; PULSE 88; RESP 16; TEMP 36.8; O2SAT 99; BMI 27.8
--- NOTE | 2022-06-24 12:14 | ED_ITS ---
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 She also reports diffuse abdominal pains that come and go, cramping in nature. She also reports of chronic low back pain. She reports history of arthritis in her back and follows with her primary care and pain management for this. She denies any radiation of the pain, it is worse with movement. No urinary symptoms, fever, chills. She states she was here little over a week ago with abdominal pains and dehydration. She did negative CT scan of her abdomen at that time. GI symptoms improved and then got worse again yesterday. MD elicited complaint: abdominal pain and other (back pain) Pertinent past history: none Onset (ago): day(s) (1) Location: diffuse Quality: cramping Radiation: none Migration to: no migration Exacerbating factors: nothing Relieving factors: nothing Associated symptoms: nausea, vomiting and diarrhea Related Data Home Medications Medication Instructions Recorded Confirmed etonogestrel 0.12 mg-ethinyl 0 vag ring vaginal 06/22/22 estradiol 0.015 mg/24 hr vaginal ring sulfamethoxazole 800 1 tab PO BID 06/22/22 mg-trimethoprim 160 mg tablet valacyclovir 500 mg tablet 500 mg PO DAILY 06/22/22 Previous Rx's Medication Instructions Recorded cyclobenzaprine 10 mg tablet 10 mg PO Q8H #20 tabs 04/10/22 promethazine 25 mg tablet 25 mg PO Q6H PRN nausea and 06/15/22 vomiting #20 tabs gabapentin 300 mg capsule 300 mg PO BEDTIME pain 30 days #30 06/22/22 caps cyclobenzaprine 10 mg tablet 10 mg PO TID PRN muscle spasm #10 06/24/22 tabs ondansetron 4 mg disintegrating 4 mg PO Q8H PRN nausea and 06/24/22 tablet vomiting #10 tabs Allergies Allergy/AdvReac Type Severity Reaction Status Date / Time No Known Allergies Allergy Verified 06/24/22 12:18 Review of Systems Review of Systems Yes all other systems are reviewed and are negative PMFSH Past Medical History Surgical History History of appendectomy History of cholecystectomy Social History Social History Alcohol intake: never Patient Tobacco Use Status: Current everyday Tobacco user Smoked in Last 30 Days: No Second Hand Smoke Exposure: No Use of substances other than those prescribed or required for medical reasons: No Advance Directives: No Advance Directives Information Provided: No Patient : No service: No Current occupational status: unemployed Physical Exam ED Vital Signs: Vital Signs - 24 hr 06/24/22 12:13 Temperature 98.3 F Pulse Rate 88 Respiratory Rate 16 Blood Pressure 108/72 Pulse Oximetry 99 Oxygen Delivery Method Room Air BMI result Body Mass Index 27.8 Appearance: Alert. Oriented X3. No acute distress. Eyes: Pupils equal, round and reactive to light. ENT: Pharynx normal. Moist mucus membranes. Neck: Normal inspection. Neck supple. CVS: Normal heart rate and rhythm. Pulses normal. Respiratory: No respiratory distress. Breath sounds normal. Abdomen: Soft with upper abdominal tenderness, no rebound or guarding. +BS x4 Skin: Skin warm and dry. Normal skin color. Normal skin turgor. No rashes. Extremities: No lower extremity edema. Neuro: Oriented X 3. Grossly normal, nonfocal. Course Course Course Narrative: This is a 13-emdl-spp-female presenting with complaints of abdominal pain, nausea, vomiting, and diarrhea since yesterday. 4 episodes of diarrhea today, had episode of vomiting prior to her ED arrival. Diffuse epigastric and left upper abdominal tenderness. Seen on 06/15 for similar symptoms with negative CT scan and normal labs, patient reports that her symptoms improved until yesterday. VSS stable in triage. Plan - Labs ordered. Reevaluation(s) Reevaluation #1: Lab workup unreamrkable aside from a mild leukocytosis, likely reactions. LFTs normal. She is tolerating PO in the waiting room. No vomiting or diarrhea while here. Most likely viral gastroenteritis, - will c/d with zofran and supportive care. staff radiation therapist used to explain dx, management and return precautions Medical Decision Making Differential Diagnosis Differential Diagnoses: The differential diagnosis associated with the presentation includes viral gastroenteritis, gastritis, less likely acute cholecystitis, appendicitis, diverticulitis Lab Data MDM Lab Attestation statement: I reviewed the patient's lab results. Mild leukocytosis, likely reactive from vomiting. No evidence of dehydration or major metabolic derangement. 06/24/22 12:45 06/24/22 12:45 Labs: Lab Results 06/24/22 06/24/22 06/24/22 Range/Units 12:45 12:45 12:49 WBC 12.7 H (4.8-10.8) X10*3/uL RBC 4.95 (4.20-5.50) X10*6/uL Hgb 13.6 (12.0-16.0) g/dl Hct 41.8 (37.0-47.0) % MCV 84.4 (80.0-98.0) fL MCH 27.5 (27.0-33.0) pg MCHC 32.5 (31.0-35.0) g/dl RDW 13.7 (11.0-16.0) % Plt Count 253 (160-400) X10*3/uL MPV 10.7 (9.4-12.3) fL Immature Gran % (Auto) 0.2 (0.0-0.4) % Neut % (Auto) 75.4 H (45-73) % Lymph % (Auto) 20.0 (20-40) % Pine % (Auto) 3.2 (2-11) % Eos % (Auto) 0.9 (0-4) % Baso % (Auto) 0.3 (0-2) % Lymph # (Auto) 2.5 (1.2-4.9) X10*3/uL Pine # (Auto) 0.4 (0.1-1.2) X10*3/uL Eos # (Auto) 0.1 (0.0-0.4) X10*3/uL Baso # (Auto) 0.0 (0.0-0.2) X10*3/uL Abs Immat Gran (auto) 0.03 (0.00-0.03) X10*3/uL Absolute Neuts (auto) 9.6 H (2.0-8.3) x10*3/uL Absolute Nucleated RBC 0.000 (0.0-0.012) X10*3/uL Nucleated RBC % (auto) 0.0 (0.0-0.2) /100WBC Sodium 139 (135-145) mmol/L Potassium 3.8 (3.3-5.1) mmol/L Chloride 107 (96-108) mmol/L Carbon Dioxide 23 (22-29) mmol/L Anion Gap 13 (12-20) BUN 15 (9-16) mg/dL Creatinine 0.72 (0.5-1.4) mg/dL Estim Creat Clear Calc 119.4 Estimated GFR > 60 Random Glucose 102 (60-115) mg/dL Calcium 9.0 (8.4-10.2) mg/dL Magnesium 2.2 (1.6-2.6) mg/dL Total Bilirubin 0.8 (0.0-1.0) mg/dL Direct Bilirubin 0.2 (0.0-0.5) mg/dL AST 16 (5-31) U/L ALT 30 (0-31) U/L Alkaline Phosphatase 59 (39-117) U/L Total Protein 7.1 (6.5-8.0) g/dL Albumin 4.3 (3.5-5.0) g/dL Lipase 19 (8-78) U/L Urine Color Yellow Urine Appearance Clear Urine pH 5.5 (5.0-9.0) Ur Specific Proctor 1.025 (1.005-1.025) Urine Protein Negative (Neg-Trace) mg/dL Urine Glucose (UA) Negative (Negative) mg/dL Urine Ketones Trace (Negative) mg/dL Urine Blood Negative (Negative) Urine Nitrite Negative (Negative) Ur Leukocyte Esterase Negative (Negative) Urine Test (NEGATIVE) 06/24/22 Range/Units 12:49 WBC (4.8-10.8) X10*3/uL RBC (4.20-5.50) X10*6/uL Hgb (12.0-16.0) g/dl Hct (37.0-47.0) % MCV (80.0-98.0) fL MCH (27.0-33.0) pg MCHC (31.0-35.0) g/dl RDW (11.0-16.0) % Plt Count (160-400) X10*3/uL MPV (9.4-12.3) fL Immature Gran % (Auto) (0.0-0.4) % Neut % (Auto) (45-73) % Lymph % (Auto) (20-40) % Pine % (Auto) (2-11) % Eos % (Auto) (0-4) % Baso % (Auto) (0-2) % Lymph # (Auto) (1.2-4.9) X10*3/uL Pine # (Auto) (0.1-1.2) X10*3/uL Eos # (Auto) (0.0-0.4) X10*3/uL Baso # (Auto) (0.0-0.2) X10*3/uL Abs Immat Gran (auto) (0.00-0.03) X10*3/uL Absolute Neuts (auto) (2.0-8.3) x10*3/uL Absolute Nucleated RBC (0.0-0.012) X10*3/uL Nucleated RBC % (auto) (0.0-0.2) /100WBC Sodium (135-145) mmol/L Potassium (3.3-5.1) mmol/L Chloride (96-108) mmol/L Carbon Dioxide (22-29) mmol/L Anion Gap (12-20) BUN (9-16) mg/dL Creatinine (0.5-1.4) mg/dL Estim Creat Clear Calc Estimated GFR Random Glucose (60-115) mg/dL Calcium (8.4-10.2) mg/dL Magnesium (1.6-2.6) mg/dL Total Bilirubin (0.0-1.0) mg/dL Direct Bilirubin (0.0-0.5) mg/dL AST (5-31) U/L ALT (0-31) U/L Alkaline Phosphatase (39-117) U/L Total Protein (6.5-8.0) g/dL Albumin (3.5-5.0) g/dL Lipase (8-78) U/L Urine Color Urine Appearance Urine pH (5.0-9.0) Ur Specific Proctor (1.005-1.025) Urine Protein (Neg-Trace) mg/dL Urine Glucose (UA) (Negative) mg/dL Urine Ketones (Negative) mg/dL Urine Blood (Negative) Urine Nitrite (Negative) Ur Leukocyte Esterase (Negative) Urine Test NEGATIVE (NEGATIVE) Radiology Impression Discussion of test interpretation with radiology: I have reviewed the radiologist's reading. Radiologist Impression: XR lumbar spine 04/09/22 IMPRESSION: No acute fracture or malalignment of the lumbar or sacral spine. CT abd/pelvis 06/15/22: CT/CT abdomen pelvis wo IV con IMPRESSION: *Explanation for patient's acute pain symptoms cannot be found. ? *No evidence of bowel obstruction, no kidney stone or hydronephrosis, no free air or fluid in the abdomen or pelvis. External Record Review External record reviewed: Office record, Prior outpatient labs and Prior outpatient radiology Tests considered The following testing was considered but not selected: CT scan considered and not performed given recent normal study, abd soft Prescription Management I considered prescription management with: Pain Medication and Other (anti- emetic, muscle relaxer) Chronic Conditions Patient?s care impacted by: Other (fibromyalgia) Critical Care Time Critical Care Time Critical Care Time: No Discharge Plan Discharge Clinical Impression: Gastroenteritis, Fibromyalgia Patient Disposition: Home, Self-Care Instructions: Gastroenteritis (ED) Additional Instructions: You lab workup today was unremarkable. Your urine test was negative for infection and . You most likely have a viral GI bug also known as gastroenteritis. Treatment is supportive care, symptoms usually resolve on their own in 48-72 hours. Recommend rest and plenty of oral hydration. Stick to a bland diet like soup and toast while you are not feeling well. Take the prescribed medication as needed for nausea. Recommend over the counter Pepto Bismol or Imodium for upset stomach and diarrhea. Follow up with your doctor as needed. If you develop new or worsening symptoms call 911 or come back to the ER for further evaluation. Tu an?lisis de laboratorio de hoy no tuvo nada especial. Landrum an?lisis de orina margaux negativo para infecci?n y embarazo. Lo m?s probable es que tenga un bicho GI viral, tambi?n conocido michell gastroenteritis. El tratamiento es atenci?n de apoyo, los s?ntomas generalmente se resuelven por s? solos en 48 a 72 horas. Recomendable reposo y jose hidrataci?n oral. Siga razia dieta blanda michell sopa y tostadas mientras no se sienta katharina. Utting el medicamento recetado seg?n sea necesario para las n?useas. Recomiende Pepto Bismol o Imodium de venta winifred para el malestar estomacal y la diarrea. Samina un seguimiento con landrum m?dico seg?n sea necesario. Si desarrolla s?ntomas nuevos o que empeoran, llame al 911 o regrese a la irwin de emergencias para razia evaluaci?n adicional. Prescriptions: New ondansetron 4 mg tablet,disintegrating 4 mg PO Q8H PRN (Reason: nausea and vomiting) Qty: 10 0RF cyclobenzaprine 10 mg tablet 10 mg PO TID PRN (Reason: muscle spasm) Qty: 10 0RF No Action promethazine 25 mg tablet 25 mg PO Q6H PRN (Reason: nausea and vomiting) Qty: 20 0RF cyclobenzaprine 10 mg tablet 10 mg PO Q8H Qty: 20 0RF valacyclovir 500 mg tablet 500 mg PO DAILY sulfamethoxazole-trimethoprim 800-160 mg tablet 1 tab PO BID etonogestrel-ethinyl estradiol 0.12-0.015 mg/24 hr ring 0 vag ring vaginal gabapentin 300 mg capsule 300 mg PO BEDTIME 30 Days Qty: 30 0RF Referrals: [facility] [place] Pain Management [Provider Group] (chronic back pain ) [facility] - Stand Alone Forms: Work/School Release Interventions: ED Discharge Assessment Last Done: 06/24/22 13:44 Discharge Date/Time: 06/24/22 13:45 Print Language: Citizen [place]
[2022-06-24 12:49] LABS: MANUAL DIFF FLAG NO
[2022-06-24 12:52] LABS: Basophils Percent Auto 0.3 % (0-2); Eosinophils Absolute Auto 0.1 X10*3/uL (0.0-0.4); Eosinophils Percent Auto 0.9 % (0-4); Hematocrit 41.8 % (37.0-47.0); Hemoglobin 13.6 g/dl (12.0-16.0); Imm Gran Abs Auto 0.03 X10*3/uL (0.00-0.03); Imm Gran Pct Auto 0.2 % (0.0-0.4); Lymphocytes Absolute Auto 2.5 X10*3/uL (1.2-4.9); Mean Corpuscular HGB Conc 32.5 g/dl (31.0-35.0); Mean Corpuscular Hemoglobin 27.5 pg (27.0-33.0); Mean Corpuscular Volume 84.4 fL (80.0-98.0); Mean Platelet Volume 10.7 fL (9.4-12.3); Monocytes Absolute Auto 0.4 X10*3/uL (0.1-1.2); Monocytes Percent Auto 3.2 % (2-11); Neutrophils Absolute Auto 9.6 x10*3/uL (2.0-8.3); Neutrophils Percent Auto 75.4 % (45-73); Platelet Count 253 X10*3/uL (160-400); Red Blood Count 4.95 X10*6/uL (4.20-5.50); Red Cell Distribution Width 13.7 % (11.0-16.0); White Blood Count 12.7 X10*3/uL (4.8-10.8)
[2022-06-24 13:03] LABS: Appearance Urine Clear; Color Urine Yellow; Glucose Urine UA Negative (Negative); Leukocyte Esterase Urine Negative (Negative); Nitrite Urine Negative (Negative); PH 5.5 (5.0-9.0); Specific Gravity - Urine 1.025 (1.005-1.025); Urine Blood Negative (Negative); Urine Ketones Trace mg/dL (Negative); Urine Protein Negative (Neg-Trace)
[2022-06-24 13:04] LABS: UPreg QC Valid YES; Urine Pregnancy NEGATIVE (NEGATIVE)
[2022-06-24 13:07] LABS: Alanine Aminotransferase 30 U/L (0-31); Albumin Level 4.3 g/dL (3.5-5.0); Alkaline Phosphatase 59 U/L (39-117); Anion Gap 13 (12-20); Aspartate Amino Transferase 16 U/L (5-31); Bilirubin Direct 0.2 mg/dL (0.0-0.5); Bilirubin Total 0.8 mg/dL (0.0-1.0); Blood Urea Nitrogen 15 mg/dL (9-16); Carbon Dioxide 23 mmol/L (22-29); Chloride 107 mmol/L (96-108); Creatinine Clr Calc Pharmacy 119.4; Estimated Glomerular Filt Rate > 60; Glucose Random 102 mg/dL (60-115); Lipase 19 U/L (8-78); Magnesium 2.2 mg/dL (1.6-2.6); Potassium 3.8 mmol/L (3.3-5.1); Sodium 139 mmol/L (135-145); Total Protein 7.1 g/dL (6.5-8.0)
== END 2022-06-24 13:45 | disposition home or self-care (01) ==
LOC: HO.ED 13:35
PROVIDERS: Physician Assistant; Emergency Provider Emergency Medicine Emergency Medical Services
DX: K52.9 Noninfective gastroenteritis and colitis, unspecified (principal); R11.2 Nausea with vomiting, unspecified; M79.7 Fibromyalgia; F17.200 Nicotine dependence, unspecified, uncomplicated
CPT/HCPCS: 36415; 80048; 80076; 81003; 81025; 83690; 83735; 85025; 99283

== ENCOUNTER 2022-08-15 17:22 | Emergency (ER) | payer MEDICAID, SELFPAY ==
--- NOTE | ~2022-08-15 | XR_ITS ---
EXAMINATION: XR LUMBOSACRAL SPINE CLINICAL INFORMATION: Back pain COMPARISON: 04/09/2022 TECHNIQUE: Three views of the lumbosacral spine. FINDINGS: Minimal endplate osteophyte formation at L4-L5, also at the distal thoracic spine. No significant disc space narrowing. Normal alignment and lordosis. No fracture. No change. XR/XR lumbar spine 2-3V IMPRESSION: Minimal lower thoracic and lower lumbar spondylosis. No change.
[2022-08-15 17:27] VITALS: BP 119/57; PULSE 96; RESP 18; TEMP 36.6; O2SAT 98; BMI 27.4
--- NOTE | 2022-08-15 17:28 | ED.GENADULT ---
HPI - General Adult General Chief complaint: Back Pain/Injury <CHU Barreto - Last Filed: 08/15/22 17:34> Stated complaint: back pain, arthritis <CHU Barreto Last Filed: 08/15/22 17:34> Time Seen by Provider: 08/15/22 17:53 <CHU Barreto Last Filed: 08/15/22 17:34> Source: patient <CHU Acosta Last Filed: 08/15/22 18:49> Mode of arrival: ambulatory <CHU Acosta Last Filed: 08/15/22 18:49> Limitations: no limitations <CHU Acosta Last Filed: 08/15/22 18:49> History of Present Illness HPI narrative: This is a 27-year-old female history of fibromyalgia, lumbar spondylosis, sacroiliac joint dysfunction of both sides, presenting to the emergency department for evaluation of left-sided back pain for the past 3 days, pain is atraumatic in nature. Patient reports constant pain that is worse with movement better at rest. Patient tells me that the pain radiates from her left flank/back region into the left lower extremity just above the left knee. Denies associated numbness and tingling. Has tried ibuprofen, Tylenol and oxycodone with little to no relief. Patient denies saddle paresthesias, weakness, urinary/bowel incontinence and retention, fevers, chills, chest pain, shortness of breath, nausea, vomiting. Ambulatory into the room without difficulty. No trauma. No urinary symptoms <CHU Acosta Last Filed: 08/15/22 18:49> Related Data Home medications: Home Medications Medication Instructions Recorded Confirmed etonogestrel 0.12 mg-ethinyl 0 vag ring vaginal 06/22/22 estradiol 0.015 mg/24 hr vaginal ring sulfamethoxazole 800 1 tab PO BID 06/22/22 mg-trimethoprim 160 mg tablet valacyclovir 500 mg tablet 500 mg PO DAILY 06/22/22 Previous Rx's Medication Instructions Recorded cyclobenzaprine 10 mg tablet 10 mg PO Q8H #20 tabs 04/10/22 promethazine 25 mg tablet 25 mg PO Q6H PRN nausea and 06/15/22 vomiting #20 tabs gabapentin 300 mg capsule 300 mg PO BEDTIME pain 30 days #30 06/22/22 caps cyclobenzaprine 10 mg tablet 10 mg PO TID PRN muscle spasm #10 06/24/22 tabs ondansetron 4 mg disintegrating 4 mg PO Q8H PRN nausea and 06/24/22 tablet vomiting #10 tabs cefuroxime axetil 250 mg tablet 250 mg PO BID 7 days #14 tabs 08/15/22 cyclobenzaprine 10 mg tablet 10 mg PO BEDTIME PRN muscle spasm 08/15/22 #7 tabs ketorolac 10 mg tablet 10 mg PO TID PRN pain 5 days #15 08/15/22 tabs lidocaine 5 % topical patch 1 patch topical DAILY PRN pain #15 08/15/22 ea prednisone 20 mg tablet 40 mg PO DAILY 5 days #10 tabs 08/15/22 <CHU Barreto Last Filed: 08/15/22 17:34> Allergies/adverse reactions: Allergies Allergy/AdvReac Type Severity Reaction Status Date / Time No Known Allergies Allergy Verified 06/24/22 12:18 <CHU Barreto Last Filed: 08/15/22 17:34> Review of Systems Review of Systems: Constitutional : No Weight loss, No Fever, No Chills, ENT/Mouth : No Hearing loss, No Ear Pain, No Nasal Congestion, No Sinus Pain, No Hoarseness, No sore throat, No Rhinorrhea, No Swallowing Difficulty Cardiovascular : No Chest Pain, No SOB Respiratory : No Cough, No Dyspnea Gastrointestinal : No Nausea, No Vomiting, No Diarrhea, No abdominal Pain, No Hematochezia, No Melena Genitourinary : No Dysuria, No Urinary Frequency, No Hematuria, No Urinary Incontinence, Musculoskeletal : positive back pain Skin : No Skin Lesions, No rash Neuro : No Weakness, No Numbness, No Paresthesias, no loss of bowel or bladder incontinence, no saddle anesthesia <CHU Acosta Last Filed: 08/15/22 18:49> Yes all other systems are reviewed and are negative <CHU Acosta Last Filed: 08/15/22 18:49> [facility] Past Medical History Attestation statement: The following information was validated with the patient. <CHU Acosta - Last Filed: 08/15/22 18:49> Source: old records reviewed and nursing notes reviewed <CHU Acosta - Last Filed: 08/15/22 18:49> Surgical History: Surgical History History of appendectomy History of cholecystectomy <CHU Barreto - Last Filed: 08/15/22 17:34> Social History Social History: Social History Alcohol intake: never Patient Tobacco Use Status: Current everyday Tobacco user Second Hand Smoke Exposure: No Advance Directives: No Advance Directives Information Provided: Yes service: No Current occupational status: unemployed <CHU Barreto - Last Filed: 08/15/22 17:34> Physical Exam ED Vital Signs: Vital Signs - 24 hr 08/15/22 17:27 Temperature 97.9 F Pulse Rate 96 Respiratory Rate 18 Blood Pressure 119/57 L Pulse Oximetry 98 Oxygen Delivery Method Room Air BMI result Body Mass Index 27.4 <CHU Barreto - Last Filed: 08/15/22 17:34> Vital Signs - 24 hr 08/15/22 17:27 Temperature 97.9 F Pulse Rate 96 Respiratory Rate 18 Blood Pressure 119/57 L Pulse Oximetry 98 Oxygen Delivery Method Room Air BMI result Body Mass Index 27.4 vss <CHU Acosta - Last Filed: 08/15/22 18:49> Vital Signs - 24 hr 08/15/22 17:27 Temperature 97.9 F Pulse Rate 96 Respiratory Rate 18 Blood Pressure 119/57 L Pulse Oximetry 98 Oxygen Delivery Method Room Air BMI result Body Mass Index 27.4 <CHU Judge - Last Filed: 08/15/22 19:45> Appearance: Alert.? Oriented X3.? No acute distress.? Head: Normocephalic, atraumatic, no step-offs or deformities Eyes: Pupils equal, round and reactive to light.? ENT: Pharynx normal.? Neck: Normal inspection.? Neck supple.? CVS: Normal heart rate and rhythm.? Pulses normal.? Respiratory: No respiratory distress.? Breath sounds normal.? Abdomen: Soft and nontender.? Skin: Skin warm and dry.? Normal skin color.? Normal skin turgor.? Extremities: No lower extremity edema.? No calf ttp. 5/5 strength to bilateral upper and lower extremities Back: No midline tenderness, no C-spine tenderness, full range of motion, no CVA tenderness bilaterally + left-sided lumbar paraspinous tenderness radiating into left buttocks. Neuro: Oriented X 3.? No motor deficit.? No sensory deficit. CN 2-12 intact . Patient ambulating with steady gait normal coordination. No saddle paresthesias. 2+ DTRs equal bilateral to patellar region. <CHU Acosta - Last Filed: 08/15/22 18:49> Course Course Course Narrative: This is an RME: Additional HPI, ROS, PE not included below will be deferred to primary provider. This is a 50-[id number]-lithuanian speaking female, hx fibromyalgia and lumbar spondylosis, who presents to the emergency department with complaints of left sided back pain x 3 days. No trauma or injury. Has tried motrin/tylenol and oxycodone without relief. Pain is right sided lumbar and radiates into left leg. Denies urinary or bowel incontinence. Denies urinary symptoms. VSS. Pt ambulatory with steady gait. Pt stable to return to the ER until treatment room becomes available. Plan: xray lumbar spine, UA, upreg. <CHU Barreto - Last Filed: 08/15/22 17:34> Reevaluation(s) Reevaluation #1: UA with trace leukocyte esterases and 4+ bacteria will treat for UTI at this time. Urine negative. X-ray of lumbar spine pending. Sign-out given to Susan SAGE pending re-evaluation, imaging, disposition <CHU Acosta - Last Filed: 08/15/22 18:49> Medications Administered Discontinued Medications Generic Name Dose Route Start Last Admin Trade Name Freq PRN Reason Stop Dose Admin Ketorolac Tromethamine 30 mg 08/15/22 18:23 08/15/22 18:49 Ketorolac Tromethamine 15 Mg/Ml Vial IM 08/15/22 18:24 30 mg ONCE ONE Administration Lidocaine 1 patch 08/15/22 18:45 08/15/22 18:49 Lidocaine 4 % Patch Adh..Patch TRANSDERMA 08/15/22 18:46 1 patch ONCE ONE Administration Protocol <CHU Barreto - Last Filed: 08/15/22 17:34> Medications Administered Discontinued Medications Generic Name Dose Route Start Last Admin Trade Name Freq PRN Reason Stop Dose Admin Ketorolac Tromethamine 30 mg 08/15/22 18:23 08/15/22 18:49 Ketorolac Tromethamine 15 Mg/Ml Vial IM 08/15/22 18:24 30 mg ONCE ONE Administration Lidocaine 1 patch 08/15/22 18:45 08/15/22 18:49 Lidocaine 4 % Patch Adh..Patch TRANSDERMA 08/15/22 18:46 1 patch ONCE ONE Administration Protocol <CHU Acosta - Last Filed: 08/15/22 18:49> Medications Administered Discontinued Medications Generic Name Dose Route Start Last Admin Trade Name Freq PRN Reason Stop Dose Admin Ketorolac Tromethamine 30 mg 08/15/22 18:23 08/15/22 18:49 Ketorolac Tromethamine 15 Mg/Ml Vial IM 08/15/22 18:24 30 mg ONCE ONE Administration Lidocaine 1 patch 08/15/22 18:45 08/15/22 18:49 Lidocaine 4 % Patch Adh..Patch TRANSDERMA 08/15/22 18:46 1 patch ONCE ONE Administration Protocol <CHU Judge - Last Filed: 08/15/22 19:45> Medical Decision Making Medical Decision Making [facility] Narrative: 1819 27-year-old female presents for evaluation of left lumbar back pain, atraumatic in nature, history of chronic back pain pain is been going on for 3 days worsening. Physical exam significant for left-sided lumbar paraspinous tenderness radiating into left buttocks. Neuro nonfocal, no saddle paresthesias, ambulatory with steady gait normal coordination. DTRs intact. Likely lumbar radiculopathy versus herniated disc versus sciatica. Unlikely cauda equina, epidural abscess. No signs of cord compression. Other differentials include lumbago, lumbar spasms or strains. Will rule out UTI however, I do not suspect pyelo Plan Toradol, cyclobenzaprine, Lidoderm patches. <CHU Acosta - Last Filed: 08/15/22 18:49> Differential Diagnosis Differential Diagnoses: The differential diagnosis associated with the presentation includes <CHU Acosta - Last Filed: 08/15/22 18:49> Likely lumbar radiculopathy versus herniated disc versus sciatica. Unlikely cauda equina, epidural abscess. No signs of cord compression. Other differentials include lumbago, lumbar spasms or strains. Will rule out UTI however I do not suspect pyelo <CHU Acosta - Last Filed: 08/15/22 18:49> Admission/Observation Consideration of admission/observation: Escalation of care including admission/observation considered <CHU Acosta - Last Filed: 08/15/22 18:49> Unlikely indicated <CHU Acosta - Last Filed: 08/15/22 18:49> Lab Data Labs: Lab Results 08/15/22 08/15/22 Range/Units 18:13 18:13 Urine Color Yellow Urine Appearance Clear Urine pH 7.5 (5.0-9.0) Ur Specific [place]ahan 1.020 (1.005-1.025) Urine Protein Negative (Neg-Trace) mg/dL Urine Glucose (UA) Negative (Negative) mg/dL Urine Ketones Negative (Negative) mg/dL Urine Blood Negative (Negative) Urine Nitrite Negative (Negative) Ur Leukocyte Esterase Trace H (Negative) Urine RBC 0-2 (0-2) /HPF Urine WBC 0-5 (0-5) /HPF Ur Squamous Epith Cells 6-10 (0-2) /HPF Urine Bacteria 4+ (None Seen) Hyaline Casts 0-2 (0-2) /LPF Urine Test NEGATIVE (NEGATIVE) <CHU Barreto - Last Filed: 08/15/22 17:34> Lab Results 08/15/22 08/15/22 Range/Units 18:13 18:13 Urine Color Yellow Urine Appearance Clear Urine pH 7.5 (5.0-9.0) Ur Specific [place] 1.020 (1.005-1.025) Urine Protein Negative (Neg-Trace) mg/dL Urine Glucose (UA) Negative (Negative) mg/dL Urine Ketones Negative (Negative) mg/dL Urine Blood Negative (Negative) Urine Nitrite Negative (Negative) Ur Leukocyte Esterase Trace H (Negative) Urine RBC 0-2 (0-2) /HPF Urine WBC 0-5 (0-5) /HPF Ur Squamous Epith Cells 6-10 (0-2) /HPF Urine Bacteria 4+ (None Seen) Hyaline Casts 0-2 (0-2) /LPF Urine Test NEGATIVE (NEGATIVE) <CHU Acosta - Last Filed: 08/15/22 18:49> Lab Results 08/15/22 08/15/22 Range/Units 18:13 18:13 Urine Color Yellow Urine Appearance Clear Urine pH 7.5 (5.0-9.0) Ur Specific Hanahan 1.020 (1.005-1.025) Urine Protein Negative (Neg-Trace) mg/dL Urine Glucose (UA) Negative (Negative) mg/dL Urine Ketones Negative (Negative) mg/dL Urine Blood Negative (Negative) Urine Nitrite Negative (Negative) Ur Leukocyte Esterase Trace H (Negative) Urine RBC 0-2 (0-2) /HPF Urine WBC 0-5 (0-5) /HPF Ur Squamous Epith Cells 6-10 (0-2) /HPF Urine Bacteria 4+ (None Seen) Hyaline Casts 0-2 (0-2) /LPF Urine Test NEGATIVE (NEGATIVE) <CHU Judge - Last Filed: 08/15/22 19:45> Independent Interpretation I performed an independent interpretation of an: Plain X-Ray <CHU Acosta - Last Filed: 08/15/22 18:49> Radiology Impression Discussion of test interpretation with radiology: I have reviewed the radiologist's reading. <CHU Judge - Last Filed: 08/15/22 19:45> Radiologist Impression: XR/XR lumbar spine 2-3V IMPRESSION: Minimal lower thoracic and lower lumbar spondylosis. No change. <CHU Judge - Last Filed: 08/15/22 19:45> External Record Review External record reviewed: Prior outpatient labs and Prior outpatient radiology <CHU Judge - Last Filed: 08/15/22 19:45> Core Measures AMI core measures followed: Yes <CHU Acosta Last Filed: 08/15/22 18:49> Measure exclusions: not indicated <CHU Acosta - Last Filed: 08/15/22 18:49> Critical Care Time Critical Care Time Critical Care Time: No <CHU Acosta - Last Filed: 08/15/22 18:49> Discharge Plan Discharge Clinical Impression: Lumbar radiculopathy, UTI (urinary tract infection) <CHU Barreto Last Filed: 08/15/22 17:34> Patient Disposition: Home, Self-Care <CHU Barreto Last Filed: 08/15/22 17:34> Instructions: Urinary Tract Infection in Women (DC), Back Pain (ED) <CHU Barreto Last Filed: 08/15/22 17:34> Additional Instructions: Take your medications as prescribed. If you were prescribed antibiotics today, it is important that you take your medication to their entirety, do not skip any doses, do not finish them early. Follow-up with your primary care provider this week. Return to the emergency department with new or worsening symptoms. Such as fevers, chills, chest pain, shortness of breath, nausea, vomiting, dizziness, headache, vision changes, lethargy In case of emergency call 911 Toradol has been sent to your pharmacy, you tolerated this well in the department. Please take this as prescribed do not take this with ibuprofen, or other NSAIDs, do not mix this with alcohol. Side effects of this medication including increased risk for bleeding and possible kidney injury. <CHU Barreto Last Filed: 08/15/22 17:34> Prescriptions: New cyclobenzaprine 10 mg tablet 10 mg PO BEDTIME PRN (Reason: muscle spasm) Qty: 7 0RF cefuroxime axetil 250 mg tablet 250 mg PO BID 7 Days Qty: 14 0RF prednisone 20 mg tablet 40 mg PO DAILY 5 Days Qty: 10 0RF ketorolac 10 mg tablet 10 mg PO TID PRN (Reason: pain) 5 Days Qty: 15 0RF lidocaine 5 % adhesive patch,medicated 1 patch topical DAILY PRN (Reason: pain) Qty: 15 0RF Rx Instructions: leave on most painful area for up to 12 hrs No Action promethazine 25 mg tablet 25 mg PO Q6H PRN (Reason: nausea and vomiting) Qty: 20 0RF ondansetron 4 mg tablet,disintegrating 4 mg PO Q8H PRN (Reason: nausea and vomiting) Qty: 10 0RF cyclobenzaprine 10 mg tablet 10 mg PO TID PRN (Reason: muscle spasm) Qty: 10 0RF cyclobenzaprine 10 mg tablet 10 mg PO Q8H Qty: 20 0RF valacyclovir 500 mg tablet 500 mg PO DAILY sulfamethoxazole-trimethoprim 800-160 mg tablet 1 tab PO BID etonogestrel-ethinyl estradiol 0.12-0.015 mg/24 hr ring 0 vag ring vaginal gabapentin 300 mg capsule 300 mg PO BEDTIME 30 Days Qty: 30 0RF <CHU Barreto - Last Filed: 08/15/22 17:34> Referrals: [facility] [Provider Group] - 2 days <CHU Barreto - Last Filed: 08/15/22 17:34>
[2022-08-15 18:22] LABS: Appearance Urine Clear; Color Urine Yellow; Glucose Urine UA Negative (Negative); Leukocyte Esterase Urine Trace (Negative); Nitrite Urine Negative (Negative); PH 7.5 (5.0-9.0); UMIC TRIGGER UACC YES; UPreg QC Valid YES; Urine Blood Negative (Negative); Urine Ketones Negative (Negative); Urine Protein Negative (Neg-Trace)
[2022-08-15 18:23] LABS: Urine Pregnancy NEGATIVE (NEGATIVE)
[2022-08-15 18:27] LABS: Bacteria Urine 4+ (None Seen); Hyaline Casts Urine 0-2 /LPF (0-2); RBC Urine 0-2 /HPF (0-2); WBC Urine 0-5 /HPF (0-5)
[2022-08-15] MEDS: Lidocaine 4 % Patch ADH..PATCH 1 PATCH TRANSDERMA (18:49)
[2022-08-15] MEDS: Ketorolac Tromethamine 15 MG/ML VIAL 30 MG IM (18:49)
== END 2022-08-15 20:06 | disposition admitted as inpatient to this hospital (09) ==
PROVIDERS: Physician Assistant Medical; Emergency Provider Internal Medicine
DX: M54.16 Radiculopathy, lumbar region (principal); N39.0 Urinary tract infection, site not specified
CPT/HCPCS: 72100; 81001; 81025; 99283; J1885

== ENCOUNTER 2022-08-25 00:49 | Emergency (ER) | payer MEDICAID, SELFPAY ==
--- NOTE | ~2022-08-25 | XR_ITS ---
EXAMINATION: XR KNEE, LEFT CLINICAL INFORMATION: Fall COMPARISON: None available. TECHNIQUE: Four views of the left knee. FINDINGS: Osseous alignment is anatomic. Joint spaces are maintained. No acute fracture is seen. No significant joint effusion. XR/XR knee LT 2V IMPRESSION: No acute findings.
--- NOTE | ~2022-08-25 | XR_ITS ---
EXAMINATION: XR HIP, RIGHT CLINICAL INFORMATION: Fall COMPARISON: None available. TECHNIQUE: Two views of the right hip. FINDINGS: Alignment across the hips is anatomic, and joint spaces appear relatively well-preserved. No acute fracture is seen. Sacroiliac joints and pubic symphysis are intact. XR/XR hip RT min 2V IMPRESSION: No acute findings identified.
[2022-08-25 00:51] VITALS: BP 132/82; PULSE 117; RESP 20; TEMP 36.7; O2SAT 98; BMI 22.1
[2022-08-25 02:00] VITALS: BP 126/63; PULSE 95; RESP 16; TEMP 37.2; O2SAT 97
[2022-08-25 04:56] VITALS: BP 119/61; PULSE 90; RESP 16; TEMP 36.6; O2SAT 98
--- NOTE | 2022-08-25 06:17 | ED_ITS ---
HPI - Fall General Chief Complaint: Fall Stated Complaint: fell down stairs Time Seen by Provider: 08/25/22 05:22 History of Present Illness HPI Narrative: Patient is a 27-year-old female presents today after an accidental fall. Patient hit her right hip. Hit her left knee. Is ambulatory. Complaining of pain localized to that area. There was no head injury. There is no nausea no vomiting. Patient is from home. Patient not on blood thinners. Related Data Home Medications Medication Instructions Recorded Confirmed etonogestrel 0.12 mg-ethinyl 0 vag ring vaginal 06/22/22 estradiol 0.015 mg/24 hr vaginal ring sulfamethoxazole 800 1 tab PO BID 06/22/22 mg-trimethoprim 160 mg tablet valacyclovir 500 mg tablet 500 mg PO DAILY 06/22/22 Previous Rx's Medication Instructions Recorded cyclobenzaprine 10 mg tablet 10 mg PO Q8H #20 tabs 04/10/22 promethazine 25 mg tablet 25 mg PO Q6H PRN nausea and 06/15/22 vomiting #20 tabs gabapentin 300 mg capsule 300 mg PO BEDTIME pain 30 days #30 06/22/22 caps cyclobenzaprine 10 mg tablet 10 mg PO TID PRN muscle spasm #10 06/24/22 tabs ondansetron 4 mg disintegrating 4 mg PO Q8H PRN nausea and 06/24/22 tablet vomiting #10 tabs cefuroxime axetil 250 mg tablet 250 mg PO BID 7 days #14 tabs 08/15/22 cyclobenzaprine 10 mg tablet 10 mg PO BEDTIME PRN muscle spasm 08/15/22 #7 tabs ketorolac 10 mg tablet 10 mg PO TID PRN pain 5 days #15 08/15/22 tabs lidocaine 5 % topical patch 1 patch topical DAILY PRN pain #15 08/15/22 ea prednisone 20 mg tablet 40 mg PO DAILY 5 days #10 tabs 08/15/22 ibuprofen 400 mg tablet 400 mg PO Q6H PRN pain #20 tabs 08/25/22 Allergies Allergy/AdvReac Type Severity Reaction Status Date / Time No Known Allergies Allergy Verified 06/24/22 12:18 Review of Systems Review of Systems: No nausea no vomiting. Pain to the right hip area, pain to the left knee Yes all other systems are reviewed and are negative [facility] Past Medical History Attestation statement: The following information was validated with the patient. Surgical History History of appendectomy History of cholecystectomy Social History Social History Alcohol intake: never Patient Tobacco Use Status: Current everyday Tobacco user Second Hand Smoke Exposure: No Advance Directives: No Advance Directives Information Provided: Yes service: No Current occupational status: unemployed Physical Exam Vital Signs: Vital Signs: Last Vital Signs Temp 97.8 F 08/25/22 04:56 Pulse 90 08/25/22 04:56 Resp 16 08/25/22 04:56 BP 119/61 08/25/22 04:56 Pulse Ox 98 08/25/22 04:56 O2 Del Method Room Air 08/25/22 04:56 BMI result Body Mass Index 22.1 Appearance: Alert. Oriented X3. No acute distress. Eyes: Pupils equal, round and reactive to light. ENT: Pharynx normal. Neck: Normal inspection. Neck supple. No lymph nodes noted. No crepitus CVS: Normal heart rate and rhythm. Pulses normal. Normal S1 and S2 Respiratory: No respiratory distress. Breath sounds normal. No Wheezing. No rales Abdomen: Soft and nontender. No rigidity. No distention. good BS x4 Skin: Skin warm and dry. Normal skin color. Normal skin turgor. Extremities: Examination of the right hip show good range of motion. There is no tenderness on palpation. There is no spinal tenderness elicited on palpation. Distal pulses intact. Sensation intact. Skin intact. Examination of the left knee showed minimal tenderness on palpation of the patella. There is good range of motion at the knee. There is no tenderness on palpation of medial lateral collateral ligament. There is no joint effusion palpable. Distally neurovascularly intact skin intact Neuro: Oriented X 3. No motor deficit. No sensory deficit. Moving all extermities. No slurred speech Medical Decision Making Medical Decision Making MDM Narrative: X-ray of the hip in the x-ray of the knee of both negative for any acute evidence of fracture. Explain to patient need for follow-up for contusion, possible internal derangement in the knee. There is no head injury. Patient given Motrin for pain. Follow up on an outpatient basis. In stable condition. Differential Diagnosis Differential Diagnoses: The differential diagnosis associated with the presentation includes Knee sprain, hip sprain, knee fracture, internal derangement of the knee. Hip fracture Lab Data MDM Lab Attestation statement: I reviewed the patient's lab results. Independent Interpretation I performed an independent interpretation of an: Plain X-Ray Interpretation: X-ray of the right hip x-ray of the left knee were negative Radiology Impression Discussion of test interpretation with radiology: I have reviewed the radi ologist's reading. Independent Historian Clinical information obtained from an independent historian. History obtained from or confirmed by: Spouse Prescription Management I considered prescription management with: Pain Medication Social Determinants Patient?s care significantly limited by Social Determinants of Health including: Other Social Determinant of Health Discharge Plan Discharge Clinical Impression: Contusion, Acute knee pain Patient Disposition: Home, Self-Care Instructions: Contusion in Adults (ED), Knee Pain (ED) Prescriptions: New ibuprofen 400 mg tablet 400 mg PO Q6H PRN (Reason: pain) Qty: 20 0RF No Action promethazine 25 mg tablet 25 mg PO Q6H PRN (Reason: nausea and vomiting) Qty: 20 0RF ondansetron 4 mg tablet,disintegrating 4 mg PO Q8H PRN (Reason: nausea and vomiting) Qty: 10 0RF cyclobenzaprine 10 mg tablet 10 mg PO TID PRN (Reason: muscle spasm) Qty: 10 0RF cyclobenzaprine 10 mg tablet 10 mg PO Q8H Qty: 20 0RF cyclobenzaprine 10 mg tablet 10 mg PO BEDTIME PRN (Reason: muscle spasm) Qty: 7 0RF cefuroxime axetil 250 mg tablet 250 mg PO BID 7 Days Qty: 14 0RF prednisone 20 mg tablet 40 mg PO DAILY 5 Days Qty: 10 0RF ketorolac 10 mg tablet 10 mg PO TID PRN (Reason: pain) 5 Days Qty: 15 0RF lidocaine 5 % adhesive patch,medicated 1 patch topical DAILY PRN (Reason: pain) Qty: 15 0RF Rx Instructions: leave on most painful area for up to 12 hrs valacyclovir 500 mg tablet 500 mg PO DAILY sulfamethoxazole-trimethoprim 800-160 mg tablet 1 tab PO BID etonogestrel-ethinyl estradiol 0.12-0.015 mg/24 hr ring 0 vag ring vaginal gabapentin 300 mg capsule 300 mg PO BEDTIME 30 Days Qty: 30 0RF Referrals: [place] [Primary Care Provider] - Print Language: Armenian
[2022-08-25] MEDS: Ibuprofen 400 MG TABLET PO (06:22)
--- NOTE | 2022-08-25 07:08 | PC.NURSE ---
Discharge instructions given and explained to pt No apparent distress Ambulates safely and independently
== END 2022-08-25 06:40 | disposition home or self-care (01) ==
PROVIDERS: Emergency Provider Emergency Medicine Emergency Medical Services
DX: S70.01XA Contusion of right hip, initial encounter (principal); W10.8XXA Fall (on) (from) other stairs and steps, initial encounter; G89.11 Acute pain due to trauma; M25.562 Pain in left knee; Y93.89 Activity, other specified; F17.200 Nicotine dependence, unspecified, uncomplicated; Y92.9 Unspecified place or not applicable; Y99.9 Unspecified external cause status; Z79.899 Other long term (current) drug therapy
CPT/HCPCS: 73502; 73560; 99283; 99284

== ENCOUNTER 2022-12-30 21:38 | Emergency (ER) | payer MEDICAID, SELFPAY ==
[2022-12-30 21:50] VITALS: BP 115/76; PULSE 97; RESP 16; TEMP 36.4; O2SAT 99; BMI 25.8
[2022-12-30 22:15] LABS: MANUAL DIFF FLAG NO
[2022-12-30 22:16] LABS: Basophils Percent Auto 0.4 % (0-2); Eosinophils Absolute Auto 0.3 X10*3/uL (0.0-0.4); Eosinophils Percent Auto 2.4 % (0-4); Hematocrit 38.1 % (37.0-47.0); Hemoglobin 12.8 g/dl (12.0-16.0); Imm Gran Abs Auto 0.03 X10*3/uL (0.00-0.03); Imm Gran Pct Auto 0.3 % (0.0-0.4); Lymphocytes Absolute Auto 3.3 X10*3/uL (1.2-4.9); Lymphocytes Percent Auto 32.3 % (20-40); Mean Corpuscular HGB Conc 33.6 g/dl (31.0-35.0); Mean Corpuscular Hemoglobin 28.1 pg (27.0-33.0); Mean Corpuscular Volume 83.6 fL (80.0-98.0); Mean Platelet Volume 10.4 fL (9.4-12.3); Monocytes Absolute Auto 0.5 X10*3/uL (0.1-1.2); Neutrophils Absolute Auto 6.1 x10*3/uL (2.0-8.3); Neutrophils Percent Auto 59.6 % (45-73); Platelet Count 295 X10*3/uL (160-400); Red Blood Count 4.56 X10*6/uL (4.20-5.50); Red Cell Distribution Width 14.6 % (11.0-16.0); White Blood Count 10.3 X10*3/uL (4.8-10.8)
[2022-12-30 22:24] LABS: Appearance Urine Clear; Color Urine Yellow; Glucose Urine UA Negative (Negative); Leukocyte Esterase Urine Negative (Negative); Nitrite Urine Negative (Negative); Specific Gravity - Urine 1.025 (1.005-1.025); UMIC TRIGGER UACC YES; Urine Blood Moderate (2+) (Negative); Urine Ketones Negative (Negative); Urine Protein Trace mg/dL (Neg-Trace)
[2022-12-30 22:31] LABS: Alanine Aminotransferase 34 U/L (0-31); Albumin Level 3.7 g/dL (3.5-5.0); Alkaline Phosphatase 66 U/L (39-117); Anion Gap 9 (12-20); Aspartate Amino Transferase 16 U/L (5-31); Bilirubin Total 0.3 mg/dL (0.0-1.0); Blood Urea Nitrogen 15 mg/dL (9-16); Calcium 8.9 mg/dL (8.4-10.2); Carbon Dioxide 20 mmol/L (22-29); Chloride 115 mmol/L (96-108); Creatinine Clr Calc Pharmacy 127.5; Estimated Glomerular Filt Rate > 60; Glucose Random 111 mg/dL (60-115); Lipase 24 U/L (8-78); Potassium 3.2 mmol/L (3.3-5.1); Sodium 141 mmol/L (135-145)
[2022-12-30 22:39] LABS: Bacteria Urine None Seen (None Seen); Calcium Oxalate Crystals Urine Present; Hyaline Casts Urine 0-2 /LPF (0-2); RBC Urine 0-2 /HPF (0-2); Squamous Epithelial Cell Urine 0-2 /HPF (0-2); WBC Urine 0-5 /HPF (0-5)
[2022-12-30 22:51] VITALS: BP 126/68; PULSE 83; RESP 17; TEMP 36.8; O2SAT 100
[2022-12-30 22:54] LABS: Influenza A PCR NEGATIVE (Negative); Influenza B PCR NEGATIVE (Negative); Resp Syncy Virus RNA Qual PCR NEGATIVE (Negative); SARS COV2 PCR INHOUSE NEGATIVE (Negative)
[2022-12-30 23:34] VITALS: BP 125/82; PULSE 83; TEMP 36.7; O2SAT 100
[2022-12-31] MEDS: Ondansetron ODT 4 MG TAB.RAPDIS TRANSLINGU ×2 (00:10→02:01)
[2022-12-31 00:31] VITALS: BP 125/83; PULSE 82; TEMP 36.7; O2SAT 100
--- NOTE | 2022-12-31 01:34 | ED.NAVMDI ---
HPI - Nausea/Vomiting/Diarrhea General Chief complaint: Nausea/Vomiting/Diarrhea Stated complaint: flu like symptoms, fever, D, mult. com. 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 She denies any sick contacts, denies any dysuria/shortness of breath/chest pain. Related Data Home Medications Medication Instructions Recorded Confirmed etonogestrel 0.12 mg-ethinyl 0 vag ring vaginal 06/22/22 estradiol 0.015 mg/24 hr vaginal ring sulfamethoxazole 800 1 tab PO BID 06/22/22 mg-trimethoprim 160 mg tablet valacyclovir 500 mg tablet 500 mg PO DAILY 06/22/22 Previous Rx's Medication Instructions Recorded cyclobenzaprine 10 mg tablet 10 mg PO Q8H #20 tabs 04/10/22 promethazine 25 mg tablet 25 mg PO Q6H PRN nausea and 06/15/22 vomiting #20 tabs gabapentin 300 mg capsule 300 mg PO BEDTIME pain 30 days #30 06/22/22 caps cyclobenzaprine 10 mg tablet 10 mg PO TID PRN muscle spasm #10 06/24/22 tabs ondansetron 4 mg disintegrating 4 mg PO Q8H PRN nausea and 06/24/22 tablet vomiting #10 tabs cefuroxime axetil 250 mg tablet 250 mg PO BID 7 days #14 tabs 08/15/22 cyclobenzaprine 10 mg tablet 10 mg PO BEDTIME PRN muscle spasm 08/15/22 #7 tabs ketorolac 10 mg tablet 10 mg PO TID PRN pain 5 days #15 08/15/22 tabs lidocaine 5 % topical patch 1 patch topical DAILY PRN pain #15 08/15/22 ea prednisone 20 mg tablet 40 mg (2 x 20 mg) PO DAILY 5 days 08/15/22 #10 tabs ibuprofen 400 mg tablet 400 mg PO Q6H PRN pain #20 tabs 08/25/22 ondansetron HCl 4 mg tablet 4 mg PO Q8H PRN nausea and 12/31/22 vomiting 4 days #10 tabs Allergies Allergy/AdvReac Type Severity Reaction Status Date / Time No Known Allergies Allergy Verified 12/30/22 21:50 Review of Systems Review of Systems: Pertinent positives and negatives as stated in [facility] Past Medical History Source: nursing notes reviewed Surgical History History of cholecystectomy History of appendectomy Social History Social History Alcohol intake: never Patient Tobacco Use Status: Current everyday Tobacco user Smoked in Last 30 Days: No Second Hand Smoke Exposure: No Use of substances other than those prescribed or required for medical reasons: No Advance Directives: No Advance Directives Information Provided: Yes service: No Current occupational status: unemployed Physical Exam Vital Signs: Vital Signs: Last Vital Signs Temp 98.0 F 12/31/22 01:57 Pulse 77 12/31/22 01:57 Resp 17 12/31/22 01:57 BP 107/76 12/31/22 01:57 Pulse Ox 100 12/31/22 01:57 O2 Del Method Room Air 12/31/22 01:57 BMI result Body Mass Index 25.8 VITAL SIGNS: Reviewed. GENERAL: Well developed, well nourished, in no acute distress. HEAD: Normocephalic/atraumatic EYES: PERRLA, EOMI EARS: Ext canals without abnormality NOSE: Nares patent bilateral OROPHARYNX: no oral lesions noted, posterior pharynx clear NECK: Supple, no adenopathy LUNGS: Normal breath sounds. No adventitious sounds or accessory muscle use. SpO2<100> CARDIOVASCULAR: Regular rate and rhythm without noted murmurs ABDOMEN: Soft, non-tender, non-distended with bowel sounds. MUSCULOSKELETAL: No tenderness, deformities, or effusions noted on gross inspection. EXTREMITIES: No cyanosis, clubbing or edema. SKIN: Inspection of the skin reveals no rashes NEUROLOGIC: Alert and oriented x 4. Strength and sensation to light touch were grossly intact x 4. Medications Administered Discontinued Medications Generic Name Dose Route Start Last Admin Trade Name Freq PRN Reason Stop Dose Admin Lidocaine/Diphenhydr/Alum/Mg/Simeth 10 ml 12/31/22 01:36 12/31/22 02:00 Mag&Al/Sim/Diphenhyd/Lidocaine 10 Ml Oral.Susp PO 12/31/22 01:37 10 ml ONCE ONE Administration Protocol Ondansetron HCl 4 mg 12/31/22 00:09 12/31/22 00:10 Ondansetron Odt 4 Mg Tab.Rapdis TRANSLINGU 12/31/22 00:10 4 mg ONCE ONE Administration Ondansetron HCl 4 mg 12/31/22 01:36 12/31/22 02:01 Ondansetron Odt 4 Mg Tab.Rapdis TRANSLINGU 12/31/22 01:37 4 mg ONCE ONE Administration Potassium Chloride 60 meq 12/31/22 01:42 12/31/22 02:01 Potassium Chloride Er 20 Meq Tab.Er.Prt PO 12/31/22 01:43 60 meq ONCE ONE Administration Medical Decision Making Medical Decision Making MDM Narrative: 27-year-old female with history and clinical presentation of chronic fibromyalgia, DDX: H pylori infection, gastroenteritis, but low clinical suspicion for any colitis viral illness given the absence elevated temperature. I reviewed all investigations and hematologic indices are grossly within normal limits without leukocytosis/left shift, no evidence of anemia or thrombocytopenia. Chemistry indices without JOHN there is a mild low potassium level of 3.2 and will be repleted with 60 mEq potassium chloride orally. Liver enzymes are otherwise grossly within normal limits. Urinalysis significant for moderate blood and patient does endorse that she has had vaginal bleeding today. Viral testing is negative. Patient received p.o. Zofran with mild improvement in nausea and vomiting and will receive an additional 4 mg as well as a GI cocktail as a do suspect a component of gastritis. I have very low clinical suspicion for a full on gastroenteritis or food poisoning given the fact that patient had the same symptoms in [place]. Differential Diagnosis Differential Diagnoses: The differential diagnosis associated with the presentation includes Please see the discussion above Admission/Observation Consideration of admission/observation: Escalation of care including admission/observation considered Please see the discussion above Lab Data MDM Lab Attestation statement: I reviewed the patient's lab results. Please see the discussion above 12/30/22 22:09 12/30/22 22:09 Labs: Lab Results 12/30/22 Range/Units 22:09 WBC 10.3 (4.8-10.8) X10*3/uL RBC 4.56 (4.20-5.50) X10*6/uL Hgb 12.8 (12.0-16.0) g/dl Hct 38.1 (37.0-47.0) % MCV 83.6 (80.0-98.0) fL MCH 28.1 (27.0-33.0) pg MCHC 33.6 (31.0-35.0) g/dl RDW 14.6 (11.0-16.0) % Plt Count 295 (160-400) X10*3/uL MPV 10.4 (9.4-12.3) fL Immature Gran % (Auto) 0.3 (0.0-0.4) % Neut % (Auto) 59.6 (45-73) % Lymph % (Auto) 32.3 (20-40) % [place] % (Auto) 5.0 (2-11) % Eos % (Auto) 2.4 (0-4) % Baso % (Auto) 0.4 (0-2) % Lymph # (Auto) 3.3 (1.2-4.9) X10*3/uL [place] # (Auto) 0.5 (0.1-1.2) X10*3/uL Eos # (Auto) 0.3 (0.0-0.4) X10*3/uL Baso # (Auto) 0.0 (0.0-0.2) X10*3/uL Abs Immat Gran (auto) 0.03 (0.00-0.03) X10*3/uL Absolute Neuts (auto) 6.1 (2.0-8.3) x10*3/uL Absolute Nucleated RBC 0.000 (0.0-0.012) X10*3/uL Nucleated RBC % (auto) 0.0 (0.0-0.2) /100WBC Sodium 141 (135-145) mmol/L Potassium 3.2 L (3.3-5.1) mmol/L Chloride 115 H (96-108) mmol/L Carbon Dioxide 20 L (22-29) mmol/L Anion Gap 9 L (12-20) BUN 15 (9-16) mg/dL Creatinine 0.67 (0.5-1.4) mg/dL Estim Creat Clear Calc 127.5 Estimated GFR > 60 Random Glucose 111 (60-115) mg/dL Calcium 8.9 (8.4-10.2) mg/dL Magnesium 2.0 (1.6-2.6) mg/dL Total Bilirubin 0.3 (0.0-1.0) mg/dL AST 16 (5-31) U/L ALT 34 H (0-31) U/L Alkaline Phosphatase 66 (39-117) U/L Total Protein 7.0 (6.5-8.0) g/dL Albumin 3.7 (3.5-5.0) g/dL Lipase 24 (8-78) U/L Beta HCG, Quant < 2 mIU/mL Urine Color Yellow Urine Appearance Clear Urine pH 6.0 (5.0-9.0) Ur Specific [place] 1.025 (1.005-1.025) Urine Protein Trace (Neg-Trace) mg/dL Urine Glucose (UA) Negative (Negative) mg/dL Urine Ketones Negative (Negative) mg/dL Urine Blood Moderate (2+) H (Negative) Urine Nitrite Negative (Negative) Ur Leukocyte Esterase Negative (Negative) Urine RBC 0-2 (0-2) /HPF Urine WBC 0-5 (0-5) /HPF Ur Squamous Epith Cells 0-2 (0-2) /HPF Calcium Oxalate Crystal Present Urine Bacteria None Seen (None Seen) Hyaline Casts 0-2 (0-2) /LPF Influenza Type A (PCR) NEGATIVE (Negative) Influenza Type B (PCR) NEGATIVE (Negative) RSV RNA Qual (PCR) NEGATIVE (Negative) SARS-CoV-2 RNA (RT-PCR) NEGATIVE (Negative) External Record Review External record reviewed: Outpatient record, Prior outpatient labs and Prior outpatient radiology Discharge Plan Discharge Clinical Impression: Gastroenteritis Patient Disposition: Home, Self-Care Instructions: Gastroenteritis (ED) Additional Instructions: 1. Resume all home medications as prescribed. I recommend that you stop using ibuprofen/Motrin/Naprosyn as this may be contributing to your stomach upset. 2. Please use the antinausea medication to rehydrate, I recommend [id number] Imodium for diarrhea or dietary changes as I have provided. 3. Please follow-up with primary care provider next 2-3 days. Return to the ER for any worsening symptoms. Prescriptions: New ondansetron HCl 4 mg tablet 4 mg PO Q8H PRN (Reason: nausea and vomiting) 4 Days Qty: 10 0RF No Action promethazine 25 mg tablet 25 mg PO Q6H PRN (Reason: nausea and vomiting) Qty: 20 0RF ondansetron 4 mg tablet,disintegrating 4 mg PO Q8H PRN (Reason: nausea and vomiting) Qty: 10 0RF cyclobenzaprine 10 mg tablet 10 mg PO TID PRN (Reason: muscle spasm) Qty: 10 0RF cyclobenzaprine 10 mg tablet 10 mg PO Q8H Qty: 20 0RF cyclobenzaprine 10 mg tablet 10 mg PO BEDTIME PRN (Reason: muscle spasm) Qty: 7 0RF cefuroxime axetil 250 mg tablet 250 mg PO BID 7 Days Qty: 14 0RF prednisone 20 mg tablet 40 mg PO DAILY 5 Days Qty: 10 0RF ketorolac 10 mg tablet 10 mg PO TID PRN (Reason: pain) 5 Days Qty: 15 0RF lidocaine 5 % adhesive patch,medicated 1 patch topical DAILY PRN (Reason: pain) Qty: 15 0RF Rx Instructions: leave on most painful area for up to 12 hrs ibuprofen 400 mg tablet 400 mg PO Q6H PRN (Reason: pain) Qty: 20 0RF valacyclovir 500 mg tablet 500 mg PO DAILY sulfamethoxazole-trimethoprim 800-160 mg tablet 1 tab PO BID etonogestrel-ethinyl estradiol 0.12-0.015 mg/24 hr ring 0 vag ring vaginal gabapentin 300 mg capsule 300 mg PO BEDTIME 30 Days Qty: 30 0RF Referrals: [facility] [Primary Care Provider] -
[2022-12-31 01:57] VITALS: BP 107/76; PULSE 77; RESP 17; TEMP 36.7; O2SAT 100
[2022-12-31] MEDS: Mag&Al/Sim/Diphenhyd/Lidocaine 10 ML ORAL.SUSP PO (02:00)
[2022-12-31] MEDS: Potassium Chloride ER 20 MEQ TAB.ER.PRT 60 MEQ PO (02:01)
[2022-12-31 02:02] LABS: HCG Quantitative < 2 mIU/mL
== END 2022-12-31 03:33 | disposition home or self-care (01) ==
PROVIDERS: Emergency Provider Student in an Organized Health Care Education/Training Program
DX: K52.9 Noninfective gastroenteritis and colitis, unspecified (principal); R11.2 Nausea with vomiting, unspecified; R05.9 Cough, unspecified; Z20.822 Contact with and (suspected) exposure to COVID-19; Z20.828 Contact with and (suspected) exposure to other viral communicable diseases; F17.200 Nicotine dependence, unspecified, uncomplicated; Z71.6 Tobacco abuse counseling; Z79.899 Other long term (current) drug therapy
CPT/HCPCS: 0241U; 80053; 81001; 83690; 83735; 84702; 85025; 99283; 99284

== ENCOUNTER 2023-01-11 15:12 | Outpatient (REF) | payer MEDICAID, SELFPAY ==
[2023-01-11 16:31] LABS: Anion Gap 16 (12-20); Blood Urea Nitrogen 16 mg/dL (9-16); Calcium 9.9 mg/dL (8.4-10.2); Carbon Dioxide 23 mmol/L (22-29); Chloride 109 mmol/L (96-108); Estimated Glomerular Filt Rate > 60; Glucose Random 94 mg/dL (60-115); Sodium 144 mmol/L (135-145)
== END 2023-01-11 15:13 | disposition home or self-care (01) ==
LOC: HO.HHCL 15:12
PROVIDERS: Visit Provider Internal Medicine
DX: K52.9 Noninfective gastroenteritis and colitis, unspecified (principal)
CPT/HCPCS: 36415; 80048

== ENCOUNTER 2023-02-08 19:10 | Emergency (ER) | payer MEDICAID, SELFPAY ==
[2023-02-08 20:01] VITALS: BP 122/60; PULSE 103; RESP 18; TEMP 36.8; O2SAT 96; BMI 28.3
--- NOTE | 2023-02-08 20:01 | ED_ITS ---
HPI - General Adult General Chief complaint: Back Pain/Injury Stated complaint: back,shoulder pain Time Seen by Provider: 02/09/23 00:39 Source: patient Mode of arrival: ambulatory Limitations: no limitations History of Present Illness HPI narrative: Patient is a 27-year-old female who presents emergency department for evaluation of bilateral shoulder pain right greater than left and neck pain for the past 2 days. She states that pain began after an 85 inch television fell on to the back of her head and striking the back of her neck. She denies any loss of consciousness with this injury. Pain is reported as severe 10/10, aching pain that is radiating down the bilateral arms with bilateral and numbness. Related Data Home Medications Medication Instructions Recorded Confirmed etonogestrel 0.12 mg-ethinyl 0 vag ring vaginal 06/22/22 estradiol 0.015 mg/24 hr vaginal ring sulfamethoxazole 800 1 tab PO BID 06/22/22 mg-trimethoprim 160 mg tablet valacyclovir 500 mg tablet 500 mg PO DAILY 06/22/22 Previous Rx's Medication Instructions Recorded cyclobenzaprine 10 mg tablet 10 mg PO Q8H #20 tabs 04/10/22 promethazine 25 mg tablet 25 mg PO Q6H PRN nausea and 06/15/22 vomiting #20 tabs gabapentin 300 mg capsule 300 mg PO BEDTIME pain 30 days #30 06/22/22 caps cyclobenzaprine 10 mg tablet 10 mg PO TID PRN muscle spasm #10 06/24/22 tabs ondansetron 4 mg disintegrating 4 mg PO Q8H PRN nausea and 06/24/22 tablet vomiting #10 tabs cefuroxime axetil 250 mg tablet 250 mg PO BID 7 days #14 tabs 08/15/22 cyclobenzaprine 10 mg tablet 10 mg PO BEDTIME PRN muscle spasm 08/15/22 #7 tabs ketorolac 10 mg tablet 10 mg PO TID PRN pain 5 days #15 08/15/22 tabs lidocaine 5 % topical patch 1 patch topical DAILY PRN pain #15 08/15/22 ea prednisone 20 mg tablet 40 mg (2 x 20 mg) PO DAILY 5 days 08/15/22 #10 tabs ibuprofen 400 mg tablet 400 mg PO Q6H PRN pain #20 tabs 08/25/22 ondansetron HCl 4 mg tablet 4 mg PO Q8H PRN nausea and 12/31/22 vomiting 4 days #10 tabs Allergies Allergy/AdvReac Type Severity Reaction Status Date / Time No Known Allergies Allergy Verified 12/30/22 21:50 Review of Systems Review of Systems: Yes all other systems are reviewed and are negative [facility] Past Medical History Attestation statement: The following information was validated with the patient. Source: old records reviewed Surgical History History of cholecystectomy History of appendectomy Social History Social History Alcohol intake: never Patient Tobacco Use Status: Current everyday Tobacco user Second Hand Smoke Exposure: No Advance Directives: No Advance Directives Information Provided: No service: No Current occupational status: unemployed Physical Exam ED Vital Signs: Vital Signs - 24 hr 02/08/23 20:01 Temperature 98.3 F Pulse Rate 103 H Respiratory Rate 18 Blood Pressure 122/60 Pulse Oximetry 96 BMI result Body Mass Index 28.3 Appearance: Alert.?Oriented to person, place and time. No acute distress.?Normal affect. Head: Normocephalic, atraumatic Eyes: Pupils equal, round and reactive to light.? EOMI. ENT: Pharynx normal.?? Neck: Normal inspection.? Neck supple.??Midline cervical spine tenderness upon light palpation, no step-offs, no deformities. CVS: Heart sounds normal. Normal heart rate and rhythm.? Pulses normal.?? Respiratory: No respiratory distress.? Lung sounds clear to auscultation bilaterally?? Abdomen: Soft and non-tender. Normoactive bowel sounds. Skin: Skin warm and dry.? Normal skin color.? Extremities: No lower extremity edema.? Neuro: Moves all extremities spontaneously. Sensation intact bilaterally. 2/5 brand marketing coordinator strengths bilaterally. No focal neuro deficits. Ambulates with normal steady gait. Course Course Course Narrative: RME performed by Jeanie Phelps PA-C. Patient is a 27 year old assigned female at presenting to the emergency department with right shoulder and back pain. Patient states that she is doing a lot of heavy lifting. Patient placed back in the waiting room pending room availability. Reevaluation(s) Reevaluation #1: Patient signed out to Dr. Brock pending CT imaging and re-evaluation Time: 02:32 Medications Administered Discontinued Medications Generic Name Dose Route Start Last Admin Trade Name Freq PRN Reason Stop Dose Admin Cyclobenzaprine HCl 10 mg 02/09/23 01:12 02/09/23 01:25 Cyclobenzaprine Hcl 10 Mg Tablet PO 02/09/23 01:13 10 mg ONCE ONE Administration Ketorolac Tromethamine 30 mg 02/09/23 01:12 02/09/23 01:24 Ketorolac Tromethamine 30 Mg/Ml Vial IM 02/09/23 01:13 30 mg ONCE ONE Administration Medical Decision Making Medical Decision Making [facility] Narrative: Patient is a 27-year-old female with past medical history of fibromyalgia, chronic lumbar back pain, SI joint dysfunction presenting to emergency department for evaluation of neck and shoulder pain as per HPI. Decreased AROM to the bilateral shoulders, 2+ brand marketing coordinator strength bilaterally, extremities are neurovascularly intact distally, endorsing subjective numbness to the hands, has midline cervical spine tenderness upon palpation without step-offs or deformities. Given reported injury, exam findings, plan to obtain CT to exclude fracture/subluxation. She denies possibility of , endorsing last menstrual period 2 weeks ago, will trial pain management with Toradol IM and cyclobenzaprine orally. Differential Diagnosis Differential Diagnoses: The differential diagnosis associated with the presentation includes (Fracture, subluxation, cervical radiculopathy, muscular strain) External Record Review External record reviewed: Outpatient record Prescription Management I considered prescription management with: Pain Medication Discharge Plan Discharge Clinical Impression: Neck pain Prescriptions: No Action promethazine 25 mg tablet 25 mg PO Q6H PRN (Reason: nausea and vomiting) Qty: 20 0RF ondansetron 4 mg tablet,disintegrating 4 mg PO Q8H PRN (Reason: nausea and vomiting) Qty: 10 0RF cyclobenzaprine 10 mg tablet 10 mg PO TID PRN (Reason: muscle spasm) Qty: 10 0RF cyclobenzaprine 10 mg tablet 10 mg PO Q8H Qty: 20 0RF cyclobenzaprine 10 mg tablet 10 mg PO BEDTIME PRN (Reason: muscle spasm) Qty: 7 0RF cefuroxime axetil 250 mg tablet 250 mg PO BID 7 Days Qty: 14 0RF prednisone 20 mg tablet 40 mg PO DAILY 5 Days Qty: 10 0RF ketorolac 10 mg tablet 10 mg PO TID PRN (Reason: pain) 5 Days Qty: 15 0RF lidocaine 5 % adhesive patch,medicated 1 patch topical DAILY PRN (Reason: pain) Qty: 15 0RF Rx Instructions: leave on most painful area for up to 12 hrs ibuprofen 400 mg tablet 400 mg PO Q6H PRN (Reason: pain) Qty: 20 0RF ondansetron HCl 4 mg tablet 4 mg PO Q8H PRN (Reason: nausea and vomiting) 4 Days Qty: 10 0RF valacyclovir 500 mg tablet 500 mg PO DAILY sulfamethoxazole-trimethoprim 800-160 mg tablet 1 tab PO BID etonogestrel-ethinyl estradiol 0.12-0.015 mg/24 hr ring 0 vag ring vaginal gabapentin 300 mg capsule 300 mg PO BEDTIME 30 Days Qty: 30 0RF
[2023-02-09] MEDS: Ketorolac Tromethamine 30 MG/ML VIAL IM (01:24)
[2023-02-09] MEDS: Cyclobenzaprine HCl 10 MG TABLET PO (01:25)
[2023-02-09 03:02] LABS: UPreg QC Valid YES; Urine Pregnancy POSITIVE (NEGATIVE)
[2023-02-09 04:46] VITALS: BP 108/56; PULSE 88; RESP 16; TEMP 36.8; O2SAT 99
[2023-02-09] MEDS: oxyCODONE HCl Immed Release 5 MG TABLET PO (05:23)
--- NOTE | 2023-02-09 05:24 | PC.NURSE ---
pt medicated according to jun. per dr lemons safe for pt to take po oxycodone
[2023-02-09 05:37] LABS: HCG Quantitative 1438 mIU/mL
== END 2023-02-09 06:47 | disposition home or self-care (01) ==
PROVIDERS: Internal Medicine; Nurse Practitioner Family; Emergency Provider Emergency Medicine
DX: M54.2 Cervicalgia (principal); M25.511 Pain in right shoulder; F17.200 Nicotine dependence, unspecified, uncomplicated; Z79.899 Other long term (current) drug therapy; Z71.6 Tobacco abuse counseling
CPT/HCPCS: 36415; 81025; 84702; 96372; 99284; J1885

== ENCOUNTER 2023-02-17 20:26 | Emergency (ER) | payer MEDICAID, SELFPAY ==
--- NOTE | ~2023-02-17 | US_ITS ---
EXAMINATION: US OBSTETRICAL ULTRASOUND CLINICAL INFORMATION: Vaginal bleeding and lower abdominal pain. Question miscarriage. Quantitative beta hCG 02/09/2023 1438 COMPARISON: None available. LMP: 12/26/2022. Gestational age by maternal dates is 7 weeks 4 days. Estimated date of delivery by maternal dates is 10/02/2023. TECHNIQUE: Transabdominal and transvaginal ultrasound area transvaginal exam was performed for better visualization of uterus and ovaries. FINDINGS: The uterus measures 8 x 4.5 x 4 cm in dimension. No intrauterine is seen. Endometrial thickness measures 0.9 cm. No focal uterine lesion. The cervix is normal. The ovaries are normal. The right ovary measures 3.2 x 1.9 x 1.3 cm. The left ovary measures 2.5 x 0.8 x 1.1 cm. There is no fluid in pelvis. There are prominent pelvic vessels on the left questionable for pelvic congestion. US/US OB pelvic and transvaginal IMPRESSION: No intrauterine seen. Endometrial thickness measures 0.9 cm. Differential would include an early too early to see, missed and ectopic . Follow-up quantitative beta hCG and ultrasound recommended. Prominent left pelvic vessels questionable for pelvic congestion.
[2023-02-17 20:33] VITALS: BP 126/77; PULSE 88; RESP 18; TEMP 36.3; O2SAT 98; BMI 29.5
--- NOTE | 2023-02-17 20:34 | ED.GENADULT ---
HPI - General Adult General Chief complaint: Vaginal Bleeding Stated complaint: bleeding, hemorrhoid? 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 She states that throughout the day this is gradually subsided and although she is changing pads there approximately to since she presented to the emergency room. Related Data Home Medications Medication Instructions Recorded Confirmed etonogestrel 0.12 mg-ethinyl 0 vag ring vaginal 06/22/22 estradiol 0.015 mg/24 hr vaginal ring sulfamethoxazole 800 1 tab PO BID 06/22/22 mg-trimethoprim 160 mg tablet valacyclovir 500 mg tablet 500 mg PO DAILY 06/22/22 Previous Rx's Medication Instructions Recorded cyclobenzaprine 10 mg tablet 10 mg PO Q8H #20 tabs 04/10/22 promethazine 25 mg tablet 25 mg PO Q6H PRN nausea and 06/15/22 vomiting #20 tabs gabapentin 300 mg capsule 300 mg PO BEDTIME pain 30 days #30 06/22/22 caps cyclobenzaprine 10 mg tablet 10 mg PO TID PRN muscle spasm #10 06/24/22 tabs ondansetron 4 mg disintegrating 4 mg PO Q8H PRN nausea and 06/24/22 tablet vomiting #10 tabs cefuroxime axetil 250 mg tablet 250 mg PO BID 7 days #14 tabs 08/15/22 cyclobenzaprine 10 mg tablet 10 mg PO BEDTIME PRN muscle spasm 08/15/22 #7 tabs ketorolac 10 mg tablet 10 mg PO TID PRN pain 5 days #15 08/15/22 tabs lidocaine 5 % topical patch 1 patch topical DAILY PRN pain #15 08/15/22 ea prednisone 20 mg tablet 40 mg (2 x 20 mg) PO DAILY 5 days 08/15/22 #10 tabs ibuprofen 400 mg tablet 400 mg PO Q6H PRN pain #20 tabs 08/25/22 ondansetron HCl 4 mg tablet 4 mg PO Q8H PRN nausea and 12/31/22 vomiting 4 days #10 tabs Allergies Allergy/AdvReac Type Severity Reaction Status Date / Time No Known Allergies Allergy Verified 02/17/23 20:33 Review of Systems Review of Systems: Pertinent positives and negatives as stated in HPI PMFSH Past Medical History Source: nursing notes reviewed Surgical History History of cholecystectomy History of appendectomy Social History Social History Alcohol intake: never Patient Tobacco Use Status: Current everyday Tobacco user Smoked in Last 30 Days: No Second Hand Smoke Exposure: No Use of substances other than those prescribed or required for medical reasons: No Advance Directives: No Advance Directives Information Provided: No Patient : Yes service: No Current occupational status: unemployed Physical Exam ED Vital Signs: Vital Signs - 24 hr 02/17/23 20:33 02/17/23 21:39 02/17/23 22:11 Temperature 97.4 F 98.8 F 98.0 F Pulse Rate 88 90 88 Respiratory Rate 18 16 16 Blood Pressure 126/77 127/71 121/58 L Pulse Oximetry 98 98 96 Oxygen Delivery Method Room Air Room Air Room Air BMI result Body Mass Index 29.5 VITAL SIGNS: Reviewed. GENERAL: Well developed, well nourished, in no acute distress. HEAD: Normocephalic/atraumatic EYES: PERRLA, EOMI EARS: Ext canals without abnormality NOSE: Nares patent bilateral OROPHARYNX: no oral lesions noted, posterior pharynx clear NECK: Supple, no adenopathy LUNGS: Normal breath sounds. No adventitious sounds or accessory muscle use. SpO2<96> CARDIOVASCULAR: Regular rate and rhythm without noted murmurs ABDOMEN: Soft, non-tender, non-distended with bowel sounds. MUSCULOSKELETAL: No tenderness, deformities, or effusions noted on gross inspection. EXTREMITIES: No cyanosis, clubbing or edema. SKIN: Inspection of the skin reveals no rashes NEUROLOGIC: Alert and oriented x 4. Strength and sensation to light touch were grossly intact x 4. Course Course Course Narrative: This is an RME: Additional HPI, ROS, PE not included below will be deferred to primary provider. 27-year-old female with 2 abortions presents for complaints of lower abdominal pain, pelvic pain, vaginal bleeding think she has 3-4 weeks saw large clots in the toilet concern she may be miscarrying she has a history of this in the past last period 12/26/2022 reports significant pelvic pain. Reports nausea and vomiting. And feels warm, subjective fevers. Also reporting weakness and dizziness. Plan at this time labs, imaging, urine, hCG. Pelvic ultrasound. Medical Decision Making Medical Decision Making [facility] Narrative: 27-year-old female with history and clinical presentation, DDX: UTI, SAB, first-trimester bleeding I reviewed all investigations and hematologic indices are negative for leukocytosis or left shift, there is no anemia or thrombocytopenia. Chemistry indices are negative for evidence of JOHN and there are no electrolyte or liver enzyme abnormalities. BCG is noted to have dropped from 1438 on 02/09/2023 down to 15 today. In addition, ultrasound negative for intrauterine there is noted endometrial thickness consistent with recent and on this ultrasound there is no evidence of ectopic reported. History and findings consistent with SAB although there is no prior ultrasound that had confirmed IUP. There is no pelvic free fluid. Urinalysis negative for UTI. Patient medicated with Tylenol and ibuprofen and instructed to follow-up with her primary care doctor in 1 week for repeat ultrasound and beta hCG. My interpretation is that patient has had an SAB. Differential Diagnosis Differential Diagnoses: The differential diagnosis associated with the presentation includes Please see the discussion above Admission/Observation Consideration of admission/observation: Escalation of care including admission/observation considered Please see the discussion above Lab Data [facility] Lab Attestation statement: I reviewed the patient's lab results. Please see the discussion above 02/17/23 21:56 02/17/23 21:56 Labs: Lab Results 02/17/23 Range/Units 21:56 WBC 10.8 (4.8-10.8) X10*3/uL RBC 4.38 (4.20-5.50) X10*6/uL Hgb 12.1 (12.0-16.0) g/dl Hct 36.8 L (37.0-47.0) % MCV 84.0 (80.0-98.0) fL MCH 27.6 (27.0-33.0) pg MCHC 32.9 (31.0-35.0) g/dl RDW 13.4 (11.0-16.0) % Plt Count 314 (160-400) X10*3/uL MPV 10.3 (9.4-12.3) fL Immature Gran % (Auto) 0.2 (0.0-0.4) % Neut % (Auto) 61.8 (45-73) % Lymph % (Auto) 31.8 (20-40) % [place] % (Auto) 3.9 (2-11) % Eos % (Auto) 1.7 (0-4) % Baso % (Auto) 0.6 (0-2) % Lymph # (Auto) 3.4 (1.2-4.9) X10*3/uL [place] # (Auto) 0.4 (0.1-1.2) X10*3/uL Eos # (Auto) 0.2 (0.0-0.4) X10*3/uL Baso # (Auto) 0.1 (0.0-0.2) X10*3/uL Abs Immat Gran (auto) 0.02 (0.00-0.03) X10*3/uL Absolute Neuts (auto) 6.7 (2.0-8.3) x10*3/uL Absolute Nucleated RBC 0.000 (0.0-0.012) X10*3/uL Nucleated RBC % (auto) 0.0 (0.0-0.2) /100WBC Sodium 140 (135-145) mmol/L Potassium 3.7 (3.3-5.1) mmol/L Chloride 107 (96-108) mmol/L Carbon Dioxide 22 (22-29) mmol/L Anion Gap 15 (12-20) BUN 16 (9-16) mg/dL Creatinine 0.60 (0.5-1.4) mg/dL Estim Creat Clear Calc 146.1 Estimated GFR > 60 Random Glucose 110 (60-115) mg/dL Calcium 9.0 D (8.4-10.2) mg/dL Magnesium 2.4 (1.6-2.6) mg/dL Total Bilirubin 0.4 (0.0-1.0) mg/dL AST 27 (5-31) U/L ALT 34 H (0-31) U/L Alkaline Phosphatase 63 (39-117) U/L Total Protein 7.4 (6.5-8.0) g/dL Albumin 4.0 (3.5-5.0) g/dL Beta HCG, Quant 15 mIU/mL Radiology Impression Discussion of test interpretation with radiology: I have reviewed the radiologist's reading. Radiologist Impression: Please see the discussion above External Record Review External record reviewed: Outpatient record, Prior outpatient labs and Prior outpatient radiology Discharge Plan Discharge Clinical Impression: SAB (spontaneous ) Patient Disposition: Home, Self-Care Instructions: Miscarriage (ED) Additional Instructions: 1. Reanudar todos los medicamentos caseros seg?n lo recetado. 2. Recomiende Tylenol de venta winifred seg?n sea necesario para controlar el dolor. Adem?s, el uso de razia almohadilla t?rmica puede proporcionar un alivio adicional de los s?ntomas. 3. Samina un seguimiento con landrum m?dico de atenci?n primaria en los pr?ximos 5 a 7 d?as para repetir la beta-hCG y la ecograf?a. No dude en volver a urgencias si experimenta un sangrado incontrolado que se definir?a michell el cambio de m?s de 1 toalla sanitaria saturada por hora. 1. Resume all home medications as prescribed. 2. Recommend [id number] Tylenol as needed for pain control. Also the use of a heating pad can provide additional symptom relief. 3. Please follow-up with primary care doctor in the next 5-7 days for repeat beta-hCG and ultrasound. Do not hesitate to return to the emergency room if you experience uncontrolled bleeding which would be defined as changing more than 1 saturated pad an hour. Prescriptions: No Action promethazine 25 mg tablet 25 mg PO Q6H PRN (Reason: nausea and vomiting) Qty: 20 0RF ondansetron 4 mg tablet,disintegrating 4 mg PO Q8H PRN (Reason: nausea and vomiting) Qty: 10 0RF cyclobenzaprine 10 mg tablet 10 mg PO TID PRN (Reason: muscle spasm) Qty: 10 0RF cyclobenzaprine 10 mg tablet 10 mg PO Q8H Qty: 20 0RF cyclobenzaprine 10 mg tablet 10 mg PO BEDTIME PRN (Reason: muscle spasm) Qty: 7 0RF cefuroxime axetil 250 mg tablet 250 mg PO BID 7 Days Qty: 14 0RF prednisone 20 mg tablet 40 mg PO DAILY 5 Days Qty: 10 0RF ketorolac 10 mg tablet 10 mg PO TID PRN (Reason: pain) 5 Days Qty: 15 0RF lidocaine 5 % adhesive patch,medicated 1 patch topical DAILY PRN (Reason: pain) Qty: 15 0RF Rx Instructions: leave on most painful area for up to 12 hrs ibuprofen 400 mg tablet 400 mg PO Q6H PRN (Reason: pain) Qty: 20 0RF ondansetron HCl 4 mg tablet 4 mg PO Q8H PRN (Reason: nausea and vomiting) 4 Days Qty: 10 0RF valacyclovir 500 mg tablet 500 mg PO DAILY sulfamethoxazole-trimethoprim 800-160 mg tablet 1 tab PO BID etonogestrel-ethinyl estradiol 0.12-0.015 mg/24 hr ring 0 vag ring vaginal gabapentin 300 mg capsule 300 mg PO BEDTIME 30 Days Qty: 30 0RF Referrals: [facility] [Primary Care Provider] - Print Language: Belarusian
[2023-02-17 21:39] VITALS: BP 127/71; PULSE 90; RESP 16; TEMP 37.1; O2SAT 98
[2023-02-17 21:59] LABS: MANUAL DIFF FLAG NO
[2023-02-17 22:01] LABS: Basophils Absolute Auto 0.1 X10*3/uL (0.0-0.2); Basophils Percent Auto 0.6 % (0-2); Eosinophils Absolute Auto 0.2 X10*3/uL (0.0-0.4); Eosinophils Percent Auto 1.7 % (0-4); Hematocrit 36.8 % (37.0-47.0); Hemoglobin 12.1 g/dl (12.0-16.0); Imm Gran Abs Auto 0.02 X10*3/uL (0.00-0.03); Imm Gran Pct Auto 0.2 % (0.0-0.4); Lymphocytes Absolute Auto 3.4 X10*3/uL (1.2-4.9); Lymphocytes Percent Auto 31.8 % (20-40); Mean Corpuscular HGB Conc 32.9 g/dl (31.0-35.0); Mean Corpuscular Hemoglobin 27.6 pg (27.0-33.0); Mean Platelet Volume 10.3 fL (9.4-12.3); Monocytes Absolute Auto 0.4 X10*3/uL (0.1-1.2); Monocytes Percent Auto 3.9 % (2-11); Neutrophils Absolute Auto 6.7 x10*3/uL (2.0-8.3); Neutrophils Percent Auto 61.8 % (45-73); Platelet Count 314 X10*3/uL (160-400); Red Blood Count 4.38 X10*6/uL (4.20-5.50); Red Cell Distribution Width 13.4 % (11.0-16.0); White Blood Count 10.8 X10*3/uL (4.8-10.8)
[2023-02-17 22:11] VITALS: BP 121/58; PULSE 88; RESP 16; TEMP 36.7; O2SAT 96
[2023-02-17 22:23] LABS: Alanine Aminotransferase 34 U/L (0-31); Alkaline Phosphatase 63 U/L (39-117); Anion Gap 15 (12-20); Aspartate Amino Transferase 27 U/L (5-31); Bilirubin Total 0.4 mg/dL (0.0-1.0); Blood Urea Nitrogen 16 mg/dL (9-16); Carbon Dioxide 22 mmol/L (22-29); Chloride 107 mmol/L (96-108); Creatinine Clr Calc Pharmacy 146.1; Estimated Glomerular Filt Rate > 60; Glucose Random 110 mg/dL (60-115); HCG Quantitative 15 mIU/mL; Magnesium 2.4 mg/dL (1.6-2.6); Potassium 3.7 mmol/L (3.3-5.1); Sodium 140 mmol/L (135-145); Total Protein 7.4 g/dL (6.5-8.0)
[2023-02-18 00:17] VITALS: BP 127/78; PULSE 85; RESP 14; TEMP 36.8; O2SAT 100
[2023-02-18] MEDS: Acetaminophen 325 MG TABLET 975 MG PO (00:30)
[2023-02-18] MEDS: Ibuprofen 400 MG TABLET PO (00:30)
--- NOTE | 2023-02-18 00:34 | PC.NURSE ---
pt a&o,no sob or chest pain, provider into assess pt, medicated per mar, pt report going through 2 vaginal pads in 6 hours, Education on spontaneous . Reviewed discharge instructions with pt. pt verbalized understanding. No sign of distress upon discharge, pt had a steady gait.
[2023-02-18 00:38] LABS: Appearance Urine Clear; Color Urine Yellow; Glucose Urine UA Negative (Negative); Leukocyte Esterase Urine Negative (Negative); Nitrite Urine Negative (Negative); Specific Gravity - Urine >= 1.030 (1.005-1.025); UMIC TRIGGER UACC YES; Urine Blood Small (1+) (Negative); Urine Ketones Negative (Negative); Urine Protein Negative (Neg-Trace)
[2023-02-18 00:46] LABS: Bacteria Urine None Seen (None Seen); Hyaline Casts Urine 0-2 /LPF (0-2); RBC Urine 0-2 /HPF (0-2); Squamous Epithelial Cell Urine 0-2 /HPF (0-2); WBC Urine 0-5 /HPF (0-5)
== END 2023-02-18 00:41 | disposition home or self-care (01) ==
PROVIDERS: Physician Assistant; Emergency Provider Student in an Organized Health Care Education/Training Program
DX: O03.9 Complete or unspecified spontaneous abortion without complication (principal); R10.2 Pelvic and perineal pain
CPT/HCPCS: 36415; 76801; 76817; 80053; 81001; 83735; 84702; 85025; 99284

== ENCOUNTER 2023-04-29 19:10 | Emergency (ER) | payer MEDICAID, SELFPAY ==
--- NOTE | 2023-04-29 19:43 | ED.URI ---
HPI - URI/Sore Throat General Chief Complaint: Upper Respiratory Symptoms Stated Complaint: flu like symptoms Time Seen by Provider: 04/29/23 21:03 Source: patient Mode of arrival: ambulatory Limitations: no limitations History of Present Illness HPI Narrative: Patient is a 27-year-old female presenting to the emergency department with complaint of generalized abdominal pain, nausea, vomiting, and diarrhea for the past 2 days as well as sore throat. Reports has been unable to tolerate fluids today. Reports emesis is non-bloody, non-bilious, denies hematochezia or melena. States daughter has been sick with similar symptoms and was recently diagnosed with strep pharyngitis. Patient denies difficulty swallowing but complains of burning sensation with swallowing. Denies cough or ear pain. Reports generalized body aches. Has not checked temperature but has felt chills. MD elicited complaint: sore throat and other Onset (ago): day(s) Consistency: constant Able to tolerate fluids by mouth: No Exacerbating factors: swallowing Relieving factors: nothing Context: sick contacts and other(s) with similar symptoms Associated symptoms: chills, sore throat, abdominal pain, nausea, vomiting and diarrhea Treatments prior to arrival: none Related Data Home Medications Medication Instructions Recorded Confirmed etonogestrel 0.12 mg-ethinyl 0 vag ring vaginal 06/22/22 estradiol 0.015 mg/24 hr vaginal ring sulfamethoxazole 800 1 tab PO BID 06/22/22 mg-trimethoprim 160 mg tablet valacyclovir 500 mg tablet 500 mg PO DAILY 06/22/22 Previous Rx's Medication Instructions Recorded cyclobenzaprine 10 mg tablet 10 mg PO Q8H #20 tabs 04/10/22 promethazine 25 mg tablet 25 mg PO Q6H PRN nausea and 06/15/22 vomiting #20 tabs gabapentin 300 mg capsule 300 mg PO BEDTIME pain 30 days #30 06/22/22 caps cyclobenzaprine 10 mg tablet 10 mg PO TID PRN muscle spasm #10 06/24/22 tabs ondansetron 4 mg disintegrating 4 mg PO Q8H PRN nausea and 06/24/22 tablet vomiting #10 tabs cefuroxime axetil 250 mg tablet 250 mg PO BID 7 days #14 tabs 08/15/22 cyclobenzaprine 10 mg tablet 10 mg PO BEDTIME PRN muscle spasm 08/15/22 #7 tabs ketorolac 10 mg tablet 10 mg PO TID PRN pain 5 days #15 08/15/22 tabs lidocaine 5 % topical patch 1 patch topical DAILY PRN pain #15 08/15/22 ea prednisone 20 mg tablet 40 mg (2 x 20 mg) PO DAILY 5 days 08/15/22 #10 tabs ibuprofen 400 mg tablet 400 mg PO Q6H PRN pain #20 tabs 08/25/22 ondansetron HCl 4 mg tablet 4 mg PO Q8H PRN nausea and 12/31/22 vomiting 4 days #10 tabs ondansetron 4 mg disintegrating 4 mg PO Q8H PRN nausea and 04/30/23 tablet vomiting #10 tabs penicillin V potassium 500 mg 500 mg PO BID 10 days #20 tabs 04/30/23 tablet Allergies Allergy/AdvReac Type Severity Reaction Status Date / Time No Known Allergies Allergy Verified 04/29/23 19:47 Review of Systems Review of Systems: As per HPI. Yes all other systems are reviewed and are negative Constitutional: Constitutional: Reports as per HPI [facility] Past Medical History Onset Date is defined in the Problem List Problems that require an onset date and time if occurred within 24 hrs of arrival to the ED Aortic Dissection and Rupture; Neurologic impairment; Cardiopulmonary Arrest; Endotracheal Intubation; Insertion or Replacement of Mechanical Circulatory Assist Device Surgical History History of cholecystectomy History of appendectomy Social History Social History Alcohol intake: never Comment: refusing bed alarm Patient Tobacco Use Status: Current everyday Tobacco user Second Hand Smoke Exposure: No Advance Directives: No Advance Directives Information Provided: No service: No Current occupational status: unemployed Physical Exam Vital Signs: Vital Signs: Last Vital Signs Temp 97.2 F 04/30/23 01:19 Pulse 82 04/30/23 01:19 Resp 17 04/30/23 01:19 BP 118/68 04/30/23 01:19 Pulse Ox 98 04/30/23 01:19 O2 Del Method Room Air 04/30/23 01:19 BMI result Body Mass Index 28.5 Vital signs have been reviewed and appear to be correct. Blood pressure elevated. Heart rate normal. Respiratory rate normal. Temperature normal. Oxygen saturation normal. Const: General: cooperative, healthy appearing and no acute distress Orientation/consciousness: oriented to person, oriented to place, oriented to time and patient oriented x3 Limitations: no limitations HEENT: Head: Yes normocephalic and Yes atraumatic Ears: external ears normal, TM's normal bilaterally and EAC's normal General nose exam: Normal external nose present Face and sinus: Yes face symmetric Mouth: oropharynx normal and moist mucous membranes Throat: Yes uvula midline, Yes abnormal tonsil (erythema, edema, exudate bilaterally), No peritonsillar mass and No uvular edema Eyes: Pupils: Equal, round and reactive pupils present Neck: Neck: Yes normal visual inspection and Yes supple Lymphatic: no lymphadenopathy noted Resp: Effort & Inspection: normal respiratory effort and able to speak in complete sentences Auscultation: clear to auscultation bilaterally Cardio: Rate: regular rate Rhythm: regular rhythm Heart sounds: S1 normal heart sound present and S2 normal heart sound present GI: Palpation (GI): Soft to palpation and nontender Auscultation: normoactive bowel sounds : General: Yes no CVA tenderness Back/Spine/Pelvis: Back: no CVA tenderness Skin: General skin exam: elasticity normal and turgor normal Neuro: General: oriented to person, oriented to place, oriented to time, patient oriented x3, moves all extremities, no focal motor deficits and CN's II-XI intact bilaterally Cranial nerves: Yes Equal, round and reactive pupils present Cognition (Neuro): normal cognition Extrem: General: Yes full ROM, Yes no pedal edema and Yes no calf tenderness Psych: Mental Status: mental status grossly normal Affect: normal affect Thought process: Normal thought process present Course Course Course Narrative: Abdominal pain with n/v/d and SOB x 2 days. Cough with headache and diarrhea and pain in lower back RME: NAD, A&Ox4, MAEx4, LS CTA, HR RRR, generalized abd pain to palp Reevaluation(s) Reevaluation #1: Notified by nursing that patient vomited after receiving PCN. Will order metoclopramide. Time: 01:45 Reevaluation #2: Patient able to tolerate christy lou after receiving metoclopramide. Will discharge home with prescriptions. Return precautions discussed. Patient verbalized understanding of and agreement with plan. Medications Administered Discontinued Medications Generic Name Dose Route Start Last Admin Trade Name Curtis PRN Reason Stop Dose Admin Sodium Chloride 1,000 mls @ 999 mls/hr 04/29/23 22:15 04/29/23 23:07 Ns IV 04/29/23 23:15 999 mls/hr .Q1H1M WALT Administration Ketorolac Tromethamine 15 mg 04/29/23 22:06 04/29/23 23:07 Ketorolac Tromethamine 15 Mg/Ml Vial IVPUSH 04/29/23 22:07 15 mg ONCE ONE Administration Metoclopramide HCl 10 mg 04/30/23 01:37 04/30/23 01:50 Metoclopramide Hcl 10 Mg/2 Ml Vial IVPUSH 04/30/23 01:38 10 mg ONCE ONE Administration Ondansetron HCl 4 mg 04/29/23 21:38 04/29/23 21:52 Ondansetron Odt 4 Mg Tab.Rapdis TRANSLINGU 04/29/23 21:39 4 mg ONCE ONE Administration Ondansetron HCl 4 mg 04/30/23 00:55 04/30/23 01:06 Ondansetron Hcl 4 Mg/2 Ml Vial IVPUSH 04/30/23 00:56 4 mg ONCE ONE Administration Penicillin V Potassium 500 mg 04/30/23 00:21 04/30/23 00:52 Penicillin V Potassium 250 Mg Tablet PO 04/30/23 00:22 500 mg ONCE ONE Administration Medical Decision Making Medical Decision Making [facility] Narrative: Patient is a 27-year-old female presenting to the emergency department with complaint of generalized abdominal pain, nausea, vomiting, and diarrhea for the past 2 days as well as sore throat. On exam patient is awake, A+Ox3, BP elevated, VS otherwise WNL, afebrile, normal neurological exam without focal deficits, physical exam findings as above. Given reported symptoms and physical exam findings, initial differential includes strep pharyngitis, viral illness, covid, flu, gastroenteritis. Labs notable for no leukocytosis, no anemia, no significant electrolyte abnormalities, normal LFTS, no evidence of JOHN. Patient medicated with zofran, fluids, toradol. Will treat with PCN for strep pharyngitis, will also prescribe zofran for nausea. Lab Data 04/29/23 22:18 04/29/23 22:18 Labs: Lab Results 04/29/23 04/29/23 Range/Units 19:56 22:18 WBC 9.8 (4.8-10.8) X10*3/uL RBC 4.83 (4.20-5.50) X10*6/uL Hgb 13.2 (12.0-16.0) g/dl Hct 41.1 (37.0-47.0) % MCV 85.1 (80.0-98.0) fL MCH 27.3 (27.0-33.0) pg MCHC 32.1 (31.0-35.0) g/dl RDW 13.2 (11.0-16.0) % Plt Count 284 (160-400) X10*3/uL MPV 10.1 (9.4-12.3) fL Immature Gran % (Auto) 0.3 (0.0-0.4) % Neut % (Auto) 59.7 (45-73) % Lymph % (Auto) 30.9 (20-40) % [place] % (Auto) 4.6 (2-11) % Eos % (Auto) 4.2 H (0-4) % Baso % (Auto) 0.3 (0-2) % Lymph # (Auto) 3.0 (1.2-4.9) X10*3/uL [place] # (Auto) 0.5 (0.1-1.2) X10*3/uL Eos # (Auto) 0.4 (0.0-0.4) X10*3/uL Baso # (Auto) 0.0 (0.0-0.2) X10*3/uL Abs Immat Gran (auto) 0.03 (0.00-0.03) X10*3/uL Absolute Neuts (auto) 5.9 (2.0-8.3) x10*3/uL Absolute Nucleated RBC 0.000 (0.0-0.012) X10*3/uL Nucleated RBC % (auto) 0.0 (0.0-0.2) /100WBC Sodium 138 (135-145) mmol/L Potassium 4.6 (3.3-5.1) mmol/L Chloride 103 (96-108) mmol/L Carbon Dioxide 26 (22-29) mmol/L Anion Gap 14 (12-20) BUN 16 (9-16) mg/dL Creatinine 0.62 (0.5-1.4) mg/dL Estim Creat Clear Calc 139.1 Estimated GFR > 60 Random Glucose 99 (60-115) mg/dL Calcium 9.5 (8.4-10.2) mg/dL Magnesium 1.9 (1.6-2.6) mg/dL Total Bilirubin 0.7 (0.0-1.0) mg/dL AST 16 (5-31) U/L ALT 21 (0-31) U/L Alkaline Phosphatase 95 (39-117) U/L Total Protein 7.7 (6.5-8.0) g/dL Albumin 4.0 (3.5-5.0) g/dL COVID-19 (MARIO) Negative (Negative) COVID-19 Clin Com See Note Influenza Type A (CHARLIE) Negative (Negative) Influenza Type B (CHARLIE) Negative (Negative) Influenza A & B Note See Note S. pyogenes GrpA CHARLIE Positive A (Negative) Discharge Plan Discharge Clinical Impression: Acute streptococcal pharyngitis, Nausea vomiting and diarrhea Patient Disposition: Home, Self-Care Instructions: Strep Throat (DC), Acute Nausea and Vomiting (ED), Acute Diarrhea (ED) Additional Instructions: Usted est? siendo tratado con antibi?ticos para la faringitis estreptoc?cica, que es razia infecci?n bacteriana. Complete el curso completo seg?n lo prescrito. Le recetan ondansetr?n para las n?useas y puede tomarlo cada 8 horas seg?n sea necesario. Debe pasar a razia dieta de l?quidos arturo y luego a razia dieta blanda, seg?n la tolere. Debes evitar los alimentos picantes, ?cidos y grasos. Eres contagioso hasta que hayas tomado los antibi?ticos li 24 horas. Samina un seguimiento con landrum proveedor de atenci?n primaria. Regrese al departamento de emergencias si presenta dificultad para tragar, dificultad para respirar, v?mitos persistentes, no puede mantener los antibi?ticos sin vomitar, fiebre no controlada con Tylenol o ibuprofeno, o cualquier otro s?ntoma preocupante. Prescriptions: New penicillin V potassium 500 mg tablet 500 mg PO BID 10 Days Qty: 20 0RF ondansetron 4 mg tablet,disintegrating 4 mg PO Q8H PRN (Reason: nausea and vomiting) Qty: 10 0RF No Action promethazine 25 mg tablet 25 mg PO Q6H PRN (Reason: nausea and vomiting) Qty: 20 0RF ondansetron 4 mg tablet,disintegrating 4 mg PO Q8H PRN (Reason: nausea and vomiting) Qty: 10 0RF cyclobenzaprine 10 mg tablet 10 mg PO TID PRN (Reason: muscle spasm) Qty: 10 0RF cyclobenzaprine 10 mg tablet 10 mg PO Q8H Qty: 20 0RF cyclobenzaprine 10 mg tablet 10 mg PO BEDTIME PRN (Reason: muscle spasm) Qty: 7 0RF cefuroxime axetil 250 mg tablet 250 mg PO BID 7 Days Qty: 14 0RF prednisone 20 mg tablet 40 mg PO DAILY 5 Days Qty: 10 0RF ketorolac 10 mg tablet 10 mg PO TID PRN (Reason: pain) 5 Days Qty: 15 0RF lidocaine 5 % adhesive patch,medicated 1 patch topical DAILY PRN (Reason: pain) Qty: 15 0RF Rx Instructions: leave on most painful area for up to 12 hrs ibuprofen 400 mg tablet 400 mg PO Q6H PRN (Reason: pain) Qty: 20 0RF ondansetron HCl 4 mg tablet 4 mg PO Q8H PRN (Reason: nausea and vomiting) 4 Days Qty: 10 0RF valacyclovir 500 mg tablet 500 mg PO DAILY sulfamethoxazole-trimethoprim 800-160 mg tablet 1 tab PO BID etonogestrel-ethinyl estradiol 0.12-0.015 mg/24 hr ring 0 vag ring vaginal gabapentin 300 mg capsule 300 mg PO BEDTIME 30 Days Qty: 30 0RF Print Language: [place]
[2023-04-29 19:44] VITALS: BP 117/76; PULSE 78; RESP 20; TEMP 36.8; O2SAT 96; BMI 28.5
[2023-04-29 20:16] VITALS: BP 121/82; PULSE 83; RESP 16; TEMP 37.1; O2SAT 96
[2023-04-29 20:17] LABS: COVID-19 Test Negative (Negative); IDNOW Serial# 08D9AD1C
[2023-04-29 20:20] LABS: IDNOW Serial# 58CA691E; Influenza A Negative (Negative); Influenza B2 Negative (Negative)
[2023-04-29 21:32] VITALS: BP 152/81; PULSE 76; RESP 16; TEMP 37.2; O2SAT 97
--- NOTE | 2023-04-29 21:42 | PC.NURSE ---
Patient is in the bathroom at this time, vomiting. Reports repeated episodes of nausea/vomiting/diarrhea. Has been seen frequently using ED bathroom. Appears generally unwell. Negative COVID/Flu per nasal swab obtained earlier today.
[2023-04-29] MEDS: Ondansetron ODT 4 MG TAB.RAPDIS TRANSLINGU (21:52)
[2023-04-29 22:23] LABS: Basophils Percent Auto 0.3 % (0-2); Eosinophils Absolute Auto 0.4 X10*3/uL (0.0-0.4); Eosinophils Percent Auto 4.2 % (0-4); Hematocrit 41.1 % (37.0-47.0); Hemoglobin 13.2 g/dl (12.0-16.0); Imm Gran Abs Auto 0.03 X10*3/uL (0.00-0.03); Imm Gran Pct Auto 0.3 % (0.0-0.4); Lymphocytes Percent Auto 30.9 % (20-40); MANUAL DIFF FLAG NO; Mean Corpuscular HGB Conc 32.1 g/dl (31.0-35.0); Mean Corpuscular Hemoglobin 27.3 pg (27.0-33.0); Mean Corpuscular Volume 85.1 fL (80.0-98.0); Mean Platelet Volume 10.1 fL (9.4-12.3); Monocytes Absolute Auto 0.5 X10*3/uL (0.1-1.2); Monocytes Percent Auto 4.6 % (2-11); Neutrophils Absolute Auto 5.9 x10*3/uL (2.0-8.3); Neutrophils Percent Auto 59.7 % (45-73); Platelet Count 284 X10*3/uL (160-400); Red Blood Count 4.83 X10*6/uL (4.20-5.50); Red Cell Distribution Width 13.2 % (11.0-16.0); White Blood Count 9.8 X10*3/uL (4.8-10.8)
[2023-04-29 22:29] LABS: IDNOW Serial# 58CA691E; Strep A Nucleic Acid Positive (Negative)
[2023-04-29 22:36] LABS: Alanine Aminotransferase 21 U/L (0-31); Alkaline Phosphatase 95 U/L (39-117); Anion Gap 14 (12-20); Aspartate Amino Transferase 16 U/L (5-31); Bilirubin Total 0.7 mg/dL (0.0-1.0); Blood Urea Nitrogen 16 mg/dL (9-16); Calcium 9.5 mg/dL (8.4-10.2); Carbon Dioxide 26 mmol/L (22-29); Chloride 103 mmol/L (96-108); Creatinine Clr Calc Pharmacy 139.1; Estimated Glomerular Filt Rate > 60; Glucose Random 99 mg/dL (60-115); Potassium 4.6 mmol/L (3.3-5.1); Sodium 138 mmol/L (135-145); Total Protein 7.7 g/dL (6.5-8.0)
[2023-04-29] MEDS: 0.9 % Sodium Chloride 1,000 ML 999 ML IV (23:07)
[2023-04-29] MEDS: Ketorolac Tromethamine 15 MG/ML VIAL IVPUSH (23:07)
[2023-04-29 23:22] LABS: Magnesium 1.9 mg/dL (1.6-2.6)
[2023-04-30] MEDS: Penicillin V Potassium 250 MG TABLET 500 MG PO (00:52)
[2023-04-30] MEDS: ondansetron HCL 4 MG/2 ML VIAL IVPUSH (01:06)
[2023-04-30 01:19] VITALS: BP 118/68; PULSE 82; RESP 17; TEMP 36.2; O2SAT 98
[2023-04-30] MEDS: Metoclopramide HCl 10 MG/2 ML VIAL IVPUSH (01:50)
[2023-04-30 03:05] VITALS: BP 125/82; PULSE 72; RESP 17; TEMP 37.1; O2SAT 99
== END 2023-04-30 03:06 | disposition home or self-care (01) ==
PROVIDERS: Nurse Practitioner Family; Registered Nurse Emergency; Emergency Provider Student in an Organized Health Care Education/Training Program
DX: J02.0 Streptococcal pharyngitis (principal); Z11.52 Encounter for screening for COVID-19; R11.2 Nausea with vomiting, unspecified; R19.7 Diarrhea, unspecified; F17.200 Nicotine dependence, unspecified, uncomplicated
CPT/HCPCS: 80053; 83735; 85025; 87502; 87635; 87651; 96374; 96375; 99284; J1885; J2405; J2765

== ENCOUNTER 2023-05-29 23:37 | Emergency (ER) | payer MEDICAID, SELFPAY ==
--- NOTE | ~2023-05-29 | XR_ITS ---
EXAMINATION: XR CHEST CLINICAL INFORMATION: Cough. COMPARISON: 04/09/2022. TECHNIQUE: Frontal view of the chest was obtained. FINDINGS: No significant abnormality is noted involving the heart, lungs, mediastinum, bony thorax or soft tissues. XR/XR chest 1V IMPRESSION: Unremarkable examination.
[2023-05-29 23:44] VITALS: BP 123/49; PULSE 76; RESP 16; TEMP 36.7; O2SAT 98; BMI 26.6
--- NOTE | 2023-05-30 00:45 | ED.GENADULT ---
HPI - General Adult General Chief complaint: Back Pain/Injury Stated complaint: lower back pain Time Seen by Provider: 05/30/23 00:30 History of Present Illness HPI narrative: The patient is a 19-year-old woman with a history of low back pain. She says that 3 days ago she slipped and she was getting out of bed and landed on her buttocks. She did not have a great deal of pain at the time but since then she has had worsening pain in her left lower back radiating down her left leg. She also feels that she has had some burning on urination. She also feels that she has had she feels that her asthma is acting up. The patient says that she has had low back pain radiating down her left leg before. The patient has had a lot of problems with low back pain before. She was hospitalized here for intractable low back pain in August of 2020. At that time her symptoms were more on the left side. In March 2022 seen here at the emergency room for low back pain radiating down the left leg. In June of 2022 she was seen at the pain clinic for her low back pain and had bilateral sacroiliac joint injections. Related Data Home Medications Medication Instructions Recorded Confirmed etonogestrel 0.12 mg-ethinyl 0 vag ring vaginal 06/22/22 estradiol 0.015 mg/24 hr vaginal ring sulfamethoxazole 800 1 tab PO BID 06/22/22 mg-trimethoprim 160 mg tablet valacyclovir 500 mg tablet 500 mg PO DAILY 06/22/22 Previous Rx's Medication Instructions Recorded cyclobenzaprine 10 mg tablet 10 mg PO Q8H #20 tabs 04/10/22 promethazine 25 mg tablet 25 mg PO Q6H PRN nausea and 06/15/22 vomiting #20 tabs gabapentin 300 mg capsule 300 mg PO BEDTIME pain 30 days #30 06/22/22 caps cyclobenzaprine 10 mg tablet 10 mg PO TID PRN muscle spasm #10 06/24/22 tabs ondansetron 4 mg disintegrating 4 mg PO Q8H PRN nausea and 06/24/22 tablet vomiting #10 tabs cefuroxime axetil 250 mg tablet 250 mg PO BID 7 days #14 tabs 08/15/22 cyclobenzaprine 10 mg tablet 10 mg PO BEDTIME PRN muscle spasm 08/15/22 #7 tabs ketorolac 10 mg tablet 10 mg PO TID PRN pain 5 days #15 08/15/22 tabs lidocaine 5 % topical patch 1 patch topical DAILY PRN pain #15 08/15/22 ea prednisone 20 mg tablet 40 mg (2 x 20 mg) PO DAILY 5 days 08/15/22 #10 tabs ibuprofen 400 mg tablet 400 mg PO Q6H PRN pain #20 tabs 08/25/22 ondansetron HCl 4 mg tablet 4 mg PO Q8H PRN nausea and 12/31/22 vomiting 4 days #10 tabs ondansetron 4 mg disintegrating 4 mg PO Q8H PRN nausea and 04/30/23 tablet vomiting #10 tabs penicillin V potassium 500 mg 500 mg PO BID 10 days #20 tabs 04/30/23 tablet albuterol sulfate 90 mcg/actuation 2 puff inhalation Q4-6H PRN 05/30/23 aerosol inhaler shortness of breath or wheezing #8.5 grams ibuprofen 600 mg tablet 600 mg PO QID PRN pain #14 tabs 05/30/23 oxycodone 5 mg tablet 5 mg PO Q6H PRN pain #10 tabs 05/30/23 prednisone 20 mg tablet 40 mg (2 x 20 mg) PO DAILY 3 days 05/30/23 #6 tabs Allergies Allergy/AdvReac Type Severity Reaction Status Date / Time No Known Allergies Allergy Verified 05/19/23 16:18 Review of Systems Review of Systems: Yes all other systems are reviewed and are negative PMFSH Past Medical History Surgical History History of cholecystectomy History of appendectomy Social History Social History (System 05/19/23 @ 16:18 by Barbie Haque) Alcohol intake: never Comment: refusing bed alarm Patient Tobacco Use Status: Current everyday Tobacco user Smoked in Last 30 Days: Yes Second Hand Smoke Exposure: No Use of substances other than those prescribed or required for medical reasons: No Advance Directives: No Advance Directives Information Provided: No Patient : No service: No Current occupational status: unemployed Physical Exam ED Vital Signs: Vital Signs - 24 hr 05/29/23 23:44 05/30/23 00:59 05/30/23 02:30 Temperature 98.1 F 97.4 F Pulse Rate 76 81 78 Respiratory Rate 16 16 18 Blood Pressure 123/49 L 107/58 L Pulse Oximetry 98 100 Oxygen Delivery Method Room Air Room Air BMI result Body Mass Index 26.6 Const Other: The patient was asleep when I 1st walked into the room. She woke easily with gentle stimulation and then seemed to be moaning in pain. She seems to have nasal congestion HENMT Other: Face symmetrical. Mucous membranes are moist Eyes Other: Pupils are round equal, conjunctivae are clear Resp Other: The patient has end expiratory wheezing bilaterally. No increased work of breathing. Cardio Rate: regular rate Rhythm: regular rhythm Heart sounds: S1 normal heart sound present and S2 normal heart sound present GI Other: The abdomen is soft and nontender Back/Spine/Pelvis Other: Patient is tender with diffuse palpation in the lower back. Skin Other: Skin is dry and unremarkable Neuro Other: The patient is awake and alert. Speech is clear. Face is symmetrical. She has pain with movement of the left leg but seems to have intact strength. She has 2+ symmetrical reflexes at the knees and the ankles. Toes go down bilaterally. She is able to walk although she walks with a limp. No foot drop. Medications Administered Discontinued Medications Generic Name Dose Route Start Last Admin Trade Name Freq PRN Reason Stop Dose Admin Acetaminophen 975 mg 05/30/23 00:41 05/30/23 01:04 Acetaminophen 325 Mg Tablet PO 05/30/23 00:42 975 mg ONCE ONE Administration Albuterol/Ipratropium 3 ml 05/30/23 00:41 05/30/23 00:57 Albuterol/Iprat 2.5/0.5mg 3 Ml Ampul.Neb INHALE 05/30/23 00:42 3 ml ONCE ONE Administration Cyclobenzaprine HCl 10 mg 05/30/23 00:44 05/30/23 01:04 Cyclobenzaprine Hcl 10 Mg Tablet PO 05/30/23 00:45 10 mg ONCE ONE Administration Ketorolac Tromethamine 60 mg 05/30/23 00:41 05/30/23 01:04 Ketorolac Tromethamine 60 Mg/2 Ml Vial IM 05/30/23 00:42 60 mg ONCE ONE Administration Oxycodone HCl 5 mg 05/30/23 02:02 05/30/23 02:08 Oxycodone Hcl Immed Release 5 Mg Tablet PO 05/30/23 02:03 5 mg ONCE ONE Administration Prednisone 60 mg 05/30/23 02:02 05/30/23 02:08 Prednisone 20 Mg Tablet PO 05/30/23 02:03 60 mg ONCE ONE Administration Medical Decision Making Medical Decision Making [facility] Narrative: He presents with 3 days of worsening low back pain. She has a history of problems with low back pain hospitalization for intractable pain in 2020. Bilateral sacroiliac joint injections for her low back pain. A review of her records indicate that she seems to have had left-sided back pain radiating down the left leg in the past. She describes a low energy fall out of bed 3 days ago which she implies may have triggered her current worsening pain., sweats, chills. The patient is also complaining of burning on urination. She is also complaining of some shortness of breath with a cough and a sense of asthma exacerbation. On exam the patient has wheezing and seems congested. I think she has some degree of an asthma exacerbation although not a severe one. Urinalysis does not suggest an infection. There is microscopic hematuria on the urinalysis. She says she is currently menstruating. The patient has seemed quite uncomfortable with regard to her back pain. She had pain with moving around. She was able to but had a great deal of pain. She was limping. There was no footdrop. She has no apparent neurological deficit. She has no bowel or bladder complaints. No saddle anesthesia. Her postvoid residual bladder scan showed a bladder volume of 0. The patient was initially given acetaminophen, cyclobenzaprine, and intramuscular ketorolac for her pain. She was given a DuoNeb updraft for her wheezing. Her wheezing improved with the updraft. Her pain did not obviously improve with the initial round medications. She still looked quite uncomfortable with walking. She will be given some oxycodone as well. I do not think she has an acute neurosurgical emergency. I think this seems to be an exacerbation of a low back pain syndrome that has been bothering her for many years. One aspect of the patient's presentation that was puzzling was that she was complaining of a great deal of pain but simultaneously seemed quite sleepy. The patient had given here in sample to evaluate her urinary symptoms. Ultimately I added on a urine tox screen because of her persistent sleepiness. I saw the results of this after the patient had been discharged. Her urine tox screen was positive for opioids, fentanyl, benzodiazepines, and cocaine. The urine sample had been submitted prior to oxycodone administration here. The prescription monitoring program shows that she has not had any recently prescribed opioids. She has had prescribed clonazepam which I think accounts for the benzodiazepines. Lab Data Labs: Lab Results 05/30/23 05/30/23 Range/Units 00:48 01:34 Urine Color Dark Yellow Urine Appearance Clear Urine pH 6.0 (5.0-9.0) Ur Specific [place] >= 1.030 H (1.005-1.025) Urine Protein Trace (Neg-Trace) mg/dL Urine Glucose (UA) Negative (Negative) mg/dL Urine Ketones Trace (Negative) mg/dL Urine Blood Large (3+) H (Negative) Urine Nitrite Negative (Negative) Ur Leukocyte Esterase Negative (Negative) Urine RBC 11-20 H (0-2) /HPF Urine WBC 0-5 (0-5) /HPF Ur Squamous Epith Cells 3-5 (0-2) /HPF Urine Bacteria 1+ (None Seen) Hyaline Casts 0-2 (0-2) /LPF Urine Test NEGATIVE (NEGATIVE) Urine Opiates Screen POSITIVE H (Not Detect) Urine Fentanyl Screen POSITIVE H (Not Detect) Ur Barbiturates Screen Not Detected (Not Detect) Ur Phencyclidine Scrn Not Detected (Not Detect) Ur Amphetamines Screen Not Detected (Not Detect) U Benzodiazepines Scrn POSITIVE H (Not Detect) Urine Cocaine Screen POSITIVE H (Not Detect) U Marijuana (THC) Screen Not Detected (Not Detect) COVID-19 (MARIO) Negative (Negative) COVID-19 Clin Com See Note Influenza Type A (CHARLIE) Negative (Negative) Influenza Type B (CHARLIE) Negative (Negative) Influenza A & B Note See Note Discharge Plan Discharge Clinical Impression: Acute left-sided low back pain with left-sided sciatica, Asthma exacerbation, Viral respiratory infection Patient Disposition: Home, Self-Care Instructions: Asthma (ED), Sciatica (ED) Additional Instructions: Your prescriptions have been sent to the [facility] on [facility]. I have sent a prescription for ibuprofen and for oxycodone to your pharmacy that you may use as needed for your back pain. I also think you have a bit of an asthma exacerbation. Please use albuterol every 4 hours as needed for any shortness of breath or wheezing. Take prednisone once a day as prescribed. Please plan on resting and taking it easy. Contact your primary care doctor's office on Wednesday for a prompt follow-up appointment. Return to the emergency room if you feel significantly worse. Prescriptions: New prednisone 20 mg tablet 40 mg PO DAILY 3 Days Qty: 6 0RF ibuprofen 600 mg tablet 600 mg PO QID PRN (Reason: pain) Qty: 14 0RF albuterol sulfate 90 mcg/actuation HFA aerosol inhaler 2 puff inhalation Q4-6H PRN (Reason: shortness of breath or wheezing) Qty: 8.5 0RF oxycodone 5 mg tablet 5 mg PO Q6H PRN (Reason: pain) Qty: 10 0RF Rx Instructions: Partial Fill upon patient request. No Action promethazine 25 mg tablet 25 mg PO Q6H PRN (Reason: nausea and vomiting) Qty: 20 0RF ondansetron 4 mg tablet,disintegrating 4 mg PO Q8H PRN (Reason: nausea and vomiting) Qty: 10 0RF cyclobenzaprine 10 mg tablet 10 mg PO TID PRN (Reason: muscle spasm) Qty: 10 0RF cyclobenzaprine 10 mg tablet 10 mg PO Q8H Qty: 20 0RF cyclobenzaprine 10 mg tablet 10 mg PO BEDTIME PRN (Reason: muscle spasm) Qty: 7 0RF cefuroxime axetil 250 mg tablet 250 mg PO BID 7 Days Qty: 14 0RF prednisone 20 mg tablet 40 mg PO DAILY 5 Days Qty: 10 0RF ketorolac 10 mg tablet 10 mg PO TID PRN (Reason: pain) 5 Days Qty: 15 0RF lidocaine 5 % adhesive patch,medicated 1 patch topical DAILY PRN (Reason: pain) Qty: 15 0RF Rx Instructions: leave on most painful area for up to 12 hrs ibuprofen 400 mg tablet 400 mg PO Q6H PRN (Reason: pain) Qty: 20 0RF ondansetron HCl 4 mg tablet 4 mg PO Q8H PRN (Reason: nausea and vomiting) 4 Days Qty: 10 0RF penicillin V potassium 500 mg tablet 500 mg PO BID 10 Days Qty: 20 0RF ondansetron 4 mg tablet,disintegrating 4 mg PO Q8H PRN (Reason: nausea and vomiting) Qty: 10 0RF valacyclovir 500 mg tablet 500 mg PO DAILY sulfamethoxazole-trimethoprim 800-160 mg tablet 1 tab PO BID etonogestrel-ethinyl estradiol 0.12-0.015 mg/24 hr ring 0 vag ring vaginal gabapentin 300 mg capsule 300 mg PO BEDTIME 30 Days Qty: 30 0RF Referrals: [facility] [Provider Group] (Left lower back pain with sciatica, asthma exacerbation) Stand Alone Forms: Work/School Release Interventions: ED Discharge Assessment Last Done: 05/30/23 02:34
[2023-05-30] MEDS: Albuterol/Iprat 2.5/0.5MG 3 ML AMPUL.NEB INHALE (00:57)
[2023-05-30 00:59] VITALS: PULSE 81; RESP 16; O2SAT 98
[2023-05-30] MEDS: Acetaminophen 325 MG TABLET 975 MG PO (01:04)
[2023-05-30] MEDS: Ketorolac Tromethamine 60 MG/2 ML VIAL IM (01:04)
[2023-05-30] MEDS: Cyclobenzaprine HCl 10 MG TABLET PO (01:04)
[2023-05-30 01:16] LABS: COVID-19 Test Negative (Negative); IDNOW Serial# 58CA691E; IDNOW Serial# 9DB6401D; Influenza A Negative (Negative); Influenza B2 Negative (Negative)
[2023-05-30 01:54] LABS: Appearance Urine Clear; Color Urine Dark Yellow; Glucose Urine UA Negative (Negative); Leukocyte Esterase Urine Negative (Negative); Nitrite Urine Negative (Negative); Specific Gravity - Urine >= 1.030 (1.005-1.025); UMIC TRIGGER UACC YES; Urine Blood Large (3+) (Negative); Urine Ketones Trace mg/dL (Negative); Urine Protein Trace mg/dL (Neg-Trace)
[2023-05-30 01:56] LABS: UPreg QC Valid YES; Urine Pregnancy NEGATIVE (NEGATIVE)
[2023-05-30 01:59] LABS: Bacteria Urine 1+ (None Seen); Hyaline Casts Urine 0-2 /LPF (0-2); WBC Urine 0-5 /HPF (0-5)
[2023-05-30] MEDS: predniSONE 20 MG TABLET 60 MG PO (02:08)
[2023-05-30] MEDS: oxyCODONE HCl Immed Release 5 MG TABLET PO (02:08)
[2023-05-30 02:09] LABS: Amphetamine Screen Urine Not Detected (Not Detect); Barbiturates, Urine Not Detected (Not Detect); Benzodiazepines Screen Urine POSITIVE (Not Detect); Cannabinoid Screen Urine Not Detected (Not Detect); Cocaine Screen Urine POSITIVE (Not Detect); Fentanyl, urine POSITIVE (Not Detect); Opiate Screen Urine POSITIVE (Not Detect); Phencyclidine Screen Urine Not Detected (Not Detect)
[2023-05-30 02:30] VITALS: BP 107/58; PULSE 78; RESP 18; TEMP 36.3; O2SAT 100
== END 2023-05-30 02:45 | disposition home or self-care (01) ==
PROVIDERS: Emergency Provider Emergency Medicine
DX: M54.42 Lumbago with sciatica, left side (principal); J06.9 Acute upper respiratory infection, unspecified; J45.901 Unspecified asthma with (acute) exacerbation; Z11.52 Encounter for screening for COVID-19; Z79.899 Other long term (current) drug therapy
CPT/HCPCS: 71045; 80307; 81001; 81025; 87502; 87635; 94640; 96372; 99284; 99285; J1885

== ENCOUNTER 2023-08-24 13:19 | Emergency (ER) | payer MEDICAID, SELFPAY ==
[2023-08-24 14:15] VITALS: BP 125/86; PULSE 92; RESP 18; TEMP 36.8; O2SAT 99; BMI 28.4
--- NOTE | 2023-08-24 14:18 | ED_ITS ---
HPI - Nausea/Vomiting/Diarrhea General Chief complaint: Nausea/Vomiting/Diarrhea Stated complaint: Vomiting/Diarrhea Time Seen by Provider: 08/24/23 21:16 Source: patient and psychiatric registered nurse Mode of arrival: ambulatory History of Present Illness HPI Narrative: 28-year-old female who has recently returned from [place] and states that she has had 3 weeks of intermittent abdominal discomfort, diarrhea, nausea with occasional vomiting and reports chills but no fevers. Related Data Home Medications ?Medication ?Instructions ?Recorded ?Confirmed etonogestrel 0.12 mg-ethinyl 0 vag ring vaginal 06/22/22 estradiol 0.015 mg/24 hr vaginal ring sulfamethoxazole 800 1 tab PO BID 06/22/22 mg-trimethoprim 160 mg tablet valacyclovir 500 mg tablet 500 mg PO DAILY 06/22/22 Previous Rx's ?Medication ?Instructions ?Recorded cyclobenzaprine 10 mg tablet 10 mg PO Q8H #20 tabs 04/10/22 promethazine 25 mg tablet 25 mg PO Q6H PRN nausea and 06/15/22 vomiting #20 tabs gabapentin 300 mg capsule 300 mg PO BEDTIME pain 30 days #30 06/22/22 caps cyclobenzaprine 10 mg tablet 10 mg PO TID PRN muscle spasm #10 06/24/22 tabs ondansetron 4 mg disintegrating 4 mg PO Q8H PRN nausea and 06/24/22 tablet vomiting #10 tabs cefuroxime axetil 250 mg tablet 250 mg PO BID 7 days #14 tabs 08/15/22 cyclobenzaprine 10 mg tablet 10 mg PO BEDTIME PRN muscle spasm 08/15/22 #7 tabs ketorolac 10 mg tablet 10 mg PO TID PRN pain 5 days #15 08/15/22 tabs lidocaine 5 % topical patch 1 patch topical DAILY PRN pain #15 08/15/22 ea prednisone 20 mg tablet 40 mg (2 x 20 mg) PO DAILY 5 days 08/15/22 #10 tabs ibuprofen 400 mg tablet 400 mg PO Q6H PRN pain #20 tabs 08/25/22 ondansetron HCl 4 mg tablet 4 mg PO Q8H PRN nausea and 12/31/22 vomiting 4 days #10 tabs ondansetron 4 mg disintegrating 4 mg PO Q8H PRN nausea and 04/30/23 tablet vomiting #10 tabs penicillin V potassium 500 mg 500 mg PO BID 10 days #20 tabs 04/30/23 tablet albuterol sulfate 90 mcg/actuation 2 puff inhalation Q4-6H PRN 05/30/23 aerosol inhaler shortness of breath or wheezing #8.5 grams ibuprofen 600 mg tablet 600 mg PO QID PRN pain #14 tabs 05/30/23 oxycodone 5 mg tablet 5 mg PO Q6H PRN pain #10 tabs 05/30/23 prednisone 20 mg tablet 40 mg (2 x 20 mg) PO DAILY 3 days 05/30/23 #6 tabs ondansetron 4 mg disintegrating 4 mg PO Q8H PRN nausea and 08/24/23 tablet vomiting 4 days #7 tabs Allergies Allergy/AdvReac Type Severity Reaction Status Date / Time No Known Allergies Allergy Verified 08/24/23 14:19 Review of Systems 2 Review of Systems: Pertinent positives and negatives as stated in [facility] Past Medical History Source: nursing notes reviewed Surgical History History of cholecystectomy History of appendectomy Social History Social History Alcohol intake: never Comment: refusing bed alarm Patient Tobacco Use Status: Current everyday Tobacco user Second Hand Smoke Exposure: No service: No Current occupational status: unemployed Physical Exam 2 Vital Signs: Vital Signs: Last Vital Signs Temp 98.5 F 08/24/23 22:44 Pulse 86 08/24/23 22:44 Resp 18 08/24/23 22:44 BP 116/69 08/24/23 22:44 Pulse Ox 99 08/24/23 22:44 O2 Del Method Room Air 08/24/23 22:44 BMI result Body Mass Index 28.4 VITAL SIGNS: Reviewed. GENERAL: Well developed, well nourished, in no acute distress. HEAD: Normocephalic/atraumatic EYES: PERRLA, EOMI LUNGS: Normal breath sounds. No adventitious sounds or accessory muscle use. SpO2<100> CARDIOVASCULAR: Regular rate and rhythm without noted murmurs ABDOMEN: Soft, non-tender, non-distended with bowel sounds. MUSCULOSKELETAL: No tenderness, deformities, or effusions noted on gross inspection. EXTREMITIES: No cyanosis, clubbing or edema. SKIN: Inspection of the skin reveals no rashes NEUROLOGIC: Alert and oriented x 4. Strength and sensation to light touch were grossly intact x 4. Course Course Course Narrative: This is a Rapid Medical Examination (RME) performed by Cindy Greenfield PA-C in triage. Full HPI, ROS, assessment and treatment plan per primary provider in the Main ED. 28 y/o Ukrainian speaking female presenting with N/V/D and 10/10 lower abdominal pain for the last 2 days. associated w/ weakness and fatigue. on triage patient is awake, alert, in pain. she has diffuse abd tenderness of the lower abdomen. unknown LMP Plan: lab workup, r/o Medications Administered Discontinued Medications Generic Name Dose Route Start Last Admin Trade Name Freq PRN Reason Stop Dose Admin Ondansetron HCl 4 mg 08/24/23 21:51 08/24/23 22:09 Ondansetron Odt 4 Mg Tab.Rapdis TRANSLINGU 08/24/23 21:52 4 mg ONCE ONE Administration Medical Decision Making Medical Decision Making [facility] Narrative: 28-year-old female with history and clinical presentation, DDX: Gastroenteritis, , UTI, no clinical suspicion for intra-abdominal infection of a bacterial nature, no concern for obstruction. I reviewed all investigations and hematologic indices demonstrate a noninfectious elevation of the leukocyte without anemia or thrombocytopenia. Chemistry indices are negative for JOHN/electrolyte/liver enzyme derangements, beta hCG is undetectable. Urinalysis is negative for UTI or hematuria. Viral testing is negative for influenza/RSV/COVID-19 Patient was able to tolerate p.o. intake and she was discharged with a prescription for Zofran and strong recommendations for follow-up with primary care doctor. Differential Diagnosis Differential Diagnoses: The differential diagnosis associated with the presentation includes Please see the discussion above Admission/Observation Consideration of admission/observation: Escalation of care including admission/observation considered Please see the discussion above Lab Data [facility] Lab Attestation statement: I reviewed the patient's lab results. Please see the discussion above 08/24/23 14:33 08/24/23 14:33 Labs: Lab Results 08/24/23 08/24/23 Range/Units 14:33 21:48 WBC 11.2 H (4.8-10.8) X10*3/uL RBC 5.23 (4.20-5.50) X10*6/uL Hgb 14.3 (12.0-16.0) g/dl Hct 43.4 (37.0-47.0) % MCV 83.0 (80.0-98.0) fL MCH 27.3 (27.0-33.0) pg MCHC 32.9 (31.0-35.0) g/dl RDW 14.6 (11.0-16.0) % Plt Count 326 (160-400) X10*3/uL MPV 10.1 (9.4-12.3) fL Immature Gran % (Auto) 0.5 H (0.0-0.4) % Neut % (Auto) 69.3 (45-73) % Lymph % (Auto) 25.8 (20-40) % [place] % (Auto) 3.5 (2-11) % Eos % (Auto) 0.5 (0-4) % Baso % (Auto) 0.4 (0-2) % Lymph # (Auto) 2.9 (1.2-4.9) X10*3/uL [place] # (Auto) 0.4 (0.1-1.2) X10*3/uL Eos # (Auto) 0.1 (0.0-0.4) X10*3/uL Baso # (Auto) 0.1 (0.0-0.2) X10*3/uL Abs Immat Gran (auto) 0.06 H (0.00-0.03) X10*3/uL Absolute Neuts (auto) 7.8 (2.0-8.3) x10*3/uL Absolute Nucleated RBC 0.000 (0.0-0.012) X10*3/uL Nucleated RBC % (auto) 0.0 (0.0-0.2) /100WBC Sodium 138 (135-145) mmol/L Potassium 3.7 (3.3-5.1) mmol/L Chloride 108 (96-108) mmol/L Carbon Dioxide 17 L (22-29) mmol/L Anion Gap 17 (12-20) BUN 21 H (9-16) mg/dL Creatinine 0.63 (0.5-1.4) mg/dL Estim Creat Clear Calc 135.6 Estimated GFR > 60 Random Glucose 133 H (60-115) mg/dL Calcium 10.1 D (8.4-10.2) mg/dL Magnesium 2.2 (1.6-2.6) mg/dL Total Bilirubin 1.0 (0.0-1.0) mg/dL Direct Bilirubin 0.3 (0.0-0.5) mg/dL AST 12 (5-31) U/L ALT 23 (0-31) U/L Alkaline Phosphatase 77 (39-117) U/L Total Protein 8.6 H (6.5-8.0) g/dL Albumin 4.7 (3.5-5.0) g/dL Beta HCG, Quant < 2 mIU/mL Urine Color Dark Yellow Urine Appearance Cloudy Urine pH 5.5 (5.0-9.0) Ur Specific [place] >= 1.030 H (1.005-1.025) Urine Protein 30 (1+) H (Neg-Trace) mg/dL Urine Glucose (UA) Negative (Negative) mg/dL Urine Ketones Trace (Negative) mg/dL Urine Blood Negative (Negative) Urine Nitrite Negative (Negative) Ur Leukocyte Esterase Negative (Negative) Urine RBC 0-2 (0-2) /HPF Urine WBC 0-5 (0-5) /HPF Ur Squamous Epith Cells 3-5 (0-2) /HPF Urine Bacteria Trace (None Seen) Hyaline Casts 0-2 (0-2) /LPF Influenza Type A (PCR) NEGATIVE (Negative) Influenza Type B (PCR) NEGATIVE (Negative) RSV RNA Qual (PCR) NEGATIVE (Negative) SARS-CoV-2 RNA (RT-PCR) NEGATIVE (Negative) External Record Review External record reviewed: Outpatient record, Prior outpatient labs and Prior outpatient radiology Critical Care Time Critical Care Time Critical Care Time: Yes Total Critical Care Time: 30 Attestation: I personally attest to this time spent taking care of the patient. Discharge Plan Discharge Clinical Impression: Gastroenteritis Patient Disposition: Home, Self-Care Instructions: Gastroenteritis (ED), Nutrition Tips for Relief of Diarrhea (ED) Additional Instructions: Follow-up with your primary care doctor. Continue to rehydrate with water. Prescriptions: New ondansetron 4 mg tablet,disintegrating 4 mg PO Q8H PRN (Reason: nausea and vomiting) 4 Days Qty: 7 0RF No Action promethazine 25 mg tablet 25 mg PO Q6H PRN (Reason: nausea and vomiting) Qty: 20 0RF ondansetron 4 mg tablet,disintegrating 4 mg PO Q8H PRN (Reason: nausea and vomiting) Qty: 10 0RF cyclobenzaprine 10 mg tablet 10 mg PO TID PRN (Reason: muscle spasm) Qty: 10 0RF cyclobenzaprine 10 mg tablet 10 mg PO Q8H Qty: 20 0RF cyclobenzaprine 10 mg tablet 10 mg PO BEDTIME PRN (Reason: muscle spasm) Qty: 7 0RF cefuroxime axetil 250 mg tablet 250 mg PO BID 7 Days Qty: 14 0RF prednisone 20 mg tablet 40 mg PO DAILY 5 Days Qty: 10 0RF ketorolac 10 mg tablet 10 mg PO TID PRN (Reason: pain) 5 Days Qty: 15 0RF lidocaine 5 % adhesive patch,medicated 1 patch topical DAILY PRN (Reason: pain) Qty: 15 0RF Rx Instructions: leave on most painful area for up to 12 hrs ibuprofen 400 mg tablet 400 mg PO Q6H PRN (Reason: pain) Qty: 20 0RF ondansetron HCl 4 mg tablet 4 mg PO Q8H PRN (Reason: nausea and vomiting) 4 Days Qty: 10 0RF penicillin V potassium 500 mg tablet 500 mg PO BID 10 Days Qty: 20 0RF ondansetron 4 mg tablet,disintegrating 4 mg PO Q8H PRN (Reason: nausea and vomiting) Qty: 10 0RF prednisone 20 mg tablet 40 mg PO DAILY 3 Days Qty: 6 0RF ibuprofen 600 mg tablet 600 mg PO QID PRN (Reason: pain) Qty: 14 0RF albuterol sulfate 90 mcg/actuation HFA aerosol inhaler 2 puff inhalation Q4-6H PRN (Reason: shortness of breath or wheezing) Qty: 8.5 0RF oxycodone 5 mg tablet 5 mg PO Q6H PRN (Reason: pain) Qty: 10 0RF Rx Instructions: Partial Fill upon patient request. valacyclovir 500 mg tablet 500 mg PO DAILY sulfamethoxazole-trimethoprim 800-160 mg tablet 1 tab PO BID etonogestrel-ethinyl estradiol 0.12-0.015 mg/24 hr ring 0 vag ring vaginal gabapentin 300 mg capsule 300 mg PO BEDTIME 30 Days Qty: 30 0RF Referrals: [place],[facility] [Primary Care Provider] - Print Language: Ukrainian
[2023-08-24 14:43] LABS: MANUAL DIFF FLAG NO
[2023-08-24 14:46] LABS: Basophils Absolute Auto 0.1 X10*3/uL (0.0-0.2); Basophils Percent Auto 0.4 % (0-2); Eosinophils Absolute Auto 0.1 X10*3/uL (0.0-0.4); Eosinophils Percent Auto 0.5 % (0-4); Hematocrit 43.4 % (37.0-47.0); Hemoglobin 14.3 g/dl (12.0-16.0); Imm Gran Abs Auto 0.06 X10*3/uL (0.00-0.03); Imm Gran Pct Auto 0.5 % (0.0-0.4); Lymphocytes Absolute Auto 2.9 X10*3/uL (1.2-4.9); Lymphocytes Percent Auto 25.8 % (20-40); Mean Corpuscular HGB Conc 32.9 g/dl (31.0-35.0); Mean Corpuscular Hemoglobin 27.3 pg (27.0-33.0); Mean Platelet Volume 10.1 fL (9.4-12.3); Monocytes Absolute Auto 0.4 X10*3/uL (0.1-1.2); Monocytes Percent Auto 3.5 % (2-11); Neutrophils Absolute Auto 7.8 x10*3/uL (2.0-8.3); Neutrophils Percent Auto 69.3 % (45-73); Platelet Count 326 X10*3/uL (160-400); Red Blood Count 5.23 X10*6/uL (4.20-5.50); Red Cell Distribution Width 14.6 % (11.0-16.0); White Blood Count 11.2 X10*3/uL (4.8-10.8)
[2023-08-24 15:07] LABS: Alanine Aminotransferase 23 U/L (0-31); Albumin Level 4.7 g/dL (3.5-5.0); Alkaline Phosphatase 77 U/L (39-117); Anion Gap 17 (12-20); Aspartate Amino Transferase 12 U/L (5-31); Bilirubin Direct 0.3 mg/dL (0.0-0.5); Blood Urea Nitrogen 21 mg/dL (9-16); Calcium 10.1 mg/dL (8.4-10.2); Carbon Dioxide 17 mmol/L (22-29); Chloride 108 mmol/L (96-108); Creatinine Clr Calc Pharmacy 135.6; Estimated Glomerular Filt Rate > 60; Glucose Random 133 mg/dL (60-115); Magnesium 2.2 mg/dL (1.6-2.6); Potassium 3.7 mmol/L (3.3-5.1); Sodium 138 mmol/L (135-145); Total Protein 8.6 g/dL (6.5-8.0)
[2023-08-24 15:18] LABS: HCG Quantitative < 2 mIU/mL
[2023-08-24 15:25] LABS: Influenza A PCR NEGATIVE (Negative); Influenza B PCR NEGATIVE (Negative); Resp Syncy Virus RNA Qual PCR NEGATIVE (Negative); SARS COV2 PCR INHOUSE NEGATIVE (Negative)
[2023-08-24 20:08] VITALS: BP 132/73; PULSE 97; RESP 16; TEMP 37; O2SAT 100
[2023-08-24 21:57] LABS: Appearance Urine Cloudy; Color Urine Dark Yellow; Glucose Urine UA Negative (Negative); Leukocyte Esterase Urine Negative (Negative); Nitrite Urine Negative (Negative); PH 5.5 (5.0-9.0); Specific Gravity - Urine >= 1.030 (1.005-1.025); UMIC TRIGGER UACC YES; Urine Blood Negative (Negative); Urine Ketones Trace mg/dL (Negative); Urine Protein 30 (1+) mg/dL (Neg-Trace)
[2023-08-24] MEDS: Ondansetron ODT 4 MG TAB.RAPDIS TRANSLINGU (22:09)
[2023-08-24 22:15] LABS: Bacteria Urine Trace (None Seen); Hyaline Casts Urine 0-2 /LPF (0-2); RBC Urine 0-2 /HPF (0-2); WBC Urine 0-5 /HPF (0-5)
--- NOTE | 2023-08-24 22:43 | PC.NURSE ---
Pt able to tolerate liquids PO. Declines to take solids PO due to nausea. MD aware.
[2023-08-24 22:44] VITALS: BP 116/69; PULSE 86; RESP 18; TEMP 36.9; O2SAT 99
[2023-08-24 23:15] VITALS: BP 116/69; PULSE 86; RESP 18; TEMP 36.9; O2SAT 99
== END 2023-08-24 23:16 | disposition home or self-care (01) ==
PROVIDERS: Physician Assistant; Emergency Provider Student in an Organized Health Care Education/Training Program
DX: K52.9 Noninfective gastroenteritis and colitis, unspecified (principal)
CPT/HCPCS: 0241U; 36415; 80048; 80076; 81001; 81003; 83735; 84702; 85025; 99283; 99284

== ENCOUNTER 2023-09-28 11:27 | Outpatient (REF) | payer MEDICAID, SELFPAY ==
[2023-09-28 14:18] LABS: TSH reflex Free T4 0.13 uIU/mL (0.32-4.0)
[2023-09-28 14:55] LABS: Free T4 (Free Thyroxine) 0.96 ng/dL (0.71-1.85)
== END 2023-09-28 11:28 | disposition home or self-care (01) ==
LOC: HO.HHCL 11:27
PROVIDERS: Visit Provider Family Medicine
DX: Z11.3 Encounter for screening for infections with a predominantly sexual mode of transmission (principal); Z13.29 Encounter for screening for other suspected endocrine disorder
CPT/HCPCS: 36415; 84439; 84443

== ENCOUNTER 2023-10-15 01:41 | Emergency (ER) | payer MEDICAID, SELFPAY ==
--- NOTE | 2023-10-15 | ECG_ITS ---
Test Reason : ? OVERDOSE Blood Pressure : / mmHG Vent. Rate : 069 BPM Atrial Rate : 069 BPM P-R Int : 152 ms QRS Dur : 080 ms QT Int : 366 ms P-R-T Axes : 042 046 017 degrees QTc Int : 392 ms Normal sinus rhythm with sinus arrhythmia Normal ECG When compared to the previous EKG of No significant changes seen Referred By: Generic ED Physician Electronically Signed By:JOSE ARMANDO CALDWELL MD
[2023-10-15 01:50] VITALS: BP 120/70; PULSE 79; RESP 14; TEMP 36.4; O2SAT 98; BMI 28.1
[2023-10-15 02:06] VITALS: BP 125/71; PULSE 72; RESP 12; TEMP 36.8; O2SAT 100
[2023-10-15 02:44] LABS: MANUAL DIFF FLAG NO
[2023-10-15 02:45] LABS: Basophils Absolute Auto 0.1 X10*3/uL (0.0-0.2); Basophils Percent Auto 0.5 % (0-2); Eosinophils Absolute Auto 0.2 X10*3/uL (0.0-0.4); Eosinophils Percent Auto 1.7 % (0-4); Hematocrit 40.1 % (37.0-47.0); Imm Gran Abs Auto 0.03 X10*3/uL (0.00-0.03); Imm Gran Pct Auto 0.3 % (0.0-0.4); Lymphocytes Absolute Auto 3.2 X10*3/uL (1.2-4.9); Lymphocytes Percent Auto 32.9 % (20-40); Mean Corpuscular HGB Conc 32.4 g/dl (31.0-35.0); Mean Corpuscular Hemoglobin 27.8 pg (27.0-33.0); Mean Corpuscular Volume 85.7 fL (80.0-98.0); Mean Platelet Volume 9.9 fL (9.4-12.3); Monocytes Absolute Auto 0.5 X10*3/uL (0.1-1.2); Monocytes Percent Auto 4.6 % (2-11); Neutrophils Absolute Auto 5.9 x10*3/uL (2.0-8.3); Platelet Count 366 X10*3/uL (160-400); Red Blood Count 4.68 X10*6/uL (4.20-5.50); Red Cell Distribution Width 13.7 % (11.0-16.0); White Blood Count 9.8 X10*3/uL (4.8-10.8)
[2023-10-15 03:03] LABS: Alanine Aminotransferase 48 U/L (0-31); Albumin Level 4.2 g/dL (3.5-5.0); Alkaline Phosphatase 81 U/L (39-117); Anion Gap 15 (12-20); Aspartate Amino Transferase 37 U/L (5-31); Bilirubin Total 0.5 mg/dL (0.0-1.0); Blood Urea Nitrogen 15 mg/dL (9-16); Calcium 8.8 mg/dL (8.4-10.2); Carbon Dioxide 23 mmol/L (22-29); Chloride 102 mmol/L (96-108); Creatinine Clr Calc Pharmacy 122.1; Estimated Glomerular Filt Rate > 60; Glucose Random 83 mg/dL (60-115); Lipase 5 U/L (8-78); Sodium 136 mmol/L (135-145); Total Protein 7.4 g/dL (6.5-8.0)
[2023-10-15 03:06] LABS: HCG Quantitative 2505 mIU/mL
--- NOTE | 2023-10-15 04:42 | ED_ITS ---
HPI - General Adult General Chief complaint: Overdose Stated complaint: SoB Time Seen by Provider: 10/15/23 04:06 Source: patient Mode of arrival: ambulatory Limitations: no limitations History of Present Illness ED Provider: vesta CHARLES narrative: Patient 28 years old with history of anxiety take Klonopin 1 mg daily was feeling more anxious so she took extra tablets earlier today was feeling drowsy per patient's family thats why brought her here patient denied any significant depression patient missed her menstrual period no vaginal bleed does have nausea vomiting in a.m. for last few days Related Data Home Medications ?Medication ?Instructions ?Recorded ?Confirmed etonogestrel 0.12 mg-ethinyl 0 vag ring vaginal 06/22/22 estradiol 0.015 mg/24 hr vaginal ring sulfamethoxazole 800 1 tab PO BID 06/22/22 mg-trimethoprim 160 mg tablet valacyclovir 500 mg tablet 500 mg PO DAILY 06/22/22 Previous Rx's ?Medication ?Instructions ?Recorded cyclobenzaprine 10 mg tablet 10 mg PO Q8H #20 tabs 04/10/22 promethazine 25 mg tablet 25 mg PO Q6H PRN nausea and 06/15/22 vomiting #20 tabs gabapentin 300 mg capsule 300 mg PO BEDTIME pain 30 days #30 06/22/22 caps cyclobenzaprine 10 mg tablet 10 mg PO TID PRN muscle spasm #10 06/24/22 tabs ondansetron 4 mg disintegrating 4 mg PO Q8H PRN nausea and 06/24/22 tablet vomiting #10 tabs cefuroxime axetil 250 mg tablet 250 mg PO BID 7 days #14 tabs 08/15/22 cyclobenzaprine 10 mg tablet 10 mg PO BEDTIME PRN muscle spasm 08/15/22 #7 tabs ketorolac 10 mg tablet 10 mg PO TID PRN pain 5 days #15 08/15/22 tabs lidocaine 5 % topical patch 1 patch topical DAILY PRN pain #15 08/15/22 ea prednisone 20 mg tablet 40 mg (2 x 20 mg) PO DAILY 5 days 08/15/22 #10 tabs ibuprofen 400 mg tablet 400 mg PO Q6H PRN pain #20 tabs 08/25/22 ondansetron HCl 4 mg tablet 4 mg PO Q8H PRN nausea and 12/31/22 vomiting 4 days #10 tabs ondansetron 4 mg disintegrating 4 mg PO Q8H PRN nausea and 04/30/23 tablet vomiting #10 tabs penicillin V potassium 500 mg 500 mg PO BID 10 days #20 tabs 04/30/23 tablet albuterol sulfate 90 mcg/actuation 2 puff inhalation Q4-6H PRN 05/30/23 aerosol inhaler shortness of breath or wheezing #8.5 grams ibuprofen 600 mg tablet 600 mg PO QID PRN pain #14 tabs 05/30/23 oxycodone 5 mg tablet 5 mg PO Q6H PRN pain #10 tabs 05/30/23 prednisone 20 mg tablet 40 mg (2 x 20 mg) PO DAILY 3 days 05/30/23 #6 tabs ondansetron 4 mg disintegrating 4 mg PO Q8H PRN nausea and 08/24/23 tablet vomiting 4 days #7 tabs Allergies Allergy/AdvReac Type Severity Reaction Status Date / Time No Known Allergies Allergy Verified 10/15/23 01:53 Review of Systems 2 Review of Systems: Yes all other systems are reviewed and are negative FOR[facility]LY [facility] Past Medical History Surgical History History of cholecystectomy History of appendectomy Social History Social History Unable to assess alcohol history related to: Unknown Alcohol intake: never Comment: refusing bed alarm Patient Tobacco Use Status: Current everyday Tobacco user Smoked in Last 30 Days: No Second Hand Smoke Exposure: No Use of substances other than those prescribed or required for medical reasons: Unknown Advance Directives: No Advance Directives Information Provided: Yes Do you have a plan to hurt others: No Plan service: No Current occupational status: unemployed Physical Exam ED Vital Signs: Vital Signs - 24 hr 10/15/23 01:50 10/15/23 02:06 10/15/23 04:45 Temperature 97.5 F 98.2 F 98.2 F Pulse Rate 79 72 72 Respiratory Rate 14 12 12 Blood Pressure 120/70 125/71 125/71 Pulse Oximetry 98 100 100 Oxygen Delivery Method Room Air Room Air Room Air BMI result Body Mass Index 28.1 Appearance: Alert. Oriented X3. No acute distress. Eyes: PERRLA, No Nystagmus ENT: Pharynx normal. Oral Mucosa moist Neck: Normal inspection. Neck supple. CVS: Normal heart rate and rhythm. Pulses normal. Respiratory: No respiratory distress. Equal air entry bilateral, no wheezing/rales/rhonchi Abdomen: Soft and nontender. Bowel sounds are present, no mass palpable, no CVA tenderness Skin: Skin warm and dry. Normal skin color. Normal skin turgor. Extremities: No lower extremity edema. No calf tenderness Neuro: Oriented X 3. No motor deficit. No sensory deficit.No cerebellar signs , cranial nerves II-XII intact Medical Decision Making Medical Decision Making [facility] Narrative: Patient noted to be with hCG of 2505 about 6 weeks asymptomatic vaginal bleed patient advised not take benzos follow up with psychiatrist and food aide Lab Data [facility] Lab Attestation statement: I reviewed the patient's lab results. 10/15/23 02:39 10/15/23 02:39 Labs: Lab Results 10/15/23 Range/Units 02:39 WBC 9.8 (4.8-10.8) X10*3/uL RBC 4.68 (4.20-5.50) X10*6/uL Hgb 13.0 (12.0-16.0) g/dl Hct 40.1 (37.0-47.0) % MCV 85.7 (80.0-98.0) fL MCH 27.8 (27.0-33.0) pg MCHC 32.4 (31.0-35.0) g/dl RDW 13.7 (11.0-16.0) % Plt Count 366 (160-400) X10*3/uL MPV 9.9 (9.4-12.3) fL Immature Gran % (Auto) 0.3 (0.0-0.4) % Neut % (Auto) 60.0 (45-73) % Lymph % (Auto) 32.9 (20-40) % [place] % (Auto) 4.6 (2-11) % Eos % (Auto) 1.7 (0-4) % Baso % (Auto) 0.5 (0-2) % Lymph # (Auto) 3.2 (1.2-4.9) X10*3/uL [place] # (Auto) 0.5 (0.1-1.2) X10*3/uL Eos # (Auto) 0.2 (0.0-0.4) X10*3/uL Baso # (Auto) 0.1 (0.0-0.2) X10*3/uL Abs Immat Gran (auto) 0.03 (0.00-0.03) X10*3/uL Absolute Neuts (auto) 5.9 (2.0-8.3) x10*3/uL Absolute Nucleated RBC 0.000 (0.0-0.012) X10*3/uL Nucleated RBC % (auto) 0.0 (0.0-0.2) /100WBC Sodium 136 (135-145) mmol/L Potassium 4.0 (3.3-5.1) mmol/L Chloride 102 (96-108) mmol/L Carbon Dioxide 23 (22-29) mmol/L Anion Gap 15 (12-20) BUN 15 (9-16) mg/dL Creatinine 0.72 (0.5-1.4) mg/dL Estim Creat Clear Calc 122.1 Estimated GFR > 60 Random Glucose 83 (60-115) mg/dL Calcium 8.8 D (8.4-10.2) mg/dL Total Bilirubin 0.5 (0.0-1.0) mg/dL AST 37 H (5-31) U/L ALT 48 H (0-31) U/L Alkaline Phosphatase 81 (39-117) U/L Total Protein 7.4 (6.5-8.0) g/dL Albumin 4.2 (3.5-5.0) g/dL Lipase 5 L (8-78) U/L Beta HCG, Quant 2505 mIU/mL Discharge Plan Discharge Clinical Impression: Early stage of , Benzodiazepine dependence Patient Disposition: Home, Self-Care Instructions: at 7 to 10 Weeks (ED) Additional Instructions: You have early likely 5 weeks Avoid taking benzos and Seroquel Follow with your psychiatrist and food aide Prescriptions: No Action promethazine 25 mg tablet 25 mg PO Q6H PRN (Reason: nausea and vomiting) Qty: 20 0RF ondansetron 4 mg tablet,disintegrating 4 mg PO Q8H PRN (Reason: nausea and vomiting) Qty: 10 0RF cyclobenzaprine 10 mg tablet 10 mg PO TID PRN (Reason: muscle spasm) Qty: 10 0RF cyclobenzaprine 10 mg tablet 10 mg PO Q8H Qty: 20 0RF cyclobenzaprine 10 mg tablet 10 mg PO BEDTIME PRN (Reason: muscle spasm) Qty: 7 0RF cefuroxime axetil 250 mg tablet 250 mg PO BID 7 Days Qty: 14 0RF prednisone 20 mg tablet 40 mg PO DAILY 5 Days Qty: 10 0RF ketorolac 10 mg tablet 10 mg PO TID PRN (Reason: pain) 5 Days Qty: 15 0RF lidocaine 5 % adhesive patch,medicated 1 patch topical DAILY PRN (Reason: pain) Qty: 15 0RF Rx Instructions: leave on most painful area for up to 12 hrs ibuprofen 400 mg tablet 400 mg PO Q6H PRN (Reason: pain) Qty: 20 0RF ondansetron HCl 4 mg tablet 4 mg PO Q8H PRN (Reason: nausea and vomiting) 4 Days Qty: 10 0RF penicillin V potassium 500 mg tablet 500 mg PO BID 10 Days Qty: 20 0RF ondansetron 4 mg tablet,disintegrating 4 mg PO Q8H PRN (Reason: nausea and vomiting) Qty: 10 0RF prednisone 20 mg tablet 40 mg PO DAILY 3 Days Qty: 6 0RF ibuprofen 600 mg tablet 600 mg PO QID PRN (Reason: pain) Qty: 14 0RF albuterol sulfate 90 mcg/actuation HFA aerosol inhaler 2 puff inhalation Q4-6H PRN (Reason: shortness of breath or wheezing) Qty: 8.5 0RF oxycodone 5 mg tablet 5 mg PO Q6H PRN (Reason: pain) Qty: 10 0RF Rx Instructions: Partial Fill upon patient request. ondansetron 4 mg tablet,disintegrating 4 mg PO Q8H PRN (Reason: nausea and vomiting) 4 Days Qty: 7 0RF valacyclovir 500 mg tablet 500 mg PO DAILY sulfamethoxazole-trimethoprim 800-160 mg tablet 1 tab PO BID etonogestrel-ethinyl estradiol 0.12-0.015 mg/24 hr ring 0 vag ring vaginal gabapentin 300 mg capsule 300 mg PO BEDTIME 30 Days Qty: 30 0RF Interventions: ED Discharge Assessment Last Done: 10/15/23 04:45 Discharge Date/Time: 10/15/23 04:47 Print Language: [place]
[2023-10-15 04:45] VITALS: BP 125/71; PULSE 72; RESP 12; TEMP 36.8; O2SAT 100
== END 2023-10-15 04:47 | disposition home or self-care (01) ==
PROVIDERS: Emergency Provider Internal Medicine
DX: F13.20 Sedative, hypnotic or anxiolytic dependence, uncomplicated (principal); R06.02 Shortness of breath; F41.1 Generalized anxiety disorder; F43.0 Acute stress reaction; I49.8 Other specified cardiac arrhythmias; Z79.899 Other long term (current) drug therapy
CPT/HCPCS: 36415; 80053; 83690; 84702; 85025; 93005; 99283; 99285

== ENCOUNTER → 2023-10-15 02:28 | Outpatient (BNV) | payer MEDICAID, SELFPAY | PROVIDERS: Emergency Provider Internal Medicine; Visit Provider Internal Medicine Cardiovascular Disease | DX: R06.02 Shortness of breath (principal) | CPT/HCPCS: 93010 ==

== ENCOUNTER 2023-10-20 12:34 | Emergency (ER) | payer MEDICAID, SELFPAY ==
--- NOTE | ~2023-10-20 | US_ITS ---
EXAMINATION: ULTRASOUND PELVIC, COMPLETE CLINICAL INFORMATION: Pelvic pain. Vaginal bleeding. Beta-hCG levels 2505 and October 15, 2023 COMPARISON: Pelvic ultrasound February 17, 2023 TECHNIQUE: Transvaginal: Used to better visualize pelvic structures Transabdominal: Not adequate for visualization Spectral Doppler and color Doppler exam was utilized. LMP: 09/06/2023. Gestational age by LMP is 6 weeks 2 days. JUAN 06/12/2024 FINDINGS: UTERUS: There is no intrauterine gestation. The endometrial cavity is heterogeneous and mildly thickened. Nonvascular debris. Findings consistent with spontaneous . No evidence of retained products of conception. ADNEXA: Ovarian vascularity:Doppler demonstrates both arterial and venous vascular flow in the right and left ovary. No evidence of ovarian torsion. Right Ovary: 3.1 x 2.4 x 2.6 cm Left Ovary: 2.4 x 1.9 x 1.5 cm Cul-de-sac: No Fluid US/US OB pelvic and transvaginal IMPRESSION: No intrauterine gestation. Nonvascular heterogeneous fluid in the endometrial cavity consistent with debris consistent with spontaneous . There is no adnexal abnormality.
[2023-10-20 12:42] VITALS: BP 116/84; PULSE 94; RESP 18; TEMP 36.7; O2SAT 100; BMI 27.8
--- NOTE | 2023-10-20 12:44 | ED.GENADULT ---
HPI - General Adult General Chief complaint: Vaginal Bleeding Stated complaint: miscarrying ? Time Seen by Provider: 10/20/23 13:10 Source: patient Mode of arrival: ambulatory Limitations: no limitations History of Present Illness ED Provider: Dr. Salmon HPI narrative: Patient is a 1 prior miscarriage. Patient says she is 6 weeks , had a prior US that showed IUP, now with pain and passing clots Onset (ago): hour(s) Related Data Home Medications ?Medication ?Instructions ?Recorded ?Confirmed etonogestrel 0.12 mg-ethinyl 0 vag ring vaginal 06/22/22 estradiol 0.015 mg/24 hr vaginal ring sulfamethoxazole 800 1 tab PO BID 06/22/22 mg-trimethoprim 160 mg tablet valacyclovir 500 mg tablet 500 mg PO DAILY 06/22/22 Previous Rx's ?Medication ?Instructions ?Recorded cyclobenzaprine 10 mg tablet 10 mg PO Q8H #20 tabs 04/10/22 promethazine 25 mg tablet 25 mg PO Q6H PRN nausea and 06/15/22 vomiting #20 tabs gabapentin 300 mg capsule 300 mg PO BEDTIME pain 30 days #30 06/22/22 caps cyclobenzaprine 10 mg tablet 10 mg PO TID PRN muscle spasm #10 06/24/22 tabs ondansetron 4 mg disintegrating 4 mg PO Q8H PRN nausea and 06/24/22 tablet vomiting #10 tabs cefuroxime axetil 250 mg tablet 250 mg PO BID 7 days #14 tabs 08/15/22 cyclobenzaprine 10 mg tablet 10 mg PO BEDTIME PRN muscle spasm 08/15/22 #7 tabs ketorolac 10 mg tablet 10 mg PO TID PRN pain 5 days #15 08/15/22 tabs lidocaine 5 % topical patch 1 patch topical DAILY PRN pain #15 08/15/22 ea prednisone 20 mg tablet 40 mg (2 x 20 mg) PO DAILY 5 days 08/15/22 #10 tabs ibuprofen 400 mg tablet 400 mg PO Q6H PRN pain #20 tabs 08/25/22 ondansetron HCl 4 mg tablet 4 mg PO Q8H PRN nausea and 12/31/22 vomiting 4 days #10 tabs ondansetron 4 mg disintegrating 4 mg PO Q8H PRN nausea and 04/30/23 tablet vomiting #10 tabs penicillin V potassium 500 mg 500 mg PO BID 10 days #20 tabs 04/30/23 tablet albuterol sulfate 90 mcg/actuation 2 puff inhalation Q4-6H PRN 05/30/23 aerosol inhaler shortness of breath or wheezing #8.5 grams ibuprofen 600 mg tablet 600 mg PO QID PRN pain #14 tabs 05/30/23 oxycodone 5 mg tablet 5 mg PO Q6H PRN pain #10 tabs 05/30/23 prednisone 20 mg tablet 40 mg (2 x 20 mg) PO DAILY 3 days 05/30/23 #6 tabs ondansetron 4 mg disintegrating 4 mg PO Q8H PRN nausea and 08/24/23 tablet vomiting 4 days #7 tabs naproxen 500 mg tablet (Naprosyn) 500 mg PO BID #20 tabs 10/20/23 Allergies Allergy/AdvReac Type Severity Reaction Status Date / Time No Known Allergies Allergy Verified 10/20/23 12:47 Review of Systems Review of Systems: Yes all other systems are reviewed and are negative Neurologic: Denies Sensory deficit (Neuro) PENDING SALE TO [facility] Past Medical History Surgical History History of cholecystectomy History of appendectomy Social History Social History Unable to assess alcohol history related to: Unknown Alcohol intake: never Comment: refusing bed alarm Patient Tobacco Use Status: Current everyday Tobacco user Second Hand Smoke Exposure: No Advance Directives: No Do you have a plan to hurt others: No Plan service: No Current occupational status: unemployed Physical Exam ED Vital Signs: Vital Signs - 24 hr 10/20/23 12:42 10/20/23 13:44 10/20/23 15:19 Temperature 98.0 F Pulse Rate 94 Respiratory Rate 18 20 18 Blood Pressure 116/84 Pulse Oximetry 100 Oxygen Delivery Method Room Air BMI result Body Mass Index 27.8 Const Other: female crying Nutritional Appearance: average body habitus Orientation/consciousness: oriented to person and patient oriented x3 Limitations: no limitations HENMT Head: Yes normal to inspection Ears: external ears normal General nose exam: Normal external nose present Mouth: Normal oral and palatal mucosa present and oropharynx normal Throat: Yes posterior oropharynx normal Eyes General: appearance normal, both eyes and all related structures Neck Neck: Yes normal visual inspection Chest Chest palpation & inspection: normal inspection of the chest Resp Auscultation: clear to auscultation bilaterally Cardio Jugular venous distension: no JVD Rate: regular rate Rhythm: regular rhythm Heart sounds: S1 normal heart sound present and S2 normal heart sound present GI Inspection: Yes normal to inspection Palpation (GI): Soft to palpation, nontender and No hepatosplenomegaly present Auscultation: normal bowel sounds Other: some blood in vault, no clots no products of conception coming from cervical os Skin General skin exam: no rashes or lesions noted Neuro General: oriented to person and patient oriented x3 Cranial nerves: Yes CN's II-XII intact bilaterally Motor exam (neuro): 5/5 motor strength present throughout Sensory Exam: No Sensory deficit (Neuro) Extrem General: Yes normal to inspection Psych Appearance: grossly normal Course Course Course Narrative: This is an RME done by [facility] [place]: Additional HPI, ROS, PE not included below will be deferred to primary provider. 28 year old female lmp 09/06/23 presents w/ severe abd pain and vaginal bleeding. US yesterday 5 weeks 3 days. Now big clot ans severe pain. A/c nausea. Appearance: Alert.? Oriented X3.? No acute cardiopulmonary distress distress.? Head: Normocephalic, atraumatic, no step-offs or deformities CVS: Pulses normal.? Respiratory: No respiratory distress.? Abdomen: Soft and lower abd tenderness.? Skin: ? Normal skin color. Extremities: 5/5 strength to bilateral upper and lower extremities Back: No midline tenderness, no C-spine tenderness, full range of motion, No CVA tenderness bilaterally Neuro: Oriented X 3.? No motor deficit.? No sensory deficit. Reevaluation(s) Reevaluation #1: US shows debris consistent with miscarriage will dc home and follow up with Dr. Berry Time: 15:17 Medications Administered Discontinued Medications Generic Name Dose Route Start Last Admin Trade Name Freq PRN Reason Stop Dose Admin Morphine Sulfate 4 mg 10/20/23 13:35 10/20/23 13:44 Morphine Sulfate 4 Mg/Ml Cartridge IVPUSH 10/20/23 13:36 4 mg ONCE ONE Administration Protocol Medical Decision Making Differential Diagnosis Differential Diagnoses: The differential diagnosis associated with the presentation includes (miscarriage, dysfunctional uterine hemorrhage, threatened ab) Admission/Observation Consideration of admission/observation: Escalation of care including admission/observation considered (upon arrival patient considered for admission) Lab Data 10/20/23 13:37 10/20/23 13:37 Labs: Lab Results 10/20/23 10/20/23 Range/Units 13:37 13:39 WBC 7.1 (4.8-10.8) X10*3/uL RBC 4.59 (4.20-5.50) X10*6/uL Hgb 12.8 (12.0-16.0) g/dl Hct 38.5 (37.0-47.0) % MCV 83.9 (80.0-98.0) fL MCH 27.9 (27.0-33.0) pg MCHC 33.2 (31.0-35.0) g/dl RDW 13.2 (11.0-16.0) % Plt Count 293 (160-400) X10*3/uL MPV 9.8 (9.4-12.3) fL Immature Gran % (Auto) 1.1 H (0.0-0.4) % Neut % (Auto) 64.3 (45-73) % Lymph % (Auto) 23.7 (20-40) % [place] % (Auto) 6.5 (2-11) % Eos % (Auto) 3.8 (0-4) % Baso % (Auto) 0.6 (0-2) % Lymph # (Auto) 1.7 (1.2-4.9) X10*3/uL [place] # (Auto) 0.5 (0.1-1.2) X10*3/uL Eos # (Auto) 0.3 (0.0-0.4) X10*3/uL Baso # (Auto) 0.0 (0.0-0.2) X10*3/uL Abs Immat Gran (auto) 0.08 H (0.00-0.03) X10*3/uL Absolute Neuts (auto) 4.6 (2.0-8.3) x10*3/uL Absolute Nucleated RBC 0.000 (0.0-0.012) X10*3/uL Nucleated RBC % (auto) 0.0 (0.0-0.2) /100WBC Sodium 134 L (135-145) mmol/L Potassium 3.5 (3.3-5.1) mmol/L Chloride 98 (96-108) mmol/L Carbon Dioxide 30 H (22-29) mmol/L Anion Gap 10 L (12-20) BUN 8 L (9-16) mg/dL Creatinine 0.64 (0.5-1.4) mg/dL Estim Creat Clear Calc 132.1 Estimated GFR > 60 Random Glucose 105 (60-115) mg/dL Calcium 9.8 D (8.4-10.2) mg/dL Magnesium 1.9 (1.6-2.6) mg/dL Total Bilirubin 0.9 (0.0-1.0) mg/dL AST 32 H (5-31) U/L ALT 34 H (0-31) U/L Alkaline Phosphatase 72 (39-117) U/L Total Protein 7.3 (6.5-8.0) g/dL Albumin 3.9 (3.5-5.0) g/dL Beta HCG, Quant 2993 mIU/mL Blood Type A Positive Independent Interpretation I performed an independent interpretation of an: Ultrasound (debris in uterus no fh) Radiology Impression Discussion of test interpretation with radiology: I have reviewed the radiologist's reading. Prescription Management I considered prescription management with: Antibiotic (no evidence of infection) Social Determinants Patient?s care significantly limited by Social Determinants of Health including: Low income Discharge Plan Discharge Clinical Impression: Missed , Incomplete Patient Disposition: Home, Self-Care Instructions: Miscarriage (ED) Additional Instructions: you are having a miscarriage you should pass the products of conception over the next few days, Return for heavy bleeding or fever Prescriptions: New naproxen [Naprosyn] 500 mg tablet 500 mg PO BID Qty: 20 0RF No Action promethazine 25 mg tablet 25 mg PO Q6H PRN (Reason: nausea and vomiting) Qty: 20 0RF ondansetron 4 mg tablet,disintegrating 4 mg PO Q8H PRN (Reason: nausea and vomiting) Qty: 10 0RF cyclobenzaprine 10 mg tablet 10 mg PO TID PRN (Reason: muscle spasm) Qty: 10 0RF cyclobenzaprine 10 mg tablet 10 mg PO Q8H Qty: 20 0RF cyclobenzaprine 10 mg tablet 10 mg PO BEDTIME PRN (Reason: muscle spasm) Qty: 7 0RF cefuroxime axetil 250 mg tablet 250 mg PO BID 7 Days Qty: 14 0RF prednisone 20 mg tablet 40 mg PO DAILY 5 Days Qty: 10 0RF ketorolac 10 mg tablet 10 mg PO TID PRN (Reason: pain) 5 Days Qty: 15 0RF lidocaine 5 % adhesive patch,medicated 1 patch topical DAILY PRN (Reason: pain) Qty: 15 0RF Rx Instructions: leave on most painful area for up to 12 hrs ibuprofen 400 mg tablet 400 mg PO Q6H PRN (Reason: pain) Qty: 20 0RF ondansetron HCl 4 mg tablet 4 mg PO Q8H PRN (Reason: nausea and vomiting) 4 Days Qty: 10 0RF penicillin V potassium 500 mg tablet 500 mg PO BID 10 Days Qty: 20 0RF ondansetron 4 mg tablet,disintegrating 4 mg PO Q8H PRN (Reason: nausea and vomiting) Qty: 10 0RF prednisone 20 mg tablet 40 mg PO DAILY 3 Days Qty: 6 0RF ibuprofen 600 mg tablet 600 mg PO QID PRN (Reason: pain) Qty: 14 0RF albuterol sulfate 90 mcg/actuation HFA aerosol inhaler 2 puff inhalation Q4-6H PRN (Reason: shortness of breath or wheezing) Qty: 8.5 0RF oxycodone 5 mg tablet 5 mg PO Q6H PRN (Reason: pain) Qty: 10 0RF Rx Instructions: Partial Fill upon patient request. ondansetron 4 mg tablet,disintegrating 4 mg PO Q8H PRN (Reason: nausea and vomiting) 4 Days Qty: 7 0RF valacyclovir 500 mg tablet 500 mg PO DAILY sulfamethoxazole-trimethoprim 800-160 mg tablet 1 tab PO BID etonogestrel-ethinyl estradiol 0.12-0.015 mg/24 hr ring 0 vag ring vaginal gabapentin 300 mg capsule 300 mg PO BEDTIME 30 Days Qty: 30 0RF Referrals: Viktor Berry MD [Physician] - 3 days Print Language: [place]bourgish
[2023-10-20 13:40] LABS: MANUAL DIFF FLAG NO
[2023-10-20 13:43] LABS: Basophils Percent Auto 0.6 % (0-2); Eosinophils Absolute Auto 0.3 X10*3/uL (0.0-0.4); Eosinophils Percent Auto 3.8 % (0-4); Hematocrit 38.5 % (37.0-47.0); Hemoglobin 12.8 g/dl (12.0-16.0); Imm Gran Abs Auto 0.08 X10*3/uL (0.00-0.03); Imm Gran Pct Auto 1.1 % (0.0-0.4); Lymphocytes Absolute Auto 1.7 X10*3/uL (1.2-4.9); Lymphocytes Percent Auto 23.7 % (20-40); Mean Corpuscular HGB Conc 33.2 g/dl (31.0-35.0); Mean Corpuscular Hemoglobin 27.9 pg (27.0-33.0); Mean Corpuscular Volume 83.9 fL (80.0-98.0); Mean Platelet Volume 9.8 fL (9.4-12.3); Monocytes Absolute Auto 0.5 X10*3/uL (0.1-1.2); Monocytes Percent Auto 6.5 % (2-11); Neutrophils Absolute Auto 4.6 x10*3/uL (2.0-8.3); Neutrophils Percent Auto 64.3 % (45-73); Platelet Count 293 X10*3/uL (160-400); Red Blood Count 4.59 X10*6/uL (4.20-5.50); Red Cell Distribution Width 13.2 % (11.0-16.0); White Blood Count 7.1 X10*3/uL (4.8-10.8)
[2023-10-20 13:44] VITALS: RESP 20
[2023-10-20] MEDS: Morphine Sulfate 4 MG/ML CARTRIDGE IVPUSH (13:44)
[2023-10-20 14:03] LABS: HCG Quantitative 2993 mIU/mL
[2023-10-20 14:04] LABS: Alanine Aminotransferase 34 U/L (0-31); Albumin Level 3.9 g/dL (3.5-5.0); Alkaline Phosphatase 72 U/L (39-117); Anion Gap 10 (12-20); Aspartate Amino Transferase 32 U/L (5-31); Bilirubin Total 0.9 mg/dL (0.0-1.0); Blood Urea Nitrogen 8 mg/dL (9-16); Calcium 9.8 mg/dL (8.4-10.2); Carbon Dioxide 30 mmol/L (22-29); Chloride 98 mmol/L (96-108); Creatinine Clr Calc Pharmacy 132.1; Estimated Glomerular Filt Rate > 60; Glucose Random 105 mg/dL (60-115); Magnesium 1.9 mg/dL (1.6-2.6); Potassium 3.5 mmol/L (3.3-5.1); Sodium 134 mmol/L (135-145); Total Protein 7.3 g/dL (6.5-8.0)
--- NOTE | 2023-10-20 14:13 | PC.NURSE ---
Pelvic exam done at bedside with MD, no products needed to be removed from vaginal canal at this time, emotional support provided to patient by staff.
[2023-10-20 15:19] VITALS: RESP 18
[2023-10-20] MEDS: Ketorolac Tromethamine 30 MG/ML VIAL IVPUSH (16:09)
[2023-10-20 16:13] VITALS: BP 140/63; PULSE 85; RESP 18; TEMP 37.2; O2SAT 98
== END 2023-10-20 16:14 | disposition home or self-care (01) ==
PROVIDERS: Physician Assistant; Emergency Provider Emergency Medicine
DX: O03.4 Incomplete spontaneous abortion without complication (principal); R10.2 Pelvic and perineal pain
CPT/HCPCS: 36415; 76801; 76817; 80053; 83735; 84702; 85025; 86900; 86901; 96374; 96375; 99284; J1885; J2270

== ENCOUNTER 2023-11-18 14:48 | Outpatient (AMB) | payer MEDICAID, SELFPAY ==
--- NOTE | 2023-11-18 14:47 | MHC.OFFVIS ---
Vital Signs 11/18/23 14:48 Height 5 ft 5 in Weight 164 lb 8 oz BMI 27.4 BP 110/60 Blood Pressure Location Rt brachial Position Sitting Respiration 16 Pulse 88 Pulse Source Pulse Oximeter Pulse Oximetry (%) 96 Oxygen Delivery Method Room Air Intake Visit Reasons: ENP-Sleep Disturbance JOHN suspect - Confirmed Intake Note: Pt presents for new pt consultation for sleep disturbance. Incinerator Operator Required: Yes Incinerator Operator Services: Incinerator Operator Present Incinerator Operator Name: Navya Stephens MADDY Allergies No Known Allergies Allergy (Verified 11/18/23 14:47) Medication List - Last Reconciled 11/18/23 by Lisandra Burns MD albuterol sulfate 90 mcg/actuation 2 puffs inhalation Q4-6H PRN cyclobenzaprine 10 mg PO Q8H etonogestrel-ethinyl estradiol 0.12-0.015 mg/24 hr 0 vag rings vaginal gabapentin 300 mg PO BEDTIME 30 days ibuprofen 600 mg PO QID PRN ibuprofen 400 mg PO Q6H PRN ketorolac 10 mg PO TID PRN 5 days lidocaine 5% 1 patch topical DAILY PRN naproxen (Naprosyn) 500 mg PO BID ondansetron 4 mg PO Q8H PRN prednisone 40 mg (2 x 20 mg) PO DAILY 3 days prednisone 40 mg (2 x 20 mg) PO DAILY 5 days promethazine 25 mg PO Q6H PRN sulfamethoxazole-trimethoprim 800-160 mg 1 tab PO BID valacyclovir 500 mg PO DAILY HPI Comments Details: 28y/o female comes for sleep evaluation . Main complaints-insomnia, snoring, gasping arousals, restless legs , leg cramps , excessive daytime sleepiness Sleep questionnaire- Difficulty falling asleep-yes Difficulty staying asleep-yes Number of arousals- Snoring-yes Witnessed apneas-yes Gasping arousals-yes Nocturia-yes GERD-yes Vivid dreams-yes Acting out dreams -no Abnormal behavior in sleep-no ABnormal movements in sleep-no Morning headaches- yes Excessive daytime sleepiness-yes Daytime naps- no restless legs- yes Hallucinations- yes PFSH Medical History (Updated 11/18/23 @ 15:07 by Lisandra Burns MD) Nocturnal leg cramps Hypersomnia Snoring Anxiety Depression Surgical History History of cholecystectomy History of appendectomy Social History Unable to assess alcohol history related to: Unknown Alcohol intake: never Comment: refusing bed alarm Patient Tobacco Use Status: Current everyday Tobacco user Cigarettes Per Day: 8 Years Smoked: 12 e-Cigarette/Vaping Use: Currently Using Frequency of e-Cigarette/Vaping Use: daily Second Hand Smoke Exposure: No Use of substances other than those prescribed or required for medical reasons: No service: No Current occupational status: unemployed Physical Exam Vital Signs: Last Vital Signs Pulse 88 11/18/23 14:48 Resp 16 11/18/23 14:48 BP 110/60 11/18/23 14:48 Pulse Ox 96 11/18/23 14:48 Oxygen Delivery Method Room Air 11/18/23 14:48 BMI result Body Mass Index 27.4 Const General: cooperative, healthy appearing and comfortable Nutritional Appearance: average body habitus Orientation/consciousness: patient oriented x3 HEENT Head: Yes normal to inspection and Yes normocephalic Eyes Pupils: Equal, round and reactive pupils present Neuro General: patient oriented x3, tone normal, moves all extremities and no focal motor deficits Cranial nerves: Yes Equal, round and reactive pupils present, Yes Bilaterally intact EOM present, Yes Nystagmus not present, Yes Normal facial strength present and Yes Midline tongue present Cognition (Neuro): normal cognition Gait exam (Neuro): Normal gait present Motor exam (neuro): 5/5 motor strength present throughout and Normal motor muscle tone present throughout Deep tendon reflexes (DTR's): Right triceps reflex intensity grade: 2+, Left triceps reflex intensity grade: 2+, Rt Biceps (C5, C6): 2+, Left biceps reflex intensity grade: 2+, Right brachioradialis reflex intensity grade: 2+, Left brachioradialis reflex intensity grade: 2+, Right patellar reflex intensity grade: 3+ and Left patellar reflex intensity grade: 3+ Coordination: [id number] test normal Assessment & Plan Assessment & Plan (1) Snoring: Code(s): R06.83 - Snoring Category: Medical (2) Hypersomnia: Code(s): G47.10 - Hypersomnia, unspecified Category: Medical (3) Nocturnal leg cramps: Code(s): G47.62 - Sleep related leg cramps Category: Medical Plan I will schedule ehr for sleep study to evaluate for sleep apnea and sleep related leg cramps check patient Vit B 12 D TSH and ERS Orders: Orders Ferritin Today G47.10 - Hypersomnia, unspecified, G47.62 - Sleep related leg cramps, R06.83 - Snoring RT PSG in-lab sleep study Today G47.10 - Hypersomnia, unspecified, G47.62 - Sleep related leg cramps, R06.83 - Snoring Vitamin B12 and Folate Today G47.62 - Sleep related leg cramps Erythrocyte Sedimentation Rate Today G47.62 - Sleep related leg cramps Medications: New clonazepam administer 30 minutes before bedtime 1 mg PO BEDTIME quetiapine 200 mg PO BEDTIME Coding Level of Care Code New Pt Level 4 (10115) Diagnoses Snoring R06.83 Hypersomnia G47.10 Nocturnal leg cramps G47.62
[2023-11-18 14:48] VITALS: BP 110/60; PULSE 88; RESP 16; O2SAT 96; BMI 27.4
== END 2023-11-18 15:31 | disposition home or self-care (01) ==
PROVIDERS: PCP Family Medicine; Referring Provider Family Medicine; Visit Provider Psychiatry & Neurology Neurology
DX: R06.83 Snoring (principal); G47.10 Hypersomnia, unspecified; G47.62 Sleep related leg cramps
CPT/HCPCS: 99204

== ENCOUNTER → 2023-11-18 14:48 | Outpatient (BNVA) | payer MEDICAID, SELFPAY | PROVIDERS: PCP Family Medicine; Visit Provider Psychiatry & Neurology Neurology ==

== ENCOUNTER 2023-11-18 15:19 | Outpatient (REF) | payer MEDICAID, SELFPAY ==
[2023-11-18 18:17] LABS: Erythrocyte Sedimentation Rate 18 MM/HR (0-20)
[2023-11-18 18:38] LABS: Ferritin 121 ng/mL (10-122)
[2023-11-18 18:49] LABS: Folate 5.7 ng/mL (> or = 4.0); Vitamin B12 461 pg/mL (200-900)
== END 2023-11-18 15:20 | disposition home or self-care (01) ==
LOC: HO.HKASLDS 15:19
PROVIDERS: Visit Provider Psychiatry & Neurology Neurology
DX: G47.62 Sleep related leg cramps (principal); G47.10 Hypersomnia, unspecified; R06.83 Snoring
CPT/HCPCS: 36415; 82607; 82728; 82746; 85652; 99202

== ENCOUNTER 2024-06-06 23:01 | Emergency (ER) | payer MEDICAID, SELFPAY ==
[2024-06-06 23:58] VITALS: BP 126/71; PULSE 78; RESP 18; TEMP 36.8; O2SAT 99; BMI 25.0
== END 2024-06-07 04:34 | disposition left against medical advice (07) ==
PROVIDERS: Emergency Provider Emergency Medicine; PCP Family Medicine
DX: M54.50 Low back pain, unspecified (principal); Z53.21 Procedure and treatment not carried out due to patient leaving prior to being seen by health care provider
CPT/HCPCS: 99281

== ENCOUNTER 2024-06-12 14:27 | Outpatient (REF) | payer MEDICAID, SELFPAY ==
[2024-06-12 16:06] LABS: MANUAL DIFF FLAG NO
[2024-06-12 16:17] LABS: Basophils Absolute Auto 0.1 X10*3/uL (0.0-0.2); Basophils Percent Auto 0.6 % (0-2); Eosinophils Absolute Auto 0.4 X10*3/uL (0.0-0.4); Eosinophils Percent Auto 4.8 % (0-4); Hematocrit 42.5 % (37.0-47.0); Hemoglobin 13.6 g/dl (12.0-16.0); Imm Gran Abs Auto 0.03 X10*3/uL (0.00-0.03); Imm Gran Pct Auto 0.4 % (0.0-0.4); Lymphocytes Absolute Auto 2.9 X10*3/uL (1.2-4.9); Lymphocytes Percent Auto 34.9 % (20-40); Mean Corpuscular Hemoglobin 28.5 pg (27.0-33.0); Mean Corpuscular Volume 88.9 fL (80.0-98.0); Monocytes Absolute Auto 0.4 X10*3/uL (0.1-1.2); Monocytes Percent Auto 5.1 % (2-11); Neutrophils Absolute Auto 4.4 x10*3/uL (2.0-8.3); Neutrophils Percent Auto 54.2 % (45-73); Platelet Count 298 X10*3/uL (160-400); Red Blood Count 4.78 X10*6/uL (4.20-5.50); Red Cell Distribution Width 12.5 % (11.0-16.0); White Blood Count 8.2 X10*3/uL (4.8-10.8)
[2024-06-12 16:24] LABS: Estimated Average Glucose 97 mg/dL; Hemoglobin A1C 109.8898 umol/L; Total Hemoglobin (HGBA1C) 3580.9632 umol/L
--- OUTSIDE RECORDS SUMMARY | 2024-06-12 16:41 | XMS_ITS | Encounter Summary ---
Author Organization [facility] Address [address] [place] [id number] Care Team Providers Care Plan Examiner Name Role Phone No, Pcp (Do Not Change Name) Primary Care Provid er Unavailable Encounter Details Date Type Department Care Team ([facility] st Contact Info) Description 06/23/2023 Scanned Document [facility] Spec[facility] [address], [place] [id number] System, Provider Not In Social History Tobacco Use Types Packs/Day Years Used Date Smoking Tobacco: Never Assessed [facility] Utilities Answer Date Recorded In the past 12 months has th [employer] electric, gas, oil, or water company threatened to shut off services in your home? No 06/17/2023 AUDIT-C Answer Date Recorded Q1: How often do you have a drink containing alc ohol? Monthly or less 06/17/2023 Q2: How many drinks containi ng alcohol do you have on a typical day when you are drinking? 1 or 2 06/17/2023 Q3: How often do you have si x or more drinks on one occasion? Never 06/17/2023 PHQ-2 Answer Date Recorded PHQ-2 Total Score 2 06/17/2023 Hunger Vital Sign Answer Date Recorded Within the past 12 months, y ou worried that your food would run out before you got the money to buy more. Never true 06/17/19 24 Within the past 12 months, t he food you bought just didn't last and you didn't have money to get more. Never true 06/17/2023 PRAPARE - Transportation Answer Date Re corded In the past 12 months, has l ack of transportation kept you from medical appointments or from getting medications? No 05/21 In the past 12 months, has l ack of transportation kept you from meetings, work, or from getting things needed for daily living? No 06/17/2023 Housing Stability Answer Date Recorded What is your living situation today? I [place] [address] to live 06/17/2023 Housing Stability Not on file 06/17/2023 Interpersonal Safety Answer Date Record ed Is there anyone in your life that is hurting or threatening you in anyway? no 06/17/2023 Physical Indicators of Abuse No evidence of phys ical abuse 06/17/2023 Comments Unknown Sex and Gender Information Value Date Recorded Sex Assigned at Not on file Legal Sex Female 1:30 PM EST Gender Identity Not on file Sexual Orientation Not on file documented as of this encounter Plan of Treatment Not on file documented as of this encounter Visit Diagnoses Not on filedocumented in this encounter Additional Health Concerns Assessment Noted Time PHQ-9 Depression Total Score: 2 06/17/19 24 9:37 PM EST documented as of this encounter Care Teams Plan Examiner Relationship Specialty Start Date End Date No, Pcp (Do Not Change Name) PCP - General 06/16/23 documented as of this encounter
--- OUTSIDE RECORDS SUMMARY | 2024-06-12 16:41 | XMS_ITS ---
Author Name [facility] Organization Unknown Results Test Name/Text Value Interpretation Date Range Source BKR REFLEX URINE CULTURE See Comment Normal [id number] [facility] WBC #/area UrnS Auto 322/HPF Above high normal 68986531401 3 0 - 5 [facility] RBC #/area UrnS Auto 1/HPF Normal [id number] 0 - 2 [facility] Squamous #/area UrnS Auto 6/HPF Above high normal 184905805053 0 - 5 [facility] Hgb Ur Ql Strip.auto 1+ Abnormal 724705039370 - [facility] Prot Ur Strip.auto-mCnc 1+ Abnormal 898815411786 - [facility] Color Ur Auto Yellow Normal [id number] - [facility] Glucose Ur Strip.auto-mCnc Negative Normal [id number] - [facility] Bilirub Ur Ql Strip.auto Negative Normal 867816833599 - [facility] Nitrite Ur Ql Strip.auto Positive Abnormal 103738027323 - [facility] Ketones Ur Strip.auto-mCnc Negative Normal 585511419877 - [facility] Clarity Ur Refract.auto Cloudy Abnormal [id number] - [facility] WBC # Ur Strip 4+ Abnormal [id number] - [facility] Urobilinogen Ur Strip-mCnc 2mg/dL Normal [id number] - [facility] pH Ur Strip.auto 6 Normal [id number] 5.5 - 7.5 [facility] Sp Gr Ur Refract.auto 1.027 Normal [id number] 1.005 - 1.03 [facility] Calcium SerPl-mCnc 8.8mg/dL Normal 563449760261 8.8 - 10.2 [facility] Anion Gap3 SerPl-sCnc 10 Normal [id number] 7 - 17 [facility] BUN SerPl-mCnc 23mg/dL Above high normal [id number] 6 - 20 [facility] HCO3 SerPl-sCnc 19mmol/L Below low normal [id number] 20 - 30 [facility] Creat SerPl-mCnc 0.55mg/dL Normal 903821592791 0.4 - 1.3 [facility] Chloride SerPl-sCnc 108mmol/L Above high normal [id number] 98 - 107 [facility] BUN/Creat SerPl 41.8 Above high normal [id number] 8 - 23 [facility] GFR/BSA.pred SerPlBld ZSE-ONG-FjDJhi 60mL/min/1.73m2 Normal [id number] - [facility] Potassium SerPl-sCnc 5.3mmol/L Normal [id number] 3.3 - 5.3 [facility] Sodium SerPl-sCnc 137mmol/L Normal [id number] 136 - 144 [facility] Glucose SerPl-mCnc 130mg/dL Above high normal 492346602320 70 - 100 [facility] Monocytes # Bld Auto 0.84r6460/uL Normal 441125630213 0 - 1 [facility] nRBC/100 WBC Bld Auto-Rto 0% Normal 885210915011 0 - 1 [facility] Neutrophils # Bld Auto 8.4j3085/uL Above high normal [id number] 2 - 7.6 [facility] Eosinophil # Bld Auto 0.87u6360/uL Normal 655982954581 0 - 1 [facility] nRBC # Bld Auto 5l8108/uL Normal 879865923014 0 - 1 [facility] MCHC RBC Auto-mCnc 31.5g/dL Normal [id number] 31 - 36 [facility] Monocytes/leuk NFr Bld Auto 2.6% Below low normal 902167262762 4 - 12 [facility] Basophils # Bld Auto 0.05n4262/uL Normal 003045450862 0 - 1 [facility] WBC # Bld Auto 23l5888/uL Above high normal 332365257963 4 - 11 [facility] Hct VFr Bld Auto 37.2% Normal [id number] 35 - 45 [facility] RDW RBC Auto-Rto 13.8% Normal [id number] 11 - 15 [facility] PMV Bld Auto 10.2fL Normal [id number] 8 - 12 [facility] Eosinophil/leuk NFr Bld Auto 2% Normal [id number] 0 - 5 [facility] MCH RBC Qn Auto 27.5pg Normal [id number] 27 - 33 [facility] Basophils/leuk NFr Bld Auto 0.3% Normal [id number] 0 - 1.4 [facility] Lymphocytes # Bld Auto 2.62m2390/uL Normal [id number] 0.6 - 3.7 [facility] RBC # Bld Auto 4.25M/uL Normal [id number] 4 - 6 [facility] Neutrophils/leuk NFr Bld Auto 72.4% Above high normal 561608803203 39 - 72 [facility] Imm Granulocytes # Bld Auto 0.83y2137/uL Normal [id number] 0 - 0.3 [facility] Platelet # Bld Auto 244p3051/uL Normal [id number] 150 - 420 [facility] MCV RBC Auto 87.5fL Normal 991396790400 80 - 100 [facility] Lymphocytes/leuk NFr Bld Auto 22.3% Normal [id number] 17 - 50 [facility] Imm Granulocytes/leuk NFr Bld Auto 0.4% Normal [id number] 0 - 1 [facility] Hgb Bld-mCnc 11.7g/dL Normal [id number] 11.7 - 15.5 [facility] BKR DRUGS OF ABUSE NOTE Normal [facility] fentaNYL Ur Ql Scn Positive Abnormal 097485366821 - [facility] Benzodiaz Ur Ql Scn Positive Abnormal 530171879213 - [facility] BKR METHADONE METABOLITE SCREEN, URINE, NO CONF. Negative Normal [id number] - [facility] Barbiturates Ur Ql Scn Negative Normal 214738913330 - [facility] oxyCODONE Ur Ql Scn Negative Normal 663382593683 - [facility] PCP Ur Ql Scn>25 ng/mL Negative Normal [id number] - [facility] Cannabinoids Ur Ql Scn Negative Normal [id number] - [facility] BZE Ur Ql Scn Negative Normal [id number] - [facility] Opiates Ur Ql Scn Positive Abnormal 005298371110 - [facility] Amphetamines Ur Ql Scn Positive Abnormal [id number] - [facility] BKR DRUGS OF ABUSE DISCLAIMER See Comment Normal 367402707911 [facility] Anion Gap3 SerPl-sCnc 10 Normal [id number] 7 - 17 [facility] Creat SerPl-mCnc 0.69mg/dL Normal [id number] 0.4 - 1.3 [facility] Albumin/Glob SerPl 1.1 Normal [id number] 1 - 2.2 [facility] Albumin SerPl BCG-mCnc 3.6g/dL Normal [id number] 3.6 - 4.9 [facility] ALT SerPl w/o P-5'-P-cCnc 22U/L Normal [id number] 10 - 35 [facility] Potassium SerPl-sCnc 4.3mmol/L Normal [id number] 3.3 - 5.3 [facility] Bilirub SerPl-mCnc 0.2mg/dL Normal [id number] - [facility] Calcium SerPl-mCnc 9mg/dL Normal 978691037960 8.8 - 10.2 [facility] AST/ALT SerPl-cRto 0.6 Normal [id number] - [facility] BUN SerPl-mCnc 25mg/dL Above high normal [id number] 6 - 20 [facility] ALP SerPl-cCnc 59U/L Normal [id number] 9 - 122 [facility] HCO3 SerPl-sCnc 23mmol/L Normal [id number] 20 - 30 [facility] Chloride SerPl-sCnc 106mmol/L Normal [id number] 98 - 10 7 [facility] BUN/Creat SerPl 36.2 Above high normal [id number] 8 - 23 [facility] AST SerPl w P-5'-P-cCnc 13U/L Normal [id number] 10 - 35 [facility] GFR/BSA.pred SerPlBld FUJ-XVU-WsODkz 60mL/min/1.73m2 Normal [id number] - [facility] Globulin Plas-mCnc 3.4g/dL Normal 680259835715 2.3 - 3. 5 [facility] Prot SerPl-mCnc 7g/dL Normal [id number] 6.6 - 8.7 [facility] Sodium SerPl-sCnc 139mmol/L Normal [id number] 136 - 144 [facility] Glucose SerPl-mCnc 85mg/dL Normal [id number] 70 - 100 [facility] Monocytes # Bld Auto 0.3m9674/uL Normal [id number] 0 - 1 [facility] nRBC/100 WBC Bld Auto-Rto 0% Normal 479209018578 0 - 1 [facility] Neutrophils # Bld Auto 5.62i5273/uL Normal [id number] 2 - 7.6 [facility] Eosinophil # Bld Auto 0.46k6734/uL Normal 723413735617 0 - 1 [facility] nRBC # Bld Auto 7q2502/uL Normal [id number] 0 - 1 [facility] MCHC RBC Auto-mCnc 31.2g/dL Normal [id number] 31 - 36 [facility] Monocytes/leuk NFr Bld Auto 4.7% Normal [id number] 4 - 12 [facility] Basophils # Bld Auto 0.77g7725/uL Normal 924957702065 0 - 1 [facility] WBC # Bld Auto 10.6j7645/uL Normal [id number] 4 - 11 [facility] Hct VFr Bld Auto 37.5% Normal [id number] 35 - 45 [facility] RDW RBC Auto-Rto 13.5% Normal [id number] 11 - 15 [facility] PMV Bld Auto 10.4fL Normal [id number] 8 - 12 [facility] Eosinophil/leuk NFr Bld Auto 2.5% Normal [id number] 0 - 5 [facility] MCH RBC Qn Auto 27pg Normal [id number] 27 - 33 [facility] Basophils/leuk NFr Bld Auto 0.4% Normal [id number] 0 - 1.4 [facility] Lymphocytes # Bld Auto 3.19z5797/uL Above high normal [id number] 0.6 - 3.7 [facility] RBC # Bld Auto 4.33M/uL Normal [id number] 4 - 6 [facility] Neutrophils/leuk NFr Bld Auto 54.4% Normal [id number] 39 - 72 [facility] Imm Granulocytes # Bld Auto 0.51y1111/uL Normal [id number] 0 - 0.3 [facility] Platelet # Bld Auto 419t5067/uL Normal [id number] 150 - 420 [facility] MCV RBC Auto 86.6fL Normal 651397158559 80 - 100 [facility] Lymphocytes/leuk NFr Bld Auto 37.5% Normal [id number] 17 - 50 [facility] Imm Granulocytes/leuk NFr Bld Auto 0.5% Normal [id number] 0 - 1 [facility] Hgb Bld-mCnc 11.7g/dL Normal [id number] 11.7 - 15.5 [facility] Monocytes # Bld Auto 0.31x5552/uL Normal [id number] 0 - 1 [facility] nRBC/100 WBC Bld Auto-Rto 0% Normal [id number] 0 - 1 [facility] Neutrophils # Bld Auto 4.59c6415/uL Normal 510020452642 2 - 7.6 [facility] Eosinophil # Bld Auto 0.58v3684/uL Normal [id number] 0 - 1 [facility] nRBC # Bld Auto 1m4698/uL Normal [id number] 0 - 1 [facility] MCHC RBC Auto-mCnc 31.9g/dL Normal [id number] 31 - 36 [facility] Monocytes/leuk NFr Bld Auto 5.3% Normal [id number] 4 - 12 [facility] Basophils # Bld Auto 0.68c8762/uL Normal [id number] 0 - 1 [facility] WBC # Bld Auto 9.1w8381/uL Normal [id number] 4 - 11 [facility] Hct VFr Bld Auto 37.3% Normal [id number] 35 - 45 [facility] RDW RBC Auto-Rto 13.3% Normal [id number] 11 - 15 [facility] PMV Bld Auto 10.5fL Normal [id number] 8 - 12 [facility] Eosinophil/leuk NFr Bld Auto 2.6% Normal [id number] 0 - 5 [facility] MCH RBC Qn Auto 27.2pg Normal [id number] 27 - 33 [facility] Basophils/leuk NFr Bld Auto 0.6% Normal [id number] 0 - 1.4 [facility] Lymphocytes # Bld Auto 3.87r7778/uL Normal [id number] 0.6 - 3.7 [facility] RBC # Bld Auto 4.38M/uL Normal [id number] 4 - 6 [facility] Neutrophils/leuk NFr Bld Auto 54.3% Normal [id number] 39 - 72 [facility] Imm Granulocytes # Bld Auto 0.40u7102/uL Normal [id number] 0 - 0.3 [facility] Platelet # Bld Auto 196d0741/uL Normal [id number] 150 - 420 [facility] MCV RBC Auto 85.2fL Normal [id number] 80 - 100 [facility] Lymphocytes/leuk NFr Bld Auto 36.6% Normal [id number] 17 - 50 [facility] Imm Granulocytes/leuk NFr Bld Auto 0.6% Normal [id number] 0 - 1 [facility] Hgb Bld-mCnc 11.9g/dL Normal 11.7 - 15.5 [facility] Anion Gap3 SerPl-sCnc 10 Normal [id number] 7 - 17 [facility] Creat SerPl-mCnc 0.65mg/dL Normal 0.4 - 1.3 [facility] Albumin/Glob SerPl 1.1 Normal [id number] 1 - 2.2 [facility] Albumin SerPl BCG-mCnc 3.5g/dL Below low normal 3.6 - 4.9 [facility] ALT SerPl w/o P-5'-P-cCnc 22U/L Normal [id number] 10 - 35 [facility] Potassium SerPl-sCnc 4.2mmol/L Normal [id number] 3.3 - 5.3 [facility] Bilirub SerPl-mCnc 0.3mg/dL Normal [id number] - [facility] Calcium SerPl-mCnc 8.8mg/dL Normal [id number] 8.8 - 10.2 [facility] AST/ALT SerPl-cRto 0.5 Normal [id number] - [facility] BUN SerPl-mCnc 20mg/dL Normal [id number] 6 - 20 [facility] ALP SerPl-cCnc 57U/L Normal [id number] 9 - 122 [facility] HCO3 SerPl-sCnc 23mmol/L Normal [id number] 20 - 30 [facility] Chloride SerPl-sCnc 108mmol/L Above high normal [id number] 98 - 107 [facility] BUN/Creat SerPl 30.8 Above high normal [id number] 8 - 23 [facility] AST SerPl w P-5'-P-cCnc 11U/L Normal [id number] 10 - 35 [facility] GFR/BSA.pred SerPlBld MNQ-EJY-FvDJyr 60mL/min/1.73m2 Normal [id number] - [facility] Globulin Plas-mCnc 3.2g/dL Normal [id number] 2.3 - 3. 5 [facility] Prot SerPl-mCnc 6.7g/dL Normal [id number] 6.6 - 8.7 [facility] Sodium SerPl-sCnc 141mmol/L Normal 613018109813 136 - 144 [facility] Glucose SerPl-mCnc 108mg/dL Above high normal [id number] 70 - 100 [facility] Anion Gap3 SerPl-sCnc 11 Normal [id number] 7 - 17 [facility] Creat SerPl-mCnc 0.62mg/dL Normal [id number] 0.4 - 1.3 [facility] Albumin/Glob SerPl 1.1 Normal [id number] 1 - 2.2 [facility] Albumin SerPl BCG-mCnc 3.5g/dL Below low normal [id number] 3.6 - 4.9 [facility] ALT SerPl w/o P-5'-P-cCnc 26U/L Normal [id number] 10 - 35 [facility] Potassium SerPl-sCnc 4.2mmol/L Normal [id number] 3.3 - 5.3 [facility] Bilirub SerPl-mCnc 0.2mg/dL Normal [id number] - [facility] Calcium SerPl-mCnc 8.7mg/dL Below low normal 57855356115 8 8.8 - 10.2 [facility] AST/ALT SerPl-cRto 0.5 Normal [id number] - [facility] BUN SerPl-mCnc 25mg/dL Above high normal [id number] 6 - 20 [facility] ALP SerPl-cCnc 68U/L Normal [id number] 9 - 122 [facility] HCO3 SerPl-sCnc 21mmol/L Normal [id number] 20 - 30 [facility] Chloride SerPl-sCnc 105mmol/L Normal 524173370050 98 - 10 7 [facility] BUN/Creat SerPl 40.3 Above high normal 482221599710 8 - 23 [facility] AST SerPl w P-5'-P-cCnc 12U/L Normal [id number] 10 - 35 [facility] GFR/BSA.pred SerPlBld POR-NAU-ImCWpa 60mL/min/1.73m2 Normal [id number] - [facility] Globulin Plas-mCnc 3.1g/dL Normal 924504077927 2.3 - 3. 5 [facility] Prot SerPl-mCnc 6.6g/dL Normal [id number] 6.6 - 8.7 [facility] Sodium SerPl-sCnc 137mmol/L Normal 136 - 144 [facility] Glucose SerPl-mCnc 95mg/dL Normal [id number] 70 - 100 [facility] Monocytes # Bld Auto 0.82n4586/uL Normal 612857172071 0 - 1 [facility] nRBC/100 WBC Bld Auto-Rto 0% Normal 999792610817 0 - 1 [facility] Neutrophils # Bld Auto 7.76h2174/uL Normal [id number] 2 - 7.6 [facility] Eosinophil # Bld Auto 0.95i7221/uL Normal [id number] 0 - 1 [facility] nRBC # Bld Auto 2b7034/uL Normal [id number] 0 - 1 [facility] MCHC RBC Auto-mCnc 31.5g/dL Normal [id number] 31 - 36 [facility] Monocytes/leuk NFr Bld Auto 4.4% Normal 483953604628 4 - 12 [facility] Basophils # Bld Auto 0.05l0409/uL Normal [id number] 0 - 1 [facility] WBC # Bld Auto 12.6a1307/uL Above high normal 397106725310 4 - 11 [facility] Hct VFr Bld Auto 38.4% Normal [id number] 35 - 45 [facility] RDW RBC Auto-Rto 13.7% Normal [id number] 11 - 15 [facility] PMV Bld Auto 10.7fL Normal [id number] 8 - 12 [facility] Eosinophil/leuk NFr Bld Auto 2.3% Normal 348572909083 0 - 5 [facility] MCH RBC Qn Auto 27.4pg Normal 836063966994 27 - 33 [facility] Basophils/leuk NFr Bld Auto 0.4% Normal 0 - 1.4 [facility] Lymphocytes # Bld Auto 4.20w3212/uL Above high normal 0.6 - 3.7 [facility] RBC # Bld Auto 4.42M/uL Normal 4 - 6 [facility] Neutrophils/leuk NFr Bld Auto 58.6% Normal 39 - 72 [facility] Imm Granulocytes # Bld Auto 0.59d4859/uL Normal 0 - 0.3 [facility] Platelet # Bld Auto 383c3722/uL Normal 150 - 420 [facility] MCV RBC Auto 86.9fL Normal 80 - 100 [facility] Lymphocytes/leuk NFr Bld Auto 34% Normal 17 - 50 [facility] Imm Granulocytes/leuk NFr Bld Auto 0.3% Normal 0 - 1 [facility] Hgb Bld-mCnc 12.1g/dL Normal 11.7 - 15.5 [facility] Ceruloplasmin SerPl-mCnc 39mg/dL Normal 18 - 51 [facility] BKR ENTEROVIRUS RT-PCR, CSF ([facility]) Not Detected Normal - [facility] Methylmalonate SerPl-sCnc 0.12umol/L Normal 0 - 0.4 [facility] ANCA Ab Ser Ql Negative Normal [id number] - [facility] Monocytes # Bld Auto 0.15y8201/uL Normal [id number] 0 - 1 [facility] nRBC/100 WBC Bld Auto-Rto 0% Normal [id number] 0 - 1 [facility] Neutrophils # Bld Auto 5.22u0241/uL Normal [id number] 2 - 7.6 [facility] Eosinophil # Bld Auto 0.71q0860/uL Normal [id number] 0 - 1 [facility] nRBC # Bld Auto 2s8243/uL Normal [id number] 0 - 1 [facility] MCHC RBC Auto-mCnc 32.5g/dL Normal 606078443965 31 - 36 [facility] Monocytes/leuk NFr Bld Auto 4.3% Normal [id number] 4 - 12 [facility] Basophils # Bld Auto 0.49l6605/uL Normal [id number] 0 - 1 [facility] WBC # Bld Auto 10.9g1831/uL Normal [id number] 4 - 11 [facility] Hct VFr Bld Auto 38.8% Normal 338259652595 35 - 45 [facility] RDW RBC Auto-Rto 13.8% Normal 644027101205 11 - 15 [facility] PMV Bld Auto 11fL Normal 681635676376 8 - 12 [facility] Eosinophil/leuk NFr Bld Auto 1.3% Normal [id number] 0 - 5 [facility] MCH RBC Qn Auto 28pg Normal [id number] 27 - 33 [facility] Basophils/leuk NFr Bld Auto 0.3% Normal [id number] 0 - 1.4 [facility] Lymphocytes # Bld Auto 4.4x3012/uL Above high normal [id number] 0.6 - 3.7 [facility] RBC # Bld Auto 4.5M/uL Normal [id number] 4 - 6 [facility] Neutrophils/leuk NFr Bld Auto 52.9% Normal 602931156341 39 - 72 [facility] Imm Granulocytes # Bld Auto 0.57r0026/uL Normal [id number] 0 - 0.3 [facility] Platelet # Bld Auto 245h4450/uL Normal 130398717801 150 - 420 [facility] MCV RBC Auto 86.2fL Normal [id number] 80 - 100 [facility] Lymphocytes/leuk NFr Bld Auto 41% Normal [id number] 17 - 50 [facility] Imm Granulocytes/leuk NFr Bld Auto 0.2% Normal [id number] 0 - 1 [facility] Hgb Bld-mCnc 12.6g/dL Normal 11.7 - 15.5 [facility] Anion Gap3 SerPl-sCnc 11 Normal [id number] 7 - 17 [facility] Creat SerPl-mCnc 0.64mg/dL Normal 0.4 - 1.3 [facility] Albumin/Glob SerPl 1.1 Normal 1 - 2.2 [facility] Albumin SerPl BCG-mCnc 3.5g/dL Below low normal 973813743688 3.6 - 4.9 [facility] ALT SerPl w/o P-5'-P-cCnc 31U/L Normal 10 - 35 [facility] Potassium SerPl-sCnc 4.1mmol/L Normal [id number] 3.3 - 5.3 [facility] Bilirub SerPl-mCnc 0.3mg/dL Normal - [facility] Calcium SerPl-mCnc 8.7mg/dL Below low normal [id number] 1 8.8 - 10.2 [facility] AST/ALT SerPl-cRto 0.5 Normal - [facility] BUN SerPl-mCnc 26mg/dL Above high normal 6 - 20 [facility] ALP SerPl-cCnc 74U/L Normal 812797657024 9 - 122 [facility] HCO3 SerPl-sCnc 23mmol/L Normal [id number] 20 - 30 [facility] Chloride SerPl-sCnc 107mmol/L Normal [id number] 98 - 10 7 [facility] BUN/Creat SerPl 40.6 Above high normal 243771952671 8 - 23 [facility] AST SerPl w P-5'-P-cCnc 17U/L Normal 10 - 35 [facility] GFR/BSA.pred SerPlBld YZS-QJQ-BtXTyl 60mL/min/1.73m2 Normal - [facility] Globulin Plas-mCnc 3.3g/dL Normal 2.3 - 3. 5 [facility] Prot SerPl-mCnc 6.8g/dL Normal 6.6 - 8.7 [facility] Sodium SerPl-sCnc 141mmol/L Normal 136 - 144 [facility] Glucose SerPl-mCnc 73mg/dL Normal 70 - 100 [facility] BKR DRUGS OF ABUSE NOTE Normal [facility] fentaNYL Ur Ql Scn Positive Abnormal - [facility] DILLON SS-B IgG Ser IA-aCnc 0.6EliAU/mL Normal - [facility] dsDNA IgG SerPl IA-aCnc 1.1IU/mL Normal - [facility] D[facility] SS-A Ab Ser IA-aCnc 0.5EliAU/mL Normal - [facility] BKR DRUGS OF ABUSE NOTE Normal [facility] fentaNYL Ur Ql Scn Positive Abnormal - [facility] Benzodiaz Ur Ql Scn Positive Abnormal - [facility] BKR METHADONE METABOLITE SCREEN, URINE, NO CONF. Negative Normal - [facility] Barbiturates Ur Ql Scn Negative Normal - [facility] oxyCODONE Ur Ql Scn Negative Normal - [facility] PCP Ur Ql Scn>25 ng/mL Negative Normal - [facility] Cannabinoids Ur Ql Scn Positive Abnormal - [facility] BZE Ur Ql Scn Negative Normal - [facility] Opiates Ur Ql Scn Negative Normal - [facility] Amphetamines Ur Ql Scn Negative Normal - [facility] BKR DRUGS OF ABUSE DISCLAIMER See Comment Normal [facility] BKR CYTOMEGALOVIRUS RT-PCR, CSF Not Detected Normal - BKR BRENDA-DIXON VIRUS BY RT-PCR, CSF Not Detected Normal - [facility] DNA CSF Ql MARIO+probe Not Detected Normal - [facility] HSV DNA CSF Ql MARIO+probe Not Detected Normal [id number] - [facility] KASSIDY Titr Ser IF <1:80 Normal [id number] - [facility] Monocytes # Bld Auto 0.25n9049/uL Normal [id number] 0 - 1 [facility] nRBC/100 WBC Bld Auto-Rto 0% Normal [id number] 0 - 1 [facility] Neutrophils # Bld Auto 7.37w9980/uL Normal [id number] 2 - 7.6 [facility] Eosinophil # Bld Auto 0.77i6504/uL Normal 505231958311 0 - 1 [facility] nRBC # Bld Auto 0h1038/uL Normal 592702227914 0 - 1 [facility] MCHC RBC Auto-mCnc 32.7g/dL Normal 962654858056 31 - 36 [facility] Monocytes/leuk NFr Bld Auto 4.1% Normal [id number] 4 - 12 [facility] Basophils # Bld Auto 0.37r5065/uL Normal 014789180137 0 - 1 [facility] WBC # Bld Auto 10.7l8542/uL Normal [id number] 4 - 11 [facility] Hct VFr Bld Auto 38.8% Normal 009150547820 35 - 45 [facility] RDW RBC Auto-Rto 13.6% Normal 692245275661 11 - 15 [facility] PMV Bld Auto 11fL Normal 840196153954 8 - 12 [facility] Eosinophil/leuk NFr Bld Auto 0.4% Normal 979199055316 0 - 5 [facility] MCH RBC Qn Auto 27.8pg Normal [id number] 27 - 33 [facility] Basophils/leuk NFr Bld Auto 0.4% Normal [id number] 0 - 1.4 [facility] Lymphocytes # Bld Auto 2.37u5156/uL Normal [id number] 0.6 - 3.7 [facility] RBC # Bld Auto 4.57M/uL Normal 715659521094 4 - 6 [facility] Neutrophils/leuk NFr Bld Auto 69.6% Normal 376369547202 39 - 72 [facility] Imm Granulocytes # Bld Auto 0.98k5622/uL Normal [id number] 0 - 0.3 [facility] Platelet # Bld Auto 391q4711/uL Normal [id number] 150 - 420 [facility] MCV RBC Auto 84.9fL Normal 623046562605 80 - 100 [facility] Lymphocytes/leuk NFr Bld Auto 24.9% Normal [id number] 17 - 50 [facility] Imm Granulocytes/leuk NFr Bld Auto 0.6% Normal [id number] 0 - 1 [facility] Hgb Bld-mCnc 12.7g/dL Normal 11.7 - 15.5 [facility] Anion Gap3 SerPl-sCnc 11 Normal [id number] 7 - 17 [facility] Creat SerPl-mCnc 0.75mg/dL Normal 0.4 - 1.3 [facility] Albumin/Glob SerPl 1.1 Normal 1 - 2.2 [facility] Albumin SerPl BCG-mCnc 4g/dL Normal 3.6 - 4.9 [facility] ALT SerPl w/o P-5'-P-cCnc 37U/L Above high normal 259160686879 10 - 35 [facility] Potassium SerPl-sCnc 4.5mmol/L Normal [id number] 3.3 - 5.3 [facility] Bilirub SerPl-mCnc 0.2mg/dL Normal [id number] - [facility] Calcium SerPl-mCnc 9.3mg/dL Normal 924688074099 8.8 - 10.2 [facility] AST/ALT SerPl-cRto 0.5 Normal - [facility] BUN SerPl-mCnc 26mg/dL Above high normal [id number] 6 - 20 [facility] ALP SerPl-cCnc 78U/L Normal 9 - 122 [facility] HCO3 SerPl-sCnc 21mmol/L Normal 20 - 30 [facility] Chloride SerPl-sCnc 109mmol/L Above high normal 004379856735 98 - 107 [facility] BUN/Creat SerPl 34.7 Above high normal [id number] 8 - 23 [facility] AST SerPl w P-5'-P-cCnc 19U/L Normal [id number] 10 - 35 [facility] GFR/BSA.pred SerPlBld FGT-LIP-ReLAdk 60mL/min/1.73m2 Normal [id number] - [facility] Globulin Plas-mCnc 3.6g/dL Above high normal [id number] 2.3 - 3.5 [facility] Prot SerPl-mCnc 7.6g/dL Normal [id number] 6.6 - 8.7 [facility] Sodium SerPl-sCnc 141mmol/L Normal [id number] 136 - 144 [facility] Glucose SerPl-mCnc 131mg/dL Above high normal [id number] 70 - 100 [facility] BKR HOMOCYSTEINE 8.9umol/L Normal [id number] 4 - 15 [facility] Nuc cell # CSF 0Cells/uL Normal [id number] - 6 [facility] RBC # CSF 11Cells/uL Above high normal [id number] - [facility] WBC # CSF Manual 2Cells/uL Normal [id number] - 6 [facility] RBC # CSF Manual 407Cells/uL Above high normal 958640221354 - [facility] Lymphocytes/leuk NFr CSF Manual 29% Above high normal [id number] - [facility] Granulocytes # CSF 57% Above high normal [id number] - [facility] Monocytes/leuk NFr CSF Manual 14% Above high normal [id number] - [facility] Appearance CSF Clear Normal [id number] - [facility] Body fld type Tube 4 Normal [id number] [facility] Color CSF No Xanthochromia Normal [id number] - [facility] Appearance CSF Clear Normal 650064561225 - [facility] Body fld type Tube 1 Normal [id number] [facility] Color CSF No Xanthochromia Normal [id number] - [facility] Glucose CSF-mCnc 61mg/dL Normal [id number] 40 - 70 [facility] BKR PROTEIN,TOTAL CSF 20.4mg/dL Normal [id number] 15 - 45 [facility] Rheumatoid fact Ser Neph-aCnc 10IU/mL Normal [id number] - 14 [facility] Folate SerPl-mCnc 8.7ng/mL Normal [id number] - [facility] Anion Gap3 SerPl-sCnc 13 Normal 7 - 17 [facility] Creat SerPl-mCnc 0.53mg/dL Normal 0.4 - 1.3 [facility] Albumin/Glob SerPl 1 Normal 1 - 2.2 [facility] Albumin SerPl BCG-mCnc 4g/dL Normal 3.6 - 4.9 [facility] ALT SerPl w/o P-5'-P-cCnc 27U/L Normal 10 - 35 [facility] Potassium SerPl-sCnc 4.1mmol/L Normal 3.3 - 5.3 [facility] Bilirub SerPl-mCnc 0.3mg/dL Normal - [facility] Calcium SerPl-mCnc 9.4mg/dL Normal 8.8 - 10.2 [facility] AST/ALT SerPl-cRto 0.5 Normal [id number] - [facility] BUN SerPl-mCnc 25mg/dL Above high normal [id number] 6 - 20 [facility] ALP SerPl-cCnc 74U/L Normal 9 - 122 [facility] HCO3 SerPl-sCnc 21mmol/L Normal 20 - 30 [facility] Chloride SerPl-sCnc 106mmol/L Normal [id number] 98 - 10 7 [facility] BUN/Creat SerPl 47.2 Above high normal [id number] 8 - 23 [facility] AST SerPl w P-5'-P-cCnc 13U/L Normal 10 - 35 [facility] GFR/BSA.pred SerPlBld MXU-NTI-TkHJci 60mL/min/1.73m2 Normal [id number] - [facility] Globulin Plas-mCnc 4g/dL Above high normal [id number] 2.3 - 3.5 [facility] Prot SerPl-mCnc 8g/dL Normal [id number] 6.6 - 8.7 [facility] Sodium SerPl-sCnc 140mmol/L Normal [id number] 136 - 144 [facility] Glucose SerPl-mCnc 93mg/dL Normal [id number] 70 - 100 [facility] Monocytes # Bld Auto 0.50z9429/uL Normal [id number] 0 - 1 [facility] nRBC/100 WBC Bld Auto-Rto 0% Normal 222415204566 0 - 1 [facility] Neutrophils # Bld Auto 7.46h6993/uL Above high normal 453809133848 2 - 7.6 [facility] Eosinophil # Bld Auto 0.33w5477/uL Normal [id number] 0 - 1 [facility] nRBC # Bld Auto 1z8478/uL Normal [id number] 0 - 1 [facility] MCHC RBC Auto-mCnc 32.8g/dL Normal [id number] 31 - 36 [facility] Monocytes/leuk NFr Bld Auto 4.4% Normal [id number] 4 - 12 [facility] Basophils # Bld Auto 0.73q3105/uL Normal [id number] 0 - 1 [facility] WBC # Bld Auto 12.0s1287/uL Above high normal [id number] 4 - 11 [facility] Hct VFr Bld Auto 40.3% Normal [id number] 35 - 45 [facility] RDW RBC Auto-Rto 13.4% Normal [id number] 11 - 15 [facility] PMV Bld Auto 10.7fL Normal [id number] 8 - 12 [facility] Eosinophil/leuk NFr Bld Auto 0.6% Normal [id number] 0 - 5 [facility] MCH RBC Qn Auto 27.8pg Normal [id number] 27 -

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
[2024-06-12 17:37] LABS: Alanine Aminotransferase 52 U/L (0-31); Albumin Level 4.3 g/dL (3.5-5.0); Anion Gap 13 (12-20); Aspartate Amino Transferase 35 U/L (5-31); Bilirubin Total 0.6 mg/dL (0.0-1.0); Blood Urea Nitrogen 17 mg/dL (9-16); Calcium 9.4 mg/dL (8.4-10.2); Carbon Dioxide 25 mmol/L (22-29); Chloride 106 mmol/L (96-108); Estimated Glomerular Filt Rate > 60; Glucose Random 93 mg/dL (60-115); Potassium 4.2 mmol/L (3.3-5.1); Sodium 140 mmol/L (135-145); TSH reflex Free T4 1.19 uIU/mL (0.32-4.0)
[2024-06-12 17:56] LABS: Alkaline Phosphatase 63 U/L (39-117)
[2024-06-13 08:18] LABS: Syphilis Screen Nonreactive (Nonreactive)
[2024-06-13 08:33] LABS: HIV AB/AG Nonreactive (Nonreactive); HIV Num 1 0.07 S/CO (0.00-0.99); ~Hepatitis C Antibody Nonreactive (Nonreactive)
[2024-06-13 14:27] LABS: CT PCR NOT DETECTED (Not Detect.); NG PCR NOT DETECTED (Not Detect.)
[2024-06-13 21:48] LABS: Thyroid Peroxidase Antibodies <1 IU/mL (<9)
== END 2024-06-12 14:28 | disposition home or self-care (01) ==
LOC: HO.HHCL 14:27
PROVIDERS: Visit Provider Family Medicine
DX: R79.89 Other specified abnormal findings of blood chemistry (principal); R63.4 Abnormal weight loss; Z11.3 Encounter for screening for infections with a predominantly sexual mode of transmission; Z13.1 Encounter for screening for diabetes mellitus
CPT/HCPCS: 80053; 83036; 84443; 85025; 86376; 86780; 86803; 87389; 87491; 87591

== ENCOUNTER 2024-06-12 15:11 | Outpatient (REF) | payer MEDICAID, SELFPAY ==
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
--- OUTSIDE RECORDS SUMMARY | 2024-06-12 17:31 | XMS_ITS | Clinical Summary ---
Author Organization [address] [address] Phone Care Team Providers Care Chaser Helper Name Role Phone No, Pcp (Do Not [...] Years Used Date Smoking Tobacco: Never Assessed [place] Util[employer] Answer Date Recorded In the past [...] your living situation today? I have a [facility] live 06/17/2023 Housing Stability [...] this topic Medical Devices Implanted Type Area Buyer Device Identifier Shelf Expiration Date Model / Serial / Lot Breast Breast Procedures Procedure Name Priority Date/Time Associated Diagnosis Comments HIV-1/HIV-2 ANTIBODY/ANTIGEN SCREEN W/REFLEX ([facility] LM[facility]) Add-On 06/23/2023 9:13 AM EST HEPATITIS C AB WITH REFLEX TO HCV PCR Timed 06/23/2023 9:13 AM EST from Last 3 Months or Most Recently Relevant to Health Maintenance Results * HIV-1/HIV-2 antibody/antigen screen w/reflex (06/23/2023 9:13 AM EST) HIV 1 and 2 Antibody/Antigen Screen Non-Reac tive Non-Reac tive 06/24/2023 4:41 PM EST [facility] Comment:Interpretation: This specimen is HIV antibody [...] BLOOD ORDERABLES Final Result Performing Organization Address City/[facility]/ZIP Co de Phone Number [address] [phone] * Hepatitis C Ab with reflex to HCV PCR (06/23/2023 9:13 AM EST) Hepatitis C Ab Initial Result 0.03 S/CO 06/23/2023 10:36 AM [facility] Hepatitis C Ab Interpretation Non-React gayatri Non-React gayatri 06/23/2023 10:36 AM [facility] Blood ARM NEC / Unknown Venipuncture / Unknown 06/23/2023 9:13 AM EST 06/23/2023 9:17 AM EST us Freda Louis MD LAB BLOOD ORDERABLES Final Result [address] [phone] from Last 3 Months or Most Recently Relevant to Health Maintenance Insurance [id number] MEDICAID [id number] MEDICAID [id number] MEDICAID [id number] MEDICAID MOTOR VEHICLE GENERIC [id number] MEDICAID MOTOR VEHICLE GENERIC Advance Directives * Full Code (Latest Code Status on File) Date Activated Date Inactivated Comments 06/17/2023 2:48 AM 06/30/2023 10:13 PM Care Teams Chaser Helper Relationship Specialty Start Date End Date No, Pcp (Do Not Change Name) PCP - General 06/16/23
--- OUTSIDE RECORDS SUMMARY | 2024-06-12 17:31 | XMS_ITS | Encounter Summary ---
Author Organization [facility] Address [address] [place] [id number] Care Team Providers Care Financial Aid Coordinator Name Role Phone No, Pcp (Do Not Change Name) Primary Care Provid er Unavailable Encounter Details Date Type Department Care Team ([facility] st Contact Info) Description 06/23/2023 Scanned Document [facility] Specimens [address] [place], [place] [id number] System, Provider Not In Social History Tobacco Use Types Packs/Day Years Used Date Smoking Tobacco: Never Assessed [facility] Utilities Answer Date Recorded In the past 12 months has th [employer] electric, gas, oil, or water company threatened [...] documented as of this encounter Care Teams Financial Aid Coordinator Relationship Specialty Start Date End Date No, Pcp (Do Not Change Name) PCP - General 06/16/23 documented as of this encounter
== END 2024-06-12 15:12 | disposition home or self-care (01) ==
LOC: HO.HHCX 15:11
PROVIDERS: Visit Provider Family Medicine
DX: M25.562 Pain in left knee (principal)
CPT/HCPCS: 73564

== ENCOUNTER → 2024-06-12 15:15 | Outpatient (BNV) | payer MEDICAID, SELFPAY | PROVIDERS: Visit Provider Radiology Diagnostic Radiology | DX: M25.562 Pain in left knee (principal) | CPT/HCPCS: 73564 ==

== ENCOUNTER 2024-07-20 | Outpatient (REF) | payer MEDICAID, SELFPAY ==
[2024-07-21 11:55] LABS: Bacterial Vaginosis PCR POSITIVE (Negative); Candida Group PCR NOT DETECTED (Not Detect); Candida glab krusei PCR DETECTED (Not Detect); Trichomonas vaginalis PCR DETECTED (Not Detect)
[2024-07-27 10:25] LABS: HPV Genotype 16 Negative (Negative); HPV Genotype 18 Negative (Negative); HPV High Risk Negative (Negative)
--- OUTSIDE RECORDS SUMMARY | 2024-10-12 18:06 | XMS_ITS | Referral Summary ---
Author Organization [facility] Address [address] [place] [address] Care Team Providers Care Transcription Coordinator Name Role Phone Wally Mueller Primary Care Provider [phone] Allergies No known active allergies Medications * [...] 90 06/29/2024 6:45 PM EDT Temperature 36.7 C (98.1 F) 06/29/2024 1:37 PM EDT Respiratory Rate 17 06/29/2024 6:45 PM EDT Oxygen Saturation 98% 06/29/2024 6:45 PM EDT Inhaled Oxygen Concentration - - Weight 63.5 kg (140 lb) 06/29/2024 1:37 PM EDT Height - - Body Mass Index - - Plan of Treatment Not on file [place] [place] [address] Care Teams Transcription Coordinator Relationship Specialty Start Date End Date Wally Mueller [address] [place] [phone] PCP - General Psychiatry 06/29/24
== END 2024-07-20 00:01 | disposition home or self-care (01) ==
LOC: HO.LNP
PROVIDERS: Visit Provider Advanced Practice Midwife
DX: N89.8 Other specified noninflammatory disorders of vagina (principal)
CPT/HCPCS: 81515; 87491; 87591; 87626; 87661; 88175

== ENCOUNTER 2024-07-26 11:59 | Outpatient (REF) | payer MEDICAID, SELFPAY ==
--- OUTSIDE RECORDS SUMMARY | 2024-07-26 14:06 | XMS_ITS ---
Author Organization [employer] Address [address] [facility] 7[address] [place] [address] Care Team Providers Care Customer Services Supervisor Name Role Phone Michaela Woodard MD Primary Care Provider [phone] Francisco Santiago Unavailable Unavailable CM Complex Status:Outreach In Progress (Enrolling) Start date:07/18/2024 Enrollment reason:Referred by provider Overview PCP Referral- recently hospitalized for psych decompensation. Please help her keep appt with BH, PT, and CRS. Thank you Case Team Name Relationship Phone Vijaya Griffith RN Registered Nurse(Responsible S taff) Continued Care and Services Coordination
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
--- OUTSIDE RECORDS SUMMARY | 2024-07-26 14:06 | XMS_ITS | Encounter Summary ---
Author Organization [employer] Address [address] [place] [address] 7[address] [place] [address] Care Team Providers Care Hydrotechnical Specialist Name Role Phone Michaela Woodard MD Primary Care Provider Francisco Santiago Unavailable Unavailable Reason for Visit * Reason Comments Med Refill Encounter Details Date Type Department Care Team (Late st Contact Info) Description 02/04/2023 Refill [facility] [address] [place] [phone] Anne Knowles FNP [address] [place] [address] Dept [place] [address] Social History Tobacco Use Types Packs/Day Years Used Date Smoking Tobacco: Former Cigarettes Q uit: 05/20/2022 Smokeless Tobacco: Never Alcohol Use Standard Drinks/Week Comments Not Currently 0 (1 standard drink = 0.6 oz pur e alcohol) Depression Answer Date Recorded Patient Health Questionnaire-9 Score 5 12/10/2022 Housing Stability Answer Date Recorded What is your housing situation today? I have zehramichael chapman 02/01/[address] you li ve. Do you have problems with any of the following? None of the above 02/01/2023 Food Insecurity Answer Date Recorded Within the [...] living? Yes, it has kept me from medical appointments or getting medications. 01/26/2023 Utilities Answer Date Recorded In the past 12 months, has t he electric, gas, oil or water company threatened to shut off services in your home? No 02/01/2023 Depression Answer Date Recorded Patient Health Questionnaire-2 Score 1 12/10/2022 Comments Unknown Sex and Gender Information Value Date Recorded Sex Assigned at Female 02/16/2022 10:37 AM EDT Legal Sex Female 10:37 AM EDT Gender Identity Female 02/16/2022 10:37 AM EDT Sexual Orientation Straight 02/16/2022 10 :37 AM EDT documented as of this encounter Miscellaneous Notes * Telephone Encounter - Shivani Cano MD - 02/10/2023 7:48 PM EDT FYI only. I called pt for positive test collected yesterday. To make sure she was aware of the results. She had elective termination of today and has not concerns. documented in this encounter Plan of Treatment Upcoming Encounters Date Type Department Care Team (Late st Contact Info) Description 08/02/2024 11:45 AM EDT Clinical Support [facility] [address] [place] [address] Gita Shane RN documented as of this encounter Visit Diagnoses Not on filedocumented in this encounter Additional Health Concerns Assessment Noted Time PHQ-9 Depression Total Score: 5 12/11/19 23 9:04 AM EDT documented as of this encounter Care Teams Hydrotechnical Specialist Relationship Specialty Start Date End Date Michaela Woodard MD [address] [place] [id number] PCP - General Family Medicine 01/21/23 Francisco Santiago FNP [address] [place] [id number] Nurse Practitioner Family Medicine 03/15/23 Genesis Flores Floor Supervisor 01/28/23 04/30/23 documented as of this encounter
--- OUTSIDE RECORDS SUMMARY | 2024-07-26 14:06 | XMS_ITS ---
Author Organization [employer] Address [address] [facility] 7t [place] [address] Care Team Providers Care Barrel Inspector Name Role Phone Michaela Woodard MD Primary Care Provider [phone] Francisco Santiago Unavailable Unavailable [facility] Complex Status:Outreach In Progress (Enrolling) Start date:07/18/2024 Enrollment reason:Referred by provider Overview PCP Referral- recently hospitalized for psych decompensation. Please help her keep appt with BH, PT, and CRS. Thank you. Please outreach for enrollment. Case Team Name Relationship Phone Elsa Mott (Responsible Staff) Continued Care and Services Coordination
--- OUTSIDE RECORDS SUMMARY | 2024-07-26 14:06 | XMS_ITS | Clinical Summary ---
Author Organization [facility] Address [address] [place] [address] Care Team Providers Care Medtronics Technician Name Role Phone Wally Mueller Primary Care Provider [phone] Allergies No known active allergies Medications * This document contains information received from the source organization and may not represent a complete record from that organization. gabapentin (NEURONTIN) 600 mg tablet Take 600 mg by mouth 3 times a day. Active busPIRone (BUSPAR) 5 mg tablet Take 5 mg by mouth 3 times a day. Active omeprazole (PriLOSEC) 20 mg capsule Take 20 mg by mouth once a day. Active Family History Medical History Relation Name Comments ADD / ADHD Other Nephew Relation Name Status Comments Other Nephew Alive Social History Tobacco Use Types Packs/Day Years Used Date Smoking Tobacco: Never Smokeless Tobacco: Never Tobacco Cessation:Counseling Given: Not Answered Alcohol Use Standard Drinks/Week Comments Not Currently 0 (1 standard drink = 0.6 oz pur e alcohol) Comments Unknown Sex and Gender Information Value Date Recorded Sex Assigned at Female 06/29/2024 2:39 PM EDT Legal Sex Female 1:17 PM EDT Gender Identity Not on file Sexual Orientation Not on file Last Filed Vital Signs Vital Sign Reading Time Taken Comments Blood Pressure 121/79 06/29/2024 4:42 PM EDT Pulse 90 06/29/2024 6:45 PM EDT Temperature 36.7 ??C (98.1 ??F) 06/29/2024 1:37 PM ED T Respiratory Rate 17 06/29/2024 6:45 PM EDT Oxygen Saturation 98% 06/29/2024 6:45 PM EDT Inhaled Oxygen Concentration - - Weight 63.5 kg (140 lb) 06/29/2024 1:37 PM EDT Height - - Body Mass Index - - Plan of Treatment Health Maintenance Due Date Last Done Comments Cervical Cancer Screening 1994 HPV and Pap Smear 1994 Pap Smear 1994 Varicella Vaccines (1 of 2 - 13+ 2-dose series) 07/07/2007 Alcohol/Substance Use Screening 04/19/2024 Depression Screening and Follow-Up 04/19/2024 Social Drivers of Health Verenice ual Screening 04/19/2024 Hepatitis B Vaccines (3 of 3 - 19+ 3-dose series) 08/07/2024 06/12/2024, 09/01/2023 DTaP,Tdap,and Td Vaccines (2 - Td or Tdap) 12/19/2031 12/18/2021 RSV Vaccine (60+ years old a nd patients) (1 - 1-dose 75+ series) 2069 Pneumococcal Vaccine: Pediat sharifa (0-5 Years) and At-Risk Patients (6-50 Years) Completed 09/01/2023 COVID-19 Vaccine Completed 06/12/2024, , 06/17/2021, Additional history exists HIV Screening Completed 06/12/2024, 06/12/2024 Hepatitis C Screening Completed 06/12/2024 Influenza Vaccine Completed 06/12/2024, 02/01/2023 Procedures * Due to [place] [employer] law, this organization might not be sharing negative HIV tests. Procedure Name Priority Date/Time Associated Diagnosis Comments DRUGS OF ABUSE SCREEN, URINE STAT 06/29/2024 6:28 PM EDT HCG QUALITATIVE, URINE STAT 06/29/2024 6:28 PM EDT RAPID COVID-19 RNA FOR SURVEILLANCE (ED ONLY) STAT 06/29/2024 1:35 PM EDT from Last 3 Months Results * Due to [place] [employer] law, this organization might not be sharing negative HIV tests. * (ABNORMAL) Drugs of Abuse Screen, Urine (06/29/2024 6:28 PM EDT) Amphetamine Screen, Urine Negative Negative 06/29/2024 7:02 PM EDT [facility] Comment: Detection limit of 1000 ng/mL of d-Methamphetamine. Drug results are to be used only for medical purposes. ??Unconfirmed screening results must not be used for non-medical purposes. Barbiturate Screen, Urine Negative Negative 06/29/2024 7:02 PM T [facility] Comment: Detection limit of 200 ng/mL of Secobarbital. Drug results are to be used only for medical purposes. ??Unconfirmed screening results must not be used for non-medical purposes. Benzodiazepine Screen, Urine Presumptive Positive(A) Negative 06/29/2024 7:02 PM T [facility] Comment: Detection limit of 200 ng/mL of Nordiazepam. Drug results are to be used only for medical purposes. ??Unconfirmed screening results must not be used for non-medical purposes. Buprenorphine Screen, Urine Negative Negative 06/29/2024 7:02 PM [facility] Comment: Detection limit of 10 ng/mL of norbuprenorphine. Drug results are to be used only for medical purposes. ??Unconfirmed screening results must not be used for non-medical purposes. Cocaine Metabolite Screen, Urine Negative Negative 06/29/2024 7:02 PM [facility] Comment: Detection limit of 300 ng/mL of Benzoylecgonine. Drug results are to be used only for medical purposes. ??Unconfirmed screening results must not be used for non-medical purposes. Marijuana Screen, Urine Presumptive Positive(A) Negative 06/29/2024 7:[facility] PM [facility] Comment: Detection limit of 50 ng/mL of 63-Mfp-mllis-5-OJH-9-carboxylic acid. Drug results are to be used only for medical purposes. ??Unconfirmed screening results must not be used for non-medical purposes. Methadone Metabolite Screen, Urine Presumptive Positive(A) Negative 06/29/2024 7:02 PM [facility] Comment: Detection limit of 300 ng/mL of Methadone. Drug results are to be used only for medical purposes. ??Unconfirmed screening results must not be used for non-medical purposes. Oxycodone Screen, Urine Negative Negative 06/29/2024 7:02 PM EDT [facility] Comment: Detection limit of 100 ng/mL of Oxycodone. Drug results are to be used only for medical purposes. ??Unconfirmed screening results must not be used for non-medical purposes. Opiate Screen, Urine Negative Negative 06/29/2024 7:02 PM EDT [facility] Comment: Detection limit of 300 ng/mL of Morphine. Drug results are to be used only for medical purposes. ??Unconfirmed screening results must not be used for non-medical purposes. Fentanyl Screen, Urine Presumptive Positive(A) Negative 06/29/2024 7:02 PM EDT [facility] Comment: Detection limit of 5 ng/mL of norfentanyl. Drug results are to be used only for medical purposes. ??Unconfirmed screening results must not be used for non-medical purposes. Urine Urine specimen collection, clean catch / Unknown Non-Blood Collection / Unknown 06/29/2024 6:28 PM EDT 06/29/2024 6:28 PM EDT us Julián Russ DO LAB URINE ORDERABLES Final Resul t [facility] [address] [place] [address], * HCG Qualitative, Urine (06/29/2024 6:28 PM EDT) HCG Qualitative, Urine Negative Negative [place] [facility] 06/29/2024 7:00 PM EDT [facility] Comment: hCG may be negative in early . ??Suggest repeat testing in 2-4 days if clinically indicated. ??The results of this test should be interpreted with the patient's clinical presentation. Urine Urine specimen collection, clean catch / Unknown Non-Blood Collection / Unknown 06/29/2024 6:28 PM EDT 06/29/2024 6:28 PM EDT Julián Russ LAB URINE ORDERABLES Final Resul t Performing Organization Address [facility] Co de Phone Number [facility] [address] [place] [address], * Rapid COVID-19 RNA for Surveillance (06/29/2024 1:35 PM EDT) PCR, SARS CoV-2 RNA Not Detected Not Detected [employer] 06/29/2024 2:20 PM EDT [facility] Comment:A Not Detected (Nega tive) test result is indicative of the absence of SARS-CoV-2 RNA at the level of LoD (Limit of Detection). A negative result does not rule out the possibility of COVID-19 and should not be used as the sole basis for treatment or patient management decisions. If COVID-19 is still suspected, based on exposure history together with other clinical findings, re-testing should be considered. Swab (Nares) Non-Blood Collection / Unknown 06/29/2024 1:35 PM EDT 06/29/2024 1:42 PM EDT Narrative [facility] - 06/29/2024 2:20 PM EDT This test was developed, validated and its performance characteristics determined by [facility]. This test has not been cleared or approved by the U.S. Food and Drug Administration (FDA). FDA Policy for Diagnostic Tests for Coronavirus Disease-2019 during the Public Health Emergency issued July 03, 2019, is followed. Chadd Meléndez MD LAB BODY FLUIDS AND STOOLS ORDER GUI Final Result Performing Organization Address [facility]/ZIP Co de Phone Number [facility] [address] [place] [address], from Last [address] [place] [place] [address] Care Teams Medtronics Technician Relationship Specialty Start Date End Date Wally Mueller [address] [place] [id number] PCP - General Psychiatry 06/29/24
--- OUTSIDE RECORDS SUMMARY | 2024-07-26 14:06 | XMS_ITS | Clinical Summary ---
Author Organization [facility] Address [address] [place] [address] Phone Care Team Providers Care Filter Operator Name Role Phone Physician, Pcp Unknown Primary Care Provider Ivonne vailable Allergies No known active allergies Medications ondansetron ODT (ZOFRAN-ODT) 4 mg disintegrating tablet Dissolve 1 tablet (4 mg total) on top of the tongue every 8 (eight) hours if needed for nausea or vomiting for up to 7 doses. 7 tablet Active Encounters Date Type Department Care Team Description 06/23/2024 9:27 PM EST - 06/24/2024 1:22 AM EST Emergency [facility] Emergency [address] [place] [address] Opioid use disorder (Primary Dx) Discharge Disposition: Home or Self Care from Last 3 Months Medical History Medical History Date Comments Anxiety Social History Tobacco Use Types Packs/Day Years Used Date Smoking Tobacco: Never Assessed Comments Unknown Sex and Gender Information Value Date Recorded Sex Assigned at Female 06/23/2024 10:22 PM EST Legal Sex Female 5:59 PM EST Gender Identity Female 06/23/2024 10:22 PM EST Sexual Orientation Straight 06/23/2024 10 :22 PM EST Obstetrics History Last Filed Vital Signs Vital Sign Reading Time Taken Comments Blood Pressure 118/75 06/24/2024 1:20 AM EST Pulse 78 06/24/2024 1:20 AM EST Temperature 36.8 ??C (98.3 ??F) 06/24/2024 1:20 AM ES T Respiratory Rate 16 06/24/2024 1:20 AM EST Oxygen Saturation 99% 06/24/2024 1:20 AM EST Inhaled Oxygen Concentration - - Weight 68 kg (150 lb) 06/23/2024 6:42 PM EST Height 165.1 cm (5' 5 ) 06/23/2024 6:42 PM EST Body Mass Index 24.96 06/23/2024 6:42 PM EST Plan of Treatment Health Maintenance Due Date Last Done Comments Cervical Cancer Screening: P ap Smear 07/07/2015 Social Influencers of Health Screening 06/24/2024 Hepatitis B Vaccines (3 of 3 - 19+ 3-dose series) 08/07/2024 06/12/2024, 09/01/2023 Depression Screening 06/12/2025 06/12/2024 DTaP,Tdap,and Td Vaccines (2 - Td or Tdap) 12/19/2031 12/18/2021 Pneumococcal Vaccine: Pediatrics (0 to 5 Years) and At-Risk Patients (6 to 64 Years) Completed 09/01/2023 COVID-19 Vaccine Completed 06/12/2024, 09/01/2023, 08/23/2020 HIV Screening Completed 06/12/2024 Hepatitis C Screening Completed 06/12/2024 , 06/23/2023 Influenza Vaccine Completed 06/12/2024, 02/01/2023 HIB Vaccines Aged Out No longer eligi ble based on patient's age to complete this topic HPV Vaccines Aged Out No longer eligi ble based on patient's age to complete this topic Hepatitis A Vaccines Aged Out No long er eligible based on patient's age to complete this topic IPV Vaccines Aged Out No longer eligi ble based on patient's age to complete this topic MMR Vaccines Aged Out No longer eligi ble based on patient's age to complete this topic Meningococcal ACWY Vaccine Aged Out N o longer eligible based on patient's age to complete this topic Meningococcal B Vaccine Aged Out No l onger eligible based on patient's age to complete this topic RSV Immunization Patients Under 20 months Aged Out No longer eligible b ased on patient's age to complete this topic Varicella Vaccines Aged Out No longer eligible based on patient's age to complete this topic Procedures Procedure Name Priority Date/Time Associated Diagnosis Comments ECG ANNOTATED 06/26/2024 ECG 12-LEAD STAT 06/23/2024 10:00 PM EST CBC WITH AUTO DIFFERENTIAL STAT 06/23/2024 7:30 PM EST METHADONE SCREEN, URINE STAT 06/23/2024 7:30 PM EST PHENCYCLIDINE, URINE STAT 06/23/2024 7:30 PM EST BUPRENORPHINE SCREEN, URINE STAT 06/23/2024 7:30 PM EST CBC AND DIFFERENTIAL STAT 06/23/2024 7:30 PM EST COMPREHENSIVE METABOLIC PANEL STAT 06/23/2024 7:30 PM EST LIPASE STAT 06/23/2024 7:30 PM EST MAGNESIUM STAT 06/23/2024 7:30 PM EST ETHANOL STAT 06/23/2024 7:30 PM EST DRUG ABUSE SCREEN 8A PANEL, URINE STAT 06/23/2024 7:30 PM EST from Last 3 Months Results * ECG-Annotated (06/26/2024) Provider Kat AARON ECG ORDERABLES Final Result * ECG 12 lead (06/23/2024 10:00 PM EST) Ventricular Rate ECG 69 BPM GEMUSE Atrial Rate 69 BPM GEMUSE P-R Interval 138 ms GEMUSE QRS Duration 94 ms GEMUSE Q-T Interval 366 ms GEMUSE QTc 392 ms GEMUSE P Wave Woodson 54 degrees GEMUSE R Woodson 57 degrees GEMUSE T Woodson 42 degrees GEMUSE ECG Interpretation Normal sinus rhythm with sinus arrhythmia Normal ECG No previous ECGs available Confirmed by RAFI COPE ([id number]) on 06/24/2024 8:22:31 AM GEMUSE 06/23/2024 10:0 0 PM EST 06/24/2024 8:22 AM EST Williams Orozco MD ECG ORDERABLES Final Result GEMUSE * (ABNORMAL) Drug abuse screen 8a panel, urine (06/23/2024 7:30 PM EST) Amphetamine Screen, Ur Negative Negative LAB CHEMISTRY METHOD 5 8:41 PM [facility] Comment:Certain OTC medicati ons containing ephedrine, phenylephrine, pseudoephedrine and phenylpropanolamine can cause false positive results. Barbiturate Screen, Ur Negative Negative LAB CHEMISTRY METHOD 5 8:41 PM [facility] Benzodiazepine Screen, Ur Negative Negative LAB CHEMISTRY METHOD 5 8:41 PM [facility] Cocaine Screen, Ur Negative Negative LAB CHEMISTRY METHOD 5 8:41 PM [facility] Opiate Screen, Ur Positive(A ) Negative LAB CHEMISTRY METHOD 5 8:41 PM [facility] Cannabinoid (THC) Screen, Ur Positive(A ) Negative LAB CHEMISTRY METHOD 5 8:41 PM [facility] Comment:Specimens from patie nts taking pantoprazole sodium (Protonix) have been shown to produce false positive results. Oxycodone Screen, Ur Negative Negative LAB CHEMISTRY METHOD 5 8:41 PM [facility] Fentanyl, Ur Positive(A ) Negative LAB CHEMISTRY METHOD 5 8:41 PM [facility] Urine Urine specimen obtained by clean catch procedure / Unknown Non-blood Collection / Unknown 06/23/2024 7:30 PM EST 06/23/2024 7:55 PM EST [facility] - 06/23/2024 8:41 PM EST Assay cutoffs: Amphetamines ? 1000 ng/mL Barbiturates ?200 ng/mL Benzodiazepines ?? 200 ng/mL Cocaine ? 300 ng/mL Fentanyl ?1 ng/mL Opiates ? 300 ng/mL Oxycodone ? 100 ng/mL THC ?50 ng/mL Semi-quantitative assay for screening purposes only. Unconfirmed screening result should not be used for non-medical purposes. *ALTERNATE METHOD CONFIRMATION DONE UPON REQUEST ONLY* Williams Gil Orozco MD LAB URINE ORDERABLES Final Resu lt Performing Organization Address [facility] de Phone Number [facility] [address] [place] [address], * Buprenorphine screen, urine (06/23/2024 7:30 PM EST) [facility] Buprenorphine Screen Urine Negative Negative LAB CHEMISTRY METHOD 06/23/2024 8:31 PM EST [facility] Urine Urine specimen obtained by clean catch procedure / Unknown Non-blood Collection / Unknown 06/23/2024 7:30 PM EST 06/23/2024 7:55 PM EST Narrative [facility] - 06/23/2024 8:31 PM EST Assay cutoff 5 ng/mL Semi-quantitative assay for screening purposes only. Unconfirmed screening result should not be used for non-medical purposes. *ALTERNATE METHOD CONFIRMATION DONE UPON REQUEST ONLY* Williams B Ernesto AARON LAB URINE ORDERABLES Final Resu lt Performing Organization Address [facility] de Phone Number [facility] [address] [place] [address], * Methadone, urine (06/23/2024 7:30 PM EST) Pathologist [facility] Methadone Screen, Urine Negative Negative LAB CHEMISTRY METHOD 06/23/2024 8:31 PM EST [facility] Comment: Assay cutoff 300 ng/mL Semi-quantitative assay for screening purposes only. Unconfirmed screening result should not be used for non-medical purposes. *ALTERNATE METHOD CONFIRMATION DONE UPON REQUEST ONLY* Urine Urine specimen obtained by clean catch procedure / Unknown Non-blood Collection / Unknown 06/23/2024 7:30 PM EST 06/23/2024 7:55 PM EST us Williams B Ernesto AARON LAB URINE ORDERABLES Final Resu lt [facility] [address] [place] [address], * CBC auto differential (06/23/2024 7:30 PM EST) WBC 8.2 4.8 - 10.8 K/mcL LAB HEMETOLOGY METHOD 06/23/2024 8:02 PM [facility] RBC 4.70 3.80 - 4.80 M/mcL LAB HEMETOLOGY METHOD 06/23/2024 8:02 PM [facility] Hemoglobin 13.4 11.5 - 16.0 g/dL LAB HEMETOLOGY METHOD 06/23/2024 8:02 PM [facility] Hematocrit 41.2 35.0 - 47.0 % LAB HEMETOLOGY METHOD 06/23/2024 8:02 PM [facility] MCV 87.3 79.0 - 98.0 FL LAB HEMETOLOGY METHOD 06/23/2024 8:02 PM [facility] MCH 28.4 27.0 - 32.0 pcg LAB HEMETOLOGY METHOD 06/23/2024 8:02 PM [facility] MCHC 32.5 32.0 - 37.0 g/dL LAB HEMETOLOGY METHOD 06/23/2024 8:02 PM [facility] RDW 12.2 11.0 - 15.0 % LAB HEMETOLOGY METHOD 06/23/2024 8:02 PM [facility] Platelets 305 130 - 400 K/mcL LAB HEMETOLOGY METHOD 06/23/2024 8:02 PM [facility] MPV 10.8 7.0 - 11.0 FL LAB HEMETOLOGY METHOD 06/23/2024 8:02 PM [facility] NRBC 0.0 <1.0 % LAB HEMETOLOGY METHOD 06/23/2024 8:02 PM [facility] NRBC Absolute 0.00 <0.10 K/mcL LAB HEMETOLOGY METHOD 06/23/2024 8:02 PM [facility] Neutrophils Relative 58.3 % LAB HEMETOLOGY METHOD 06/23/2024 8:02 PM [facility] Lymphocytes Relative 32.0 % LAB HEMETOLOGY METHOD 06/23/2024 8:02 PM [facility] Monocytes Relative 3.5 % LAB HEMETOLOGY METHOD 06/23/2024 8:02 PM [facility] Eosinophils Relative 5.3 % LAB HEMETOLOGY METHOD 06/23/2024 8:02 PM [facility] Basophils Relative 0.7 % LAB HEMETOLOGY METHOD 06/23/2024 8:02 PM [facility] Immature Granulocytes Relative 0.2 % LAB HEMETOLOGY METHOD 06/23/2024 8:02 PM [facility] Neutrophils Absolute 4.76 1.50 - 7.00 K/mcL LAB HEMETOLOGY METHOD 06/23/2024 8:02 PM [facility] Lymphocytes Absolute 2.62 1.00 - 5.00 K/mcL LAB HEMETOLOGY METHOD 06/23/2024 8:02 PM [facility] Monocytes Absolute 0.29 0.20 - 1.00 K/mcL LAB HEMETOLOGY METHOD 06/23/2024 8:02 PM [facility] Eosinophils Absolute 0.43 0.00 - 0.50 K/mcL LAB HEMETOLOGY METHOD 06/23/2024 8:02 PM EST [facility] Basophils Absolute 0.06 0.00 - 0.20 K/[facility] LAB HEMETOLOGY METHOD 06/23/2024 8:02 PM EST [facility] Immature Granulocytes Absolute 0.02 0.00 - 0.03 K/[facility] LAB HEMETOLOGY METHOD 06/23/2024 8:02 PM EST [facility] Blood Venous blood specimen / Unknown Venipuncture / Unknown 06/23/2024 7:30 PM EST 06/23/2024 7:55 PM EST Williams Gil Orozco MD LAB BLOOD ORDERABLES Final Resu lt Performing Organization Address [facility]/ZIP Co de Phone Number [facility] [address] [place] [address], * Phencyclidine, urine (06/23/2024 7:30 PM EST) PCP Scrn, Ur Negative Negative LAB CHEMISTRY METHOD 06/23/2024 8:31 PM EST [facility] Comment: Assay cutoff 25 ng/mL Semi-quantitative assay for screening purposes only. Unconfirmed screening result should not be used for non-medical purposes. *ALTERNATE METHOD CONFIRMATION DONE UPON REQUEST ONLY* Urine Urine specimen obtained by clean catch procedure / Unknown Non-blood Collection / Unknown 06/23/2024 7:30 PM EST 06/23/2024 7:55 PM EST Williamsjonel Orozco MD LAB URINE ORDERABLES Final Resu lt Performing Organization Address City/[facility]/ZIP Co de Phone Number [facility] [address] [place] [address], [place] [phone] * Magnesium (06/23/2024 7:30 PM EST) Magnesium 2.1 1.9 - 2.6 mg/dL LAB CHEMISTRY METHOD 06/23/2024 8:26 PM EST [facility] Blood Venous blood specimen / Unknown Venipuncture / Unknown 06/23/2024 7:30 PM EST 06/23/2024 7:55 PM EST us Williams Orozco MD LAB BLOOD ORDERABLES Final Resu lt [facility] [address] [place] [address], [place] [phone] * Lipase (06/23/2024 7:30 PM EST) Lipase 22 13 - 75 unit/L LAB CHEMISTRY METHOD 06/23/2024 8:26 PM EST [facility] Blood Venous blood specimen / Unknown Venipuncture / Unknown 06/23/2024 7:30 PM EST 06/23/2024 7:55 PM EST us Williams Orozco MD LAB BLOOD ORDERABLES Final Resu lt Performing Organization Address City/[facility]/ZIP Co de Phone Number [facility] [address] [place] [address], [place] [phone] * Ethanol (06/23/2024 7:30 PM EST) Ethanol Level <3 0 - 10 mg/dL LAB CHEMISTRY METHOD 06/23/2024 8:26 PM EST [facility] Blood Venous blood specimen / Unknown Venipuncture / Unknown 06/23/2024 7:30 PM EST 06/23/2024 7:55 PM EST us Williams Orozco MD LAB BLOOD ORDERABLES Final Resu lt Performing Organization Address City/[facility]/ZIP Co de Phone Number [facility] [address] [place] [address], [place] [phone] * (ABNORMAL) Comprehensive metabolic panel (06/23/2024 7:30 PM EST) Sodium 139 133 - 145 mmol/L LAB CHEMISTRY METHOD 06/23/2024 8:26 PM [facility] Potassium 4.2 3.5 - 5.5 mmol/L LAB CHEMISTRY METHOD 06/23/2024 8:26 PM [facility] Chloride 107 96 - 110 mmol/L LAB CHEMISTRY METHOD 06/23/2024 8:26 PM [facility] CO2 25 21 - 32 mmol/L LAB CHEMISTRY METHOD 06/23/2024 8:26 PM [facility] Anion Gap 7 3 - 11 LAB CHEMISTRY METHOD 06/23/2024 8:26 PM [facility] Glucose 112(H) 70 - 100 mg/dL LAB CHEMISTRY METHOD 06/23/2024 8:26 PM [facility] BUN 13 5 - 25 mg/dL LAB CHEMISTRY METHOD 06/23/2024 8:26 PM [facility] Creatinine 0.55 0.50 - 1.10 mg/dL LAB CHEMISTRY METHOD 06/23/2024 8:26 PM [facility] eGFR 127 >=60 mL/min/1. 73m2 LAB CHEMISTRY METHOD 06/23/2024 8:26 PM [facility] Comment:Calculation based on the??Chronic Kidney Disease Epidemiology Collaboration (CKD-EPI) equation refit??without adjustment for race. BUN/Creatinine Ratio 23.6 LAB CHEMISTRY METHOD 06/23/2024 8:26 PM [facility] Calcium 9.1 8.5 - 10.5 mg/dL LAB CHEMISTRY METHOD 06/23/2024 8:26 PM [facility] AST (SGOT) 33 10 - 42 unit/L LAB CHEMISTRY METHOD 06/23/2024 8:26 PM [facility] ALT (SGPT) 75(H) 10 - 60 unit/L LAB CHEMISTRY METHOD 06/23/2024 8:26 PM EST [facility] Alkaline Phosphatase 89 42 - 121 unit/L LAB CHEMISTRY METHOD 06/23/2024 8:26 PM EST [facility] Total Protein 7.3 6.0 - 8.0 g/dL LAB CHEMISTRY METHOD 06/23/2024 8:26 PM EST [facility] Albumin 3.6 3.2 - 5.0 g/dL LAB CHEMISTRY METHOD 06/23/2024 8:26 PM [facility] Total Bilirubin 0.3 0.0 - 1.4 mg/dL LAB CHEMISTRY METHOD 06/23/2024 8:26 PM [facility] Blood Venous blood specimen / Unknown Venipuncture / Unknown 06/23/2024 7:30 PM EST 06/23/2024 7:55 PM EST Williams Orozco MD LAB BLOOD ORDERABLES Final Resu lt [facility] [address] [place] [address], [place] [phone] from Last 3 Months Insurance MEDICAID - [place] Care Teams Filter Operator Relationship Specialty Start Date End Date Physician, Pcp Unknown PCP - General 06/23/24
--- OUTSIDE RECORDS SUMMARY | 2024-07-26 14:06 | XMS_ITS | Referral Summary ---
Author Organization [facility] Address [address] [place] [address] Care Team Providers Care Sampler Radioactive Waste Name Role Phone Wally Mueller Primary Care Provider [phone] Allergies No known active allergies Medications * [...] mg by mouth once a day. Active Social History Tobacco Use Types Packs/Day Years [...] Mass Index - - Plan of Treatment Not on file Procedures * Due to [facility] law, this organization might not be sharing negative HIV tests. Procedure Name Priority Date/Time Associated Diagnosis Comments DRUGS OF ABUSE SCREEN, URINE STAT 06/29/2024 6:28 PM EDT HCG QUALITATIVE, URINE STAT 06/29/2024 6:28 PM EDT RAPID COVID-19 RNA FOR SURVEILLANCE (ED ONLY) STAT 06/29/2024 1:35 PM EDT from Last 3 Months Results * Due to [facility] law, this organization might not be sharing negative HIV tests. * (ABNORMAL) Drugs of Abuse Screen, Urine (06/29/2024 6:28 PM EDT) Amphetamine Screen, Urine Negative Negative 06/29/2024 7:02 PM EDT [facility] Comment: Detection limit of 1000 ng/mL of d-Methamphetamine. Drug results are to be used only for medical purposes. ??Unconfirmed screening results must not be used for non-medical purposes. Barbiturate Screen, Urine Negative Negative 06/29/2024 7:02 PM EDT [facility] Comment: Detection limit of 200 ng/mL of Secobarbital. Drug results are to be used only for medical purposes. ??Unconfirmed screening results must not be used for non-medical purposes. Benzodiazepine Screen, Urine Presumptive Positive(A) Negative 06/29/2024 7:02 PM EDT [facility] Comment: Detection limit of 200 ng/mL of Nordiazepam. Drug results are to be used only for medical purposes. ??Unconfirmed screening results must not be used for non-medical purposes. Buprenorphine Screen, Urine Negative Negative 06/29/2024 7:02 PM EDT [facility] Comment: Detection limit of 10 ng/mL of norbuprenorphine. Drug results are to be used only for medical purposes. ??Unconfirmed screening results must not be used for non-medical purposes. Cocaine Metabolite Screen, Urine Negative Negative 06/29/2024 7:02 PM EDT [facility] Comment: Detection limit of 300 ng/mL of Benzoylecgonine. Drug results are to be used only for medical purposes. ??Unconfirmed screening results must not be used for non-medical purposes. Marijuana Screen, Urine Presumptive Positive(A) Negative 06/29/2024 7:02 PM EDT [facility] Comment: Detection limit of 50 ng/mL of [id number]-[id number]-4-carboxylic acid. Drug results are to be used only for medical purposes. ??Unconfirmed screening results must not be used for non-medical purposes. Methadone Metabolite Screen, Urine Presumptive Positive(A) Negative 06/29/2024 7:02 PM EDT [facility] Comment: Detection limit of 300 ng/mL of Methadone. Drug results are to be used only for medical purposes. ??Unconfirmed screening results must not be used for non-medical purposes. Oxycodone Screen, Urine Negative Negative 06/29/2024 7:02 PM T [facility] Comment: Detection limit of 100 ng/mL of Oxycodone. Drug results are to be used only for medical purposes. ??Unconfirmed screening results must not be used for non-medical purposes. Opiate Screen, Urine Negative Negative 06/29/2024 7:02 PM EDT [facility] Comment: Detection limit of 300 ng/mL of Morphine. Drug results are to be used only for medical purposes. ??Unconfirmed screening results must not be used for non-medical purposes. Fentanyl Screen, Urine Presumptive Positive(A) Negative 06/29/2024 7:02 PM EDT [facility] Comment: Detection limit of 5 ng/mL of norfentanyl. Drug results are to be used only for medical purposes. ??Unconfirmed screening results must not be used for non-medical purposes. Urine Urine specimen collection, clean catch / Unknown Non-Blood Collection / Unknown 06/29/2024 6:28 PM EDT 06/29/2024 6:28 PM EDT Julián Russ DO LAB URINE ORDERABLES Final Resul t Performing Organization Address [facility] de Phone Number [facility] [address] [place] [address], * HCG Qualitative, Urine (06/29/2024 6:28 PM EDT) Pathologist [facility] HCG Qualitative, Urine Negative Negative [place] [facility] 06/29/2024 7:00 PM EDT [facility] Comment: hCG may be negative in early . ??Suggest repeat testing in 2-4 days if clinically indicated. ??The results of this test should be interpreted with the patient's clinical presentation. Urine Urine specimen collection, clean catch / Unknown Non-Blood Collection / Unknown 06/29/2024 6:28 PM EDT 06/29/2024 6:28 PM EDT Julián Russ DO LAB URINE ORDERABLES Final Resul t Performing Organization Address [facility] de Phone Number [facility] [address] [place] [address], * Rapid COVID-19 RNA for Surveillance (06/29/2024 1:35 PM EDT) [facility] PCR, SARS CoV-2 RNA Not Detected Not Detected [employer] 06/29/2024 2:20 PM EDT [facility] Comment:A Not Detected [...] PM EDT 06/29/2024 1:42 PM EDT Narrative [facility] - 06/29/2024 2:20 PM EDT This test was developed, validated and its performance characteristics determined by [facility]. This test has not been cleared or approved by the U.S. Food and Drug Administration (FDA). FDA Policy for Diagnostic Tests for Coronavirus Disease-2019 during the Public Health Emergency issued July 03, 2019, is followed. us Chadd Meléndez MD LAB BODY FLUIDS AND STOOLS ORDER GUI Final Result [facility] [address] [place] [address], from Last 3 Months Insurance [employer] Care Teams Sampler Radioactive Waste Relationship Specialty Start Date End Date Wally Mueller [address] [place] [id number] PCP - General Psychiatry 06/29/24
--- OUTSIDE RECORDS SUMMARY | 2024-07-26 14:07 | XMS_ITS | Encounter Summary ---
Author Organization [employer] Address [address] [facility] 7t [place] [address] Care Team Providers Care Substation Technician Name Role Phone Michaela Woodard MD Primary Care Provider [phone] Francisco Santiago Unavailable Unavailable Reason for Visit * Reason Onset Date Comments Results 07/21/2024 Encounter Details Date Type Department Care Team ([facility] Contact Info) Description 07/21/2024 Telephone [facility] [address] [place] [address] Sharon Narvaez RN [address] [place] [address] Results Social History Tobacco Use Types Packs/Day Years Used Date Smoking Tobacco: Every Day Cigarettes Last attempted to quit: 05/20/2022 Passive Smoke Exposure: Past Smokeless Tobacco: Never Alcohol Use Standard Drinks/Week Comments Not Currently 0 (1 standard drink = 0.6 oz pur e alcohol) Depression Answer Date Recorded Patient Health Questionnaire-9 Score 17 07/13/2024 Patient Health Questionnaire-9 Score 17 07/13/2024 Last PHQ-9: Questionnaire Data Not on file 0 07/13/2024 Housing Stability Answer Date Recorded What is your housing situation today? I do not have housing (Staying with others, in a hotel, in a correction, living outside on the street, on a [...] Answer Date Recorded Patient Health Questionnaire-2 Score 3 07/13/2024 Comments No Sex and Gender Information Value Date Recorded Sex Assigned at Female 02/16/2022 10:37 AM EDT Legal Sex Female 10:37 AM EDT Gender Identity Female 02/16/2022 10:37 AM EDT Sexual Orientation Straight 02/16/2022 10 :37 AM EDT documented as of this encounter Miscellaneous Notes * Telephone Encounter - Sharon Narvaez RN - 07/21/2024 2:04 PM EDT Recall 3m generated. Telephone call placed to pt regarding below message and POC. Explained that she came back positive for trichomonas which is a sexual transmitted infection that is treatable. Also came back positive for bacterial vaginosis which is not an STI, it is an imbalance of the bacteria in the vagina. Both of these infections can cause vaginal itching, odor, and/or discharge. They also can both be treated by the same medication. Informed metronidazole sent to be taken BID x7 days. Take full course even if Sx stop. If Sx persist after Tx, let us know as she also came back + for yeast so we can send yeast medication as needed. Informed for trichomonas, any partners needs tested and treated as well. Recommended he contact his PCP, tapestry, or come to [facility]. Advised to abstain from sex until 7 days after they have both completed the treatment. Informed that she is on RECALL FOR RETESTING 3 MONTHS AND SHOULD GET A CALL TO SCHEDULE. Pt verbalized understanding and denied having any further questions or concerns at this time. * Telephone Encounter - Sharon Narvaez RN - 07/21/2024 1:35 PM EDT ----- Message from Rosita Chino sent at 07/21/2024 1:18 PM EDT ----- + trichomonas noted. Please call and let Maggy know she has this infection. It is very common and easily passed through sex. Sometimes it causes discharge and itching, sometimes it causes no symptoms. I am going to send in medication. Her partner(s) will need to be seen for treatment. They should abstain from sex until 7d after treatment for all. She should be retested in 3m - please add to 3m recall. Bacterial vaginosis will also be treated by same medication. Let's hold off on treating yeast. If vaginal symptoms persist after treatment for trichomonas/bacterial vaginosis I will send in treatment for that as well. Thanks! documented in this encounter Plan of Treatment Upcoming Encounters Date Type Department Care Team (Late st Contact Info) Description 08/02/2024 11:45 AM EDT Clinical Support [facility] [address] [place] [phone] Gita Shane RN documented as of this encounter Goals Goal Patient Goal Type Associated Problems Recent Progress Patient-Stated? 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 RN documented as of this encounter Visit Diagnoses Not on filedocumented in this encounter Additional Health Concerns Assessment Noted Time PHQ-9 Depression Total Score: 17 025 10:51 AM EDT documented as of this encounter Care Teams Substation Technician Relationship Specialty Start Date End Date Michaela Woodard MD [address] [place] [address] PCP - General Family Medicine 01/21/23 Francisco Santiago FNP [address] [place] [address] Nurse Practitioner Family Medicine 03/15/23 documented as of this encounter
--- OUTSIDE RECORDS SUMMARY | 2024-07-26 14:07 | XMS_ITS | Encounter Summary ---
Author Organization [employer] Address [address] [facility] 7t [place] [address] Care Team Providers Care Health Program Specialist Name Role Phone Michaela Woodard MD Primary Care Provider [phone] Francisco Santiago Unavailable Unavailable Encounter Details Date Type Department Care Team (Late st Contact Info) Description 07/25/2024 Patient Outreach [facility] MEDICINE [address] [place] [address] Michaela Woodard MD [address] [place] [address] Social History Tobacco Use Types Packs/Day Years [...] with others, in a hotel, in a halfway, living outside on the street, on a [...] Description 08/02/2024 11:45 AM EDT Clinical Support [facility]INE [address] [place] [phone] Gita Shane, ALLAN documented as of this encounter Goals Goal Patient Goal Type Associated Problems Recent Progress Patient-Stated? 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, ALLAN documented as of this encounter Visit Diagnoses Not on filedocumented in this encounter Additional Health Concerns Assessment Noted Time PHQ-9 Depression Total Score: 17 025 10:51 AM EDT documented as of this encounter Care Teams Health Program Specialist Relationship Specialty Start Date End Date Michaela Woodard MD [address] [place] [address] PCP - General Family Medicine 01/21/23 Francisco Santiago FNP [address] [place] [address] Nurse Practitioner Family Medicine 03/15/23 documented as of this encounter
--- OUTSIDE RECORDS SUMMARY | 2024-07-26 14:07 | XMS_ITS | Encounter Summary ---
Author Organization [employer] Address [address] [place] [address] [place] [address] Care Team Providers Care Patient Placement Coordinator Name Role Phone Anne Knowles RUG INSPECTOR Primary Care Provider [phone] Maria Del Rosario Miramontes MD Primary Care Pro vider Michaela Woodard MD Primary Care Provider [phone] Francisco Santiago RUG INSPECTOR Unavailable Unavailable Reason for Visit * Reason Comments Med Refill Encounter Details Date Type Department Care Team (Late Contact Info) Description 11/23/2022 Refill [facility]INE [address] [place] [phone] Anne Knowles RUG INSPECTOR [address] [place] [address] Dept [place] [address] Social History Tobacco Use Types Packs/Day Years [...] Encounters Date Type Department Care Team (Late Contact Info) Description 08/02/2024 11:45 AM EDT Clinical Support [facility]INE [address] [place] [phone] Gita Shane RN documented as of this encounter Visit Diagnoses Not on filedocumented in this encounter Additional Health Concerns Assessment Noted Time PHQ-9 Depression Total Score: 5 10/16/19 23 9:07 AM EDT documented as of this encounter Care Teams Patient Placement Coordinator Relationship Specialty Start Date End Date Anne Knowles FNP PCP - General Family Medicine 10/26/21 01/17/23 Maria Del Rosario Miramontes MD [address] [place] [address] PCP - General Internal Medicine 01/18/23 01/20/23 Michaela Woodard MD [address] [place] [address] PCP - General Family Medicine 01/21/23 Francisco Santiago FNP [address] [place] [address] Nurse Practitioner Family Medicine 03/15/23 Genesis Flores Field Project Manager 01/28/23 04/30/23 documented as of this encounter
--- OUTSIDE RECORDS SUMMARY | 2024-07-26 14:07 | XMS_ITS | Encounter Summary ---
Author Organization [employer] Address [address] [facility] 7t [place] [address] Care Team Providers Care Treatment Plant Mechanic Name Role Phone Michaela Woodard MD Primary Care Provider [phone] Francisco Santiago Unavailable Unavailable Encounter Details Date Type Department Care Team (Latest Contact Info) Description 07/26/2024 Travel Social History Tobacco Use Types Packs/Day Years [...] Description 08/02/2024 11:45 AM EDT Clinical Support [facility]INE [address] [place] [address] Gita Shane, ALLAN documented as of this [...] documented as of this encounter Care Teams Treatment Plant Mechanic Relationship Specialty Start Date End Date Michaela Woodard MD [address] [place] [address] PCP - General Family Medicine 01/21/23 Francisco Santiago FNP [address] [place] [address] Nurse Practitioner Family Medicine 03/15/23 documented as of this encounter
--- OUTSIDE RECORDS SUMMARY | 2024-07-26 14:07 | XMS_ITS | Encounter Summary ---
Author Organization [employer] Address [address] [facility] 7t [place] [address] Care Team Providers Care Tape Recording Machine Operator Name Role Phone Michaela Woodard MD Primary Care Provider [phone] Francisco Santiago Unavailable Unavailable Reason for Visit * Reason Comments OBAT F/U Encounter Details Date Type Department Care Team (Latest Contact Info) Description 07/26/2024 10:30 AM EDT Clinical Support [facility] MEDICINE 230 [place] [address] Filemon Brown RN [address] [place] [address] Uncomplicated opioid dependence (CMS/HCC) (Primary Dx); Routine screening for STI (sexually transmitted infection) Social History Tobacco Use Types Packs/Day Years [...] with others, in a hotel, in a custodial, living outside on the street, on a [...] the past 12 months, has t he [employer], [employer], oil or water [employer] threatened to shut off services in your home? Yes 06/12/2024 Depression Answer Date Recorded Patient Health Questionnaire-2 Score 3 07/13/2024 Comments No Sex and Gender Information Value Date Recorded Sex Assigned at Female 02/16/2022 10:37 AM EDT Legal Sex Female 10:37 AM EDT Gender Identity Female 02/16/2022 10:37 AM EDT Sexual Orientation Straight 02/16/2022 10 :37 AM EDT documented as of this encounter Progress Notes * Filemon Brown, RN - 07/26/2024 10:30 AM EDT Maggy here today for Opioid Dependence RV. Patient on current Suboxone dose of 16/4 mg on a weekly schedule. Patient has been in the program for 2 weeks. Provider intake: 07/13/24. LFTs done 06/23/24. Behavioral health: pt scheduled with therapist Izzy. Appointment with Franck Mensah 09/19/24. RENE LEVY reviewed by provider. Last PCP appt 07/13/24. control method: 07/26/24 Nuvaring and referral to [facility] for tubal ligation consult Smoking status: assessed 07/19/24: vapes, wants to quit PrEP: 07/19/24: Interested, needs to repeat LFTs first, pt aware. Last visit 07/20/24 Utox pos thc, mtd, bup Pt seen today for soaker helper to OBAT program. Seen by Dr. Woodard 07/13/24, which we will consider provider intake, and was started on Suboxone 8/2 mg daily. Today reports taking Suboxone but with continued withdrawal symptoms of shakiness and GI upset. Took methadone off street when she ran out of Suboxone. Consulted with Dr. Hurd who increased her dose to 16/4 mg daily. Pt also possibly interested in Sublocade although is also nervous about needles. Also has appointment with Rosita Magana CNM today and clinician Izzy. Also met with PrEP navigator Xiao today and is possibly interested in Apretude. Today 07/26/24 Utox pos thc, mtd, bup Pt seen today for opioid use disorder. Reports ok 2nd week on Suboxone. Feeling better on increaseddose. Did have chills once or twice and will let us know if that continues. Pt reports no additional methadone use this week. No substance use other than thc. Pt states not interested in Sublocade. Reminded pt to do labs (repeat LFTs per Rosita Magana) for Apretude. Pt understands, but also states she is not sure if she is interested. Urine sent out for missing CT/NG per Rosita Magana. Gave pt upcoming appointments. Pt states she is confident in her recovery and doesn't think aboutusing. Plan: Suboxone dosing schedule of 16/4 mg daily and management of side effects reviewed. Recovery support, harm reduction (including Narcan), and behavioral health attendance reviewed. Appointment for 1 week given. Patient expressed understanding and agreement with continuing plan of care. This information has been disclosed to you from records protected by federal confidentiality rules (42 CFR Part 2). The federal rules prohibit you from making any further disclosure of information inthis record that identifies a patient as having or having had a substance use disorder either directly, by reference to publicly available information, or through verification of such identification by another person unless further disclosure is expressly permitted by the written consent of the individual whose information is being disclosed or as otherwise permitted by (see2.3.1). The federal rules restrict any use of the information to investigate or prosecute with regard to a crime any patient with a substance use disorder, except as provided at 2.12??(5) and 2.65. documented in this encounter Plan of Treatment Upcoming Encounters Date Type Department Care Team (Late st Contact Info) Description 08/02/2024 11:45 AM EDT Clinical Support [facility] MED[facility]INE [address] [place] [address] Gita Shane, ALLAN Scheduled Orders Name Type Priority Associated Diagnoses Orde r Schedule Chlamydia/N. Gonorrhoeae RNA, TMA, Urogenitial Microbiology Routine Routine screening for STI (sexually transmitted infection) Ordered: 07/26/2024 documented as of this encounter Goals Goal Patient Goal Type Associated Problems Recent Progress Patient-Stated? 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, ALLAN documented as of this encounter Procedures Procedure Name Priority Date/Time Associated Diagnosis Comments POCT JOSH-14 URINE DRUG SCREEN Routine 07/26/2024 10:50 AM EDT Uncomplicated opioid dependence (CMS/HCC) documented in this encounter Results * POCT JOSH-14 Urine Drug Screen (07/26/2024 10:50 AM EDT) THC Positive Cocaine Screen, Urine Negative Opiate Screen, Urine Negative Methamphetamine Screen Urine Negative Amphetamine Screen, Urine Negative Benzodiazepines Screen, Urine Negative Barbiturate Screen, Urine Negative Methadone Screen, Urine Positive Buprenophine Screen, Urine Positive TCA, Urine Negative MDMA Urine Negative ng/mL Oxycodone Screen, Urine Negative Phencyclidine (PCP), Urine Negative Fentanyl, Urine Negative Urine Urine specimen obtained by clean catch procedure / Unknown 07/26/2024 10:50 AM EDT Michaela Woodard MD POINT OF CARE TEST ENTER/EDIT OR DERABLES Final Result documented in this encounter Visit Diagnoses Diagnosis Uncomplicated opioid dependence (CMS/HCC)- Primary Routine screening for STI (sexually transmitted infection) Screening examination for venereal disease documented in this encounter Additional Health Concerns Assessment Noted Time PHQ-9 Depression Total Score: 17 025 10:51 AM EDT documented as of this encounter Care Teams Tape Recording Machine Operator Relationship Specialty Start Date End Date Michaela Woodard MD [address] [place] [address] PCP - General Family Medicine 01/21/23 Francisco Santiago FNP [address] [place] [address] Nurse Practitioner Family Medicine 03/15/23 documented as of this encounter
--- OUTSIDE RECORDS SUMMARY | 2024-07-26 14:07 | XMS_ITS | Encounter Summary ---
Author Organization [facility] Address [address] [place] [address] Care Team Providers Care Central Supply Manager Name Role Phone No, Pcp (Do Not Change Name) Primary Care Provid er Unavailable Encounter Details Date Type Department Care Team ([facility] st Contact Info) Description 06/23/2023 Scanned Document [facility] Specimens [address] [place], [place] [address] System, Provider Not In Social History Tobacco Use Types Packs/Day Years Used Date Smoking Tobacco: Never Assessed [facility] Utilities Answer Date Recorded In the past 12 months has th [employer], gas, oil, or water company threatened [...] documented as of this encounter Care Teams Central Supply Manager Relationship Specialty Start Date End Date No, Pcp (Do Not Change Name) PCP - General 06/16/23 documented as of this encounter
--- OUTSIDE RECORDS SUMMARY | 2024-07-26 14:07 | XMS_ITS | Encounter Summary ---
Author Organization [employer] Address [address] [facility] [address] 7t [place] [address] Care Team Providers Care Director Of Cloud Services Name Role Phone Michaela Woodard MD Primary Care Provider [phone] Francisco Santiago Unavailable Unavailable Encounter Details Date Type Department Care Team (Late st Contact Info) Description 07/21/2024 Orders Only [facility] [address] [place] [address] Rosita Magana CNM [address] [place] [address] Social History Tobacco Use Types Packs/Day Years [...] with others, in a hotel, in a jail, living outside on the street, on a [...] Description 08/02/2024 11:45 AM EDT Clinical Support [facility] MED[facility]INE [address] [place] [address] Gita Shane, ALLAN documented as of this [...] documented as of this encounter Care Teams Director Of Cloud Services Relationship Specialty Start Date End Date Michaela Woodard MD [address] [place] [address] PCP - General Family Medicine 01/21/23 Francisco Santiago FNP [address] [place] [address] Nurse Practitioner Family Medicine 03/15/23 documented as of this encounter
--- OUTSIDE RECORDS SUMMARY | 2024-07-26 14:07 | XMS_ITS | Encounter Summary ---
Author Organization [employer] Address [address] [place] [address] [place] [address] Care Team Providers Care Director Non Profit Name Role Phone Anne Knowles DRUM TESTER Primary Care Provider [phone] Maria Del Rosario Miramontes MD Primary Care Pro vider Michaela Woodard MD Primary Care Provider [phone] Francisco Santiago DRUM TESTER Unavailable Unavailable Encounter Details Date Type Department Care Team ([facility] Contact Info) Description 09/09/2022 [facility] Information Management [address] [place] [address] Anne Knowles FNP [address] [place] [address] Dept [place] [address] Social History Tobacco Use Types Packs/Day Years [...] Upcoming Encounters Date Type Department Care Team ([facility] Contact Info) Description 08/02/2024 11:45 AM EDT Clinical Support [facility] MEDICINE [address] [place], [place] [id number] Gita Shane RN documented as of this encounter Visit Diagnoses Not on filedocumented in this encounter Additional Health Concerns Assessment Noted Time PHQ-9 Depression Total Score: 10 023 9:07 AM EDT documented as of this encounter Care Teams Director Non Profit Relationship Specialty Start Date End Date Anne Knowles FNP PCP - General Family Medicine 10/26/21 01/17/23 Maria Del Rosario Miramontes MD [address] [place] [address] PCP - General Internal Medicine 01/18/23 01/20/23 Michaela Woodard MD [address] [place] [address] PCP - General Family Medicine 01/21/23 Francisco Santiago FNP [address] [place] [address] Nurse Practitioner Family Medicine 03/15/23 Genesis Flores Civilian Technician 01/28/23 04/30/23 documented as of this encounter
--- OUTSIDE RECORDS SUMMARY | 2024-07-26 14:07 | XMS_ITS | Clinical Summary ---
Author Organization [address] [address] Phone Care Team Providers Care Manager Law Name Role Phone No, Pcp (Do Not [...] Years Used Date Smoking Tobacco: Never Assessed [facility] Utilities Answer Date Recorded In [...] your living situation today? I have a [facility] place to live 06/17/2023 Housing Stability [...] 10,TDAP once) 2014 Cervical cancer screening 07/07/2015 Covid-19 vaccine series ( season) 2023 09/01/2023, 08/23/2020 Influenza vaccine 12/18/2024 RSV Immunization (1 - 1-dose 75+ series) 2069 HIV screening Completed 06/23/2023 Hepatitis C screening Completed 06/23/2023 Pneumococcal Vaccine (2 - 49 years) Aged Out 09/01/2023 No longer eligible b ased on patient's age to complete this topic Meningococcal Vaccine Aged Out No mitzi will eligible based on patient's age to complete this topic Medical Devices Implanted Type Area Chief Jailer Device Identifier Shelf Expiration Date Model / Serial / Lot Breast Breast Procedures Procedure Name Priority Date/Time Associated Diagnosis Comments HIV-1/HIV-2 ANTIBODY/ANTIGEN SCREEN W/REFLEX ([facility]) Add-On 06/23/2023 9:13 AM EST HEPATITIS C AB WITH REFLEX TO HCV PCR Timed 06/23/2023 9:13 AM EST from Last 3 Months or Most Recently Relevant to Health Maintenance Results * HIV-1/HIV-2 antibody/antigen screen w/reflex (06/23/2023 9:13 AM EST) HIV 1 and 2 Antibody/Antigen Screen Non-Reac tive Non-Reac tive 06/24/2023 4:41 PM [facility] Comment:Interpretation: This specimen is HIV antibody [...] Louis MD LAB BLOOD ORDERABLES Final Result [address] [phone] * Hepatitis C Ab with reflex to [...] Louis MD LAB BLOOD ORDERABLES [place] [address], [facility] [phone] from Last 3 Months or Most Recently Relevant to Health Maintenance Insurance [id number] MEDICAID [id number] MEDICAID [id number] MEDICAID [id number] MEDICAID MOTOR VEHICLE GENERIC [id number] MEDICAID MOTOR VEHICLE GENERIC Advance Directives * Full Code (Latest Code Status on File) Date Activated Date Inactivated Comments 06/17/2023 2:48 AM 06/30/2023 10:13 PM Care Teams Manager Law Relationship Specialty Start Date End Date No, Pcp (Do Not Change Name) PCP - General 06/16/23
--- OUTSIDE RECORDS SUMMARY | 2024-07-26 14:07 | XMS_ITS | Encounter Summary ---
Author Organization [employer] Address [address] [facility] 7t [place] [address] Care Team Providers Care Sanding Machine Tender Automatic Name Role Phone Michaela Woodard MD Primary Care Provider Francisco Santiago Unavailable Unavailable Encounter Details Date Type Department Care Team ([facility] st Contact Info) Description 07/14/2024 Patient Outreach [facility] ([facility]) Department [address] [place] [phone] Vanessa Lamb Social History Tobacco Use Types Packs/Day Years [...] Patient Health Questionnaire-2 Score 3 07/13/2024 Comments Unknown Sex and Gender Information Value [...] Description 08/02/2024 11:45 AM EDT Clinical Support [facility] MEDICINE [address] [place] [address] Gita Shane RN documented as of this [...] documented as of this encounter Care Teams Sanding Machine Tender Automatic Relationship Specialty Start Date End Date Michaela Woodard MD [address] [place] [address] PCP - General Family Medicine 01/21/23 Francisco Santiago FNP [address] [place] [address] Nurse Practitioner Family Medicine 03/15/23 documented as of this encounter
--- OUTSIDE RECORDS SUMMARY | 2024-07-26 14:07 | XMS_ITS | Clinical Summary ---
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 sensitivity of the test. As with many diagnostictests, results from the Xpert CT/NG assay should beinterpreted in conjunction with other laboratory andclinical data available to the clinician.Xpert CT/NG performance has not been evaluated in patientsless than 14 years of age. The assay should not be used forthe evaluationof suspected sexual abuse or for other medico-legalindications. Additional testing is recommended in anycircumstance when false positive or false negative resultscould lead to adverse medical, social or psychologicalconsequences. Urine (Urine, Random) 06/12/2024 2:32 PM EST 06/12/2024 4:16 PM EST Narrative [facility] - 06/13/2024 2:28 PM EST Urine us Michaela Woodard MD LAB MICROBIOLOGY - GENERAL ORDER GUI Final Result [facility] [address] [place] [phone] * HIV-1/2 Antigen and Antibodies, Fourth Generation, with Reflexes (06/12/2024 2:32 PM EST) HIV AB/AG Nonreactive Nonreactive [facility] Comment:HIV-1 p24 Ag and/or HIV-1/HIV-2 Ab not detected.A test result that is nonreactive does not exclude thepossibility of exposure to or infection with HIV-1 and/orHIV-2. Nonreactive results in this assay for individualswith prior exposure to HIV-1 and/or HIV-2 may be due toantigen and antibody levels that are below the limit ofdetection of this assay.The [place] HIV Ag/Ab Combo assay result andsupplemental assay results should be interpreted inconjunction with the patient's clinical presentation,history and other laboratory results. If the results areinconsistent with clinical evidence, additional testing issuggested to confirm the result. Blood Venous blood specimen / Unknown 06/12/2024 2:32 PM EST 06/12/2024 4:01 PM EST us Michaela Woodard MD LAB BLOOD ORDERABLES Final Resul t [facility] [address] [place] [phone] * Hemoglobin A1c (06/12/2024 2:32 PM EST) Hemoglobin A1c 5.0 <6.0 % [facility] Comment:Hemoglobin A1C Refer ence Range Adults: 4.8 - 6.0 % Non diabetic: < 6.0 % Goal: < 7.0 %Additional Action Suggested: > 8.0 %Note: Hemoglobin A1c results are invalid for patients with abnormal amounts of HbF. Blood transfusions may impact the HbA1c concentration in the patient sample. Estimated Average Glucose 97 mg/dL [facility] Comment:eAG = Estimated ave rage glucose which is %A1C expressed asaverage glucose, using the formula of the L5Q-YveiqoqDzfpipv Glucose study (ADAG), Diabetes Care, Vol.31,#8,2007 Blood Venous blood specimen / Unknown 06/12/2024 2:32 PM EST 06/12/2024 4:01 PM EST Michaela Woodard MD LAB BLOOD ORDERABLES Final Resul t [facility] [address] [place] [phone] * (ABNORMAL) Comprehensive Metabolic Panel (06/12/2024 2:32 PM EST) Sodium 140 135 - 145 mmol/L [facility] Potassium 4.2 3.3 - 5.1 mmol/L [facility] Chloride 106 96 - 108 mmol/L [facility] Carbon Dioxide 25 22 - 29 mmol/L [facility] Anion Gap 13 12 - 20 [facility] Urea Nitrogen (BUN) 17(H) 9 - 16 mg/dL [facility] Creatinine, Serum 0.61 0.5 - 1.4 mg/dL [facility] Estimated Glomerular Filt Rate >60 [facility] Comment:Chronic Kidney Disea se: Estimated GFR < 60 mL/min/1.11q5Bjramk Kidney Disease: Estimated GFR < 15 mL/min/1.73m2 Glucose 93 60 - 115 mg/dL [facility] Calcium 9.4 8.4 - 10.2 mg/dL [facility] Bilirubin, Total 0.6 0.0 - 1.0 mg/dL [facility] Aspartate Amino Transferase 35(H) 5 - 31 U/L [facility] Alanine Aminotransferase 52(H) 0 - 31 U/L [facility] Total Protein 8.0 6.5 - 8.0 g/dL [facility] Albumin Level 4.3 3.5 - 5.0 g/dL [facility] Alkaline Phosphatase 63 39 - 117 U/L [facility] Blood Venous blood specimen / Unknown 06/12/2024 2:32 PM EST 06/12/2024 4:01 PM EST us Michaela Woodard MD LAB BLOOD ORDERABLES Final Resul t [facility] [address] [place] [phone] * (ABNORMAL) Lipid Panel, Standard (06/09/2022 8:41 AM EST) Cholesterol, Total 168 <200 mg/dL [facility] HDL Cholesterol 43(L) > OR = 50 mg/dL [facility] Triglycerides 79 <150 mg/dL [facility] LDL Cholesterol 108(H) mg/dL (calc) [facility] Comment: Reference range: <100 Desirable range <100 mg/dL for primary prevention; ?? <70 mg/dL for patients with CHD or diabetic patients with > or = 2 CHD risk factors. LDL-C is now calculated using the Alexey calculation, which is a validated novel method providing better accuracy than the Friedewald equation in the estimation of LDL-C. Joseph SS et al. KARSON. 2013;310(19): 6268-9987 (http://education.Feeligo/faq/PRX182) Chol/HDLC Ratio 3.9 <5.0 (calc) [facility] Non-HDL Cholesterol 125 <130 mg/dL (calc) [facility] Comment: For patients with diabetes plus 1 major ASCVD risk factor, treating to a non-HDL-C goal of <100 mg/dL (LDL-C of <70 mg/dL) is considered a therapeutic option. Blood Venous blood specimen / Unknown 06/09/2022 8:41 AM EST 06/09/2022 8:41 AM EST Narrative [facility] - 06/10/2022 12:53 AM EST FASTING:YES FASTING: YES us Anne Knowles SIGNAL OPERATOR LAB BLOOD ORDERABLES Final Result [facility] [address] [facility] [facility], [place] [phone] [facility] [address] [facility], ([address]) [place] [address] * HPV mRNA E6/E7 (08/12/2020 4:13 PM EDT) HPV nRNA E6/E7 Not Detected Not Detected [facility] Comment: Methodology: Medical Science Liaison-Mediated Amplification This assay detects E6/E7 viral messenger RNA (mRNA) from 14 high-risk HPV types (16,18,31,33,35,39,45,51,52,56,58,59,66,68). ? The analytical performance characteristics of this assay have been determined by [facility]. The modifications have not been cleared or approved by the FDA. This assay has been validated pursuant to the CLIA regulations and is used for clinical purposes. ?? For additional information, please refer to http://education.Second Decimal/faq/BSI071m5 (This link if provided for information/ educational purposes only.) 08/12/2020 4:13 PM EDT us Valery Vieira MD LAB BLOOD ORDERABLES Final Re sult [facility] [address] from Last 3 Months or Most Recently Relevant to Health Maintenance Insurance [facility] C[place] [employer] DENTAL[place] AD[place] Care Teams Coat Hanger Shaper Machine Operator Relationship Specialty Start Date End Date Michaela Woodard MD [address] [place] [phone] PCP - General Family Medicine 01/21/23 Francisco Santiago FNP [address] [place] [phone] Nurse Practitioner Family Medicine 03/15/23
--- OUTSIDE RECORDS SUMMARY | 2024-07-26 14:07 | XMS_ITS | Encounter Summary ---
Author Organization [employer] Address [address] [place] [address] Care Team Providers Care Scouring Machine Tender Name Role Phone Michaela Woodard MD Primary Care Provider [phone] Francisco Santiago Unavailable Unavailable Reason for Visit * Reason Onset Date Comments Lab Orders 07/25/2024 Encounter Details Date Type Department Care Team ([facility] st Contact Info) Description 07/25/2024 Telephone [facility]INE [address] [place] [phone] Ya Bellamy RN Lab Orders Social History Tobacco Use Types Packs/Day Years [...] with others, in a hotel, in a skilled nursing, living outside on the street, on a [...] encounter Miscellaneous Notes * Telephone Encounter - Rosita Magana CNM - 07/26/2024 11:05 AM EDT Thank you so much! * Telephone Encounter - Filemon Brown RN - 07/26/2024 11:01 AM EDT Hi! Saw Maggy for OBAT today. We can send out her urine specimen for the missing CT/NG, so I cancelled your order from yesterday and re-ordered it as a clinic collect and we are sending to lab. She declined vaginal swab. She is aware of need to do PrEP labs, but not sure she is interested. * Telephone Encounter - Ya Bellamy RN - 07/25/2024 2:54 PM EDT TC placed to pt with S family resource coordinator #[id number] to inform of the need to recollect a specimen for gonorrhea and chlamydia testing. The pt was given the option for either a urine or vaginal swab and the pt was agreeable to a urine sample. Pt will present to the Green Team on Wednesday 4/9. Order enteredinto the system by Rosita Magana. * Telephone Encounter - Rosita Magana CNM - 07/25/2024 2:32 PM EDT Thanks. No need for trichomonas testing, but please ask Maggy to come in for Gonorrhea/Chlamydia testing (urine or vaginal self swab as she prefers) and please apologize for the inconvenience. * Telephone Encounter - Ya Bellamy RN - 07/25/2024 2:21 PM EDT TC from Ya at the [facility] who called to inform that the sample that was taken from the original PAP sample was in fact an insufficient amount per [facility]. The error occurred at [facility] when taking the sample from the PAP testing. Unfortunately the PAP sample has already been sent to [place]. According to Ya the sample will need to be collected again for the Gonorrhea, Chlamydia and Trichomonas. * Telephone Encounter - Ya Bellamy RN - 07/25/2024 9:10 AM EDT TC placed to [facility] who is going to look into what happened to the add on testing run off the pap vial for this pt. [facility] will call back when more information is known. Direct extension given for callback. ----- Message from Rosita Magana sent at 07/25/2024 8:14 AM EDT ----- Lab message noted that Gonorrhea/Chlamydia/trichomonas not performed collection tube incorrectly filled. These tests were ordered off pap vial, should be no error on our end. Please call lab to figure out what is going on. Thanks! documented in this encounter Plan of Treatment Upcoming Encounters Date Type Department Care Team (Mar[facility] hinojosa Contact Info) Description 08/02/2024 11:45 AM EDT Clinical Support [facility] MEDICINE [address] [place] [address] Gita Shane, ALLAN documented as of this [...] documented as of this encounter Care Teams Scouring Machine Tender Relationship Specialty Start Date End Date Michaela Woodard MD [address] [place] [phone] PCP - General Family Medicine 01/21/23 Francisco Santiago FNP [address] [place] [phone] Nurse Practitioner Family Medicine 03/15/23 documented as of this encounter
--- OUTSIDE RECORDS SUMMARY | 2024-07-26 14:07 | XMS_ITS | Encounter Summary ---
Author Organization [employer] Address [address] [place] [address] [place] [address] Care Team Providers Care Transmission Design Engineer Name Role Phone Anne Knowles TICKET COUNTER Primary Care Provider [phone] Maria Del Rosario Miramontes MD Primary Care Pro vider Michaela Woodard MD Primary Care Provider [phone] Francisco Santiago TICKET COUNTER Unavailable Unavailable Encounter Details Date Type Department Care Team (Late Contact Info) Description 09/23/2022 [facility] Information Management [address] [place] [address] Anne Knowles FNP [address] [place] [address] [place] [address] Social History Tobacco Use Types Packs/Day Years [...] Upcoming Encounters Date Type Department Care Team ([facility] Contact Info) Description 08/02/2024 11:45 AM EDT Clinical Support [facility] MEDICINE [address] [place], [place] [phone] Gita Shane RN documented as of this encounter Visit Diagnoses Not on filedocumented in this encounter Additional Health Concerns Assessment Noted Time PHQ-9 Depression Total Score: 10 023 9:07 AM EDT documented as of this encounter Care Teams Transmission Design Engineer Relationship Specialty Start Date End Date Anne Knowles FNP PCP - General Family Medicine 10/26/21 01/17/23 Maria Del Rosario Miramontes MD [address] [place] [address] PCP - General Internal Medicine 01/18/23 01/20/23 Michaela Woodard MD [address] [place] [address] PCP - General Family Medicine 01/21/23 Francisco Santiago FNP [address] [place] [phone] Nurse Practitioner Family Medicine 03/15/23 Genesis Flores Forest Ranger 01/28/23 04/30/23 documented as of this encounter
--- OUTSIDE RECORDS SUMMARY | 2024-07-26 14:07 | XMS_ITS | Encounter Summary ---
Author Organization [employer] Address [address] [facility] 7[address] [place] [address] Care Team Providers Care Tavern Car Attendant Name Role Phone Michaela Woodard MD Primary Care Provider [phone] Francisco Santiago Unavailable Unavailable Reason for Visit * Reason Comments Care Coordination CM/CHW outreach Encounter Details Date Type Department Care Team (Latest Contact Info) Description 07/24/2024 Patient Outreach [facility] MEDICINE [address] [place] [address] Michaela Woodard MD [address] [place] [phone] Care Coordination (CM/CHW outreach) Social History Tobacco Use Types Packs/Day Years [...] as of this encounter Progress Notes * Elsa Mott - 07/24/2024 1:10 PM EDT CHW Elsa Mott, placed outbound call to patient introducing herself from [facility] Department, in regards to offering services. Patient's name and was confirmed. Patient agreesto participate in program. Appt. for initial assessment scheduled for 08/11/24 @ 1PM tele with PANTERA Griffith RN. CHW reinforced direct contact information or CM for any additional questions or concerns and extended clinic hours on Mondays and Wednesdays, and Walk-In Urgent Care Located in [facility] of [facility]. Patient provided with after-hours line for [facility], ,which offer night time triage service and option to transfer to contracts representative provider if needed. Patient verbalizes understanding, and able to repeat back to press writer. documented in this encounter Plan of Treatment Upcoming Encounters Date Type Department Care Team (Late st Contact Info) Description 08/02/2024 11:45 AM EDT Clinical Support [facility] MEDICINE [address] [place], [place] [phone] Gita Shane, ALLAN documented as of this [...] documented as of this encounter Care Teams Tavern Car Attendant Relationship Specialty Start Date End Date Michaela Woodard MD [address] [place] [address] PCP - General Family Medicine 01/21/23 Francisco Santiago FNP [address] [place] [address] Nurse Practitioner Family Medicine 03/15/23 documented as of this encounter
--- OUTSIDE RECORDS SUMMARY | 2024-07-26 14:07 | XMS_ITS | Encounter Summary ---
Author Organization [employer] Address [address] [place] [address] Care Team Providers Care Airplane Coverer Name Role Phone Michaela Woodard MD Primary Care Provider [phone] Francisco Santiago Unavailable Unavailable Encounter Details Date Type Department Care Team (Late st Contact Info) Description 07/25/2024 Orders Only [facility] MEDICINE [address] [place] [address] Rosita Magana CNM [address] [place] [address] Screening examination for venereal disease (Primary Dx) Social History Tobacco Use Types Packs/Day Years [...] with others, in a hotel, in a fci, living outside on the street, on a [...] Description 08/02/2024 11:45 AM EDT Clinical Support [facility] [address] [place] [address] Gita Shane, ALLAN documented as of this encounter Goals Goal Patient Goal Type Associated Problems Recent Progress Patient-Stated? 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, ALLAN documented as of this encounter Visit Diagnoses Diagnosis Screening examination for venereal disease- Primary documented in this encounter Additional Health Concerns Assessment Noted Time PHQ-9 Depression Total Score: 17 025 10:51 AM EDT documented as of this encounter Care Teams Airplane Coverer Relationship Specialty Start Date End Date Michaela Woodard MD [address] [place] [phone] PCP - General Family Medicine 01/21/23 Francisco Santiago FNP [address] [place] [phone] Nurse Practitioner Family Medicine 03/15/23 documented as of this encounter
[2024-07-26 14:36] LABS: CT PCR NOT DETECTED (Not Detect.); NG PCR NOT DETECTED (Not Detect.)
== END 2024-07-26 12:00 | disposition home or self-care (01) ==
LOC: HO.HHCLNP 11:59
PROVIDERS: Visit Provider Advanced Practice Midwife
DX: Z11.3 Encounter for screening for infections with a predominantly sexual mode of transmission (principal)
CPT/HCPCS: 87491; 87591

== ENCOUNTER 2024-08-09 11:07 | Outpatient (REF) | payer MEDICAID, SELFPAY ==
--- OUTSIDE RECORDS SUMMARY | 2024-08-09 13:25 | XMS_ITS | Clinical Summary ---
Author Organization [facility] Address [address] [place] [address] Phone Care Team Providers Care Home Mission Worker Name Role Phone Physician, Pcp Unknown Primary [...] EST - 06/24/2024 1:22 AM EST Emergency [facility] Emergency [address] [place] [address] Opioid use disorder (Primary Dx) [...] GEMUSE QTc 392 ms GEMUSE P Wave [place] 54 degrees GEMUSE R [place] 57 degrees GEMUSE T [place] 42 degrees GEMUSE ECG Interpretation Normal sinus [...] Negative LAB CHEMISTRY METHOD 5 8:41 PM [facility] Comment:Certain OTC medicati ons containing ephedrine, phenylephrine, pseudoephedrine and phenylpropanolamine can cause false positive results. Barbiturate Screen, Ur Negative Negative LAB CHEMISTRY METHOD 5 8:41 PM [facility] Benzodiazepine Screen, Ur Negative Negative LAB CHEMISTRY METHOD 5 8:41 PM [facility] Cocaine Screen, Ur Negative Negative LAB CHEMISTRY METHOD 5 8:41 PM [facility] Opiate Screen, Ur Positive(A ) Negative LAB CHEMISTRY METHOD 5 8:41 PM [facility] Cannabinoid (THC) Screen, Ur Positive(A ) Negative LAB CHEMISTRY METHOD 5 8:41 PM [facility] Comment:Specimens from patie nts taking pantoprazole sodium (Protonix) have been shown to produce false positive results. Oxycodone Screen, Ur Negative Negative LAB CHEMISTRY METHOD 5 8:41 PM [facility] Fentanyl, Ur Positive(A ) Negative LAB CHEMISTRY METHOD 5 8:41 PM [facility] Urine Urine specimen obtained by clean catch procedure / Unknown Non-blood Collection / Unknown 06/23/2024 7:30 PM EST 06/23/2024 7:55 PM EST [facility] - 06/23/2024 8:41 PM [...] ORDERABLES Final Resu lt Performing Organization Address [facility] de Phone Number [facility] [address] [place] [address], * Buprenorphine screen, urine (06/23/2024 7:30 PM EST) [facility] Buprenorphine Screen Urine Negative Negative LAB CHEMISTRY METHOD 06/23/2024 8:31 PM EST [facility] Urine Urine specimen obtained by clean catch procedure / Unknown Non-blood Collection / Unknown 06/23/2024 7:30 PM EST 06/23/2024 7:55 PM EST Narrative [facility] - 06/23/2024 8:31 PM EST Assay cutoff 5 ng/mL Semi-quantitative assay for screening purposes only. Unconfirmed screening result should not be used for non-medical purposes. *ALTERNATE METHOD CONFIRMATION DONE UPON REQUEST ONLY* Williams B Ernesto AARON LAB URINE ORDERABLES Final Resu lt Performing Organization Address [facility] de Phone Number [facility] [address] [place] [address], * Methadone, urine (06/23/2024 7:30 PM EST) Pathologist [facility] Methadone Screen, Urine Negative Negative LAB CHEMISTRY METHOD 06/23/2024 8:31 PM EST [facility] Comment: Assay cutoff 300 ng/mL Semi-quantitative assay for screening purposes only. Unconfirmed screening result should not be used for non-medical purposes. *ALTERNATE METHOD CONFIRMATION DONE UPON REQUEST ONLY* Urine Urine specimen obtained by clean catch procedure / Unknown Non-blood Collection / Unknown 06/23/2024 7:30 PM EST 06/23/2024 7:55 PM EST us Williams B Ernesto AARON LAB URINE ORDERABLES Final Resu lt [facility] [address] [place] [address], * CBC auto differential (06/23/2024 7:30 PM EST) WBC 8.2 4.8 - 10.8 K/mcL LAB HEMETOLOGY METHOD 06/23/2024 8:02 PM [facility] RBC 4.70 3.80 - 4.80 M/mcL LAB HEMETOLOGY METHOD 06/23/2024 8:02 PM [facility] Hemoglobin 13.4 11.5 - 16.0 g/dL LAB HEMETOLOGY METHOD 06/23/2024 8:02 PM [facility] Hematocrit 41.2 35.0 - 47.0 % LAB HEMETOLOGY METHOD 06/23/2024 8:02 PM [facility] MCV 87.3 79.0 - 98.0 FL LAB HEMETOLOGY METHOD 06/23/2024 8:02 PM [facility] MCH 28.4 27.0 - 32.0 pcg LAB HEMETOLOGY METHOD 06/23/2024 8:02 PM [facility] MCHC 32.5 32.0 - 37.0 g/dL LAB HEMETOLOGY METHOD 06/23/2024 8:02 PM [facility] RDW 12.2 11.0 - 15.0 % LAB HEMETOLOGY METHOD 06/23/2024 8:02 PM [facility] Platelets 305 130 - 400 K/mcL LAB HEMETOLOGY METHOD 06/23/2024 8:02 PM [facility] MPV 10.8 7.0 - 11.0 FL LAB HEMETOLOGY METHOD 06/23/2024 8:02 PM [facility] NRBC 0.0 <1.0 % LAB HEMETOLOGY METHOD 06/23/2024 8:02 PM [facility] NRBC Absolute 0.00 <0.10 K/mcL LAB HEMETOLOGY METHOD 06/23/2024 8:02 PM [facility] Neutrophils Relative 58.3 % LAB HEMETOLOGY METHOD 06/23/2024 8:02 PM [facility] Lymphocytes Relative 32.0 % LAB HEMETOLOGY METHOD 06/23/2024 8:02 PM [facility] Monocytes Relative 3.5 % LAB HEMETOLOGY METHOD 06/23/2024 8:02 PM [facility] Eosinophils Relative 5.3 % LAB HEMETOLOGY METHOD 06/23/2024 8:02 PM [facility] Basophils Relative 0.7 % LAB HEMETOLOGY METHOD 06/23/2024 8:02 PM [facility] Immature Granulocytes Relative 0.2 % LAB HEMETOLOGY METHOD 06/23/2024 8:02 PM [facility] Neutrophils Absolute 4.76 1.50 - 7.00 K/mcL LAB HEMETOLOGY METHOD 06/23/2024 8:02 PM [facility] Lymphocytes Absolute 2.62 1.00 - 5.00 K/mcL LAB HEMETOLOGY METHOD 06/23/2024 8:02 PM [facility] Monocytes Absolute 0.29 0.20 - 1.00 K/mcL LAB HEMETOLOGY METHOD 06/23/2024 8:02 PM [facility] Eosinophils Absolute 0.43 0.00 - 0.50 K/mcL LAB HEMETOLOGY METHOD 06/23/2024 8:02 PM EST [facility] Basophils Absolute 0.06 0.00 - 0.20 K/[facility] LAB HEMETOLOGY METHOD 06/23/2024 8:02 PM EST [facility] Immature Granulocytes Absolute 0.02 0.00 - 0.03 K/[facility] LAB HEMETOLOGY METHOD 06/23/2024 8:02 PM EST [facility] Blood Venous blood specimen / Unknown Venipuncture / Unknown 06/23/2024 7:30 PM EST 06/23/2024 7:55 PM EST Williams Gil Orozco MD LAB BLOOD ORDERABLES Final Resu lt Performing Organization Address [facility]/ZIP Co de Phone Number [facility] [address] [place] [address], * Phencyclidine, urine (06/23/2024 7:30 PM EST) PCP Scrn, Ur Negative Negative LAB CHEMISTRY METHOD 06/23/2024 8:31 PM EST [facility] Comment: Assay cutoff 25 ng/mL Semi-quantitative assay for screening purposes only. Unconfirmed screening result should not be used for non-medical purposes. *ALTERNATE METHOD CONFIRMATION DONE UPON REQUEST ONLY* Urine Urine specimen obtained by clean catch procedure / Unknown Non-blood Collection / Unknown 06/23/2024 7:30 PM EST 06/23/2024 7:55 PM EST Williamsjonel Orozco MD LAB URINE ORDERABLES Final Resu lt Performing Organization Address City/[facility]/ZIP Co de Phone Number [facility] [address] [place] [address], [place] [phone] * Magnesium (06/23/2024 7:30 PM EST) Magnesium 2.1 1.9 - 2.6 mg/dL LAB CHEMISTRY METHOD 06/23/2024 8:26 PM EST [facility] Blood Venous blood specimen / Unknown Venipuncture / Unknown 06/23/2024 7:30 PM EST 06/23/2024 7:55 PM EST us Williams Orozco MD LAB BLOOD ORDERABLES Final Resu lt [facility] [address] [place] [address], [place] [phone] * Lipase (06/23/2024 7:30 PM EST) Lipase 22 13 - 75 unit/L LAB CHEMISTRY METHOD 06/23/2024 8:26 PM EST [facility] Blood Venous blood specimen / Unknown Venipuncture / Unknown 06/23/2024 7:30 PM EST 06/23/2024 7:55 PM EST us Williams Orozco MD LAB BLOOD ORDERABLES Final Resu lt Performing Organization Address City/[facility]/ZIP Co de Phone Number [facility] [address] [place] [address], [place] [phone] * Ethanol (06/23/2024 7:30 PM EST) Ethanol Level <3 0 - 10 mg/dL LAB CHEMISTRY METHOD 06/23/2024 8:26 PM EST [facility] Blood Venous blood specimen / Unknown Venipuncture / Unknown 06/23/2024 7:30 PM EST 06/23/2024 7:55 PM EST us Williams Orozco MD LAB BLOOD ORDERABLES Final Resu lt Performing Organization Address City/[facility]/ZIP Co de Phone Number [facility] [address] [place] [address], [place] [phone] * (ABNORMAL) Comprehensive metabolic panel (06/23/2024 7:30 PM EST) Sodium 139 133 - 145 mmol/L LAB CHEMISTRY METHOD 06/23/2024 8:26 PM [facility] Potassium 4.2 3.5 - 5.5 mmol/L LAB CHEMISTRY METHOD 06/23/2024 8:26 PM [facility] Chloride 107 96 - 110 mmol/L LAB CHEMISTRY METHOD 06/23/2024 8:26 PM [facility] CO2 25 21 - 32 mmol/L LAB CHEMISTRY METHOD 06/23/2024 8:26 PM [facility] Anion Gap 7 3 - 11 LAB CHEMISTRY METHOD 06/23/2024 8:26 PM [facility] Glucose 112(H) 70 - 100 mg/dL LAB CHEMISTRY METHOD 06/23/2024 8:26 PM [facility] BUN 13 5 - 25 mg/dL LAB CHEMISTRY METHOD 06/23/2024 8:26 PM [facility] Creatinine 0.55 0.50 - 1.10 mg/dL LAB CHEMISTRY METHOD 06/23/2024 8:26 PM [facility] eGFR 127 >=60 mL/min/1. 73m2 LAB CHEMISTRY METHOD 06/23/2024 8:26 PM [facility] Comment:Calculation based on the??Chronic Kidney Disease Epidemiology Collaboration (CKD-EPI) equation refit??without adjustment for race. BUN/Creatinine Ratio 23.6 LAB CHEMISTRY METHOD 06/23/2024 8:26 PM [facility] Calcium 9.1 8.5 - 10.5 mg/dL LAB CHEMISTRY METHOD 06/23/2024 8:26 PM [facility] AST (SGOT) 33 10 - 42 unit/L LAB CHEMISTRY METHOD 06/23/2024 8:26 PM [facility] ALT (SGPT) 75(H) 10 - 60 unit/L LAB CHEMISTRY METHOD 06/23/2024 8:26 PM EST [facility] Alkaline Phosphatase 89 42 - 121 unit/L LAB CHEMISTRY METHOD 06/23/2024 8:26 PM EST [facility] Total Protein 7.3 6.0 - 8.0 g/dL LAB CHEMISTRY METHOD 06/23/2024 8:26 PM EST [facility] Albumin 3.6 3.2 - 5.0 g/dL LAB CHEMISTRY METHOD 06/23/2024 8:26 PM [facility] Total Bilirubin 0.3 0.0 - 1.4 mg/dL LAB CHEMISTRY METHOD 06/23/2024 8:26 PM [facility] Blood Venous blood specimen / Unknown Venipuncture / Unknown 06/23/2024 7:30 PM EST 06/23/2024 7:55 PM EST Williams Orozco MD LAB BLOOD ORDERABLES Final Resu lt [facility] [address] [place] [address], [place] [phone] from Last 3 Months Insurance MEDICAID - [place] Care Teams Home Mission Worker Relationship Specialty Start Date End Date Physician, Pcp Unknown PCP - General 06/23/24
--- OUTSIDE RECORDS SUMMARY | 2024-08-09 13:25 | XMS_ITS | Referral Summary ---
Author Organization [facility] Address [address] [place] [address] Care Team Providers Care Animal Maintenance Supervisor Name Role Phone Wally Mueller Primary Care Provider [phone] Allergies No known active allergies Medications * [...] Not on file Procedures * Due to [facility] law, this organization might not be sharing negative HIV tests. Procedure Name Priority Date/Time Associated Diagnosis Comments DRUGS OF ABUSE SCREEN, URINE STAT 06/29/2024 6:28 PM EDT HCG QUALITATIVE, URINE STAT 06/29/2024 6:28 PM EDT RAPID COVID-19 RNA FOR SURVEILLANCE (ED ONLY) STAT 06/29/2024 1:35 PM EDT from Last 3 Months Results * Due to [facility] law, this organization might not be sharing negative HIV tests. * (ABNORMAL) Drugs of Abuse Screen, Urine (06/29/2024 6:28 PM EDT) Amphetamine Screen, Urine Negative Negative 06/29/2024 7:02 PM EDT [facility] Comment: Detection limit of 1000 ng/mL of d-Methamphetamine. Drug results are to be used only for medical purposes. ??Unconfirmed screening results must not be used for non-medical purposes. Barbiturate Screen, Urine Negative Negative 06/29/2024 7:02 PM EDT [facility] Comment: Detection limit of 200 ng/mL of Secobarbital. Drug results are to be used only for medical purposes. ??Unconfirmed screening results must not be used for non-medical purposes. Benzodiazepine Screen, Urine Presumptive Positive(A) Negative 06/29/2024 7:02 PM EDT [facility] Comment: Detection limit of 200 ng/mL of Nordiazepam. Drug results are to be used only for medical purposes. ??Unconfirmed screening results must not be used for non-medical purposes. Buprenorphine Screen, Urine Negative Negative 06/29/2024 7:02 PM EDT [facility] Comment: Detection limit of 10 ng/mL of norbuprenorphine. Drug results are to be used only for medical purposes. ??Unconfirmed screening results must not be used for non-medical purposes. Cocaine Metabolite Screen, Urine Negative Negative 06/29/2024 7:02 PM EDT [facility] Comment: Detection limit of 300 ng/mL of Benzoylecgonine. Drug results are to be used only for medical purposes. ??Unconfirmed screening results must not be used for non-medical purposes. Marijuana Screen, Urine Presumptive Positive(A) Negative 06/29/2024 7:02 PM EDT [facility] Comment: Detection limit of 50 ng/mL of 61-Qeq-fvinq-4-RGZ-2-carboxylic acid. Drug results are to be used only for medical purposes. ??Unconfirmed screening results must not be used for non-medical purposes. Methadone Metabolite Screen, Urine Presumptive Positive(A) Negative 06/29/2024 7:02 PM EDT [facility] Comment: Detection limit of 300 ng/mL of Methadone. Drug results are to be used only for medical purposes. ??Unconfirmed screening results must not be used for non-medical purposes. Oxycodone Screen, Urine Negative Negative 06/29/2024 7:02 PM T [facility] Comment: Detection limit of 100 ng/mL of Oxycodone. Drug results are to be used only for medical purposes. ??Unconfirmed screening results must not be used for non-medical purposes. Opiate Screen, Urine Negative Negative 06/29/2024 7:02 PM EDT [facility] Comment: Detection limit of 300 ng/mL of Morphine. Drug results are to be used only for medical purposes. ??Unconfirmed screening results must not be used for non-medical purposes. Fentanyl Screen, Urine Presumptive Positive(A) Negative 06/29/2024 7:02 PM EDT [facility] Comment: Detection limit [...] ORDERABLES Final Resul t Performing Organization Address [facility] de Phone Number [facility]ITAL[facility]ologics[facility] [address] [place] [address], * HCG Qualitative, Urine (06/29/2024 6:28 PM EDT) Pathologist [facility] HCG Qualitative, Urine Negative Negative [place] [facility] 06/29/2024 7:00 PM EDT [facility] Comment: hCG may [...] ORDERABLES Final Resul t Performing Organization Address [facility] de Phone Number [facility] [address] [place] [address], * Rapid COVID-19 RNA for Surveillance (06/29/2024 1:35 PM EDT) [facility] PCR, SARS CoV-2 RNA Not Detected Not Detected [employer] 06/29/2024 2:20 PM EDT [facility] Comment:A Not Detected [...] PM EDT 06/29/2024 1:42 PM EDT Narrative [facility] - 06/29/2024 2:20 PM EDT This test was developed, validated and its performance characteristics determined by [facility]. This test has not been cleared or approved by the U.S. Food and Drug Administration (FDA). FDA Policy for Diagnostic Tests for Coronavirus Disease-2019 during the Public Health Emergency issued July 03, 2019, is followed. us Chadd Meléndez MD LAB BODY FLUIDS AND STOOLS ORDER GUI Final Result [facility] [address] [place] [address], from Last 3 Months Insurance [employer] Care Teams Animal Maintenance Supervisor Relationship Specialty Start Date End Date Wally Mueller [address] [place] [phone] PCP - General Psychiatry 06/29/24
--- OUTSIDE RECORDS SUMMARY | 2024-08-09 13:26 | XMS_ITS | Encounter Summary ---
Author Organization [employer] Address [address] [place] [address] [address] [place] [address] Care Team Providers Care Supervisor Concrete Stone Finishing Name Role Phone Michaela Woodard MD Primary Care Provider [phone] Francisco Santiago Unavailable Unavailable Encounter Details Date Type Department Care Team (Late st Contact Info) Description 07/04/2024 Telephone [facility] [address] [place] [address] Hallie Bernabe, MakennaD [address] [place] [address] Social History Tobacco Use Types Packs/Day Years [...] with others, in a hotel, in a care home, living outside on the street, on a [...] Care Team (Late st Contact Info) Description 08/16/2024 11:15 AM EDT Clinical Support [facility] [address] [place] [phone] Filemon Brown, RN [address] [place] [phone] 10/18/2024 9:00 AM EDT Office Visit [facility] [address] [place] [phone] Rosita Magana CNM [address] [place] [address] documented as of this encounter Visit Diagnoses Not on filedocumented in this encounter Additional Health Concerns Assessment Noted Time PHQ-9 Depression Total Score: 14 025 2:25 PM EST documented as of this encounter Care Teams Supervisor [employer]crete [employer] Finishing Relationship Specialty Start Date End Date Michaela Woodard MD [address] [place] [phone] PCP - General Family Medicine 01/21/23 Francisco Santiago FNP [address] [place] [address] Nurse Practitioner Family Medicine 03/15/23 documented as of this encounter
--- OUTSIDE RECORDS SUMMARY | 2024-08-09 13:26 | XMS_ITS | Encounter Summary ---
Author Organization [employer] Address [address] [place] [address] [address] [place] [address] Care Team Providers Care Sack Sorter Name Role Phone Michaela Woodard MD Primary Care Provider [phone] Francisco Santiago Unavailable Unavailable Reason for Visit * Reason Comments Med Refill Encounter Details Date Type Department Care Team ([facility] st Contact Info) Description 02/04/2023 Refill [facility] [address] [place] [address] Anne Knowles FNP [address] [place] [address] Dept [place] [address] Social History Tobacco Use Types Packs/Day Years Used Date Smoking Tobacco: Former Cigarettes Q uit: 05/20/2022 Smokeless Tobacco: Never Alcohol Use Standard Drinks/Week Comments Not Currently 0 (1 standard drink = 0.6 oz pur e alcohol) Depression Answer Date Recorded Patient Health Questionnaire-9 Score 5 12/10/2022 Housing Stability Answer Date Recorded What is your housing situation today? I have zehra chapman 02/01/[address] you [...] Description 08/16/2024 11:15 AM EDT Clinical Support [facility] [address] [place] [phone] Filemon Brown, RN [address] [place] [phone] 10/18/2024 9:00 AM EDT Office Visit [facility] [address] [place] [address] Rosita Magana CNM [address] [place] [address] documented as of this encounter Visit Diagnoses Not on filedocumented in this encounter Additional Health Concerns Assessment Noted Time PHQ-9 Depression Total Score: 5 12/11/19 23 9:04 AM EDT documented as of this encounter Care Teams Sack Sorter Relationship Specialty Start Date End Date Michaela Woodard MD [address] [place] [phone] PCP - General Family Medicine 01/21/23 Francisco Santiago FNP [address] [place] [address] Nurse Practitioner Family Medicine 03/15/23 Genesis Flores Geriatric Aide 01/28/23 04/30/23 documented as of this encounter
--- OUTSIDE RECORDS SUMMARY | 2024-08-09 13:26 | XMS_ITS | Clinical Summary ---
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 Absolute Auto 0.4 0.0 - 0.4 X10*3/uL [facility] Basophils Absolute Auto 0.1 0.0 - 0.2 X10*3/uL [facility] NRBC Abs Auto 0.000 0.0 - 0.012 X10*3/uL [facility] Blood Venous blood specimen / Unknown 06/12/2024 2:32 PM EST 06/12/2024 4:01 PM EST Michaela Woodard MD LAB BLOOD ORDERABLES Final Resul t Performing Organization Address City/[facility]/ZIP Co de Phone Number [facility] [address] [place] [phone] * Hepatitis C Antibody with Reflex to HCV, RNA, Quantitative, Real-Time PCR (06/12/2024 2:32 PM EST) Hepatitis C Antibody Nonreactive Nonreactive [facility] Comment:Antibodies to HCV no t detected; does not exclude early acuteHCV infection. Blood Venous blood specimen / Unknown 06/12/2024 2:32 PM EST 06/12/2024 4:01 PM EST Michaela Woodard MD LAB BLOOD ORDERABLES Final Resul t Performing Organization Address City/[facility]/ZIP Co de Phone Number [facility] [address] [place] [phone] * Thyroid Peroxidase Antibodies (06/12/2024 2:32 PM EST) Thyroid Peroxidase Antibodies <1 <9 IU/mL [facility] Comment:THIS TEST WAS PERFOR MED AT:[employer] [place] [phone] PAUL MD Blood Venous blood specimen / Unknown 06/12/2024 2:32 PM EST 06/12/2024 4:01 PM EST us Michaela Woodard MD LAB BLOOD ORDERABLES Final Resul t [facility] [address] [place] [phone] * HIV-1/2 Antigen and Antibodies, Fourth Generation, with Reflexes (06/12/2024 2:32 PM EST) HIV AB/AG Nonreactive Nonreactive [facility] Comment:HIV-1 p24 Ag and/or HIV-1/HIV-2 Ab not detected.A test result that is nonreactive does not exclude thepossibility of exposure to or infection with HIV-1 and/orHIV-2. Nonreactive results in this assay for individualswith prior exposure to HIV-1 and/or HIV-2 may be due toantigen and antibody levels that are below the limit ofdetection of this assay.The AppSheet HIV Ag/Ab Combo assay result andsupplemental assay results should be interpreted inconjunction with the patient's clinical presentation,history and other laboratory results. If the results areinconsistent with clinical evidence, additional testing issuggested to confirm the result. Blood Venous blood specimen / Unknown 06/12/2024 2:32 PM EST 06/12/2024 4:01 PM EST us Michaela Woodard MD LAB BLOOD ORDERABLES Final Resul t [facility] [address] [place] [phone] * Hemoglobin A1c (06/12/2024 2:32 PM EST) Hemoglobin A1c 5.0 <6.0 % [facility] Comment:Hemoglobin A1C Refer ence Range Adults: 4.8 - 6.0 % Non diabetic: < 6.0 % Goal: < 7.0 %Additional Action Suggested: > 8.0 %Note: Hemoglobin A1c results are invalid for patients with abnormal amounts of HbF. Blood transfusions may impact the HbA1c concentration in the patient sample. Estimated Average Glucose 97 mg/dL [facility] Comment:eAG = Estimated ave rage glucose which is %A1C expressed asaverage glucose, using the formula of the [id number]-[id number] Glucose study (ADAG), Diabetes Care, Vol.31,#8,Nov. 2007 Blood Venous blood specimen / Unknown 06/12/2024 2:32 PM EST 06/12/2024 4:01 PM EST us Michaela Woodard MD LAB BLOOD ORDERABLES Final Resul t [facility] [address] [place] [phone] * (ABNORMAL) Comprehensive Metabolic Panel (06/12/2024 2:32 PM EST) Sodium 140 135 - 145 mmol/L [facility] Potassium 4.2 3.3 - 5.1 mmol/L [facility] Chloride 106 96 - 108 mmol/L [facility] Carbon Dioxide 25 22 - 29 mmol/L [facility] Anion Gap 13 12 - 20 [facility] Urea Nitrogen (BUN) 17(H) 9 - 16 mg/dL [facility] Creatinine, Serum 0.61 0.5 - 1.4 mg/dL [facility] Estimated Glomerular Filt Rate >60 [facility] Comment:Chronic Kidney Disea se: Estimated GFR < 60 mL/min/1.58k9Rjswsw Kidney Disease: Estimated GFR < 15 mL/min/1.73m2 Glucose 93 60 - 115 mg/dL [facility] Calcium 9.4 8.4 - 10.2 mg/dL [facility] Bilirubin, Total 0.6 0.0 - 1.0 mg/dL [facility] Aspartate Amino Transferase 35(H) 5 - 31 U/L [facility] Alanine Aminotransferase 52(H) 0 - 31 U/L [facility] Total Protein 8.0 6.5 - 8.0 g/dL [facility] Albumin Level 4.3 3.5 - 5.0 g/dL [facility] Alkaline Phosphatase 63 39 - 117 U/L [facility] Blood Venous blood specimen / Unknown 06/12/2024 2:32 PM EST 06/12/2024 4:01 PM EST us Michaela Woodard MD LAB BLOOD ORDERABLES Final Resul t [facility] [address] [place] [phone] [phone] * (ABNORMAL) Lipid Panel, Standard (06/09/2022 8:41 AM EST) Cholesterol, Total 168 <200 mg/dL [facility] HDL Cholesterol 43(L) > OR = 50 mg/dL [facility] Triglycerides 79 <150 mg/dL [facility] LDL Cholesterol 108(H) mg/dL (calc) [facility] Comment: Reference range: <100 Desirable range <100 mg/dL for primary prevention; ?? <70 mg/dL for patients with CHD or diabetic patients with > or = 2 CHD risk factors. LDL-C is now calculated using the Joseph-Lexi calculation, which is a validated novel method providing better accuracy than the Friedewald equation in the estimation of LDL-C. Joseph SS et al. KARSON. 2013;310(19): 6539-4053 (http://education.Fiix/faq/KKI943) Chol/HDLC Ratio 3.9 <5.0 (calc) [facility] Non-HDL Cholesterol 125 <130 mg/dL (calc) [facility] Comment: For patients with diabetes plus 1 major ASCVD risk factor, treating to a non-HDL-C goal of <100 mg/dL (LDL-C of <70 mg/dL) is considered a therapeutic option. Blood Venous blood specimen / Unknown 06/09/2022 8:41 AM EST 06/09/2022 8:41 AM EST Narrative [facility] - 06/10/2022 12:53 AM EST FASTING:YES FASTING: YES Anne Ramos Benson SAND MIXER OPERATOR LAB BLOOD ORDERABLES Final Result [facility] [address] [facility], [place] [address] [facility] [address] [facility], ([address]) [place] [address] from Last 3 Months or Most Recently Relevant to Health Maintenance Insurance [email or web address] [facility] ST[place] ADULT Care Teams Director Of Distance Learning Relationship Specialty Start Date End Date Michaela Woodard MD [address] [place] [address] PCP - General Family Medicine 01/21/23 Francisco Santiago FNP [address] [place] [address] Nurse Practitioner Family Medicine 03/15/23
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
--- OUTSIDE RECORDS SUMMARY | 2024-08-09 13:26 | XMS_ITS | Encounter Summary ---
Author Organization [email or web address] Address [address] [place] [address] [address] [place] [address] Care Team Providers Care Marketing Support Manager Name Role Phone Michaela Woodard MD Primary Care Provider [phone] Francisco Santiago Unavailable Unavailable Encounter Details Date Type Department Care Team (Latest Contact Info) Description 08/09/2024 Travel Social History Tobacco Use Types Packs/Day [...] with others, in a hotel, in a usp, living outside on the street, on a [...] Description 08/16/2024 11:15 AM EDT Clinical Support [facility] [address] [place] [phone] Filemon Brown, ALLAN [address] [place] [phone] 10/18/2024 9:00 AM EDT Office Visit [facility] [address] [place] [phone] Rosita Magana CNM [address] [place] [phone] documented as of this encounter Goals Goal Patient Goal Type Associated Problems Recent Progress Patient-Stated? 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, RN documented as of this encounter Visit Diagnoses Not on filedocumented in this encounter Additional Health Concerns Assessment Noted Time PHQ-9 Depression Total Score: 17 025 10:51 AM EDT documented as of this encounter Care Teams Marketing Support Manager Relationship Specialty Start Date End Date Michaela Woodard MD [address] [place] [phone] PCP - General Family Medicine 01/21/23 Francisco Santiago FNP [address] [place] [address] Nurse Practitioner Family Medicine 03/15/23 documented as of this encounter
--- OUTSIDE RECORDS SUMMARY | 2024-08-09 13:26 | XMS_ITS | Clinical Summary ---
Author Organization [facility] Address [address] [place] [address] Care Team Providers Care Warehouse Shipping Receiving Clerk Name Role Phone Wally Mueller Primary Care Provider [phone] Allergies No known active allergies Medications * [...] Completed 06/12/2024, 02/01/2023 Procedures * Due to [place] Eversight law, this organization might not be sharing negative HIV tests. Procedure Name Priority Date/Time Associated Diagnosis Comments DRUGS OF ABUSE SCREEN, URINE STAT 06/29/2024 6:28 PM EDT HCG QUALITATIVE, URINE STAT 06/29/2024 6:28 PM EDT RAPID COVID-19 RNA FOR SURVEILLANCE (ED ONLY) STAT 06/29/2024 1:35 PM EDT from Last 3 Months Results * Due to [place] Eversight law, this organization might not be sharing negative HIV tests. * (ABNORMAL) Drugs of Abuse Screen, Urine (06/29/2024 6:28 PM EDT) Amphetamine Screen, Urine Negative Negative 06/29/2024 7:02 PM EDT [facility] Comment: Detection limit of 1000 ng/mL of d-Methamphetamine. Drug results are to be used only for medical purposes. ??Unconfirmed screening results must not be used for non-medical purposes. Barbiturate Screen, Urine Negative Negative 06/29/2024 7:02 PM T [facility] Comment: Detection limit of 200 ng/mL of Secobarbital. Drug results are to be used only for medical purposes. ??Unconfirmed screening results must not be used for non-medical purposes. Benzodiazepine Screen, Urine Presumptive Positive(A) Negative 06/29/2024 7:02 PM T [facility] Comment: Detection limit of 200 ng/mL of Nordiazepam. Drug results are to be used only for medical purposes. ??Unconfirmed screening results must not be used for non-medical purposes. Buprenorphine Screen, Urine Negative Negative 06/29/2024 7:02 PM [facility] Comment: Detection limit of 10 ng/mL of norbuprenorphine. Drug results are to be used only for medical purposes. ??Unconfirmed screening results must not be used for non-medical purposes. Cocaine Metabolite Screen, Urine Negative Negative 06/29/2024 7:02 PM [facility] Comment: Detection limit of 300 ng/mL of Benzoylecgonine. Drug results are to be used only for medical purposes. ??Unconfirmed screening results must not be used for non-medical purposes. Marijuana Screen, Urine Presumptive Positive(A) Negative 06/29[facility]2024 7:[facility] Comment: Detection limit of 50 ng/mL of 14-Ixd-hhdpu-8-PUM-5-carboxylic acid. Drug results are to be used only for medical purposes. ??Unconfirmed screening results must not be used for non-medical purposes. Methadone Metabolite Screen, Urine Presumptive Positive(A) Negative 06/29/2024 7:02 PM [facility] Comment: Detection limit of 300 ng/mL of Methadone. Drug results are to be used only for medical purposes. ??Unconfirmed screening results must not be used for non-medical purposes. Oxycodone Screen, Urine Negative Negative 06/29/2024 7:02 PM EDT [facility] Comment: Detection limit of 100 ng/mL of Oxycodone. Drug results are to be used only for medical purposes. ??Unconfirmed screening results must not be used for non-medical purposes. Opiate Screen, Urine Negative Negative 06/29/2024 7:02 PM EDT [facility] Comment: Detection limit of 300 ng/mL of Morphine. Drug results are to be used only for medical purposes. ??Unconfirmed screening results must not be used for non-medical purposes. Fentanyl Screen, Urine Presumptive Positive(A) Negative 06/29/2024 7:02 PM EDT [facility] Comment: Detection limit of 5 ng/mL of norfentanyl. Drug results are to be used only for medical purposes. ??Unconfirmed screening results must not be used for non-medical purposes. Urine Urine specimen collection, clean catch / Unknown Non-Blood Collection / Unknown 06/29/2024 6:28 PM EDT 06/29/2024 6:28 PM EDT us Julián Russ DO LAB URINE ORDERABLES Final Resul t [facility] [address] [place] [address], * HCG Qualitative, Urine (06/29/2024 6:28 PM EDT) HCG Qualitative, Urine Negative Negative [place] [facility] 06/29/2024 7:00 PM EDT [facility] Comment: hCG may [...] ORDERABLES Final Resul t Performing Organization Address [facility] Co de Phone Number [facility] [address] [place] [address], * Rapid COVID-19 RNA for Surveillance (06/29/2024 1:35 PM EDT) PCR, SARS CoV-2 RNA Not Detected Not Detected [employer] GENEXP[employer] 06/29/2024 2:20 PM EDT [facility] Comment:A Not Detected [...] PM EDT 06/29/2024 1:42 PM EDT Narrative [facility] - 06/29/2024 2:20 PM EDT This test was developed, validated and its performance characteristics determined by [facility]. This test has not been cleared or approved by the U.S. Food and Drug Administration (FDA). FDA Policy for Diagnostic Tests for Coronavirus Disease-2019 during the Public Health Emergency issued July 03, 2019, is followed. Chadd Meléndez MD LAB BODY FLUIDS AND STOOLS ORDER GUI Final Result Performing Organization Address [facility]/ZIP Co de Phone Number [facility] [address] [place] [address], from Last [address] [place] [address] [place] [address] Care Teams Warehouse Shipping Receiving Clerk Relationship Specialty Start Date End Date Wally Mueller [address] [place] [id number] PCP - General Psychiatry 06/29/24
--- OUTSIDE RECORDS SUMMARY | 2024-08-09 13:26 | XMS_ITS | Encounter Summary ---
Author Organization [employer] Address [address] [place] [address] [place] [address] Care Team Providers Care Elevator Erector Helper Name Role Phone Anne Knowles Primary Care Provider [phone] Maria Del Rosario Miramontes MD Primary Care Pro vider Michaela Woodard MD Primary Care Provider [phone] Francisco Santiago TILT TRAY DRIVER Unavailable Unavailable Encounter Details Date Type Department Care Team (Late Contact Info) Description 09/23/2022 [facility] Information Management [address] [place] [address] Anne Knowles FNP [address] [place] [address] Dept [place] [address] Social History Tobacco Use Types Packs/Day Years [...] Department Care Team (Late Contact Info) Description 08/16/2024 11:15 AM EDT Clinical Support [facility] MEDICINE [address] [place] [address] Filemon Brown, ALLAN [address] [place] [address] 10/18/2024 9:00 AM EDT Office Visit [facility] MEDICINE [address] [place] [address] Rosita Magana CNM [address] [place] [address] documented as of this encounter Visit Diagnoses Not on filedocumented in this encounter Additional Health Concerns Assessment Noted Time PHQ-9 Depression Total Score: 10 023 9:07 AM EDT documented as of this encounter Care Teams Elevator Erector Helper Relationship Specialty Start Date End Date Anne Knowles FNP PCP - General Family Medicine 10/26/21 01/17/23 Maria Del Rosario Miramontes MD [address] [place] [address] PCP - General Internal Medicine 01/18/23 01/20/23 Michaela Woodard MD [address] [place] [address] PCP - General Family Medicine 01/21/23 Francisco Santiago FNP [address] [place] [address] Nurse Practitioner Family Medicine 03/15/23 Genesis Flores Junior Engineer 01/28/23 04/30/23 documented as of this encounter
--- OUTSIDE RECORDS SUMMARY | 2024-08-09 13:26 | XMS_ITS | Encounter Summary ---
Author Organization [employer] Address [address] [place] [address] [place] [address] Care Team Providers Care Negotiator Sales Name Role Phone Anne Knowles Primary Care Provider [phone] Maria Del Rosario Miramontes MD Primary Care Pro vider Michaela Woodard MD Primary Care Provider [phone] Francisco Santiago Unavailable Unavailable Reason for Visit * Reason Comments Med Refill Encounter Details Date Type Department Care Team (Late Contact Info) Description 11/23/2022 Refill [facility] MEDICINE [address] [place] [address] Anne Knowles FNP [address] [place] [address] Dept [place] [address] Social History Tobacco Use Types Packs/Day Years [...] 08/16/2024 11:15 AM EDT Clinical Support [facility] MEDICINE [address] [place] [address] Filemon Brown RN [address] [place] [address] 10/18/2024 9:00 AM EDT Office Visit [facility] MEDICINE [address] [place] [address] Rosita Magana CNM [address] [place] [address] documented as of this encounter Visit Diagnoses Not on filedocumented in this encounter Additional Health Concerns Assessment Noted Time PHQ-9 Depression Total Score: 5 10/16/19 23 9:07 AM EDT documented as of this encounter Care Teams Negotiator Sales Relationship Specialty Start Date End Date Anne Knowles FNP PCP - General Family Medicine 10/26/21 01/17/23 Maria Del Rosario Miramontes MD [address] [place] [address] [id number] PCP - General Internal Medicine 01/18/23 01/20/23 Michaela Woodard MD [address] [place] [address] [id number] PCP - General Family Medicine 01/21/23 Francisco Santiago FNP [address] [place] [address] Nurse Practitioner Family Medicine 03/15/23 Genesis Flores Kettle Room Helper 01/28/23 04/30/23 documented as of this encounter
--- OUTSIDE RECORDS SUMMARY | 2024-08-09 13:26 | XMS_ITS ---
Author Organization [employer] Address [address] [facility] 7t [place] [address] Care Team Providers Care Inspector Fabric Name Role Phone Michaela Woodard MD Primary Care Provider [phone] Francisco Santiago Unavailable Unavailable CHW Complex Status:Outreach In Progress (Enrolling) Start date:07/18/2024 Enrollment reason:Referred by provider Overview PCP Referral- recently hospitalized for psych decompensation. Please help her keep appt with BH, PT, and CRS. Thank you. Please outreach for enrollment. Case Team Name Relationship Phone Elsa Mott (Responsible Staff) Continued Care and Services Coordination
--- OUTSIDE RECORDS SUMMARY | 2024-08-09 13:26 | XMS_ITS ---
Author Organization [employer] Address [address] [facility] 7t [place] [address] Care Team Providers Care Cash Grain Farmer Name Role Phone Michaela Woodard MD Primary Care Provider [phone] Francisco Santiago Unavailable Unavailable CM Complex Status:Outreach In Progress (Enrolling) Start date:07/18/2024 Enrollment reason:Referred by provider Overview PCP Referral- recently hospitalized for psych decompensation. Please help her keep appt with BH, PT, and CRS. Thank you Case Team Name Relationship Phone Vijaya Griffith RN Registered Nurse(Responsible S taff) Continued Care and Services Coordination
--- OUTSIDE RECORDS SUMMARY | 2024-08-09 13:26 | XMS_ITS | Encounter Summary ---
Author Organization [employer] Address [address] [place] [address] [place] [address] Care Team Providers Care Stain Dipper Name Role Phone Anne Knowles Primary Care Provider [phone] Maria Del Rosario Miramontes MD Primary Care Pro vider Michaela Woodard MD Primary Care Provider [phone] Francisco Santiago HVAC ESTIMATOR Unavailable Unavailable Encounter Details Date Type Department Care Team (Late Contact Info) Description 09/09/2022 [facility] Information Management [address] [place] [address] Anne Knowles FNP [address] [place] [address] Dept [place] [address] Social History Tobacco Use Types Packs/Day Years [...] Description 08/16/2024 11:15 AM EDT Clinical Support [facility] MEDICINE [address] [place] [address] Filemon Brown, ALLAN [address] [place] [address] 10/18/2024 9:00 AM EDT Office Visit [facility] MEDICINE [address] [place] [address] Rosita Magana CNM [address] [place] [address] documented as of this encounter Visit Diagnoses Not on filedocumented in this encounter Additional Health Concerns Assessment Noted Time PHQ-9 Depression Total Score: 10 023 9:07 AM EDT documented as of this encounter Care Teams Stain Dipper Relationship Specialty Start Date End Date Anne Knowles FNP PCP - General Family Medicine 10/26/21 01/17/23 Maria Del Rosario Miramontes MD [address] [place] [address] PCP - General Internal Medicine 01/18/23 01/20/23 Michaela Woodard MD [address] [place] [address] PCP - General Family Medicine 01/21/23 Francisco Santiago FNP [address] [place] [address] Nurse Practitioner Family Medicine 03/15/23 Genesis Flores Rougher Helper 01/28/23 04/30/23 documented as of this encounter
[2024-08-09 13:48] LABS: Alanine Aminotransferase 23 U/L (0-31); Albumin Level 4.1 g/dL (3.5-5.0); Alkaline Phosphatase 60 U/L (39-117); Aspartate Amino Transferase 22 U/L (5-31); Bilirubin Direct 0.2 mg/dL (0.0-0.5); Bilirubin Total 0.4 mg/dL (0.0-1.0)
[2024-08-10 04:20] LABS: HIV AB/AG Nonreactive (Nonreactive); HIV Num 1 0.07 S/CO (0.00-0.99)
[2024-08-10 04:34] LABS: Hepatitis A Antibody IgG Nonreactive (Nonreactive); ~Hepatitis A Antibody IgG 0.32 S/CO (0.00-0.99)
[2024-08-11 20:02] LABS: HIV RNA PCR Qn Copies NOT DETECTED copies/mL (NOT DETECTED); HIV RNA PCR Qn Log Copies NOT DETECTED (NOT DETECTED)
== END 2024-08-09 11:08 | disposition home or self-care (01) ==
LOC: HO.HHCL 11:07
PROVIDERS: Visit Provider Family Medicine
DX: F11.20 Opioid dependence, uncomplicated (principal)
CPT/HCPCS: 36415; 80076; 80307; 86708; 87389; 87536

== ENCOUNTER 2024-08-16 13:20 | Outpatient (REF) | payer MEDICAID, SELFPAY ==
--- OUTSIDE RECORDS SUMMARY | 2024-08-16 14:42 | XMS_ITS | Encounter Summary ---
Author Organization [employer] Address [address] [place] [address] 7t [place] [address] Care Team Providers Care Fish And Wildlife Technician Name Role Phone Michaela Woodard MD Primary Care Provider [phone] Francisco Santiago Unavailable Unavailable Reason for Visit * Reason Onset Date Comments Med Refill 08/16/2024 Encounter Details Date Type Department Care Team (Late st Contact Info) Description 08/16/2024 Refill [facility] MEDICINE [address] [place] [address] Filemon Brown, ALLAN [address] [place] [address] Uncomplicated opioid dependence (CMS/HCC) Social History Tobacco Use Types Packs/Day Years Used Date Smoking Tobacco: Every Day Cigarettes Last attempted to quit: 05/20/2022 Passive Smoke Exposure: Past Smokeless Tobacco: Never Alcohol Use Standard Drinks/Week Comments Not Currently 0 (1 standard drink = 0.6 oz pur e alcohol) Depression Answer Date Recorded Patient Health Questionnaire-9 Score 8 08/11/2024 Patient Health Questionnaire-9 Score 8 08/11/2024 Last PHQ-9: Questionnaire Data Not on file 0 08/11/2024 Housing Stability Answer Date Recorded What is your housing situation today? I do not have housing (Staying with others, in a hotel, in a penitentiary, living outside on the street, on a [...] the past 12 months, has t he [employer], gas, oil or water [employer] threatened to shut off services in your home? Yes 06/12/2024 Depression Answer Date Recorded Patient Health Questionnaire-2 Score 2 08/11/2024 Comments No Sex and Gender Information Value Date Recorded Sex Assigned at Female 02/16/2022 10:37 AM EDT Legal Sex Female 10:37 AM EDT Gender Identity Female 02/16/2022 10:37 AM EDT Sexual Orientation Straight 02/16/2022 10 :37 AM EDT documented as of this encounter Miscellaneous Notes * Telephone Encounter - Filemon Brown RN - 08/16/2024 1:46 PM EDT Please DC 2 mg Rx documented in this encounter Plan of Treatment Upcoming Encounters Date Type Department Care Team (Late st Contact Info) Description 08/23/2024 9:15 AM EDT Office Visit [facility] MEDICINE [address] [place] [address] Michaela Woodard MD [address] [place] [address] 10/16/2024 11:00 AM EDT Office Visit [facility] MEDICINE [address] [place] [address] Michaela Woodard MD [address] [place] [address] 10/18/2024 9:00 AM EDT Office Visit [facility] MEDICINE [address] [place] [address] Rosita Magana CNM [address] [place] [address] documented as of this encounter Goals Goal Patient Goal Type Associated Problems Recent Progress Patient-Stated? Author Increase coping skills to promote long-term recovery and improve ability to perform daily activities General On track( 025 11:59 AM EDT) 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, ALLAN documented as of this encounter Visit Diagnoses Diagnosis Uncomplicated opioid dependence (CMS/HCC) documented in this encounter Additional Health Concerns Assessment Noted Time PHQ-9 Depression Total Score: 8 08/12/19 25 2:26 PM EDT documented as of this encounter Care Teams Fish And Wildlife Technician Relationship Specialty Start Date End Date Michaela Woodard MD [address] [place] [address] PCP - General Family Medicine 01/21/23 Francisco Santiago FNP [address] [place] [address] Nurse Practitioner Family Medicine 03/15/23 documented as of this encounter
--- OUTSIDE RECORDS SUMMARY | 2024-08-16 14:42 | XMS_ITS | Encounter Summary ---
Author Organization [employer] Address [address] [place] [address] 7 [place] [address] Care Team Providers Care Industrial Engineering Technician Name Role Phone Michaela Woodard MD Primary Care Provider [phone] Francisco Santiago Unavailable Unavailable Reason for Visit * Reason Comments Med Refill Encounter Details Date Type Department Care Team ([facility] st Contact Info) Description 02/04/2023 Refill [facility] MEDICINE [address] [place] [address] Anne Knowles FNP [address] [place] [address] Dept [place] [address] Social History Tobacco Use Types Packs/Day Years [...] Description 08/23/2024 9:15 AM EDT Office Visit [facility] MEDICINE [address] [place] [address] Michaela Woodard MD [address] [place] [address] 10/16/2024 11:00 AM EDT Office Visit [facility] MEDICINE [address] [place] [address] Michaela Woodard MD [address] [place] [address] 10/18/2024 9:00 AM EDT Office Visit [facility] MEDICINE [address] [place] [address] Rosita Magana CNM [address] [place] [address] documented as of this encounter Visit Diagnoses Not on filedocumented in this encounter Additional Health Concerns Assessment Noted Time PHQ-9 Depression Total Score: 5 12/11/19 23 9:04 AM EDT documented as of this encounter Care Teams Industrial Engineering Technician Relationship Specialty Start Date End Date Michaela Woodard MD [address] [place] [address] PCP - General Family Medicine 01/21/23 Francisco Santiago FNP [address] [place] [address] Nurse Practitioner Family Medicine 03/15/23 Genesis Flores Communications Equipment Operator 01/28/23 04/30/23 documented as of this encounter
--- OUTSIDE RECORDS SUMMARY | 2024-08-16 14:42 | XMS_ITS ---
Author Organization [employer] Address [address] [facility] 7t [place] [address] Care Team Providers Care Optical Technician Name Role Phone Michaela Woodard MD Primary Care Provider [phone] Francisco Santiago Unavailable Unavailable CM Complex Status:Enrolled (Active) Start date:07/18/2024 Enrollment date:08/11/2024 Enrollment reason:Referred by provider Overview PCP Referral- recently hospitalized for psych decompensation. Please help her keep appt with BH, PT, and CRS. Thank you Case Team Name Relationship Phone Vijaya Griffith RN Registered Nurse(Responsible S taff) Continued Care and Services Coordination
--- OUTSIDE RECORDS SUMMARY | 2024-08-16 14:42 | XMS_ITS | Encounter Summary ---
Author Organization [employer] Address [address] [place] [address] [place] [address] Care Team Providers Care Specialty Molder Name Role Phone Anne Knowles Primary Care Provider [phone] Maria Del Rosario Miramontes MD Primary Care Pro vider Michaela Woodard MD Primary Care Provider [phone] Francisco Santiago FAMILY PRACTITIONER Unavailable Unavailable Encounter Details Date Type Department Care Team (Late Contact Info) Description 09/09/2022 [facility] Information Management [address] [place] [address] Anne Knowles FNP [address] [place] [address] Dept [place] [address] Social History Tobacco Use Types Packs/Day Years [...] Department Care Team (Late Contact Info) Description 08/23/2024 9:15 AM EDT Office Visit [facility] MEDICINE [address] [place], [place] [phone] Michaela Woodard MD [address] [place], [place] [phone] 10/16/2024 11:00 AM EDT Office Visit [facility] [place] [address] Michaela Woodard MD Roxanna [place] 10/18/2024 9:00 AM EDT Office Visit [facility] [place] [place] [address] Rosita Magana CNM [address] [place] [address] documented as of this encounter Visit Diagnoses Not on filedocumented in this encounter Additional Health Concerns Assessment Noted Time PHQ-9 Depression Total Score: 10 023 9:07 AM EDT documented as of this encounter Care Teams Specialty Molder Relationship Specialty Start Date End Date Anne Knowles FNP PCP - General Family Medicine 10/26/21 01/17/23 Maria Del Rosario Miramontes MD Rox[place] [address] PCP - General Internal Medicine 01/18/23 01/20/23 Michaela Woodard MD [place] [address] PCP - General Family Medicine 01/21/23 Francisco Santiago FNP [facility] [place] [address] Nurse Practitioner Family Medicine 03/15/23 Genesis Flores Cone Chocolate Dipper 01/28/23 04/30/23 documented as of this encounter
--- OUTSIDE RECORDS SUMMARY | 2024-08-16 14:42 | XMS_ITS | Encounter Summary ---
Author Organization [employer] Address [address] [place] [address] 7t [place] [address] Care Team Providers Care Senior Communications Specialist Name Role Phone Michaela Woodard MD Primary Care Provider [phone] Francisco Santiago Unavailable Unavailable Encounter Details Date Type Department Care Team (Latest Contact Info) Description 08/16/2024 Travel Social History Tobacco Use Types Packs/Day [...] with others, in a hotel, in a fpc, living outside on the street, on a [...] Description 08/23/2024 9:15 AM EDT Office Visit [address] [address] Michaela Woodard MD [address] [place] [address] 10/16/2024 11:00 AM EDT Office Visit [address] [address] Michaela Woodard MD [address] [place] [address] 10/18/2024 9:00 AM EDT Office Visit [address] [address] Rosita Magana CNM [address] [place] [address] documented as of this encounter Goals Goal [...] documented as of this encounter Care Teams Senior Communications Specialist Relationship Specialty Start Date End Date Michaela Woodard MD [address] [place] [address] PCP - General Family Medicine 01/21/23 Francisco Santiago FNP [address] [place] [address] Nurse Practitioner Family Medicine 03/15/23 documented as of this encounter
--- OUTSIDE RECORDS SUMMARY | 2024-08-16 14:42 | XMS_ITS | Encounter Summary ---
Author Organization [employer] Address [address] [place] [address] [place] [address] Care Team Providers Care Artist Blacksmith Name Role Phone Anne Knowles Primary Care Provider [phone] Maria Del Rosario Miramontes MD Primary Care Pro vider Michaela Woodard MD Primary Care Provider [phone] Francisco Santiago Unavailable Unavailable Reason for Visit * Reason Comments Med Refill Encounter Details Date Type Department Care Team (Late Contact Info) Description 11/23/2022 Refill [facility] [address] [place] [address] Anne Knowles FNP [address] [place] [address] Dept [place] [address] Social History Tobacco Use Types Packs/Day Years [...] Description 08/23/2024 9:15 AM EDT Office Visit [facility] [address] [place] [address] Michaela Woodard MD [address] [place] [address] 10/16/2024 11:00 AM EDT Office Visit [facility] [place] [address] Michaela [facility]ard MD [facility] [place] 10/18/2024 9:00 AM EDT Office Visit [facility] [place] [address] Rosita Magana CNM [address] [place] [address] documented as of this encounter Visit Diagnoses Not on filedocumented in this encounter Additional Health Concerns Assessment Noted Time PHQ-9 Depression Total Score: 5 10/16/19 9:07 AM EDT documented as of this encounter Care Teams Artist Blacksmith Relationship Specialty Start Date End Date Anne Knowles FNP PCP - General Family Medicine 10/26/21 01/17/23 Maria Del [place] [address] PCP - General Internal Medicine 01/18/23 01/20/23 [place] [address] PCP - General Family Medicine 01/21/23 Francisco Santiago FNP [address] [place] [address] Nurse Practitioner Family Medicine 03/15/23 Genesis Flores Domestic Violence Advocate 01/28/23 04/30/23 documented as of this encounter
--- OUTSIDE RECORDS SUMMARY | 2024-08-16 14:42 | XMS_ITS | Encounter Summary ---
Author Organization [employer] Address [address] [place] [address] [place] [address] Care Team Providers Care Shoe Coverer Name Role Phone Anne Knowles Primary Care Provider [phone] Maria Del Rosario Miramontes MD Primary Care Pro vider Michaela Woodard MD Primary Care Provider [phone] Francisco Santiago MANAGER INVENTORY MANAGEMENT Unavailable Unavailable Encounter Details Date Type Department Care Team (Late Contact Info) Description 09/23/2022 [facility] Information Management [address] [place] [address] Anne Knowles MANAGER INVENTORY MANAGEMENT [address] [place] [place] [address] Dept [place] [address] Social History Tobacco Use Types Packs/Day Years [...] Description 08/23/2024 9:15 AM EDT Office Visit [facility] [address] [place], [place] [phone] Michaela Woodard MD [address] [place], [place] [id number] 10/16/2024 11:00 AM EDT Office Visit [facility] [place] [address] Michaela Woodard MD [place] 10/18/2024 9:00 AM EDT Office Visit [facility] [place] [address] Rosita Magana CNM [address] [place] [address] documented as of this encounter Visit Diagnoses Not on filedocumented in this encounter Additional Health Concerns Assessment Noted Time PHQ-9 Depression Total Score: 10 023 9:07 AM EDT documented as of this encounter Care Teams Shoe Coverer Relationship Specialty Start Date End Date Anne Knowles FNP PCP - General Family Medicine 10/26/21 01/17/23 Maria Del Rosario Miramontes MD [place] [address] PCP - General Internal Medicine 01/18/23 01/20/23 Michaela Woodard [place] [address] PCP - General Family Medicine 01/21/23 Francisco Santiago FNP [facility] [place] [address] Nurse Practitioner Family Medicine 03/15/23 Genesis Flores Steam Trap Worker 01/28/23 04/30/23 documented as of this encounter
--- OUTSIDE RECORDS SUMMARY | 2024-08-16 14:42 | XMS_ITS | Encounter Summary ---
Author Organization [employer] Address [address] [place] [address] 7t [place] [address] Care Team Providers Care Seaport Planning Manager Name Role Phone Michaela Woodard MD Primary Care Provider [phone] Francisco Santiago Unavailable Unavailable Encounter Details Date Type Department Care Team (Late st Contact Info) Description 07/04/2024 Telephone [facility] [address] [place] [address] Hallie Bernabe, MakennaD [address] [place] [address] Social History Tobacco Use Types Packs/Day Years [...] with others, in a hotel, in a half-way, living outside on the street, on a [...] Description 08/23/2024 9:15 AM EDT Office Visit [address] [address] Michaela Woodard MD [address] [place] [address] 10/16/2024 11:00 AM EDT Office Visit [address] [address] Michaela Woodard MD [address] [place] [address] 10/18/2024 9:00 AM EDT Office Visit [address] [address] Rosita Magana CNM [address] [place] [address] documented as of this encounter Visit Diagnoses Not on filedocumented in this encounter Additional Health Concerns Assessment Noted Time PHQ-9 Depression Total Score: 14 025 2:25 PM EST documented as of this encounter Care Teams Seaport Planning Manager Relationship Specialty Start Date End Date Sakurai, Michaela, MD [address] [place] [address] PCP - General Family Medicine 01/21/23 Francisco Santiago FNP [address] [place] [address] Nurse Practitioner Family Medicine 03/15/23 documented as of this encounter
--- OUTSIDE RECORDS SUMMARY | 2024-08-16 14:42 | XMS_ITS | Encounter Summary ---
Author Organization [employer] Address [address] [place] [address] 7t [place] [address] Care Team Providers Care Gas Welding Machine Operator Name Role Phone Michaela Woodard MD Primary Care Provider [phone] Francisco Santiago Unavailable Unavailable Reason for Visit * Reason Comments OBAT follow-up Encounter Details Date Type Department Care Team (Latest Contact Info) Description 08/16/2024 11:15 AM EDT Clinical Support [facility] [address] [place] [address] Filemon Brown, ALLAN [address] [place] [address] Uncomplicated opioid dependence (CMS/HCC) (Primary Dx) Social History Tobacco Use Types [...] with others, in a hotel, in a long-term, living outside on the street, on a [...] the past 12 months, has t he [employer], gas, oil or water [employer] threatened to shut off services in your [...] Description 08/23/2024 9:15 AM EDT Office Visit [address] [address] Michaela Woodard MD [address] [place] [address] 10/16/2024 11:00 AM EDT Office Visit [address] [address] Michaela Woodard MD [address] [place] [address] 10/18/2024 9:00 AM EDT Office Visit [address] [address] oRsita Magana CNM [address] [place] [address] Scheduled Orders Name Type Priority Associated Diagnoses Orde r Schedule Methadone, GC/MS, Urine Lab Routine Uncomplicated opioid dependence (CMS/HCC) Expected: 08/16/2024 (Approximate), Expires: 08/16/2025 documented as of this encounter Goals Goal Patient Goal Type Associated Problems Recent Progress Patient-Stated? Author Increase coping skills to promote long-term recovery and improve ability to perform daily activities General On track( 025 11:59 AM EDT) 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, RN documented as of this encounter Procedures Procedure Name Priority Date/Time Associated Diagnosis Comments POCT JOSH-14 URINE DRUG SCREEN Routine 08/16/2024 11:36 AM EDT Uncomplicated opioid dependence (CMS/HCC) documented in this encounter Results * POCT JOSH-14 Urine Drug Screen (08/16/2024 11:36 AM EDT) THC Positive Cocaine Screen, Urine [...] obtained by clean catch procedure / Unknown 08/16/2024 11:36 AM EDT Michaela Woodard MD POINT OF CARE TEST ENTER/EDIT OR DERABLES Final Result documented in this encounter Visit Diagnoses Diagnosis Uncomplicated opioid dependence (CMS/HCC)- Primary documented in this encounter Additional Health Concerns Assessment Noted Time PHQ-9 Depression Total Score: 8 08/12/19 25 2:26 PM EDT documented as of this encounter Care Teams Gas Welding Machine Operator Relationship Specialty Start Date End Date Michaela Woodard MD [address] [place] [address] PCP - General Family Medicine 01/21/23 Francisco Santiago FNP [address] [place] [address] Nurse Practitioner Family Medicine 03/15/23 documented as of this encounter
--- OUTSIDE RECORDS SUMMARY | 2024-08-16 14:42 | XMS_ITS | Clinical Summary ---
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 Resul t [facility] [address] [place], [place] [phone] * (ABNORMAL) CBC auto differential (06/12/2024 2:32 PM EST) White Blood Count 8.2 4.8 - 10.8 X10*3/uL [facility] Red Blood Count 4.78 4.20 - 5.50 X10*6/uL [facility] Hemoglobin 13.6 12.0 - 16.0 g/dl [facility] Hematocrit 42.5 37.0 - 47.0 % [facility] Mean Corpuscular Volume 88.9 80.0 - 98.0 fL [facility] Mean Corpuscular Hemoglobin 28.5 27.0 - 33.0 pg [facility] Mean Corpuscular HGB Conc 32.0 31.0 - 35.0 g/dl [facility] Red Cell Distribution Width 12.5 11.0 - 16.0 % [facility] Platelet Count 298 160 - 400 X10*3/uL [facility] Mean Platelet Volume 11.0 9.4 - 12.3 fL [facility] Neutrophils Percent Auto 54.2 45 - 73 % [facility] Imm Gran Pct Auto 0.4 0.0 - 0.4 % [facility] Lymphocytes Percent Auto 34.9 20 - 40 % [facility] Monocytes Percent Auto 5.1 2 - 11 % [facility] Eosinophils Percent Auto 4.8(H) 0 - 4 % [facility] Basophils Percent Auto 0.6 0 - 2 % [facility] NRBC Pct Auto 0.0 0.0 - 0.2 /100WBC [facility] Neutrophils Absolute Auto 4.4 2.0 - 8.3 x10*3/uL [facility] Imm Gran Abs Auto 0.03 0.00 - 0.03 X10*3/uL [facility] Lymphocytes Absolute Auto 2.9 1.2 - 4.9 X10*3/uL [facility] Monocytes Absolute Auto 0.4 0.1 - 1.2 X10*3/uL [facility] Eosinophils Absolute Auto 0.4 0.0 - 0.4 X10*3/uL [facility] Basophils Absolute Auto 0.1 0.0 - 0.2 X10*3/uL [facility] NRBC Abs Auto 0.000 0.0 - 0.012 X10*3/uL [facility] Blood Venous blood specimen / Unknown 06/12/2024 2:32 PM EST 06/12/2024 4:01 PM EST Michaela Woodard MD LAB BLOOD ORDERABLES Final Resul t Performing Organization Address City/[facility]/ZIP Co de Phone Number [facility] [address] [place] [phone] * Hepatitis C Antibody with Reflex to HCV, RNA, Quantitative, Real-Time PCR (06/12/2024 2:32 PM EST) Pathologist [facility] Hepatitis C Antibody Nonreactive Nonreactive [facility] Comment:Antibodies to HCV no t detected; does not exclude early acuteHCV infection. Blood Venous blood specimen / Unknown 06/12/2024 2:32 PM EST 06/12/2024 4:01 PM EST Michaela Woodard MD LAB BLOOD ORDERABLES Final Resul t Performing Organization Address [facility] [place]/[facility] Co de Phone Number [facility] [address] [place] [phone] * Thyroid Peroxidase Antibodies (06/12/2024 2:32 PM EST) Thyroid Peroxidase Antibodies <1 <9 IU/mL [facility] Comment:THIS TEST WAS PERFOR MED AT:[facility] [address] [phone] PAUL MD Blood Venous blood specimen / Unknown 06/12/2024 2:32 PM EST 06/12/2024 4:01 PM EST Michaela Woodard MD LAB BLOOD ORDERABLES Final Resul t Performing Organization Address [facility] [place]/[facility] Co de Phone Number [facility] [address] [place] [phone] * Hemoglobin A1c (06/12/2024 2:32 PM EST) Hemoglobin A1c 5.0 <6.0 % [facility] Comment:Hemoglobin A1C Refer ence Range Adults: 4.8 - 6.0 % Non diabetic: < 6.0 % Goal: < 7.0 %Additional Action Suggested: > 8.0 %Note: Hemoglobin A1c results are invalid for patients with abnormal amounts of HbF. Blood transfusions may impact the HbA1c concentration in the patient sample. Estimated Average Glucose 97 mg/dL [facility] Comment:eAG = Estimated ave rage glucose which is %A1C expressed asaverage glucose, using the formula of the P5A-RuwgtrbIsrpeih Glucose study (ADAG), Diabetes Care, Vol.31,#8,Nov. 2007 Blood Venous blood specimen / Unknown 06/12/2024 2:32 PM EST 06/12/2024 4:01 PM EST us Michaela Woodard MD LAB BLOOD ORDERABLES Final Resul t Performing Organization Address [facility] [place]/[facility]/ZIP Co de Phone Number [facility] [address] [place] [phone] * (ABNORMAL) Comprehensive Metabolic Panel (06/12/2024 2:32 PM EST) Sodium 140 135 - 145 mmol/L [facility] Potassium 4.2 3.3 - 5.1 mmol/L [facility] Chloride 106 96 - 108 mmol/L [facility] Carbon Dioxide 25 22 - 29 mmol/L [facility] Anion Gap 13 12 - 20 [facility] Urea Nitrogen (BUN) 17(H) 9 - 16 mg/dL [facility] Creatinine, Serum 0.61 0.5 - 1.4 mg/dL [facility] Estimated Glomerular Filt Rate >60 [facility] Comment:Chronic Kidney Disea se: Estimated GFR < 60 mL/min/1.50k2Onuvzr Kidney Disease: Estimated GFR < 15 mL/min/1.73m2 Glucose 93 60 - 115 mg/dL [facility] Calcium 9.4 8.4 - 10.2 mg/dL [facility] Bilirubin, Total 0.6 0.0 - 1.0 mg/dL [facility] Aspartate Amino Transferase 35(H) 5 - 31 U/L [facility] Alanine Aminotransferase 52(H) 0 - 31 U/L [facility] Total Protein 8.0 6.5 - 8.0 g/dL [facility] Albumin Level 4.3 3.5 - 5.0 g/dL [facility] Alkaline Phosphatase 63 39 - 117 U/L [facility] Blood Venous blood specimen / Unknown 06/12/2024 2:32 PM EST 06/12/2024 4:01 PM EST us Michaela Woodard MD LAB BLOOD ORDERABLES Final Resul t [facility] [address] [place] [phone] * (ABNORMAL) Lipid Panel, Standard (06/09/2022 8:41 AM EST) Cholesterol, Total 168 <200 mg/dL [facility] HDL Cholesterol 43(L) > OR = 50 mg/dL [facility] Triglycerides 79 <150 mg/dL [facility] LDL Cholesterol 108(H) mg/dL (calc) [facility] Comment: Reference range: <100 Desirable range <100 mg/dL for primary prevention; ?? <70 mg/dL for patients with CHD or diabetic patients with > or = 2 CHD risk factors. LDL-C is now calculated using the Alexey calculation, which is a validated novel method providing better accuracy than the Friedewald equation in the estimation of LDL-C. Joseph SS et al. KARSON. 2013;310(19): 5170-4785 (http://education.[employer]/faq/ATI746) Chol/HDLC Ratio 3.9 <5.0 (calc) [facility] Non-HDL Cholesterol 125 <130 mg/dL (calc) [facility] Comment: For patients with diabetes plus 1 major ASCVD risk factor, treating to a non-HDL-C goal of <100 mg/dL (LDL-C of <70 mg/dL) is considered a therapeutic option. Blood Venous blood specimen / Unknown 06/09/2022 8:41 AM EST 06/09/2022 8:41 AM EST Narrative [facility] - 06/10/2022 12:53 AM EST FASTING:YES FASTING: YES Anne Knowles MEASUREMENT TECHNICIAN LAB BLOOD ORDERABLES Final Result [facility] [address] [place] [address], [place] [phone] [facility] [address] [facility], ([address]) [place] [phone] from Last 3 Months or Most Recently Relevant to Health Maintenance [place] [address] [place] [address] [employer] [employer] AD[place] Care Teams Civil Drafter Relationship Specialty Start Date End Date Michaela Woodard MD [address] [place], [place] [phone] PCP - General Family Medicine 01/21/23 Francisco Santiago FNP [address] [place] [phone] Nurse Practitioner Family Medicine 03/15/23
--- OUTSIDE RECORDS SUMMARY | 2024-08-16 14:42 | XMS_ITS | Referral Summary ---
Author Organization [facility] Address [address] [place] [address] Care Team Providers Care Trial Manager Name Role Phone Wally Mueller Primary Care Provider [phone] Allergies No known active allergies Medications * [...] Not on file Procedures * Due to [facility] law, this organization might not be sharing negative HIV tests. Procedure Name Priority Date/Time Associated Diagnosis Comments DRUGS OF ABUSE SCREEN, URINE STAT 06/29/2024 6:28 PM EDT HCG QUALITATIVE, URINE STAT 06/29/2024 6:28 PM EDT RAPID COVID-19 RNA FOR SURVEILLANCE (ED ONLY) STAT 06/29/2024 1:35 PM EDT from Last 3 Months Results * Due to [facility] law, this organization might not be sharing negative HIV tests. * (ABNORMAL) Drugs of Abuse Screen, Urine (06/29/2024 6:28 PM EDT) Amphetamine Screen, Urine Negative Negative 06/29/2024 7:02 PM EDT [facility] Comment: Detection limit of 1000 ng/mL of d-Methamphetamine. Drug results are to be used only for medical purposes. ??Unconfirmed screening results must not be used for non-medical purposes. Barbiturate Screen, Urine Negative Negative 06/29/2024 7:02 PM EDT [facility] Comment: Detection limit of 200 ng/mL of Secobarbital. Drug results are to be used only for medical purposes. ??Unconfirmed screening results must not be used for non-medical purposes. Benzodiazepine Screen, Urine Presumptive Positive(A) Negative 06/29/2024 7:02 PM EDT [facility] Comment: Detection limit of 200 ng/mL of Nordiazepam. Drug results are to be used only for medical purposes. ??Unconfirmed screening results must not be used for non-medical purposes. Buprenorphine Screen, Urine Negative Negative 06/29/2024 7:02 PM EDT [facility] Comment: Detection limit of 10 ng/mL of norbuprenorphine. Drug results are to be used only for medical purposes. ??Unconfirmed screening results must not be used for non-medical purposes. Cocaine Metabolite Screen, Urine Negative Negative 06/29/2024 7:02 PM EDT [facility] Comment: Detection limit of 300 ng/mL of Benzoylecgonine. Drug results are to be used only for medical purposes. ??Unconfirmed screening results must not be used for non-medical purposes. Marijuana Screen, Urine Presumptive Positive(A) Negative 06/29/2024 7:02 PM EDT [facility] Comment: Detection limit of 50 ng/mL of 42-Pmo-kmvjj-3-KMO-9-carboxylic acid. Drug results are to be used only for medical purposes. ??Unconfirmed screening results must not be used for non-medical purposes. Methadone Metabolite Screen, Urine Presumptive Positive(A) Negative 06/29/2024 7:02 PM EDT [facility] Comment: Detection limit of 300 ng/mL of Methadone. Drug results are to be used only for medical purposes. ??Unconfirmed screening results must not be used for non-medical purposes. Oxycodone Screen, Urine Negative Negative 06/29/2024 7:02 PM T [facility] Comment: Detection limit of 100 ng/mL of Oxycodone. Drug results are to be used only for medical purposes. ??Unconfirmed screening results must not be used for non-medical purposes. Opiate Screen, Urine Negative Negative 06/29/2024 7:02 PM EDT [facility] Comment: Detection limit of 300 ng/mL of Morphine. Drug results are to be used only for medical purposes. ??Unconfirmed screening results must not be used for non-medical purposes. Fentanyl Screen, Urine Presumptive Positive(A) Negative 06/29/2024 7:02 PM EDT [facility] Comment: Detection limit [...] ORDERABLES Final Resul t Performing Organization Address [facility] [[email or web address]] de Phone Number [facility] [address] [place] [address], * HCG Qualitative, Urine (06/29/2024 6:28 PM EDT) Pathologist [facility] HCG Qualitative, Urine Negative Negative [place] [facility] 06/29/2024 7:00 PM EDT [facility] Comment: hCG may [...] ORDERABLES Final Resul t Performing Organization Address [facility] [[email or web address]] de Phone Number [facility] [address] [place] [address], * Rapid COVID-19 RNA for Surveillance (06/29/2024 1:35 PM EDT) [facility] PCR, SARS CoV-2 RNA Not Detected Not Detected [facility] 06/29/2024 2:20 PM EDT [facility] Comment:A Not Detected [...] PM EDT 06/29/2024 1:42 PM EDT Narrative [facility] - 06/29/2024 2:20 PM EDT This test was developed, validated and its performance characteristics determined by [facility]. This test has not been cleared or approved by the U.S. Food and Drug Administration (FDA). FDA Policy for Diagnostic Tests for Coronavirus Disease-2019 during the Public Health Emergency issued July 03, 2019, is followed. us Chadd Meléndez MD LAB BODY FLUIDS AND STOOLS ORDER GUI Final Result [facility] [address] [place] [address], from Last 3 Months Insurance [employer] Care Teams Trial Manager Relationship Specialty Start Date End Date Wally Mueller [address] [place] [phone] PCP - General Psychiatry 06/29/24
--- OUTSIDE RECORDS SUMMARY | 2024-08-16 14:42 | XMS_ITS | Encounter Summary ---
Author Organization [facility] [employer] Address [address] [facility] [address] [place] [address] Care Team Providers Care Tying In Machine Operator Name Role Phone Michaela Woodard MD Primary Care Provider [phone] Francisco Santiago Unavailable Unavailable Encounter Details Date Type Department Care Team (Late st Contact Info) Description 08/11/2024 Plan of Care Documentation [facility] [address] [place] [address] Social History Tobacco Use Types Packs/Day Years [...] Description 08/23/2024 9:15 AM EDT Office Visit [address] [address] Michaela Woodard MD [address] [place] [phone] 10/16/2024 11:00 AM EDT Office Visit [address] [address] Michaela Woodard MD [address] [place] [phone] 10/18/2024 9:00 AM EDT Office Visit [address] [address] Rosita Magana CNM [address] [place] [address] documented as of this encounter Goals Goal Patient Goal Type Associated Problems Recent Progress Patient-Stated? Author Increase coping skills to promote long-term recovery and improve ability to perform daily activities General On track( 025 11:59 AM EDT) 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 RN documented as of this encounter Visit Diagnoses Not on filedocumented in this encounter Additional Health Concerns Assessment Noted Time PHQ-9 Depression Total Score: 8 04/25/20 25 2:26 PM EDT documented as of this encounter Care Teams Tying In Machine Operator Relationship Specialty Start Date End Date Michaela Woodard MD [address] [place] [address] PCP - General Family Medicine 01/21/23 Francisco Santiago FNP [address] [place] [address] Nurse Practitioner Family Medicine 03/15/23 documented as of this encounter
--- OUTSIDE RECORDS SUMMARY | 2024-08-16 14:42 | XMS_ITS | Clinical Summary ---
Author Organization [facility] Address [address] [place] [address] Phone Care Team Providers Care Crabber Name Role Phone Physician, Pcp Unknown Primary [...] EST - 06/24/2024 1:22 AM EST Emergency [facility] Emergency [address] [place] [address] Opioid use disorder (Primary Dx) [...] GEMUSE QTc 392 ms GEMUSE P Wave Almyra 54 degrees GEMUSE R Almyra 57 degrees GEMUSE T Almyra 42 degrees GEMUSE ECG Interpretation Normal sinus [...] Negative LAB CHEMISTRY METHOD 5 8:[address] [facility] Comment:Certain OTC medicati ons containing ephedrine, phenylephrine, pseudoephedrine and phenylpropanolamine can cause false positive results. Barbiturate Screen, Ur Negative Negative LAB CHEMISTRY METHOD 5 8:[address] [facility] Benzodiazepine Screen, Ur Negative Negative LAB CHEMISTRY METHOD 5 8:[address] [facility] Cocaine Screen, Ur Negative Negative LAB CHEMISTRY METHOD 5 8:[address] [facility] Opiate Screen, Ur Positive(A ) Negative LAB CHEMISTRY METHOD 5 8:[address] [facility] Cannabinoid (THC) Screen, Ur Positive(A ) Negative LAB CHEMISTRY METHOD 5 8:[address] [facility] Comment:Specimens from patie nts taking pantoprazole sodium (Protonix) have been shown to produce false positive results. Oxycodone Screen, Ur Negative Negative LAB CHEMISTRY METHOD 5 8:[address] [facility] Fentanyl, Ur Positive(A ) Negative LAB CHEMISTRY METHOD 5 8:[address] [facility] Urine Urine specimen obtained by [...] ORDERABLES Final Resu lt Performing Organization Address [facility] de Phone Number [facility] [address] [place] [address], * Buprenorphine screen, urine (06/23/2024 7:30 PM EST) [facility] Buprenorphine Screen Urine Negative Negative LAB CHEMISTRY METHOD 06/23/2024 8:31 PM EST [facility] Urine Urine specimen obtained by clean catch procedure / Unknown Non-blood Collection / Unknown 06/23/2024 7:30 PM EST 06/23/2024 7:55 PM EST Narrative [facility] - 06/23/2024 8:31 PM EST Assay cutoff 5 ng/mL Semi-quantitative assay for screening purposes only. Unconfirmed screening result should not be used for non-medical purposes. *ALTERNATE METHOD CONFIRMATION DONE UPON REQUEST ONLY* Williams B Ernesto AARON LAB URINE ORDERABLES Final Resu lt Performing Organization Address [facility] de Phone Number [facility] [address] [place] [address], * Methadone, urine (06/23/2024 7:30 PM EST) Pathologist [facility] Methadone Screen, Urine Negative Negative LAB CHEMISTRY METHOD 06/23/2024 8:31 PM EST [facility] Comment: Assay cutoff 300 ng/mL Semi-quantitative assay for screening purposes only. Unconfirmed screening result should not be used for non-medical purposes. *ALTERNATE METHOD CONFIRMATION DONE UPON REQUEST ONLY* Urine Urine specimen obtained by clean catch procedure / Unknown Non-blood Collection / Unknown 06/23/2024 7:30 PM EST 06/23/2024 7:55 PM EST us Williams B Ernesto AARON LAB URINE ORDERABLES Final Resu lt [facility] [address] [place] [address], * CBC auto differential (06/23/2024 7:30 PM EST) WBC 8.2 4.8 - 10.8 K/mcL LAB HEMETOLOGY METHOD 06/23/2024 8:[address] [facility] RBC 4.70 3.80 - 4.80 M/mcL LAB HEMETOLOGY METHOD 06/23/2024 8:[address] [facility] Hemoglobin 13.4 11.5 - 16.0 g/dL LAB HEMETOLOGY METHOD 06/23/2024 8:[address] [facility] Hematocrit 41.2 35.0 - 47.0 % LAB HEMETOLOGY METHOD 06/23/2024 8:[address] [facility] MCV 87.3 79.0 - 98.0 FL LAB HEMETOLOGY METHOD 06/23/2024 8:[address] [facility] MCH 28.4 27.0 - 32.0 pcg LAB HEMETOLOGY METHOD 06/23/2024 8:[address] [facility] MCHC 32.5 32.0 - 37.0 g/dL LAB HEMETOLOGY METHOD 06/23/2024 8:[address] [facility] RDW 12.2 11.0 - 15.0 % LAB HEMETOLOGY METHOD 06/23/2024 8:[address] [facility] Platelets 305 130 - 400 K/mcL LAB HEMETOLOGY METHOD 06/23/2024 8:[address] [facility] MPV 10.8 7.0 - 11.0 FL LAB HEMETOLOGY METHOD 06/23/2024 8:[address] [facility] NRBC 0.0 <1.0 % LAB HEMETOLOGY METHOD 06/23/2024 8:[address] [facility] NRBC Absolute 0.00 <0.10 K/mcL LAB HEMETOLOGY METHOD 06/23/2024 8:[address] [facility] Neutrophils Relative 58.3 % LAB HEMETOLOGY METHOD 06/23/2024 8:[address] [facility] Lymphocytes Relative 32.0 % LAB HEMETOLOGY METHOD 06/23/2024 8:[address] [facility] Monocytes Relative 3.5 % LAB HEMETOLOGY METHOD 06/23/2024 8:[address] [facility] Eosinophils Relative 5.3 % LAB HEMETOLOGY METHOD 06/23/2024 8:[address] [facility] Basophils Relative 0.7 % LAB HEMETOLOGY METHOD 06/23/2024 8:[address] [facility] Immature Granulocytes Relative 0.2 % LAB HEMETOLOGY METHOD 06/23/2024 8:[address] [facility] Neutrophils Absolute 4.76 1.50 - 7.00 K/mcL LAB HEMETOLOGY METHOD 06/23/2024 8:[address] [facility] Lymphocytes Absolute 2.62 1.00 - 5.00 K/mcL LAB HEMETOLOGY METHOD 06/23/2024 8:[address] [facility] Monocytes Absolute 0.29 0.20 - 1.00 K/mcL LAB HEMETOLOGY METHOD 06/23/2024 8:[address] [facility] Eosinophils Absolute 0.43 0.00 - 0.50 K/mcL LAB HEMETOLOGY METHOD 06/23/2024 8:02 PM EST [facility] Basophils Absolute 0.06 0.00 - 0.20 K/[facility] LAB HEMETOLOGY METHOD 06/23/2024 8:02 PM EST [facility] Immature Granulocytes Absolute 0.02 0.00 - 0.03 K/[facility] LAB HEMETOLOGY METHOD 06/23/2024 8:02 PM EST [facility] Blood Venous blood specimen / Unknown Venipuncture / Unknown 06/23/2024 7:30 PM EST 06/23/2024 7:55 PM EST Williams Gil Orozco MD LAB BLOOD ORDERABLES Final Resu lt Performing Organization Address [facility]/ZIP Co de Phone Number [facility] [address] [place] [address], * Phencyclidine, urine (06/23/2024 7:30 PM EST) PCP Scrn, Ur Negative Negative LAB CHEMISTRY METHOD 06/23/2024 8:31 PM EST [facility] Comment: Assay cutoff 25 ng/mL [...] ORDERABLES Final Resu lt Performing Organization Address City/[facility]/ZIP Co de Phone Number [facility] [address] [place] [address], [place] [phone] * Magnesium (06/23/2024 7:30 PM EST) Magnesium 2.1 1.9 - 2.6 mg/dL LAB CHEMISTRY METHOD 06/23/2024 8:26 PM EST [facility] Blood Venous blood specimen / Unknown Venipuncture / Unknown 06/23/2024 7:30 PM EST 06/23/2024 7:55 PM EST us Williams Orozco MD LAB BLOOD ORDERABLES Final Resu lt [facility] [address] [place] [address], [place] [phone] * Lipase (06/23/2024 7:30 PM EST) Lipase 22 13 - 75 unit/L LAB CHEMISTRY METHOD 06/23/2024 8:26 PM EST [facility] Blood Venous blood specimen / Unknown Venipuncture / Unknown 06/23/2024 7:30 PM EST 06/23/2024 7:55 PM EST us Williams Orozco MD LAB BLOOD ORDERABLES Final Resu lt Performing Organization Address City/[facility]/ZIP Co de Phone Number [facility] [address] [place] [address], [place] [phone] * Ethanol (06/23/2024 7:30 PM EST) Ethanol Level <3 0 - 10 mg/dL LAB CHEMISTRY METHOD 06/23/2024 8:26 PM EST [facility] Blood Venous blood specimen / Unknown Venipuncture / Unknown 06/23/2024 7:30 PM EST 06/23/2024 7:55 PM EST us Williams Orozco MD LAB BLOOD ORDERABLES Final Resu lt Performing Organization Address City/[facility]/ZIP Co de Phone Number [facility] [address] [place] [address], [place] [phone] * (ABNORMAL) Comprehensive metabolic panel (06/23/2024 7:30 PM EST) Sodium 139 133 - 145 mmol/L LAB CHEMISTRY METHOD 06/23/2024 8:[address] [facility] Potassium 4.2 3.5 - 5.5 mmol/L LAB CHEMISTRY METHOD 06/23/2024 8:[address] [facility] Chloride 107 96 - 110 mmol/L LAB CHEMISTRY METHOD 06/23/2024 8:[address] [facility] CO2 25 21 - 32 mmol/L LAB CHEMISTRY METHOD 06/23/2024 8:[address] [facility] Anion Gap 7 3 - 11 LAB CHEMISTRY METHOD 06/23/2024 8:[address] [facility] Glucose 112(H) 70 - 100 mg/dL LAB CHEMISTRY METHOD 06/23/2024 8:[address] [facility] BUN 13 5 - 25 mg/dL LAB CHEMISTRY METHOD 06/23/2024 8:[address] [facility] Creatinine 0.55 0.50 - 1.10 mg/dL LAB CHEMISTRY METHOD 06/23/2024 8:[address] [facility] eGFR 127 >=60 mL/min/1. 73m2 LAB CHEMISTRY METHOD 06/23/2024 8:[address] [facility] Comment:Calculation based on the??Chronic Kidney Disease Epidemiology Collaboration (CKD-EPI) equation refit??without adjustment for race. BUN/Creatinine Ratio 23.6 LAB CHEMISTRY METHOD 06/23/2024 8:[address] [facility] Calcium 9.1 8.5 - 10.5 mg/dL LAB CHEMISTRY METHOD 06/23/2024 8:[address] [facility] AST (SGOT) 33 10 - 42 unit/L LAB CHEMISTRY METHOD 06/23/2024 8:[address] [facility] ALT (SGPT) 75(H) 10 - 60 unit/L LAB CHEMISTRY METHOD 06/23/2024 8:26 PM EST [facility] Alkaline Phosphatase 89 42 - 121 unit/L LAB CHEMISTRY METHOD 06/23/2024 8:26 PM EST [facility] Total Protein 7.3 6.0 - 8.0 g/dL LAB CHEMISTRY METHOD 06/23/2024 8:26 PM EST [facility] Albumin 3.6 3.2 - 5.0 g/dL LAB CHEMISTRY METHOD 06/23/2024 8:[address] [facility] Total Bilirubin 0.3 0.0 - 1.4 mg/dL LAB CHEMISTRY METHOD 06/23/2024 8:[address] [facility] Blood Venous blood specimen / Unknown Venipuncture / Unknown 06/23/2024 7:30 PM EST 06/23/2024 7:55 PM EST Williams Orozco MD LAB BLOOD ORDERABLES Final Resu lt [facility] [address] [place] [address], [place] [phone] from Last 3 Months Insurance MEDICAID - [place] Care Teams Crabber Relationship Specialty Start Date End Date Physician, Pcp Unknown PCP - General 06/23/24
--- OUTSIDE RECORDS SUMMARY | 2024-08-16 14:42 | XMS_ITS | Encounter Summary ---
Author Organization [employer] Address [address] [place] [address] [address] [place] [address] Care Team Providers Care Regulatory Process Manager Name Role Phone Michaela Wooadrd MD Primary Care Provider [phone] Francisco Santiago Unavailable Unavailable Reason for Visit * Reason Comments Care Management C3CM- initial assess ment/ enrollment Encounter Details Date Type Department Care Team ([facility] st Contact Info) Description 08/11/2024 Patient Outreach [facility] [address] [place] [address] Michaela Woodard MD [address] [place] [address] Care Management (C3CM- initial assessment/ enrollment) Social History Tobacco Use Types Packs/Day Years [...] the past 12 months, has t he [employer], gas, oil or water [employer] threatened to shut off services in your [...] as of this encounter Progress Notes * Vijaya Griffith RN - 08/11/2024 1:46 PM EDT CM Vijaya Griffith RN placed outbound call to patient for agreed upon time for initial assessment for enrollment into Adult Care Management Program. Patient's name, , and address were verified. Maggy is a 29 year old female with Hx of anxiety, depression, breast augmentation, chronic lumbar radiculopathy, PTSD, mood disorder, fibromyalgia, constipation, disordered sleep, asthma, skin lesion of face, pelvic pain, opioid use disorder, tobacco use, chronic back pain, chronic pain of both knees, herpes simplex infection, and allergic rhinitis. Patient states she is being followed by Vignesh Jamesons a consult scheduled with behavioral health on 08/17/24. She is also scheduled to see psych via video visit on 09/19/24. Per patient, doing well emotionally today. She states she is taking her psych medications as prescribed. She denies SI/HI and confirms having the number to crisis which she knows to use prn. Patient established with [facility]. She denies any substance use. She states she smokes cigarettes occasionally and states she drinks alcohol on social occasions. Patient also reports use of nicotine patches which she states she has found to be useful. Per patient, taking suboxone as prescribed. She is aware of her scheduled visit with [facility] on 08/16/24 and 08/23/24. Patient recently referred to [facility]. She states she has not been contacted with an appt. CM will assist with f/u. Patient also recently referred to PT. She states she has not been contacted and has not received the referral letters that were mailed out to her. She is requesting that CM mail out the referral letters to her so that she can schedule her f/u appts. Letters prepared to be mailed out as requested. Patient requesting assistance with housing. She states she is living at a friend's house currently. Per patient, has filled out several applications but would like further support with this. Patient also requesting assistance with obtaining food resources. She states she is currently receiving emergency food stamps. Patient also requesting assistance with employment search. She states she has a bachelor'sdegree in nursing from [place]. 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 She expresses wanting to work with patients who have substance use disorders. Patient denies any immediate needs or concerns at this time. Care management program explained and contact information given. Patient verbalizes understanding, and able to repeat back to music writer. A follow up call will be placed within 10 days, patient agrees with plan. documented in this encounter Plan of Treatment Upcoming Encounters Date Type Department Care Team (Late st Contact Info) Description 08/23/2024 9:15 AM EDT Office Visit [facility] [address] [place] [phone] Michaela Woodard MD [address] [place] [phone] 10/16/2024 11:00 AM EDT Office Visit [facility] [address] [place] [phone] Michaela Woodard MD [address] [place] [phone] 10/18/2024 9:00 AM EDT Office Visit [facility] [address] [place] [address] Rosita Magana CNM [address] [place] [address] documented as of this encounter Goals Goal [...] documented as of this encounter Care Teams Regulatory Process Manager Relationship Specialty Start Date End Date Michaela Woodard MD [address] [place] [address] PCP - General Family Medicine 01/21/23 Francisco Santiago FNP [address] [place] [phone] Nurse Practitioner Family Medicine 03/15/23 documented as of this encounter
--- OUTSIDE RECORDS SUMMARY | 2024-08-16 14:42 | XMS_ITS ---
Author Organization [employer] Address [address] [facility] 7t [place] [address] Care Team Providers Care Bunch Maker Hand Name Role Phone Michaela Woodard MD Primary Care Provider [phone] Francisco Santiago Unavailable Unavailable [facility] Complex Status:Outreach In Progress (Enrolling) Start date:07/18/2024 Enrollment reason:Referred by provider Overview PCP Referral- recently hospitalized for psych decompensation. Please help her keep appt with BH, PT, and CRS. Thank you. Please outreach for enrollment. Case Team Name Relationship Phone Elsa Mott (Responsible Staff) Continued Care and Services Coordination
--- OUTSIDE RECORDS SUMMARY | 2024-08-16 14:42 | XMS_ITS | Encounter Summary ---
Author Organization [employer] Address [address] [place] [address] Care Team Providers Care Helium Arc Welder Name Role Phone Michaela Woodard MD Primary Care Provider [phone] Francisco Santiago Unavailable Unavailable Reason for Visit * Reason Comments Recovery Supports Encounter Details Date Type Department Care Team ([facility] st Contact Info) Description 08/15/2024 Patient Outreach [facility] [address] [place] [address] Kirill Love Recovery Supports Social History Tobacco Use Types Packs/Day Years [...] as of this encounter Progress Notes * Kirill Love - 08/15/2024 3:17 PM EDT I met with Maggy today. Setting: in person at [facility] Recovery Wellness Goals worked on: Social Stability Action taken/next steps: Attended recovery support group and Offered person centered recovery support Additional comments: Kirill Love documented in this encounter Plan of Treatment Upcoming Encounters Date Type Department Care Team (Late st Contact Info) Description 08/23/2024 9:15 AM EDT Office Visit [facility] [address] [place] [phone] Michaela Woodard MD [address] [place] [phone] 10/16/2024 11:00 AM EDT Office Visit [address] [address] Michaela Woodard MD [address] [place] [phone] 10/18/2024 9:00 AM EDT Office Visit [address] [address] Rosita Magana CNM [address] [place] [address] documented as of this encounter Goals Goal [...] documented as of this encounter Care Teams Helium Arc Welder Relationship Specialty Start Date End Date Michaela Woodard MD [address] [place] [phone] PCP - General Family Medicine 01/21/23 Francisco Santiago FNP [address] [place] [phone] Nurse Practitioner Family Medicine 03/15/23 documented as of this encounter
--- OUTSIDE RECORDS SUMMARY | 2024-08-16 14:42 | XMS_ITS | Clinical Summary ---
Author Organization [facility] Address [address] [place] [address] Care Team Providers Care Railroad Firer/Fireman Name Role Phone Wally Mueller Primary Care Provider [phone] Allergies No known active allergies Medications * [...] Completed 06/12/2024, 02/01/2023 Procedures * Due to [place] authorGEN law, this organization might not be sharing negative HIV tests. Procedure Name Priority Date/Time Associated Diagnosis Comments DRUGS OF ABUSE SCREEN, URINE STAT 06/29/2024 6:28 PM EDT HCG QUALITATIVE, URINE STAT 06/29/2024 6:28 PM EDT RAPID COVID-19 RNA FOR SURVEILLANCE (ED ONLY) STAT 06/29/2024 1:35 PM EDT from Last 3 Months Results * Due to [place] authorGEN law, this organization might not be sharing negative HIV tests. * (ABNORMAL) Drugs of Abuse Screen, Urine (06/29/2024 6:28 PM EDT) Amphetamine Screen, Urine Negative Negative 06/29/2024 7:02 PM EDT [facility] Comment: Detection limit of 1000 ng/mL of d-Methamphetamine. Drug results are to be used only for medical purposes. ??Unconfirmed screening results must not be used for non-medical purposes. Barbiturate Screen, Urine Negative Negative 06/29/2024 7:02 PM T [facility] Comment: Detection limit of 200 ng/mL of Secobarbital. Drug results are to be used only for medical purposes. ??Unconfirmed screening results must not be used for non-medical purposes. Benzodiazepine Screen, Urine Presumptive Positive(A) Negative 06/29/2024 7:02 PM T [facility] Comment: Detection limit of 200 ng/mL of Nordiazepam. Drug results are to be used only for medical purposes. ??Unconfirmed screening results must not be used for non-medical purposes. Buprenorphine Screen, Urine Negative Negative 06/29/2024 7:02 PM [facility] Comment: Detection limit of 10 ng/mL of norbuprenorphine. Drug results are to be used only for medical purposes. ??Unconfirmed screening results must not be used for non-medical purposes. Cocaine Metabolite Screen, Urine Negative Negative 06/29/2024 7:02 PM [facility] Comment: Detection limit of 300 ng/mL of Benzoylecgonine. Drug results are to be used only for medical purposes. ??Unconfirmed screening results must not be used for non-medical purposes. Marijuana Screen, Urine Presumptive Positive(A) Negative [facility]24 [facility] Comment: Detection limit of 50 ng/mL of 83-[id number]-HDA-0-carboxylic acid. Drug results are to be used only for medical purposes. ??Unconfirmed screening results must not be used for non-medical purposes. Methadone Metabolite Screen, Urine Presumptive Positive(A) Negative 06/29/2024 7:02 PM [facility] Comment: Detection limit of 300 ng/mL of Methadone. Drug results are to be used only for medical purposes. ??Unconfirmed screening results must not be used for non-medical purposes. Oxycodone Screen, Urine Negative Negative 06/29/2024 7:02 PM EDT [facility] Comment: Detection limit of 100 ng/mL of Oxycodone. Drug results are to be used only for medical purposes. ??Unconfirmed screening results must not be used for non-medical purposes. Opiate Screen, Urine Negative Negative 06/29/2024 7:02 PM EDT [facility] Comment: Detection limit of 300 ng/mL of Morphine. Drug results are to be used only for medical purposes. ??Unconfirmed screening results must not be used for non-medical purposes. Fentanyl Screen, Urine Presumptive Positive(A) Negative 06/29/2024 7:02 PM EDT [facility] Comment: Detection limit of 5 ng/mL of norfentanyl. Drug results are to be used only for medical purposes. ??Unconfirmed screening results must not be used for non-medical purposes. Urine Urine specimen collection, clean catch / Unknown Non-Blood Collection / Unknown 06/29/2024 6:28 PM EDT 06/29/2024 6:28 PM EDT us Julián Russ DO LAB URINE ORDERABLES Final Resul t [facility] [address] [place] [address], * HCG Qualitative, Urine (06/29/2024 6:28 PM EDT) HCG Qualitative, Urine Negative Negative [place] [facility] 06/29/2024 7:00 PM EDT [facility] Comment: hCG may be [...] ORDERABLES Final Resul t Performing Organization Address [facility] Co de Phone Number [facility] [address] [place] [address], * Rapid COVID-19 RNA for Surveillance (06/29/2024 1:35 PM EDT) PCR, SARS CoV-2 RNA Not Detected Not Detected [employer] 06/29/2024 2:20 PM EDT [facility] Comment:A Not Detected (Nega [...] PM EDT 06/29/2024 1:42 PM EDT Narrative [facility] - 06/29/2024 2:20 PM EDT This test was developed, validated and its performance characteristics determined by [facility]. This test has not been cleared or approved by the U.S. Food and Drug Administration (FDA). FDA Policy for Diagnostic Tests for Coronavirus Disease-2019 during the Public Health Emergency issued July 03, 2019, is followed. Chadd Meléndez MD LAB BODY FLUIDS AND STOOLS ORDER GUI Final Result Performing Organization Address [facility]/ZIP Co de Phone Number [facility] [address] [place] [address], from Last [address] [place] [address] Care Teams Railroad Firer/Fireman Relationship Specialty Start Date End Date Wally Mueller [address] [place] [phone] PCP - General Psychiatry 06/29/24
[2024-08-24 07:28] LABS: EDDP (Methadone Metabolite) 2300 ng/mL; Methadone, Urine MS 520 ng/mL
== END 2024-08-16 13:21 | disposition home or self-care (01) ==
LOC: HO.HHCLNP 13:20
PROVIDERS: Visit Provider Family Medicine
DX: F11.20 Opioid dependence, uncomplicated (principal)
CPT/HCPCS: 80358

== ENCOUNTER 2024-08-23 13:21 | Outpatient (REF) | payer MEDICAID, SELFPAY ==
--- OUTSIDE RECORDS SUMMARY | 2024-08-23 14:36 | XMS_ITS | Clinical Summary ---
Author Organization [facility] Address [address] [place] [address] Care Team Providers Care Children'S Nursery Assistant Name Role Phone Wally Mueller Primary Care Provider [phone] Allergies No known active allergies Medications * [...] Completed 06/12/2024, 02/01/2023 Procedures * Due to [employer] [place] [employer] law, this organization might not be sharing negative HIV tests. Procedure Name Priority Date/Time Associated Diagnosis Comments DRUGS OF ABUSE SCREEN, URINE STAT 06/29/2024 6:28 PM EDT HCG QUALITATIVE, URINE STAT 06/29/2024 6:28 PM EDT RAPID COVID-19 RNA FOR SURVEILLANCE (ED ONLY) STAT 06/29/2024 1:35 PM EDT from Last 3 Months Results * Due to [place] [employer] law, this organization might not be sharing negative HIV tests. * (ABNORMAL) Drugs of Abuse Screen, Urine (06/29/2024 6:28 PM EDT) Amphetamine Screen, Urine Negative Negative 06/29/2024 7:02 PM EDT [facility] Comment: Detection limit of 1000 ng/mL of d-Methamphetamine. Drug results are to be used only for medical purposes. ??Unconfirmed screening results must not be used for non-medical purposes. Barbiturate Screen, Urine Negative Negative 06/29/2024 7:02 PM T [facility] Comment: Detection limit of 200 ng/mL of Secobarbital. Drug results are to be used only for medical purposes. ??Unconfirmed screening results must not be used for non-medical purposes. Benzodiazepine Screen, Urine Presumptive Positive(A) Negative 06/29/2024 7:02 PM T [facility] Comment: Detection limit of 200 ng/mL of Nordiazepam. Drug results are to be used only for medical purposes. ??Unconfirmed screening results must not be used for non-medical purposes. Buprenorphine Screen, Urine Negative Negative 06/29/2024 7:02 PM [facility] Comment: Detection limit of 10 ng/mL of norbuprenorphine. Drug results are to be used only for medical purposes. ??Unconfirmed screening results must not be used for non-medical purposes. Cocaine Metabolite Screen, Urine Negative Negative 06/29/2024 7:02 PM [facility] Comment: Detection limit of 300 ng/mL of Benzoylecgonine. Drug results are to be used only for medical purposes. ??Unconfirmed screening results must not be used for non-medical purposes. Marijuana Screen, Urine Presumptive Positive(A) Negative 06/29/2024 7:[facility] Comment: Detection limit of 50 ng/mL of 72-Gul-aljyt-7-DVN-1-carboxylic acid. Drug results are to be used only for medical purposes. ??Unconfirmed screening results must not be used for non-medical purposes. Methadone Metabolite Screen, Urine Presumptive Positive(A) Negative 06/29/2024 7:02 PM [facility] Comment: Detection limit of 300 ng/mL of Methadone. Drug results are to be used only for medical purposes. ??Unconfirmed screening results must not be used for non-medical purposes. Oxycodone Screen, Urine Negative Negative 06/29/2024 7:02 PM EDT [facility] Comment: Detection limit of 100 ng/mL of Oxycodone. Drug results are to be used only for medical purposes. ??Unconfirmed screening results must not be used for non-medical purposes. Opiate Screen, Urine Negative Negative 06/29/2024 7:02 PM EDT [facility] Comment: Detection limit of 300 ng/mL of Morphine. Drug results are to be used only for medical purposes. ??Unconfirmed screening results must not be used for non-medical purposes. Fentanyl Screen, Urine Presumptive Positive(A) Negative 06/29/2024 7:02 PM EDT [facility] Comment: Detection limit of 5 ng/mL of norfentanyl. Drug results are to be used only for medical purposes. ??Unconfirmed screening results must not be used for non-medical purposes. Urine Urine specimen collection, clean catch / Unknown Non-Blood Collection / Unknown 06/29/2024 6:28 PM EDT 06/29/2024 6:28 PM EDT us Julián Russ DO LAB URINE ORDERABLES Final Resul t [facility] [address] [place] [address], * HCG Qualitative, Urine (06/29/2024 6:28 PM EDT) HCG Qualitative, Urine Negative Negative [facility] 06/29/2024 7:00 PM EDT [facility] Comment: hCG [...] ORDERABLES Final Resul t Performing Organization Address [facility] Co de Phone Number [facility] [address] [place] [address], * Rapid COVID-19 RNA for Surveillance (06/29/2024 1:35 PM EDT) PCR, SARS CoV-2 RNA Not Detected Not Detected CEPHEID GENEXPERT 06/29/2024 2:20 PM EDT [facility] Comment:A Not [...] PM EDT 06/29/2024 1:42 PM EDT Narrative [facility] - 06/29/2024 2:20 PM EDT This test was developed, validated and its performance characteristics determined by [facility] Clinical [facility]. This test has not been cleared or approved by the U.S. Food and Drug Administration (FDA). FDA Policy for Diagnostic Tests for Coronavirus Disease-2019 during the Public Health Emergency issued July 03, 2019, is followed. Chadd Meléndez MD LAB BODY FLUIDS AND STOOLS ORDER GUI Final Result Performing Organization Address [facility]/ZIP Co de Phone Number [facility] [address] [place] [address], from Last [address] [address] [address] Care Teams Children'S Nursery Assistant Relationship Specialty Start Date End Date Wally Mueller [address] [place] [id number] PCP - General Psychiatry 06/29/24
--- OUTSIDE RECORDS SUMMARY | 2024-08-23 14:36 | XMS_ITS | Encounter Summary ---
Author Organization [employer] Address [address] [place] [address] 7 [place] [address] Care Team Providers Care Animal Cytologist Name Role Phone Michaela Woodard MD Primary Care Provider [phone] Francisco Santiago Unavailable Unavailable Reason for Visit * Reason Comments Med Refill Encounter Details Date Type Department Care Team ([facility] st Contact Info) Description 02/04/2023 Refill [facility] MEDICINE [address] [place] [phone] Anne Knowles FNP [address] [place] [address] Dept [place] [address] Social History Tobacco Use Types Packs/Day Years [...] Care Team (Late st Contact Info) Description 08/30/2024 10:45 AM EDT Clinical Support [facility] [address] [place] [phone] Filemon Brown, RN [address] [place] [phone] 10/10/2024 10:30 AM EDT Office Visit [facility] OPTOMETRY [address] [place] [phone] Leslye Gonzalez, OD [address] [place] [phone] 10/16/2024 11:00 AM EDT Office Visit [facility] MED[facility]INE [address] [place] [phone] Michaela Woodard MD [address] [place] [phone] 10/18/2024 9:00 AM EDT Office Visit [facility] [address] [place] [phone] Rosita Magana CNM [address] [place] [address] documented as of this encounter Visit Diagnoses Not on filedocumented in this encounter Additional Health Concerns Assessment Noted Time PHQ-9 Depression Total Score: 5 12/11/19 23 9:04 AM EDT documented as of this encounter Care Teams Animal Cytologist Relationship Specialty Start Date End Date Michaela Woodard MD [address] [place] [phone] PCP - General Family Medicine 01/21/23 Francisco Santiago FNP [address] [place] [phone] Nurse Practitioner Family Medicine 03/15/23 Genesis Flores Illusionist 01/28/23 04/30/23 documented as of this encounter
--- OUTSIDE RECORDS SUMMARY | 2024-08-23 14:36 | XMS_ITS | Encounter Summary ---
Author Organization [employer] Address [address] [facility] 7t [place] [address] Care Team Providers Care Branch Chief Name Role Phone Michaela Woodard MD Primary Care Provider [phone] Francisco Santiago Unavailable Unavailable Encounter Details Date Type Department Care Team (Late st Contact Info) Description 07/04/2024 Telephone [facility] [address] [place] [address] Hallie Bernabe, MakennaD [address] [place] [address] Social History Tobacco Use Types Packs/Day Years [...] Description 08/30/2024 10:45 AM EDT Clinical Support [facility] [address] [place] [address] Filemon Brown, ALLAN [address] [place] [phone] 10/10/2024 10:30 AM EDT Office Visit [facility] OPTOMETRY [address] [place] [address] Leslye Gonzalez, OD [address] [place] [address] 10/16/2024 11:00 AM EDT Office Visit [facility] [address] [place] [phone] Michaela Woodard MD [address] [place] [phone] 10/18/2024 9:00 AM EDT Office Visit [facility] [address] [place] [address] Rosita Magana CNM [address] [place] [phone] documented as of this encounter Visit Diagnoses Not on filedocumented in this encounter Additional Health Concerns Assessment Noted Time PHQ-9 Depression Total Score: 14 025 2:25 PM EST documented as of this encounter Care Teams Branch Chief Relationship Specialty Start Date End Date Michaela Woodard MD [address] [place] [address] PCP - General Family Medicine 01/21/23 Francisco Santiago FNP [address] [place] [address] Nurse Practitioner Family Medicine 03/15/23 documented as of this encounter
--- OUTSIDE RECORDS SUMMARY | 2024-08-23 14:36 | XMS_ITS ---
Author Organization [employer] Address [address] [facility] 7t [place] [address] Care Team Providers Care Bioanalyst Name Role Phone Michaela Woodard MD Primary Care Provider [phone] Francisco Santiago Unavailable Unavailable [facility] Complex Status:Outreach In Progress (Enrolling) Start date:07/18/2024 Enrollment reason:Referred by provider Overview PCP Referral- recently hospitalized for psych decompensation. Please help her keep appt with BH, PT, and CRS. Thank you. Please outreach for enrollment. Case Team Name Relationship Phone Elsa Mott (Responsible Staff) [phone] Continued Care and Services Coordination
--- OUTSIDE RECORDS SUMMARY | 2024-08-23 14:36 | XMS_ITS ---
Author Organization [employer] Address [address] [place] [address] 7t [place] [address] Care Team Providers Care Hardboard Coating Machine Operator Name Role Phone Michaela Woodard MD Primary Care Provider [phone] Francisco Santiago Unavailable Unavailable CM Complex Status:Enrolled (Active) Start date:07/18/2024 Enrollment date:08/11/2024 Enrollment reason:Referred by provider Overview PCP Referral- recently hospitalized for psych decompensation. Please help her keep appt with BH, PT, and CRS. Thank you Case Team Name Relationship Phone Vijaya Griffith RN Registered Nurse(Responsible S taff) [phone] Continued Care and Services Coordination
--- OUTSIDE RECORDS SUMMARY | 2024-08-23 14:36 | XMS_ITS | Referral Summary ---
Author Organization [facility] Address [address] [place] [address] Care Team Providers Care Car Hop Name Role Phone Wally Mueller Primary Care Provider [phone] Allergies No known active allergies Medications * [...] Not on file Procedures * Due to [facility] law, this organization might not be sharing negative HIV tests. Procedure Name Priority Date/Time Associated Diagnosis Comments DRUGS OF ABUSE SCREEN, URINE STAT 06/29/2024 6:28 PM EDT HCG QUALITATIVE, URINE STAT 06/29/2024 6:28 PM EDT RAPID COVID-19 RNA FOR SURVEILLANCE (ED ONLY) STAT 06/29/2024 1:35 PM EDT from Last 3 Months Results * Due to [facility] law, this organization might not be sharing negative HIV tests. * (ABNORMAL) Drugs of Abuse Screen, Urine (06/29/2024 6:28 PM EDT) Amphetamine Screen, Urine Negative Negative 06/29/2024 7:02 PM EDT [facility] Comment: Detection limit of 1000 ng/mL of d-Methamphetamine. Drug results are to be used only for medical purposes. ??Unconfirmed screening results must not be used for non-medical purposes. Barbiturate Screen, Urine Negative Negative 06/29/2024 7:02 PM EDT [facility] Comment: Detection limit of 200 ng/mL of Secobarbital. Drug results are to be used only for medical purposes. ??Unconfirmed screening results must not be used for non-medical purposes. Benzodiazepine Screen, Urine Presumptive Positive(A) Negative 06/29/2024 7:02 PM EDT [facility] Comment: Detection limit of 200 ng/mL of Nordiazepam. Drug results are to be used only for medical purposes. ??Unconfirmed screening results must not be used for non-medical purposes. Buprenorphine Screen, Urine Negative Negative 06/29/2024 7:02 PM EDT [facility] Comment: Detection limit of 10 ng/mL of norbuprenorphine. Drug results are to be used only for medical purposes. ??Unconfirmed screening results must not be used for non-medical purposes. Cocaine Metabolite Screen, Urine Negative Negative 06/29/2024 7:02 PM EDT [facility] Comment: Detection limit of 300 ng/mL of Benzoylecgonine. Drug results are to be used only for medical purposes. ??Unconfirmed screening results must not be used for non-medical purposes. Marijuana Screen, Urine Presumptive Positive(A) Negative 06/29/2024 7:02 PM EDT [facility] Comment: Detection limit of 50 ng/mL of 00-Afd-pwhpr-1-WAO-1-carboxylic acid. Drug results are to be used only for medical purposes. ??Unconfirmed screening results must not be used for non-medical purposes. Methadone Metabolite Screen, Urine Presumptive Positive(A) Negative 06/29/2024 7:02 PM EDT [facility] Comment: Detection limit of 300 ng/mL of Methadone. Drug results are to be used only for medical purposes. ??Unconfirmed screening results must not be used for non-medical purposes. Oxycodone Screen, Urine Negative Negative 06/29/2024 7:02 PM T [facility] Comment: Detection limit of 100 ng/mL of Oxycodone. Drug results are to be used only for medical purposes. ??Unconfirmed screening results must not be used for non-medical purposes. Opiate Screen, Urine Negative Negative 06/29/2024 7:02 PM EDT [facility] Comment: Detection limit of 300 ng/mL of Morphine. Drug results are to be used only for medical purposes. ??Unconfirmed screening results must not be used for non-medical purposes. Fentanyl Screen, Urine Presumptive Positive(A) Negative 06/29/2024 7:02 PM EDT [facility] Comment: Detection [...] ORDERABLES Final Resul t Performing Organization Address [facility] de Phone Number [facility]PITALCommunication ScienceUNIVERS[facility] [address] [place] [address], * HCG Qualitative, Urine (06/29/2024 6:28 PM EDT) Pathologist [facility] HCG Qualitative, Urine Negative Negative [facility] 06/29/2024 7:00 PM EDT [facility] Comment: hCG [...] ORDERABLES Final Resul t Performing Organization Address [facility] de Phone Number [facility] [address] [place] [address], * Rapid COVID-19 RNA for Surveillance (06/29/2024 1:35 PM EDT) [facility] PCR, SARS CoV-2 RNA Not Detected Not Detected CEPHEID GENEXPERT 06/29/2024 2:20 PM EDT [facility] Comment:A Not [...] PM EDT 06/29/2024 1:42 PM EDT Narrative [facility] - 06/29/2024 2:20 PM EDT This test was developed, validated and its performance characteristics determined by [facility] Labs. This test has not been cleared or approved by the U.S. Food and Drug Administration (FDA). FDA Policy for Diagnostic Tests for Coronavirus Disease-2019 during the Public Health Emergency issued July 03, 2019, is followed. us Chadd Meléndez MD LAB BODY FLUIDS AND STOOLS ORDER GUI Final Result [facility] [address] [place] [address], from Last 3 Months Insurance [employer] Care Teams Car Hop Relationship Specialty Start Date End Date Wally Mueller [address] [place] [phone] PCP - General Psychiatry 06/29/24
--- OUTSIDE RECORDS SUMMARY | 2024-08-23 14:36 | XMS_ITS | Clinical Summary ---
Author Organization [facility] Address [address] [place] [address] Phone Care Team Providers Care Social Work Coordinator Name Role Phone Physician, Pcp Unknown Primary [...] EST - 06/24/2024 1:22 AM EST Emergency [facility] Emergency [address] [place] [address] Opioid use disorder (Primary Dx) [...] GEMUSE QTc 392 ms GEMUSE P Wave Sterling 54 degrees GEMUSE R Sterling 57 degrees GEMUSE T Sterling 42 degrees GEMUSE ECG Interpretation Normal sinus [...] Negative LAB CHEMISTRY METHOD 5 8:41 PM [facility] Comment:Certain OTC medicati ons containing ephedrine, phenylephrine, pseudoephedrine and phenylpropanolamine can cause false positive results. Barbiturate Screen, Ur Negative Negative LAB CHEMISTRY METHOD 5 8:41 PM [facility] Benzodiazepine Screen, Ur Negative Negative LAB CHEMISTRY METHOD 5 8:41 PM [facility] Cocaine Screen, Ur Negative Negative LAB CHEMISTRY METHOD 5 8:41 PM [facility] Opiate Screen, Ur Positive(A ) Negative LAB CHEMISTRY METHOD 5 8:41 PM [facility] Cannabinoid (THC) Screen, Ur Positive(A ) Negative LAB CHEMISTRY METHOD 5 8:41 PM [facility] Comment:Specimens from patie nts taking pantoprazole sodium (Protonix) have been shown to produce false positive results. Oxycodone Screen, Ur Negative Negative LAB CHEMISTRY METHOD 5 8:41 PM [facility] Fentanyl, Ur Positive(A ) Negative LAB CHEMISTRY METHOD 5 8:41 PM [facility] Urine Urine specimen obtained by clean catch procedure / Unknown Non-blood Collection / Unknown 06/23/2024 7:30 PM EST 06/23/2024 7:[address] [facility] - 06/23/2024 8:41 PM EST [...] ORDERABLES Final Resu lt Performing Organization Address [facility] de Phone Number [facility] [address] [place] [address], * Buprenorphine screen, urine (06/23/2024 7:30 PM EST) [facility] Buprenorphine Screen Urine Negative Negative LAB CHEMISTRY METHOD 06/23/2024 8:31 PM EST [facility] Urine Urine specimen obtained by clean catch procedure / Unknown Non-blood Collection / Unknown 06/23/2024 7:30 PM EST 06/23/2024 7:55 PM EST Narrative [facility] - 06/23/2024 8:31 PM EST Assay cutoff 5 ng/mL Semi-quantitative assay for screening purposes only. Unconfirmed screening result should not be used for non-medical purposes. *ALTERNATE METHOD CONFIRMATION DONE UPON REQUEST ONLY* Williams B Ernesto [facility] LAB URINE ORDERABLES Final Resu lt Performing Organization Address [facility] de Phone Number [facility] [address] [place] [address], * Methadone, urine (06/23/2024 7:30 PM EST) Pathologist [facility] Methadone Screen, Urine Negative Negative LAB CHEMISTRY METHOD 06/23/2024 8:31 PM EST [facility] Comment: Assay cutoff 300 [...] AARON LAB URINE ORDERABLES Final Resu lt [facility] [address] [place] [address], * CBC auto differential (06/23/2024 7:30 PM EST) WBC 8.2 4.8 - 10.8 K/mcL LAB HEMETOLOGY METHOD 06/23/2024 8:02 PM [facility] RBC 4.70 3.80 - 4.80 M/mcL LAB HEMETOLOGY METHOD 06/23/2024 8:02 PM [facility] Hemoglobin 13.4 11.5 - 16.0 g/dL LAB HEMETOLOGY METHOD 06/23/2024 8:02 PM [facility] Hematocrit 41.2 35.0 - 47.0 % LAB HEMETOLOGY METHOD 06/23/2024 8:02 PM [facility] MCV 87.3 79.0 - 98.0 FL LAB HEMETOLOGY METHOD 06/23/2024 8:02 PM [facility] MCH 28.4 27.0 - 32.0 pcg LAB HEMETOLOGY METHOD 06/23/2024 8:02 PM [facility] MCHC 32.5 32.0 - 37.0 g/dL LAB HEMETOLOGY METHOD 06/23/2024 8:02 PM [facility] RDW 12.2 11.0 - 15.0 % LAB HEMETOLOGY METHOD 06/23/2024 8:02 PM [facility] Platelets 305 130 - 400 K/mcL LAB HEMETOLOGY METHOD 06/23/2024 8:02 PM [facility] MPV 10.8 7.0 - 11.0 FL LAB HEMETOLOGY METHOD 06/23/2024 8:02 PM [facility] NRBC 0.0 <1.0 % LAB HEMETOLOGY METHOD 06/23/2024 8:02 PM [facility] NRBC Absolute 0.00 <0.10 K/mcL LAB HEMETOLOGY METHOD 06/23/2024 8:02 PM [facility] Neutrophils Relative 58.3 % LAB HEMETOLOGY METHOD 06/23/2024 8:02 PM [facility] Lymphocytes Relative 32.0 % LAB HEMETOLOGY METHOD 06/23/2024 8:02 PM [facility] Monocytes Relative 3.5 % LAB HEMETOLOGY METHOD 06/23/2024 8:02 PM [facility] Eosinophils Relative 5.3 % LAB HEMETOLOGY METHOD 06/23/2024 8:02 PM [facility] Basophils Relative 0.7 % LAB HEMETOLOGY METHOD 06/23/2024 8:02 PM [facility] Immature Granulocytes Relative 0.2 % LAB HEMETOLOGY METHOD 06/23/2024 8:02 PM [facility] Neutrophils Absolute 4.76 1.50 - 7.00 K/mcL LAB HEMETOLOGY METHOD 06/23/2024 8:02 PM [facility] Lymphocytes Absolute 2.62 1.00 - 5.00 K/mcL LAB HEMETOLOGY METHOD 06/23/2024 8:02 PM [facility] Monocytes Absolute 0.29 0.20 - 1.00 K/mcL LAB HEMETOLOGY METHOD 06/23/2024 8:02 PM [facility] Eosinophils Absolute 0.43 0.00 - 0.50 K/mcL LAB HEMETOLOGY METHOD 06/23/2024 8:02 PM EST [facility] Basophils Absolute 0.06 0.00 - 0.20 K/[facility] LAB HEMETOLOGY METHOD 06/23/2024 8:02 PM EST [facility] Immature Granulocytes Absolute 0.02 0.00 - 0.03 K/[facility] LAB HEMETOLOGY METHOD 06/23/2024 8:02 PM EST [facility] Blood Venous blood specimen / Unknown Venipuncture / Unknown 06/23/2024 7:30 PM EST 06/23/2024 7:55 PM EST Williams Gil Orozco MD LAB BLOOD ORDERABLES Final Resu lt Performing Organization Address [facility]/ZIP Co de Phone Number [facility] [address] [place] [address], * Phencyclidine, urine (06/23/2024 7:30 PM EST) PCP Scrn, Ur Negative Negative LAB CHEMISTRY METHOD 06/23/2024 8:31 PM EST [facility] Comment: Assay cutoff 25 [...] ORDERABLES Final Resu lt Performing Organization Address City/[facility]/ZIP Co de Phone Number [facility] [address] [place] [address], [place] [phone] * Magnesium (06/23/2024 7:30 PM EST) Magnesium 2.1 1.9 - 2.6 mg/dL LAB CHEMISTRY METHOD 06/23/2024 8:26 PM EST [facility] Blood Venous blood specimen / Unknown Venipuncture / Unknown 06/23/2024 7:30 PM EST 06/23/2024 7:55 PM EST us Williams Orozco MD LAB BLOOD ORDERABLES Final Resu lt [facility] [address] [place] [address], [place] [phone] * Lipase (06/23/2024 7:30 PM EST) Lipase 22 13 - 75 unit/L LAB CHEMISTRY METHOD 06/23/2024 8:26 PM EST [facility] Blood Venous blood specimen / Unknown Venipuncture / Unknown 06/23/2024 7:30 PM EST 06/23/2024 7:55 PM EST us Williams Orozco MD LAB BLOOD ORDERABLES Final Resu lt Performing Organization Address City/[facility]/ZIP Co de Phone Number [facility] [address] [place] [address], [place] [phone] * Ethanol (06/23/2024 7:30 PM EST) Ethanol Level <3 0 - 10 mg/dL LAB CHEMISTRY METHOD 06/23/2024 8:26 PM EST [facility] Blood Venous blood specimen / Unknown Venipuncture / Unknown 06/23/2024 7:30 PM EST 06/23/2024 7:55 PM EST us Williams Orozco MD LAB BLOOD ORDERABLES Final Resu lt Performing Organization Address City/[facility]/ZIP Co de Phone Number [facility] [address] [place] [address], [place] [phone] * (ABNORMAL) Comprehensive metabolic panel (06/23/2024 7:30 PM EST) Sodium 139 133 - 145 mmol/L LAB CHEMISTRY METHOD 06/23/2024 8:26 PM [facility] Potassium 4.2 3.5 - 5.5 mmol/L LAB CHEMISTRY METHOD 06/23/2024 8:26 PM [facility] Chloride 107 96 - 110 mmol/L LAB CHEMISTRY METHOD 06/23/2024 8:26 PM [facility] CO2 25 21 - 32 mmol/L LAB CHEMISTRY METHOD 06/23/2024 8:26 PM [facility] Anion Gap 7 3 - 11 LAB CHEMISTRY METHOD 06/23/2024 8:26 PM [facility] Glucose 112(H) 70 - 100 mg/dL LAB CHEMISTRY METHOD 06/23/2024 8:26 PM [facility] BUN 13 5 - 25 mg/dL LAB CHEMISTRY METHOD 06/23/2024 8:26 PM [facility] Creatinine 0.55 0.50 - 1.10 mg/dL LAB CHEMISTRY METHOD 06/23/2024 8:26 PM [facility] eGFR 127 >=60 mL/min/1. 73m2 LAB CHEMISTRY METHOD 06/23/2024 8:26 PM [facility] Comment:Calculation based on the??Chronic Kidney Disease Epidemiology Collaboration (CKD-EPI) equation refit??without adjustment for race. BUN/Creatinine Ratio 23.6 LAB CHEMISTRY METHOD 06/23/2024 8:26 PM [facility] Calcium 9.1 8.5 - 10.5 mg/dL LAB CHEMISTRY METHOD 06/23/2024 8:26 PM [facility] AST (SGOT) 33 10 - 42 unit/L LAB CHEMISTRY METHOD 06/23/2024 8:26 PM [facility] ALT (SGPT) 75(H) 10 - 60 unit/L LAB CHEMISTRY METHOD 06/23/2024 8:26 PM EST [facility] Alkaline Phosphatase 89 42 - 121 unit/L LAB CHEMISTRY METHOD 06/23/2024 8:26 PM EST [facility] Total Protein 7.3 6.0 - 8.0 g/dL LAB CHEMISTRY METHOD 06/23/2024 8:26 PM EST [facility] Albumin 3.6 3.2 - 5.0 g/dL LAB CHEMISTRY METHOD 06/23/2024 8:26 PM [facility] Total Bilirubin 0.3 0.0 - 1.4 mg/dL LAB CHEMISTRY METHOD 06/23/2024 8:26 PM [facility] Blood Venous blood specimen / Unknown Venipuncture / Unknown 06/23/2024 7:30 PM EST 06/23/2024 7:55 PM EST Williams Orozco MD LAB BLOOD ORDERABLES Final Resu lt [facility] [address] [place] [address], [place] [phone] from Last 3 Months Insurance MEDICAID - [place] Care Teams Social Work Coordinator Relationship Specialty Start Date End Date Physician, Pcp Unknown PCP - General 06/23/24
--- OUTSIDE RECORDS SUMMARY | 2024-08-23 14:37 | XMS_ITS | Encounter Summary ---
Author Organization [employer] Address [address] [place] [address] Care Team Providers Care Postdoctoral Fellow Name Role Phone Michaela Woodard MD Primary Care Provider [phone] Francisco Santiago Unavailable Unavailable Reason for Visit * Reason Comments [facility] Recovery Supports Encounter Details Date Type Department Care Team (Late st Contact Info) Description 08/18/2024 Patient Outreach [facility] MED[facility] [address] [place] [phone] Mahi Mcmahon Recovery Supports Social History Tobacco Use Types Packs/Day Years Used Date Smoking Tobacco: Every Day Cigarettes Last attempted to quit: 05/20/2022 Passive Smoke Exposure: Past Smokeless Tobacco: Never Alcohol Use Standard Drinks/Week Comments Not Currently 0 (1 standard drink = 0.6 oz pur e alcohol) Depression Answer Date Recorded Patient Health Questionnaire-9 Score 8 08/20/2024 Patient Health Questionnaire-9 Score 8 08/20/2024 Last PHQ-9: Questionnaire Data Not on file 0 08/20/2024 Housing Stability Answer Date Recorded What is your housing situation today? I have zehra chapman 08/18/[address] you li ve. Do you have problems with any of the following? None of the above 08/18/2024 Food Insecurity Answer Date Recorded Within the past 12 months, y ou worried that your food would run out before you got money to buy more: Often true 08/18/2024 Within the past 12 months,th e food you bought just didn't last and you didn't have enough money to get more: Often true 05/2024 Transportation Answer Date Recorded In the past 12 months, has l ack of transportation kept you from medical appts, meetings, work or from getting things needed for daily living? No 08/18/2024 Utilities Answer Date Recorded In the past 12 months, has t he electric, gas, oil or water company threatened to shut off services in your home? No 08/18/2024 Depression Answer Date Recorded Patient Health Questionnaire-2 Score 2 08/20/2024 Internet Access Answer Date Recorded Internet Access Q1 Yes 08/18/2024 Internet Access Q2 Not on file 08/18/2024 Comments No Sex and Gender Information Value Date Recorded Sex Assigned at Female 02/16/2022 10:37 AM EDT Legal Sex Female 10:37 AM EDT Gender Identity Female 02/16/2022 10:37 AM EDT Sexual Orientation Straight 02/16/2022 10 :37 AM EDT documented as of this encounter Progress Notes * Mahi Mcmahon - 08/18/2024 11:59 PM EDT I met with Maggy today. Setting: in person at [facility] Recovery Wellness Goals worked on: Social Stability Action taken/next steps: Attended alcohol and drug free activity Additional comments: Mahi Mcmahon documented in this encounter Plan of Treatment Upcoming Encounters Date Type Department Care Team (Late st Contact Info) Description 08/30/2024 10:45 AM EDT Clinical Support [facility] [address] [place] [phone] Filemon Brown, RN [address] [place] [address] 10/10/2024 10:30 AM EDT Office Visit [facility] [address] [place] [phone] Leslye Gonzalez, OD [address] [place] [address] 10/16/2024 11:00 AM EDT Office Visit [facility] [address] [place] [phone] Michaela Woodard MD [address] [place] [phone] 10/18/2024 9:00 AM EDT Office Visit [facility] [address] [place] [address] Rosita Magana CNM [address] [place] [address] documented as of this encounter Goals Goal [...] documented as of this encounter Care Teams Postdoctoral Fellow Relationship Specialty Start Date End Date Michaela Woodard MD [address] [place] [address] PCP - General Family Medicine 01/21/23 Francisco Santiago FNP [address] [place] [phone] Nurse Practitioner Family Medicine 03/15/23 documented as of this encounter
--- OUTSIDE RECORDS SUMMARY | 2024-08-23 14:37 | XMS_ITS | Encounter Summary ---
Author Organization [employer] Address [address] [facility] [address] [place] [address] Care Team Providers Care Cage Tender Name Role Phone Michaela Woodard MD Primary Care Provider [phone] Francisco Santiago Unavailable Unavailable Reason for Visit * Reason Comments Care Coordination SDOH f/u Encounter Details Date Type Department Care Team (Latest Contact Info) Description 08/18/2024 Patient Outreach [facility] [address] [place] [address] Michaela Woodard MD [address] [place] [address] Care Coordination (SDOH f/u) Social History Tobacco Use Types Packs/Day Years [...] Recorded Patient Health Questionnaire-2 Score 2 08/11/2024 Internet Access Answer Date Recorded Internet Access [...] encounter Progress Notes * Elsa Mott - 08/18/2024 9:28 AM EDT CHW Elsa Mott placed outbound call to patient to follow up on SDOH needs. Patient's name, and address confirmed. Patient states is doing well. Patient stated she is struggling with food insecurity, most of the time SNAP is not enough. Patient stated she is currently not working and has no income but looking for employment. Patient also stated she is currently looking for a low income 2 bedroom apartment for her and her son. CHW will mail out resources for job and housing search. CHW will also send referral to [employer] for [employer] in regards to food insecurities. Patient understood and agrees. No further questions or concerns. CHW reinforced direct contact information or CM for any additional questions or concerns and extended clinic hours on Mondays and Wednesdays, and Walk-In Urgent Care Located [facility]. Patient provided with after-hours line for [facility], , which offer night time triage service and option to transfer to environmental services attendant provider if needed. Patient verbalizes understanding, and able to repeat back to advertising copy writer. A follow up call willbe placed within 10 days, patient agrees with plan. documented in this encounter Plan of Treatment Upcoming Encounters Date Type Department Care Team (Late st Contact Info) Description 08/30/2024 10:45 AM EDT Clinical Support [facility] MED[facility]INE [address] [place] [phone] Filemon Brown, RN [address] [place] [address] 10/10/2024 10:30 AM EDT Office Visit [facility] OPT[facility] [address] [place] [address] Lisa Leslye, OD [address] [place] [address] 10/16/2024 11:00 AM EDT Office Visit [facility] MED[facility]INE [address] [place] [phone] Michaela Woodard MD [address] [place] [address] 10/18/2024 9:00 AM EDT Office Visit [facility] MED[facility] [address] [place] [phone] Rsoita Magana CNM [address] [place] [address] documented as of this encounter Goals Goal [...] documented as of this encounter Care Teams Cage Tender Relationship Specialty Start Date End Date Michaela Woodard MD [address] [place] [phone] PCP - General Family Medicine 01/21/23 Francisco Santiago FNP [address] [place] [address] Nurse Practitioner Family Medicine 03/15/23 documented as of this encounter
--- OUTSIDE RECORDS SUMMARY | 2024-08-23 14:37 | XMS_ITS | Encounter Summary ---
Author Organization [employer] Address [address] [facility] [address] [place] [address] Care Team Providers Care Terrazzo Mechanic Helper Name Role Phone Michaela Woodard MD Primary Care Provider [phone] Francisco Santiago Unavailable Unavailable Reason for Visit * Reason Comments OBAT F/U Encounter Details Date Type Department Care Team ([facility] st Contact Info) Description 08/23/2024 9:15 AM EDT Office Visit [facility] [address] [place] [address] Michaela Woodard MD [address] [place] [address] Opioid use disorder (Primary Dx) Social History Tobacco Use Types [...] Progress Notes * Michaela Woodard MD - 08/23/2024 9:15 AM EDT Subjective Patient ID: Maggy Mott is a 29 y.o. female who presents for OBAT RV. HPI Patient on current Suboxone dose of 24/6 mg on a weekly schedule, increased on 08/16/24. Patient hasbeen in the program for 5 weeks. Provider intake: 07/13/24. LFTs done 06/23/24. Behavioral health: therapist Izzy, consult on 08/17/24. Appointment with Franck Mensah 09/19/24. RENE LEVY reviewed by provider. Last PCP appt 07/13/24. control method: 07/26/24 Nuvaring and referral to [employer] Teacher for tubal ligation consult Smoking status: assessed 08/09/24: vapes, wants to quit PrEP: 07/19/24: Interested, then declined 08/10/24. Last visit 08/16/24 Utox: bup, thc, faint mtd Maggy seen today for follow up for opioid use disorder. States hasn't used mtd in several weeks, will send out for GC/MS. Reports continued chills and is interested in increasing buprenorphine dose to see if this resolves. Discussed with Dr. Woodard and increased to 24/6 mg daily. Reminded of upcoming appointments with therapist, psych prescriber. No other concerns today. Interim: Patient came to behavioral health consult session with integrated behavioral health service clinician, Izzy, on 08/17/24. [facility]. Today: 08/23/24 Utox: pos bup, thc, faint mtd GCMS for metahdone on 08/16/24 is still pending Maggy states feeling better with 24/6 mg daily. No chills. Feels constipated. Last methadone use was 3 weeks ago. Taking care of her grandfather who has dementia. She was apologetic for being late. Her grandmother , and her family members who usually taking care of grandfather are in [place]. Her brother came to release her from the caregiver task so that she could come to this appointment. Weagreed to send methadone to confirmatory and quantitative test. Plan: Suboxone dosing schedule of 24/6 mg daily and management of side effects reviewed. Discussed about possible further increase in the dose after reviewing lab result and reassessing her symptoms next week. Recovery support, harm reduction (including Narcan), and behavioral health attendance reviewed. Appointment for 1 week given. Patient expressed understanding and agreement with continuing plan ofcare. This information has been disclosed to you [...] normal. Behavior: Behavior normal. Office Visit on 08/23/2024 Component Date Value Ref Range Status THC 08/23/2024 Positive Final Cocaine Screen, Urine 08/23/2024 Negative Final Opiate Screen, Urine 08/23/2024 Negative Final Methamphetamine Screen Urine 08/23/2024 Negative Final Amphetamine Screen, Urine 08/23/2024 Negative Final Benzodiazepines Screen, Urine 08/23/2024 Negative Final Barbiturate Screen, Urine 08/23/2024 Negative Final Methadone Screen, Urine 08/23/2024 Positive Final Buprenophine Screen, Urine 08/23/2024 Positive Final TCA, Urine 08/23/2024 Negative Final MDMA Urine 08/23/2024 Negative ng/mL Final Oxycodone Screen, Urine 08/23/2024 Negative Final Phencyclidine (PCP), Urine 08/23/2024 Negative Final Fentanyl, Urine 08/23/2024 Negative Final Assessment/Plan Problem List Items Addressed This Visit Opioid use disorder - Primary - stage of change: Action - Utox review: positive methadone since intake on 07/20/24 (in Detox in June 2024). Patient's statedlast mtd use was in early - mid July. - Overdose risk: decreased tolerance; history of mixed drug use, including BZD; depression - Continue current recovery support - Continue current recovery effort - Reviewed harm reduction and overdose prevention Relevant Orders Methadone, GC/MS, Urine POCT JOSH-14 Urine Drug Screen (Completed) documented in this encounter Miscellaneous Notes * Assessment & Plan Note - Michaela Woodard MD - 08/23/2024 5:19 AM EDTAssociated Problem(s): Opioid use disorder - stage of change: Action - Utox review: positive methadone since intake on 07/20/24 (in Detox in June 2024). Patient's statedlast mtd use was in early - mid July. - Overdose risk: decreased tolerance; history of mixed drug use, including BZD; depression - Continue current recovery support - Continue current recovery effort - Reviewed harm reduction and overdose prevention documented in this encounter Plan of Treatment Upcoming Encounters Date Type Department Care Team (Late st Contact Info) Description 08/30/2024 10:45 AM EDT Clinical Support [facility] [address] [place] [address] Filemon Brown, RN [address] [place] [address] 10/10/2024 10:30 AM EDT Office Visit [facility] [address] [place] [address] Leslye Gonzalez, OD [address] [place] [address] 10/16/2024 11:00 AM EDT Office Visit [facility] [address] [place] [address] Michaela Woodard MD [address] [place] [address] 10/18/2024 9:00 AM EDT Office Visit [facility] [address] [place] [address] Rosita Magana CNM [address] [place] [address] Scheduled Orders Name Type Priority Associated Diagnoses Orde r Schedule Methadone, GC/MS, Urine Lab Routine Opioid use disorder Expected: 08/23/2024 (Approximate), Expires: 08/23/2025 documented as of this encounter Goals Goal Patient Goal Type Associated Problems Recent Progress Patient-Stated? Author Increase coping skills to promote long-term recovery and improve ability to perform daily activities General On track( 025 11:59 AM EDT) 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, RN documented as of this encounter Procedures Procedure Name Priority Date/Time Associated Diagnosis Comments POCT JOSH-14 URINE DRUG SCREEN Routine 08/23/2024 11:05 AM EDT Opioid use disorder documented in this encounter Results * POCT JOSH-14 Urine Drug Screen (08/23/2024 11:05 AM EDT) THC Positive Cocaine Screen, Urine [...] obtained by clean catch procedure / Unknown 08/23/2024 11:05 AM EDT Michaela Woodard MD POINT OF CARE TEST ENTER/EDIT OR DERABLES Final Result documented in this encounter Visit Diagnoses Diagnosis Opioid use disorder- Primary documented in this encounter Additional Health Concerns Assessment Noted Time PHQ-9 Depression Total Score: 8 08/21/19 25 10:41 PM EDT documented as of this encounter Care Teams Terrazzo Mechanic Helper Relationship Specialty Start Date End Date Michaela Woodard MD [address] [place] [address] PCP - General Family Medicine 01/21/23 Francisco Santiago FNP [address] [place] [address] Nurse Practitioner Family Medicine 03/15/23 documented as of this encounter
--- OUTSIDE RECORDS SUMMARY | 2024-08-23 14:37 | XMS_ITS | Encounter Summary ---
Author Organization [employer] Address [address] [place] [address] [place] [address] Care Team Providers Care Resp Ther Name Role Phone Anne Knowles Primary Care Provider [phone] Maria Del Rosario Miramontes MD Primary Care Pro vider Michaela Woodard MD Primary Care Provider [phone] Francisco Santiago CARAMEL COLORING OPERATOR Unavailable Unavailable Encounter Details Date Type Department Care Team ([facility] Contact Info) Description 09/09/2022 [facility] Information Management [address] [place] [address] Anne Knowles FNP [address] [place] [address] Dept [place] [address] Social History Tobacco Use Types Packs/Day Years [...] Upcoming Encounters Date Type Department Care Team ([facility] Contact Info) Description 08/30/2024 10:45 AM EDT Clinical Support [facility] [address] [place] [address] Filemon Brown RN [address] [place] [address] 10/10/2024 10:30 AM EDT Office Visit [facility] OPTOMETRY [address] [place] [address] Leslye Gonzalez, OD [address] [place] [address] 10/16/2024 11:00 AM EDT Office Visit [facility] [address] [place] [address] Michaela Woodard MD [address] [place] [address] 10/18/2024 9:00 AM EDT Office Visit [facility] [address] [place] [address] Rosita Magana CNM [address] [place] [address] documented as of this encounter Visit Diagnoses Not on filedocumented in this encounter Additional Health Concerns Assessment Noted Time PHQ-9 Depression Total Score: 10 023 9:07 AM EDT documented as of this encounter Care Teams Resp Ther Relationship Specialty Start Date End Date Anne Knowles FNP PCP - General Family Medicine 10/26/21 01/17/23 Maria Del Rosario Miramontes MD [address] [place] [address] PCP - General Internal Medicine 01/18/23 01/20/23 Michaela Woodard MD [address] [place] [address] PCP - General Family Medicine 01/21/23 Francisco Santiago FNP [address] [place] [address] Nurse Practitioner Family Medicine 03/15/23 Genesis Flores Gear Nicker 01/28/23 04/30/23 documented as of this encounter
--- OUTSIDE RECORDS SUMMARY | 2024-08-23 14:37 | XMS_ITS | Encounter Summary ---
Author Organization [employer] Address [address] [place] [address] [place] [address] Care Team Providers Care Liquor Grinding Mill Operator Name Role Phone Anne Knowles Primary Care Provider [phone] Maria Del Rosario Miramontes MD Primary Care Pro vider Michaela Woodard MD Primary Care Provider [phone] Francisco Santiago CAKE MAKER Unavailable Unavailable Encounter Details Date Type Department Care Team ([facility] Contact Info) Description 09/23/2022 [facility] Information Management [address] [place] [address] Anne Knowles FNP [address] [place] [address] Dept [place] [address] Social History Tobacco Use Types Packs/Day Years [...] Upcoming Encounters Date Type Department Care Team ([facility] Contact Info) Description 08/30/2024 10:45 AM EDT Clinical Support [facility] [address] [place] [address] Filemon Brown RN [address] [place] [address] 10/10/2024 10:30 AM EDT Office Visit [facility] OPTOMETRY [address] [place] [address] Leslye Gonzalez, OD [address] [place] [address] 10/16/2024 11:00 AM EDT Office Visit [facility] MED[facility] [address] [place] [address] Michaela Woodard MD [address] [place] [address] 10/18/2024 9:00 AM EDT Office Visit [facility] [address] [place] [address] Rosita Magana CNM [address] [place] [address] documented as of this encounter Visit Diagnoses Not on filedocumented in this encounter Additional Health Concerns Assessment Noted Time PHQ-9 Depression Total Score: 10 023 9:07 AM EDT documented as of this encounter Care Teams Liquor Grinding Mill Operator Relationship Specialty Start Date End Date Anne Knowles FNP PCP - General Family Medicine 10/26/21 01/17/23 Maria Del Rosario Miramontes MD [address] [place] [address] PCP - General Internal Medicine 01/18/23 01/20/23 Michaela Woodard MD [address] [place] [address] PCP - General Family Medicine 01/21/23 Francisco Santiago FNP [address] [place] [address] Nurse Practitioner Family Medicine 03/15/23 Genesis Flores Color Tester 01/28/23 04/30/23 documented as of this encounter
--- OUTSIDE RECORDS SUMMARY | 2024-08-23 14:37 | XMS_ITS | Clinical Summary ---
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 06/12/2024 4:01 PM EST us Michaela Woodard MD LAB BLOOD ORDERABLES Final Resul t [facility] [address] [place] [address] [phone] * Hepatitis C Antibody with Reflex to HCV, RNA, Quantitative, Real-Time PCR (06/12/2024 2:32 PM EST) Hepatitis C Antibody Nonreactive Nonreactive [facility] Comment:Antibodies to HCV no t detected; does not exclude early acuteHCV infection. Blood Venous blood specimen / Unknown 06/12/2024 2:32 PM EST 06/12/2024 4:01 PM EST us Michaela Woodard MD LAB BLOOD ORDERABLES Final Resul t [facility] [address] [place] [phone] * Thyroid Peroxidase Antibodies (06/12/2024 2:32 PM EST) Thyroid Peroxidase Antibodies <1 <9 IU/mL [facility] Comment:THIS TEST WAS PERFOR MED AT:[facility] [place] [phone] PAUL MD Blood Venous blood specimen / Unknown 06/12/2024 2:32 PM EST 06/12/2024 4:01 PM EST us Michaela Woodard MD LAB BLOOD ORDERABLES Final Resul t Performing Organization Address City/[facility]/ZIP Co de Phone Number [facility] [address] [place] [phone] * Hemoglobin A1c (06/12/2024 2:32 PM EST) Hemoglobin A1c 5.0 <6.0 % [facility] Comment:Hemoglobin A1C Refer ence Range Adults: 4.8 - 6.0 % Non diabetic: < 6.0 % Goal: < 7.0 %Additional Action Suggested: > 8.0 %Note: Hemoglobin A1c results are invalid for patients with abnormal amounts of HbF. Blood transfusions may impact the HbA1c concentration in the patient sample. Estimated Average Glucose 97 mg/dL [facility] Comment:eAG = Estimated ave rage glucose which is %A1C expressed asaverage glucose, using the formula of the L6O-[id number] Glucose study (ADAG), Diabetes Care, Vol.31,#8,2007 Blood Venous blood specimen / Unknown 06/12/2024 2:32 PM EST 06/12/2024 4:01 PM EST us Michaela Woodard MD LAB BLOOD ORDERABLES Final Resul t [facility] [address] [place] [address] [phone] * (ABNORMAL) Comprehensive Metabolic Panel (06/12/2024 2:32 PM EST) Sodium 140 135 - 145 mmol/L [facility] Potassium 4.2 3.3 - 5.1 mmol/L [facility] Chloride 106 96 - 108 mmol/L [facility] Carbon Dioxide 25 22 - 29 mmol/L [facility] Anion Gap 13 12 - 20 [facility] Urea Nitrogen (BUN) 17(H) 9 - 16 mg/dL [facility] Creatinine, Serum 0.61 0.5 - 1.4 mg/dL [facility] Estimated Glomerular Filt Rate >60 [facility] Comment:Chronic Kidney Disea se: Estimated GFR < 60 mL/min/1.22o0Ikodnv Kidney Disease: Estimated GFR < 15 mL/min/1.73m2 Glucose 93 60 - 115 mg/dL [facility] Calcium 9.4 8.4 - 10.2 mg/dL [facility] Bilirubin, Total 0.6 0.0 - 1.0 mg/dL [facility] Aspartate Amino Transferase 35(H) 5 - 31 U/L [facility] Alanine Aminotransferase 52(H) 0 - 31 U/L [facility] Total Protein 8.0 6.5 - 8.0 g/dL [facility] Albumin Level 4.3 3.5 - 5.0 g/dL [facility] Alkaline Phosphatase 63 39 - 117 U/L [facility] Blood Venous blood specimen / Unknown 06/12/2024 2:32 PM EST 06/12/2024 4:01 PM EST Michaela Woodard MD LAB BLOOD ORDERABLES Final Resul t [facility] [address] [place] [address] [phone] * (ABNORMAL) Lipid Panel, Standard (06/09/2022 8:41 AM EST) Cholesterol, Total 168 <200 mg/dL [facility] HDL Cholesterol 43(L) > OR = 50 mg/dL [facility] Triglycerides 79 <150 mg/dL [facility] LDL Cholesterol 108(H) mg/dL (calc) [facility] Comment: Reference range: <100 Desirable range <100 mg/dL for primary prevention; ?? <70 mg/dL for patients with CHD or diabetic patients with > or = 2 CHD risk factors. LDL-C is now calculated using the Joseph-Elliott calculation, which is a validated novel method providing better accuracy than the Friedewald equation in the estimation of LDL-C. Joseph SS et al. KARSON. 2013;310(19): 7900-2992 (http://education.StandardNine/faq/SQC121) Chol/HDLC Ratio 3.9 <5.0 (calc) [facility] Non-HDL Cholesterol 125 <130 mg/dL (calc) [facility] Comment: For patients with diabetes plus 1 major ASCVD risk factor, treating to a non-HDL-C goal of <100 mg/dL (LDL-C of <70 mg/dL) is considered a therapeutic option. Blood Venous blood specimen / Unknown 06/09/2022 8:41 AM EST 06/09/2022 8:41 AM EST Narrative [facility] - 06/10/2022 12:53 AM EST FASTING:YES FASTING: YES Anne Knowles DELIVERY RECRUITER LAB BLOOD ORDERABLES Final Result [facility] [address] [facility] [place] [phone] [facility] [address] [facility], ([address]) [place] [phone] from Last 3 Months or Most Recently Relevant to Health Maintenance Insurance [facility] [address] [place] [id number] PROGRESSIVE [employer] INSURANCE [facility] MEDICAID STAND ADULT Care Teams Tray Packer Relationship Specialty Start Date End Date Michaela Woodard MD [address] [place], [place] PCP - General Family Medicine 01/21/23 Francisco Santiago FNP [address], [place] Nurse Practitioner Family Medicine 03/15/23
--- OUTSIDE RECORDS SUMMARY | 2024-08-23 14:37 | XMS_ITS | Encounter Summary ---
Author Organization [employer] Address [address] [facility] 7t [place] [address] Care Team Providers Care Salesperson Used Cars Name Role Phone Michaela Woodard MD Primary Care Provider [phone] Francisco Santiago Unavailable Unavailable Encounter Details Date Type Department Care Team (Latest Contact Info) Description 08/23/2024 Travel Social History Tobacco Use Types Packs/Day [...] Description 08/30/2024 10:45 AM EDT Clinical Support [facility] MEDICINE [address] [place] [address] Filemon Brown, RN [address] [place] [phone] 10/10/2024 10:30 AM EDT Office Visit [facility] OPTOMETRY [address] [place] [address] Leslye Gonzalez, OD [address] [place] [address] 10/16/2024 11:00 AM EDT Office Visit [address] [address] Michaela Woodard MD [address] [place] [address] 10/18/2024 9:00 AM EDT Office Visit [address] [address] Rosita Magana CNM [address] [place] [address] documented as of this encounter Goals Goal [...] documented as of this encounter Care Teams Salesperson Used Cars Relationship Specialty Start Date End Date Michaela Woodard MD [address] [place] [address] PCP - General Family Medicine 01/21/23 Francisco Santiago FNP [address] [place] [address] Nurse Practitioner Family Medicine 03/15/23 documented as of this encounter
--- OUTSIDE RECORDS SUMMARY | 2024-08-23 14:37 | XMS_ITS | Clinical Summary ---
Author Organization [address] [phone] Phone Care Team Providers Care General Supervisor Name Role Phone No, Pcp (Do Not [...] Years Used Date Smoking Tobacco: Never Assessed [facility] Utilities Answer Date Recorded In the past [...] your living situation today? I have a [facility] place to live 06/17/2023 Housing Stability [...] this topic Medical Devices Implanted Type Area Ems Educator Device Identifier Shelf Expiration Date Model / Serial / Lot Breast Breast Procedures Procedure Name Priority Date/Time Associated Diagnosis Comments HIV-1/HIV-2 ANTIBODY/ANTIGEN SCREEN W/REFLEX ([facility] LMW YH) Add-On 06/23/2023 9:13 AM EST HEPATITIS C AB WITH REFLEX TO HCV PCR Timed 06/23/2023 9:13 AM EST from Last 3 Months or Most Recently Relevant to Health Maintenance Results * HIV-1/HIV-2 antibody/antigen screen w/reflex (06/23/2023 9:13 AM EST) HIV 1 and 2 Antibody/Antigen Screen Non-Reac tive Non-Reac tive 06/24/2023 4:41 PM [facility] Comment:Interpretation: This specimen is HIV antibody [...] Louis MD LAB BLOOD ORDERABLES Final Result [address] [phone] * Hepatitis C Ab with reflex to HCV PCR (06/23/2023 9:13 AM EST) Hepatitis C Ab Initial Result 0.03 S/CO 06/23/2023 10:36 AM [facility] Hepatitis C Ab Interpretation Non-React gayatri Non-React gayatri 06/23/2023 10:36 AM [facility] Blood ARM NEC / Unknown Venipuncture / Unknown 06/23/2023 9:13 AM EST 06/23/2023 9:17 AM EST us Freda Louis MD LAB BLOOD ORDERABLES [place] [address], [facility] [phone] from Last 3 Months or Most Recently Relevant to Health Maintenance Insurance [id number] MEDICAID [id number] MEDICAID [id number] MEDICAID [id number] MEDICAID MOTOR VEHICLE GENERIC [id number] MEDICAID MOTOR VEHICLE GENERIC Advance Directives * Full Code (Latest Code Status on File) Date Activated Date Inactivated Comments 06/17/2023 2:48 AM 06/30/2023 10:13 PM Care Teams General Supervisor Relationship Specialty Start Date End Date No, Pcp (Do Not Change Name) PCP - General 06/16/23
--- OUTSIDE RECORDS SUMMARY | 2024-08-23 14:37 | XMS_ITS | Encounter Summary ---
Author Organization [employer] Address [address] [place] [address] 7 [place] [address] Care Team Providers Care Transfer Iron Operator Name Role Phone Anne Knowles Primary Care Provider [phone] Maria Del Rosario Miramontes MD Primary Care Pro vider Michaela Woodard MD Primary Care Provider [phone] Francisco Santiago Unavailable Unavailable Reason for Visit * Reason Comments Med Refill Encounter Details Date Type Department Care Team (Late Contact Info) Description 11/23/[address] [facility] MEDICINE [address] [place] [address] Anne Knowles FNP [address] [place] [address] Dept of [place] [address] Social History Tobacco Use Types Packs/Day Years [...] Department Care Team (Late Contact Info) Description 08/30/2024 10:45 AM EDT Clinical Support [facility] MEDICINE [address] [place] [address] [phone] Filemon Brown RN [address] [place] [address] 10/10/2024 10:30 AM EDT Office Visit [facility] OPTOMETRY [address] [place] [address] Leslye Gonzalez, OD [address] [place] [address] 10/16/2024 11:00 AM EDT Office Visit [facility] MEDICINE [address] [place] [address] Michaela Woodard MD [address] [place] [address] 10/18/2024 9:00 AM EDT Office Visit [facility] MEDICINE [address] [place] [address] Rosita Magana, CNCortney [address] [place] [address] documented as of this encounter Visit Diagnoses Not on filedocumented in this encounter Additional Health Concerns Assessment Noted Time PHQ-9 Depression Total Score: 5 10/16/19 23 9:07 AM EDT documented as of this encounter Care Teams Transfer Iron Operator Relationship Specialty Start Date End Date Anne Knowles FNP PCP - General Family Medicine 10/26/21 01/17/23 Maria Del Rosario Miramontes MD [address] [place] [address] PCP - General Internal Medicine 01/18/23 01/20/23 Michaela Woodard MD [address] [place] [address] PCP - General Family Medicine 01/21/23 Francisco Santiago FNP [address] [place] [address] Nurse Practitioner Family Medicine 03/15/23 Genesis Flores Fine Arts Model 01/28/23 04/30/23 documented as of this encounter
--- OUTSIDE RECORDS SUMMARY | 2024-08-23 14:37 | XMS_ITS | Encounter Summary ---
Author Organization [facility] Address [address] [place] [phone] Care Team Providers Care Phlebotomy Technologist Name Role Phone No, Pcp (Do Not Change Name) Primary Care Provid er Unavailable Encounter Details Date Type Department Care Team ([facility] st Contact Info) Description 06/23/2023 Scanned Document [facility] Specimens [address] [place], [place] [id number] System, Provider Not In Social History Tobacco Use Types Packs/Day Years Used Date Smoking Tobacco: Never Assessed [facility] Utilities Answer Date Recorded In the past 12 months has th [employer] electric, gas, oil, or water company threatened [...] documented as of this encounter Care Teams Phlebotomy Technologist Relationship Specialty Start Date End Date No, Pcp (Do Not Change Name) PCP - General 06/16/23 documented as of this encounter
[2024-08-27 12:24] LABS: EDDP (Methadone Metabolite) 160 ng/mL; Methadone, Urine MS negative
== END 2024-08-23 13:22 | disposition home or self-care (01) ==
LOC: HO.HHCLNP 13:21
PROVIDERS: Visit Provider Family Medicine
DX: F11.90 Opioid use, unspecified, uncomplicated (principal); Z79.899 Other long term (current) drug therapy
CPT/HCPCS: 80358

== ENCOUNTER 2024-10-16 18:05 | Outpatient (REF) | payer MEDICAID, SELFPAY ==
--- OUTSIDE RECORDS SUMMARY | 2024-10-16 18:08 | XMS_ITS | Encounter Summary ---
Author Organization [employer] Address [address] [place] [address] 7 [place] [address] Care Team Providers Care Tongue Trimmer Name Role Phone Michaela Woodard MD Primary Care Provider [phone] Francisco Santiago Unavailable Unavailable Encounter Details Date Type Department Care Team (Late st Contact Info) Description 07/04/2024 Telephone [facility] [address] [place] [address] Hallie Bernabe, MakennaD [address] [place] [address] Social History Tobacco Use Types Packs/Day Years [...] Care Team (Late st Contact Info) Description 10/18/2024 9:00 AM EDT Office Visit [facility] [address] [place] [address] Rosita Magana CNM [address] [place] [address] documented as of this encounter Visit Diagnoses Not on filedocumented in this encounter Additional Health Concerns Assessment Noted Time PHQ-9 Depression Total Score: 14 025 2:25 PM EST documented as of this encounter Care Teams Tongue Trimmer Relationship Specialty Start Date End Date Michaela Woodard MD [address] [place] [address] PCP - General Family Medicine 01/21/23 Francisco Santiago FNP [address] [place] [address] Nurse Practitioner Family Medicine 03/15/23 documented as of this encounter
--- OUTSIDE RECORDS SUMMARY | 2024-10-16 18:08 | XMS_ITS | Clinical Summary ---
Author Organization [facility] Address [address] [place] [phone] Phone Care Team Providers Care Projection Technician Name Role Phone Physician, Pcp Unknown Primary Care Provider Ivonne vailable Allergies No known active allergies Medications ondansetron ODT (ZOFRAN-ODT) 4 mg disintegrating tablet Dissolve 1 tablet (4 mg total) on top of the tongue every 8 (eight) hours if needed for nausea or vomiting for up to 7 doses. 7 tablet Active Medical History Medical History Date Comments Anxiety [...] 78 06/24/2024 1:20 AM EST Temperature 36.8 C (98.3 F) 06/24/2024 1:20 AM EST Respiratory Rate 16 06/24/2024 1:20 AM EST [...] on patient's age to complete this topic Insurance MEDICAID - [place] Care Teams Projection Technician Relationship Specialty Start Date End Date Physician, Pcp Unknown PCP - General 06/23/24
--- OUTSIDE RECORDS SUMMARY | 2024-10-16 18:09 | XMS_ITS | Clinical Summary ---
Author Organization [address] [address] Phone Care Team Providers Care Doweler Name Role Phone No, Pcp (Do Not [...] Years Used Date Smoking Tobacco: Never Assessed [facility] Utilities Answer Date Recorded In [...] your living situation today? [facility] 06/17/2023 Housing Stability Not [...] 93 06/30/2023 2:43 PM EDT Temperature 36.7 C (98 F) 06/30/2023 2:43 PM EDT Respiratory Rate 16 [...] this topic Medical Devices Implanted Type Area Senior Firewall Engineer Device Identifier Shelf Expiration Date Model / Serial / Lot Breast Breast Procedures Procedure Name Priority Date/Time Associated Diagnosis Comments HIV-1/HIV-2 ANTIBODY/ANTIGEN SCREEN W/REFLEX ([facility] LMW Y[facility]) Add-On 06/23/2023 9:13 AM EST HEPATITIS C AB WITH REFLEX TO HCV PCR Timed 06/23/2023 9:13 AM EST from Last 3 Months or Most Recently Relevant to Health Maintenance Results * HIV-1/HIV-2 antibody/antigen screen w/reflex (06/23/2023 9:13 AM EST) HIV 1 and 2 Antibody/Antigen Screen Non-Reac tive Non-Reac tive 06/24/2023 4:41 PM EST [facility] Comment:Interpretation: This specimen is HIV antibody [...] 9:13 AM EST 06/23/2023 9:17 AM EST [facility] BLOOD ORDERABLES Final Res ult Performing Organization Address [facility]/ZIP Co de Phone Number [address] [phone] * Hepatitis C Ab with reflex to HCV PCR (06/23/2023 9:13 AM EST) Hepatitis C Ab Initial Result 0.03 S/CO 06/23/2023 10:36 AM [facility] Hepatitis C Ab Interpretation Non-React gayatri Non-React gayatri 06/23/2023 10:36 AM [facility] Blood ARM NEC / Unknown Venipuncture / Unknown 06/23/2023 9:13 AM EST 06/23/2023 9:17 AM EST [facility] LAB BLOOD ORDERABLES Final Res ult Performing Organization Address City/[facility]/ZIP Co de Phone Number [address] [phone] from Last 3 Months or Most Recently Relevant to Health Maintenance Insurance [id number] MEDICAID [id number] MEDICAID [id number] MEDICAID [id number] MEDICAID MOTOR VEHICLE GENERIC [id number] MEDICAID MOTOR VEHICLE GENERIC Advance Directives * Full Code (Latest Code Status on File) Date Activated Date Inactivated Comments 06/17/2023 2:48 AM 06/30/2023 10:13 PM Care Teams Doweler Relationship Specialty Start Date End Date No, Pcp (Do Not Change Name) PCP - General 06/16/23
--- OUTSIDE RECORDS SUMMARY | 2024-10-16 18:09 | XMS_ITS ---
Author Name [facility] Organization Unknown Results Test Name/Text Value Interpretation Date Range Source BKR REFLEX URINE CULTURE See Comment Normal 4 [facility] Squamous #/area UrnS Auto 6.0 /HPF Above high normal 4 0 - 5 [facility] WBC #/area UrnS Auto 322.0 /HPF Above high normal 4 0 - 5 [facility] RBC #/area UrnS Auto 1.0 /HPF Normal 02 4 0 - 2 [facility] Color Ur Auto Yellow Normal 4 - [facility] Sp Gr Ur Refract.auto 1.027 Normal 4 1.005 - 1.03 [facility] Hgb Ur Ql Strip.auto 1+ Abnormal 02 4 - [facility] pH Ur Strip.auto 6.0 Normal 4 5.5 - 7.5 [facility] Ketones Ur Strip.auto-mCnc Negative Normal 4 - [facility] Nitrite Ur Ql Strip.auto Positive Abnormal 4 - [facility] Clarity Ur Refract.auto Cloudy Abnormal 4 - [facility] WBC # Ur Strip 4+ Abnormal 4 - [facility] Bilirub Ur Ql Strip.auto Negative Normal 4 - [facility] Urobilinogen Ur Strip-mCnc <2.0 mg/dL Normal 4 - [facility] Prot Ur Strip.auto-mCnc 1+ Abnormal 4 - [facility] Glucose Ur Strip.auto-mCnc Negative Normal 4 - [facility] Creat SerPl-mCnc 0.55 mg/dL Normal 4 0.4 - 1.3 [facility] Sodium SerPl-sCnc 137.0 mmol/L Normal 4 136 - 144 [facility] HCO3 SerPl-sCnc 19.0 mmol/L Below low normal 06/29/19 2 4 20 - 30 [facility] GFR/BSA.pred SerPlBld UQM-[id number]-[id number] >60.0 mL/min/1.73m2 Normal 4 - [facility] Glucose SerPl-mCnc 130.0 mg/dL Above high normal 06/17 4 70 - 100 [facility] Anion Gap3 SerPl-sCnc 10.0 Normal 4 7 - 17 [facility] Chloride SerPl-sCnc 108.0 mmol/L Above high normal 4 98 - 107 [facility] BUN/Creat SerPl 41.8 Above high normal 02 4 8 - 23 [facility] Potassium SerPl-sCnc 5.3 mmol/L Normal 02 4 3.3 - 5.3 [facility] Calcium SerPl-mCnc 8.8 mg/dL Normal 4 8.8 - 10.2 [facility] BUN SerPl-mCnc 23.0 mg/dL Above high normal 06/29/19 2 4 6 - 20 [facility] Imm Granulocytes # Bld Auto 0.05 x 1000/uL Normal 4 0 - 0.3 [facility] Monocytes # Bld Auto 0.31 x 1000/uL Normal 06/28 4 0 - 1 [facility] nRBC/100 WBC Bld Auto-Rto 0.0 % Normal 4 0 - 1 [facility] nRBC # Bld Auto 0.0 x 1000/uL Normal 4 0 - 1 [facility] RDW RBC Auto-Rto 13.8 % Normal 4 11 - 15 [facility] WBC # Bld Auto 12.0 x1000/uL Above high normal 02 4 4 - 11 [facility] Basophils # Bld Auto 0.04 x 1000/uL Normal 06/28 4 0 - 1 [facility] Neutrophils/leuk NFr Bld Auto 72.4 % Above high normal 4 39 - 72 [facility] Neutrophils # Bld Auto 8.7 x 1000/uL Above high normal 4 2 - 7.6 [facility] PMV Bld Auto 10.2 fL Normal 4 8 - 12 [facility] MCV RBC Auto 87.5 fL Normal 4 80 - 100 [facility] Imm Granulocytes/leuk NFr Bld Auto 0.4 % Normal 4 0 - 1 [facility] Eosinophil # Bld Auto 0.24 x 1000/uL Normal 06/17 4 0 - 1 [facility] Hgb Bld-mCnc 11.7 g/dL Normal 4 11.7 - 15.5 [facility] RBC # Bld Auto 4.25 M/uL Normal 4 4 - 6 [facility] MCH RBC Qn Auto 27.5 pg Normal 4 27 - 33 [facility] MCHC RBC Auto-mCnc 31.5 g/dL Normal 4 31 - 36 [facility] Platelet # Bld Auto 309.0 x1000/uL Normal 4 150 - 420 [facility] Monocytes/leuk NFr Bld Auto 2.6 % Below low normal 4 4 - 12 [facility] Lymphocytes/leuk NFr Bld Auto 22.3 % Normal 4 17 - 50 [facility] Hct VFr Bld Auto 37.2 % Normal 4 35 - 45 [facility] Basophils/leuk NFr Bld Auto 0.3 % Normal 4 0 - 1.4 [facility] Lymphocytes # Bld Auto 2.68 x 1000/uL Normal 4 0.6 - 3.7 [facility] Eosinophil/leuk NFr Bld Auto 2.0 % Normal 4 0 - 5 [facility] Barbiturates Ur Ql Scn Negative Normal 4 - [facility] PCP Ur Ql Scn>25 ng/mL Negative Normal 4 - [facility] BKR DRUGS OF ABUSE DISCLAIMER See Comment Normal 4 [facility] BZE Ur Ql Scn Negative Normal 4 - [facility] Opiates Ur Ql Scn Positive Abnormal 4 - [facility] oxyCODONE Ur Ql Scn Negative Normal 06/28/19 2 4 - [facility] Cannabinoids Ur Ql Scn Negative Normal 4 - [facility] BKR METHADONE METABOLITE SCREEN, URINE, NO CONF. Negative Normal 4 - [facility] Amphetamines Ur Ql Scn Positive Abnormal 4 - [facility] Benzodiaz Ur Ql Scn Positive Abnormal 06/28/19 2 4 - [facility] fentaNYL Ur Ql Scn Positive Abnormal 4 - [facility] BKR DRUGS OF ABUSE NOTE Normal 4 [facility] AST SerPl w P-5'-P-cCnc 13.0 U/L Normal 4 10 - 35 [facility] Sodium SerPl-sCnc 139.0 mmol/L Normal 4 136 - 144 [facility] Globulin Plas-mCnc 3.4 g/dL Normal 4 2.3 - 3.5 [facility] Glucose SerPl-mCnc 85.0 mg/dL Normal 4 70 - 100 [facility] ALP SerPl-cCnc 59.0 U/L Normal 4 9 - 122 [facility] Albumin SerPl BCG-mCnc 3.6 g/dL Normal 4 3.6 - 4.9 [facility] Potassium SerPl-sCnc 4.3 mmol/L Normal 02 4 3.3 - 5.3 [facility] Bilirub SerPl-mCnc 0.2 mg/dL Normal 4 - [facility] Anion Gap3 SerPl-sCnc 10.0 Normal 4 7 - 17 [facility] BUN SerPl-mCnc 25.0 mg/dL Above high normal 06/28/19 2 4 6 - 20 [facility] ALT SerPl w/o P-5'-P-cCnc 22.0 U/L Normal 4 10 - 35 [facility] GFR/BSA.pred SerPlBld KWE-[id number] >60.0 mL/min/1.73m2 Normal 4 - [facility] Calcium SerPl-mCnc 9.0 mg/dL Normal 4 8.8 - 10.2 [facility] Albumin/Glob SerPl 1.1 Normal 4 1 - 2.2 [facility] Chloride SerPl-sCnc 106.0 mmol/L Normal 06/28/19 2 4 98 - 107 [facility] HCO3 SerPl-sCnc 23.0 mmol/L Normal 4 20 - 30 [facility] BUN/Creat SerPl 36.2 Above high normal 02 4 8 - 23 [facility] Prot SerPl-mCnc 7.0 g/dL Normal 4 6.6 - 8.7 [facility] Creat SerPl-mCnc 0.69 mg/dL Normal 4 0.4 - 1.3 [facility] AST/ALT SerPl-cRto 0.6 Normal 4 - [facility] Platelet # Bld Auto 305.0 x1000/uL Normal 4 150 - 420 [facility] Imm Granulocytes/leuk NFr Bld Auto 0.5 % Normal 4 0 - 1 [facility] Eosinophil/leuk NFr Bld Auto 2.5 % Normal 4 0 - 5 [facility] Neutrophils # Bld Auto 5.75 x 1000/uL Normal 4 2 - 7.6 [facility] Hgb Bld-mCnc 11.7 g/dL Normal 4 11.7 - 15.5 [facility] WBC # Bld Auto 10.6 x1000/uL Normal 4 4 - 11 [facility] nRBC # Bld Auto 0.0 x 1000/uL Normal 4 0 - 1 [facility] Imm Granulocytes # Bld Auto 0.05 x 1000/uL Normal 4 0 - 0.3 [facility] Monocytes # Bld Auto 0.5 x 1000/uL Normal 4 0 - 1 [facility] Basophils # Bld Auto 0.04 x 1000/uL Normal 06/27 4 0 - 1 [facility] MCV RBC Auto 86.6 fL Normal 4 80 - 100 [facility] Basophils/leuk NFr Bld Auto 0.4 % Normal 4 0 - 1.4 [facility] Eosinophil # Bld Auto 0.26 x 1000/uL Normal 06/17 4 0 - 1 [facility] Monocytes/leuk NFr Bld Auto 4.7 % Normal 4 4 - 12 [facility] Hct VFr Bld Auto 37.5 % Normal 4 35 - 45 [facility] Lymphocytes # Bld Auto 3.96 x 1000/uL Above high normal 4 0.6 - 3.7 [facility] Neutrophils/leuk NFr Bld Auto 54.4 % Normal 4 39 - 72 [facility] MCHC RBC Auto-mCnc 31.2 g/dL Normal 4 31 - 36 [facility] Lymphocytes/leuk NFr Bld Auto 37.5 % Normal 4 17 - 50 [facility] RBC # Bld Auto 4.33 M/uL Normal 4 4 - 6 [facility] PMV Bld Auto 10.4 fL Normal 4 8 - 12 [facility] MCH RBC Qn Auto 27.0 pg Normal 4 27 - 33 [facility] RDW RBC Auto-Rto 13.5 % Normal 4 11 - 15 [facility] nRBC/100 WBC Bld Auto-Rto 0.0 % Normal 4 0 - 1 [facility] Monocytes # Bld Auto 0.48 x 1000/uL Normal 06/26 4 0 - 1 [facility] Lymphocytes # Bld Auto 3.32 x 1000/uL Normal 4 0.6 - 3.7 [facility] Imm Granulocytes # Bld Auto 0.05 x 1000/uL Normal 4 0 - 0.3 [facility] Hct VFr Bld Auto 37.3 % Normal 4 35 - 45 [facility] Basophils/leuk NFr Bld Auto 0.6 % Normal 4 0 - 1.4 [facility] Eosinophil # Bld Auto 0.24 x 1000/uL Normal 06/17 4 0 - 1 [facility] Imm Granulocytes/leuk NFr Bld Auto 0.6 % Normal 4 0 - 1 [facility] nRBC # Bld Auto 0.0 x 1000/uL Normal 4 0 - 1 [facility] Basophils # Bld Auto 0.05 x 1000/uL Normal 06/26 4 0 - 1 [facility] Neutrophils/leuk NFr Bld Auto 54.3 % Normal 4 39 - 72 [facility] MCHC RBC Auto-mCnc 31.9 g/dL Normal 4 31 - 36 [facility] Neutrophils # Bld Auto 4.94 x 1000/uL Normal 4 2 - 7.6 [facility] MCV RBC Auto 85.2 fL Normal 4 80 - 100 [facility] Eosinophil/leuk NFr Bld Auto 2.6 % Normal 4 0 - 5 [facility] MCH RBC Qn Auto 27.2 pg Normal 4 27 - 33 [facility] Lymphocytes/leuk NFr Bld Auto 36.6 % Normal 4 17 - 50 [facility] Platelet # Bld Auto 275.0 x1000/uL Normal 4 150 - 420 [facility] WBC # Bld Auto 9.1 x1000/uL Normal 4 4 - 11 [facility] Hgb Bld-mCnc 11.9 g/dL Normal 4 11.7 - 15.5 [facility] RDW RBC Auto-Rto 13.3 % Normal 4 11 - 15 [facility] RBC # Bld Auto 4.38 M/uL Normal 4 4 - 6 [facility] Monocytes/leuk NFr Bld Auto 5.3 % Normal 4 4 - 12 [facility] PMV Bld Auto 10.5 fL Normal 4 8 - 12 [facility] nRBC/100 WBC Bld Auto-Rto 0.0 % Normal 4 0 - 1 [facility] Globulin Plas-mCnc 3.2 g/dL Normal 4 2.3 - 3.5 [facility] AST/ALT SerPl-cRto 0.5 Normal 4 - [facility] GFR/BSA.pred SerPlBld CBO-RBQ-[id number] >60.0 mL/min/1.73m2 Normal 4 - [facility] Albumin SerPl BCG-mCnc 3.5 g/dL Below low normal 4 3.6 - 4.9 [facility] Glucose SerPl-mCnc 108.0 mg/dL Above high normal 06/17 4 70 - 100 [facility] ALT SerPl w/o P-5'-P-cCnc 22.0 U/L Normal 4 10 - 35 [facility] BUN/Creat SerPl 30.8 Above high normal 02 4 8 - 23 [facility] Anion Gap3 SerPl-sCnc 10.0 Normal 4 7 - 17 [facility] Prot SerPl-mCnc 6.7 g/dL Normal 4 6.6 - 8.7 [facility] BUN SerPl-mCnc 20.0 mg/dL Normal 4 6 - 20 [facility] Creat SerPl-mCnc 0.65 mg/dL Normal 4 0.4 - 1.3 [facility] Chloride SerPl-sCnc 108.0 mmol/L Above high normal 4 98 - 107 [facility] Calcium SerPl-mCnc 8.8 mg/dL Normal 4 8.8 - 10.2 [facility] HCO3 SerPl-sCnc 23.0 mmol/L Normal 4 20 - 30 [facility] Sodium SerPl-sCnc 141.0 mmol/L Normal 4 136 - 144 [facility] ALP SerPl-cCnc 57.0 U/L Normal 4 9 - 122 [facility] Albumin/Glob SerPl 1.1 Normal 4 1 - 2.2 [facility] AST SerPl w P-5'-P-cCnc 11.0 U/L Normal 4 10 - 35 [facility] Bilirub SerPl-mCnc 0.3 mg/dL Normal 4 - [facility] Potassium SerPl-sCnc 4.2 mmol/L Normal 02 4 3.3 - 5.3 [facility] Globulin Plas-mCnc 3.1 g/dL Normal 4 2.3 - 3.5 [facility] Bilirub SerPl-mCnc 0.2 mg/dL Normal 4 - [facility] ALP SerPl-cCnc 68.0 U/L Normal 4 9 - 122 [facility] Glucose SerPl-mCnc 95.0 mg/dL Normal 4 70 - 100 [facility] AST SerPl w P-5'-P-cCnc 12.0 U/L Normal 4 10 - 35 [facility] AST/ALT SerPl-cRto 0.5 Normal 4 - [facility] Prot SerPl-mCnc 6.6 g/dL Normal 4 6.6 - 8.7 [facility] Potassium SerPl-sCnc 4.2 mmol/L Normal 02 4 3.3 - 5.3 [facility] ALT SerPl w/o P-5'-P-cCnc 26.0 U/L Normal 4 10 - 35 [facility] Anion Gap3 SerPl-sCnc 11.0 Normal 4 7 - 17 [facility] Chloride SerPl-sCnc 105.0 mmol/L Normal 06/26/19 2 4 98 - 107 [facility] HCO3 SerPl-sCnc 21.0 mmol/L Normal 4 20 - 30 [facility] BUN SerPl-mCnc 25.0 mg/dL Above high normal 06/26/19 2 4 6 - 20 [facility] GFR/BSA.pred SerPlBld MNK-OIR-UpTRle >60.0 mL/min/1.73m2 Normal 4 - [facility] Calcium SerPl-mCnc 8.7 mg/dL Below low normal 06/25 4 8.8 - 10.2 [facility] Albumin/Glob SerPl 1.1 Normal 4 1 - 2.2 [facility] Sodium SerPl-sCnc 137.0 mmol/L Normal 4 136 - 144 [facility] Albumin SerPl BCG-mCnc 3.5 g/dL Below low normal 4 3.6 - 4.9 [facility] Creat SerPl-mCnc 0.62 mg/dL Normal 4 0.4 - 1.3 [facility] BUN/Creat SerPl 40.3 Above high normal 02 4 8 - 23 [facility] MCH RBC Qn Auto 27.4 pg Normal 4 27 - 33 [facility] Neutrophils # Bld Auto 7.09 x 1000/uL Normal 4 2 - 7.6 [facility] Platelet # Bld Auto 285.0 x1000/uL Normal 4 150 - 420 [facility] Hct VFr Bld Auto 38.4 % Normal 4 35 - 45 [facility] WBC # Bld Auto 12.1 x1000/uL Above high normal 02 4 4 - 11 [facility] Monocytes/leuk NFr Bld Auto 4.4 % Normal 4 4 - 12 [facility] Neutrophils/leuk NFr Bld Auto 58.6 % Normal 4 39 - 72 [facility] MCV RBC Auto 86.9 fL Normal 4 80 - 100 [facility] nRBC/100 WBC Bld Auto-Rto 0.0 % Normal 4 0 - 1 [facility] Hgb Bld-mCnc 12.1 g/dL Normal 4 11.7 - 15.5 [facility] Imm Granulocytes/leuk NFr Bld Auto 0.3 % Normal 4 0 - 1 [facility] Basophils # Bld Auto 0.05 x 1000/uL Normal 06/25 4 0 - 1 [facility] Lymphocytes # Bld Auto 4.12 x 1000/uL Above high normal 4 0.6 - 3.7 [facility] Basophils/leuk NFr Bld Auto 0.4 % Normal 4 0 - 1.4 [facility] Imm Granulocytes # Bld Auto 0.04 x 1000/uL Normal 4 0 - 0.3 [facility] Eosinophil # Bld Auto 0.28 x 1000/uL Normal 03 4 0 - 1 [facility] Monocytes # Bld Auto 0.53 x 1000/uL Normal 06/25 4 0 - 1 [facility] nRBC # Bld Auto 0.0 x 1000/uL Normal 4 0 - 1 [facility] Eosinophil/leuk NFr Bld Auto 2.3 % Normal 4 0 - 5 [facility] RDW RBC Auto-Rto 13.7 % Normal 4 11 - 15 [facility] RBC # Bld Auto 4.42 M/uL Normal 4 4 - 6 [facility] MCHC RBC Auto-mCnc 31.5 g/dL Normal 4 31 - 36 [facility] PMV Bld Auto 10.7 fL Normal 4 8 - 12 [facility] Lymphocytes/leuk NFr Bld Auto 34.0 % Normal 4 17 - 50 [facility] Ceruloplasmin SerPl-mCnc 39.0 mg/dL Normal 4 18 - 51 [facility] Hgb Bld-mCnc 12.6 g/dL Normal 4 11.7 - 15.5 [facility] Platelet # Bld Auto 270.0 x1000/uL Normal 4 150 - 420 [facility] nRBC # Bld Auto 0.0 x 1000/uL Normal 4 0 - 1 [facility] RDW RBC Auto-Rto 13.8 % Normal 4 11 - 15 [facility] RBC # Bld Auto 4.5 M/uL Normal 4 4 - 6 [facility] PMV Bld Auto 11.0 fL Normal 4 8 - 12 [facility] nRBC/100 WBC Bld Auto-Rto 0.0 % Normal 4 0 - 1 [facility] Eosinophil # Bld Auto 0.14 x 1000/uL Normal 03 4 0 - 1 [facility] Lymphocytes # Bld Auto 4.3 x 1000/uL Above high normal 4 0.6 - 3.7 [facility] Basophils # Bld Auto 0.03 x 1000/uL Normal 06/24 4 0 - 1 [facility] Eosinophil/leuk NFr Bld Auto 1.3 % Normal 4 0 - 5 [facility] Neutrophils/leuk NFr Bld Auto 52.9 % Normal 4 39 - 72 [facility] MCH RBC Qn Auto 28.0 pg Normal 4 27 - 33 [facility] Imm Granulocytes/leuk NFr Bld Auto 0.2 % Normal 4 0 - 1 [facility] Imm Granulocytes # Bld Auto 0.02 x 1000/uL Normal 4 0 - 0.3 [facility] Hct VFr Bld Auto 38.8 % Normal 4 35 - 45 [facility] MCHC RBC Auto-mCnc 32.5 g/dL Normal 4 31 - 36 [facility] Monocytes/leuk NFr Bld Auto 4.3 % Normal 4 4 - 12 [facility] Basophils/leuk NFr Bld Auto 0.3 % Normal 4 0 - 1.4 [facility] Neutrophils # Bld Auto 5.55 x 1000/uL Normal 4 2 - 7.6 [facility] Monocytes # Bld Auto 0.45 x 1000/uL Normal 06/24 4 0 - 1 [facility] WBC # Bld Auto 10.5 x1000/uL Normal 4 4 - 11 [facility] MCV RBC Auto 86.2 fL Normal 4 80 - 100 [facility] Lymphocytes/leuk NFr Bld Auto 41.0 % Normal 4 17 - 50 [facility] ALP SerPl-cCnc 74.0 U/L Normal 4 9 - 122 [facility] AST/ALT SerPl-cRto 0.5 Normal 4 - [facility] HCO3 SerPl-sCnc 23.0 mmol/L Normal 4 20 - 30 [facility] Glucose SerPl-mCnc 73.0 mg/dL Normal 4 70 - 100 [facility] Bilirub SerPl-mCnc 0.3 mg/dL Normal 4 - [facility] BUN/Creat SerPl 40.6 Above high normal 02 4 8 - 23 [facility] Prot SerPl-mCnc 6.8 g/dL Normal 4 6.6 - 8.7 [facility] Sodium SerPl-sCnc 141.0 mmol/L Normal 4 136 - 144 [facility] Anion Gap3 SerPl-sCnc 11.0 Normal 4 7 - 17 [facility] Creat SerPl-mCnc 0.64 mg/dL Normal 4 0.4 - 1.3 [facility] Potassium SerPl-sCnc 4.1 mmol/L Normal 02 4 3.3 - 5.3 [facility] GFR/BSA.pred SerPlBld JMC-ZGX-AlCJpa >60.0 mL/min/1.73m2 Normal 4 - [facility] BUN SerPl-mCnc 26.0 mg/dL Above high normal 06/25/19 2 4 6 - 20 [facility] Albumin SerPl BCG-mCnc 3.5 g/dL Below low normal 4 3.6 - 4.9 [facility] Globulin Plas-mCnc 3.3 g/dL Normal 4 2.3 - 3.5 [facility] Calcium SerPl-mCnc 8.7 mg/dL Below low normal 06/24 4 8.8 - 10.2 [facility] Chloride SerPl-sCnc 107.0 mmol/L Normal 06/25/19 2 4 98 - 107 [facility] AST SerPl w P-5'-P-cCnc 17.0 U/L Normal 4 10 - 35 [facility] ALT SerPl w/o P-5'-P-cCnc 31.0 U/L Normal 4 10 - 35 [facility] Albumin/Glob SerPl 1.1 Normal 4 1 - 2.2 [facility] BKR DRUGS OF ABUSE NOTE Normal 4 [facility] fentaNYL Ur Ql Scn Positive Abnormal 4 - [facility] fentaNYL Ur Ql Scn Positive Abnormal 4 - [facility] BKR DRUGS OF ABUSE NOTE Normal 4 [facility] BZE Ur Ql Scn Negative Normal 4 - [facility] Cannabinoids Ur Ql Scn Positive Abnormal 4 - [facility] Benzodiaz Ur Ql Scn Positive Abnormal 06/24/19 2 4 - [facility] BKR METHADONE METABOLITE SCREEN, URINE, NO CONF. Negative Normal 4 - [facility] Opiates Ur Ql Scn Negative Normal 4 - [facility] oxyCODONE Ur Ql Scn Negative Normal 06/24/19 2 4 - [facility] Amphetamines Ur Ql Scn Negative Normal 4 - [facility] BKR DRUGS OF ABUSE DISCLAIMER See Comment Normal 4 [facility] Barbiturates Ur Ql Scn Negative Normal 4 - [facility] PCP Ur Ql Scn>25 ng/mL Negative Normal 4 - [facility] nRBC # Bld Auto 0.0 x 1000/uL Normal 4 0 - 1 [facility] MCV RBC Auto 84.9 fL Normal 4 80 - 100 [facility] Basophils/leuk NFr Bld Auto 0.4 % Normal 4 0 - 1.4 [facility] Neutrophils # Bld Auto 7.54 x 1000/uL Normal 4 2 - 7.6 [facility] WBC # Bld Auto 10.8 x1000/uL Normal 4 4 - 11 [facility] Hct VFr Bld Auto 38.8 % Normal 4 35 - 45 [facility] RBC # Bld Auto 4.57 M/uL Normal 4 4 - 6 [facility] Eosinophil # Bld Auto 0.04 x 1000/uL Normal 03/0 4 0 - 1 [facility] Monocytes/leuk NFr Bld Auto 4.1 % Normal 4 4 - 12 [facility] MCH RBC Qn Auto 27.8 pg Normal 4 27 - 33 [facility] Platelet # Bld Auto 313.0 x1000/uL Normal 4 150 - 420 [facility] Basophils # Bld Auto 0.04 x 1000/uL Normal 06/23 4 0 - 1 [facility] nRBC/100 WBC Bld Auto-Rto 0.0 % Normal 4 0 - 1 [facility] Lymphocytes # Bld Auto 2.69 x 1000/uL Normal 4 0.6 - 3.7 [facility] RDW RBC Auto-Rto 13.6 % Normal 4 11 - 15 [facility] Eosinophil/leuk NFr Bld Auto 0.4 % Normal 4 0 - 5 [facility] MCHC RBC Auto-mCnc 32.7 g/dL Normal 4 31 - 36 [facility] Hgb Bld-mCnc 12.7 g/dL Normal 4 11.7 - 15.5 [facility] PMV Bld Auto 11.0 fL Normal 4 8 - 12 [facility] Neutrophils/leuk NFr Bld Auto 69.6 % Normal 4 39 - 72 [facility] Imm Granulocytes # Bld Auto 0.06 x 1000/uL Normal 4 0 - 0.3 [facility] Imm Granulocytes/leuk NFr Bld Auto 0.6 % Normal 4 0 - 1 [facility] Monocytes # Bld Auto 0.44 x 1000/uL Normal 06/23 4 0 - 1 [facility] Lymphocytes/leuk NFr Bld Auto 24.9 % Normal 4 17 - 50 [facility] Chloride SerPl-sCnc 109.0 mmol/L Above high normal 4 98 - 107 [facility] AST SerPl w P-5'-P-cCnc 19.0 U/L Normal 4 10 - 35 [facility] BUN SerPl-mCnc 26.0 mg/dL Above high normal 06/24/19 2 4 6 - 20 [facility] Albumin SerPl BCG-mCnc 4.0 g/dL Normal 4 3.6 - 4.9 [facility] ALP SerPl-cCnc 78.0 U/L Normal 4 9 - 122 [facility] Bilirub SerPl-mCnc 0.2 mg/dL Normal 4 - [facility] AST/ALT SerPl-cRto 0.5 Normal 4 - [facility] ALT SerPl w/o P-5'-P-cCnc 37.0 U/L Above high normal 4 10 - 35 [facility] Anion Gap3 SerPl-sCnc 11.0 Normal 4 7 - 17 [facility] BUN/Creat SerPl 34.7 Above high normal 02 4 8 - 23 [facility] Sodium SerPl-sCnc 141.0 mmol/L Normal 4 136 - 144 [facility] GFR/BSA.pred SerPlBld KIT-NWW-ZrJMjk >60.0 mL/min/1.73m2 Normal 4 - [facility] HCO3 SerPl-sCnc 21.0 mmol/L Normal 4 20 - 30 [facility] Globulin Plas-mCnc 3.6 g/dL Above high normal 4 2.3 - 3.5 [facility] Albumin/Glob SerPl 1.1 Normal 4 1 - 2.2 [facility] Glucose SerPl-mCnc 131.0 mg/dL Above high normal 4 70 - 100 [facility] Calcium SerPl-mCnc 9.3 mg/dL Normal 4 8.8 - 10.2 [facility] Potassium SerPl-sCnc 4.5 mmol/L Normal 02 4 3.3 - 5.3 [facility] Prot SerPl-mCnc 7.6 g/dL Normal 4 6.6 - 8.7 [facility] Creat SerPl-mCnc 0.75 mg/dL Normal 4 0.4 - 1.3 [facility] Methylmalonate SerPl-sCnc 0.12 umol/L Normal 4 0 - 0.4 [facility] ANCA Ab Ser Ql Negative Normal 4 - [facility] DILLON SS-B IgG Ser IA-aCnc <0.6 Alfonso U/mL Normal 4 - 7 [facility] DILLON SS-A Ab Ser IA-aCnc <0.5 Alfonso U/mL Normal 4 - 7 [facility] dsDNA IgG SerPl IA-aCnc 1.1 IU/mL Normal 4 - 10 [facility] BKR HOMOCYSTEINE 8.9 umol/L Normal 4 4 - 15 [facility] BKR ENTEROVIRUS RT-PCR, CSF (YH) Not Detected Normal 4 - [facility] BKR CYTOMEGALOVIRUS RT-PCR, CSF Not Detected Normal 4 - [facility] BKR BRENDA-DIXON VIRUS BY RT-PCR, CSF Not Detected Normal 4 - [facility] VZV DNA CSF Ql MARIO+probe Not Detected Normal 4 - [facility] HSV DNA CSF Ql MARIO+probe Not Detected Normal 4 - [facility] RBC # CSF 11.0 Cells/uL Above high normal 4 - [facility] Nuc cell # CSF 0.0 Cells/uL Normal 4 - 6 [facility] RBC # CSF Manual 407.0 Cells/uL Above high normal 4 - [facility] WBC # CSF Manual 2.0 Cells/uL Normal 4 - 6 [facility] Lymphocytes/leuk NFr CSF Manual 29.0 % Above high normal 4 - [facility] Granulocytes # CSF 57.0 % Above high normal 4 - [facility] Monocytes/leuk NFr CSF Manual 14.0 % Above high normal 4 - [facility] Body fld type Tube 4 Normal 4 [facility] Appearance CSF Clear Normal 4 - [facility] Color CSF No Xanthochromia Normal 4 - [facility] Appearance CSF Clear Normal 4 - [facility] Body fld type Tube 1 Normal 4 [facility] Color CSF No Xanthochromia Normal 4 - [facility] BKR PROTEIN,TOTAL CSF 20.4 mg/dL Normal 4 15 - 45 [facility] Glucose CSF-mCnc 61.0 mg/dL Normal 4 40 - 70 [facility] Rheumatoid fact Ser Neph-aCnc <10.0 IU/mL Normal 4 - 14 [facility] Potassium SerPl-sCnc 4.1 mmol/L Normal 02 4 3.3 - 5.3 [facility] ALT SerPl w/o P-5'-P-cCnc 27.0 U/L Normal 4 10 - 35 [facility] AST/ALT SerPl-cRto 0.5 Normal 4 - [facility] Albumin/Glob SerPl 1.0 Normal 4 1 - 2.2 [facility] Prot SerPl-mCnc 8.0 g/dL Normal 4 6.6 - 8.7 [facility] Creat SerPl-mCnc 0.53 mg/dL Normal 4 0.4 - 1.3 [facility] Albumin SerPl BCG-mCnc 4.0 g/dL Normal 4 3.6 - 4.9 [facility] BUN/Creat SerPl 47.2 Above high normal 02 4 8 - 23 [facility] AST SerPl w P-5'-P-cCnc 13.0 U/L Normal 4 10 - 35 [facility] HCO3 SerPl-sCnc 21.0 mmol/L Normal 4 20 - 30 [facility] Bilirub SerPl-mCnc 0.3 mg/dL Normal 4 - [facility] Chloride SerPl-sCnc 106.0 mmol/L Normal 06/23/19 2 4 98 - 107 [facility] Calcium SerPl-mCnc 9.4 mg/dL Normal 4 8.8 - 10.2 [facility] BUN SerPl-mCnc 25.0 mg/dL Above high normal 06/23/19 2 4 6 - 20 [facility] Anion Gap3 SerPl-sCnc 13.0 Normal 4 7 - 17 [facility] ALP SerPl-cCnc 74.0 U/L Normal 4 9 - 122 [facility] Sodium SerPl-sCnc 140.0 mmol/L Normal 4 136 - 144 [facility] Globulin Plas-mCnc 4.0 g/dL Above high normal 4 2.3 - 3.5 [facility] Glucose SerPl-mCnc 93.0 mg/dL Normal 4 70 - 100 [facility] GFR/BSA.pred SerPlBld LJS-MQA-IuICem >60.0 mL/min/1.73m2 Normal 4 - [facility] Monocytes # Bld Auto 0.55 x 1000/uL Normal 06/22 4 0 - 1 [facility] PMV Bld Auto 10.7 fL Normal 4 8 - 12 [facility] Platelet # Bld Auto 291.0 x1000/uL Normal 4 150 - 420 [facility] RDW RBC Auto-Rto 13.4 % Normal 4 11 - 15 [facility] MCV RBC Auto 84.8 fL Normal 4 80 - 100 [facility] Eosinophil # Bld Auto 0.08 x 1000/uL Normal 4 0 - 1 [facility] nRBC/100 WBC Bld Auto-Rto 0.0 % Normal 4 0 - 1 [facility] Lymphocytes # Bld Auto 3.88 x 1000/uL Above high normal 4 0.6 - 3.7 [facility] Neutrophils # Bld Auto 7.79 x 1000/uL Above high normal 4 2 - 7.6 [facility] RBC # Bld Auto 4.75 M/uL Normal 4 4 - 6 [facility] Monocytes/leuk NFr Bld Auto 4.4 % Normal 4 4 - 12 [facility] MCH RBC Qn Auto 27.8 pg Normal 4 27 - 33 [facility] Hgb Bld-mCnc 13.2 g/dL Normal 4 11.7 - 15.5 [facility] nRBC # Bld Auto 0.0 x 1000/uL Normal 4 0 - 1 [facility] Lymphocytes/leuk NFr Bld Auto 31.3 % Normal 4 17 - 50 [facility] Eosinophil/leuk NFr Bld Auto 0.6 % Normal 4 0 - 5 [facility] Basophils/leuk NFr Bld Auto 0.3 % Normal 4 0 - 1.4 [facility] Basophils # Bld Auto 0.04 x 1000/uL Normal 06/22 4 0 - 1 [facility] MCHC RBC Auto-mCnc 32.8 g/dL Normal 4 31 - 36 [facility] Hct VFr Bld Auto 40.3 % Normal 4 35 - 45 [facility] WBC # Bld Auto 12.4 x1000/uL Above high normal 02 4 4 - 11 [facility] Imm Granulocytes # Bld Auto 0.04 x 1000/uL Normal 4 0 - 0.3 [facility] Imm Granulocytes/leuk NFr Bld Auto 0.3 % Normal 4 0 - 1 [facility] Neutrophils/leuk NFr Bld Auto 63.1 % Normal 4 39 - 72 [facility] Eosinophil # Bld Auto 0.1 x 1000/uL Normal 06/22 4 0 - 1 [facility] nRBC # Bld Auto 0.0 x 1000/uL Normal 4 0 - 1 [facility] MCH RBC Qn Auto 27.7 pg Normal 4 27 - 33 [facility] Basophils # Bld Auto 0.03 x 1000/uL Normal 06/22 4 0 - 1 [facility] nRBC/100 WBC Bld Auto-Rto 0.0 % Normal 4 0 - 1 [facility] Lymphocytes # Bld Auto 3.86 x 1000/uL Above high normal 4 0.6 - 3.7 [facility] Neutrophils/leuk NFr Bld Auto 64.1 % Normal 4 39 - 72 [facility] MCV RBC Auto 83.9 fL Normal 4 80 - 100 [facility] MCHC RBC Auto-mCnc 33.0 g/dL Normal 4 31 - 36 [facility] Monocytes # Bld Auto 0.55 x 1000/uL Normal 06/22 4 0 - 1 [facility] Platelet # Bld Auto 291.0 x1000/uL Normal 4 150 - 420 [facility] Eosinophil/leuk NFr Bld Auto 0.8 % Normal 4 0 - 5 [facility] RDW RBC Auto-Rto 13.4 % Normal 4 11 - 15 [facility] WBC # Bld Auto 12.7 x1000/uL Above high normal 02 4 4 - 11 [facility] Neutrophils # Bld Auto 8.15 x 1000/uL Above high normal 4 2 - 7.6 [facility] Monocytes/leuk NFr Bld Auto 4.3 % Normal 4 4 - 12 [facility] Hgb Bld-mCnc 13.1 g/dL Normal 4 11.7 - 15.5 [facility] Hct VFr Bld Auto 39.7 % Normal 4 35 - 45 [facility] RBC # Bld Auto 4.73 M/uL Normal 4 4 - 6 [facility] PMV Bld Auto 10.6 fL Normal 4 8 - 12 [facility] Imm Granulocytes/leuk NFr Bld Auto 0.3 % Normal 4 0 - 1 [facility] Lymphocytes/leuk NFr Bld Auto 30.3 % Normal 4 17 - 50 [facility] Basophils/leuk NFr Bld Auto 0.2 % Normal 4 0 - 1.4 [facility] Imm Granulocytes # Bld Auto 0.04 x 1000/uL Normal 4 0 - 0.3 [facility] fentaNYL Ur Ql Scn Positive Abnormal 4 - [facility] BKR DRUGS OF ABUSE NOTE Normal 4 [facility] BZE Ur Ql Scn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
[2024-10-16 21:29] LABS: NG PCR Urine NO RESULT (Not Detect.)
[2024-10-24 15:30] LABS: CT PCR Urine NO RESULT (Not Detect.)
== END 2024-10-16 18:06 | disposition home or self-care (01) ==
LOC: HO.HHCLNP 18:05
PROVIDERS: Visit Provider Family Medicine
DX: R30.0 Dysuria (principal); N92.6 Irregular menstruation, unspecified; Z11.3 Encounter for screening for infections with a predominantly sexual mode of transmission
CPT/HCPCS: 36415; 87086; 87088; 87186; 87491; 87591